=== PATIENT | female | born 1935 | race Caucasian/White ===

== ENCOUNTER → 2018-10-21 15:30 | Outpatient (CLI) | payer MEDICARE, SELFPAY ==
[2016-01-30 15:46] VITALS: BMI 36.0
[2018-10-21 16:05] LABS: Magnesium 1.8 mg/dL (1.6-2.6)
== END ==
PROVIDERS: Family Provider Family Medicine; PCP Family Medicine; Referring Provider Family Medicine; Visit Provider Family Medicine
DX: I48.92 Unspecified atrial flutter (principal)
CPT/HCPCS: 83735; 84484

== ENCOUNTER 2018-10-23 14:48 | Emergency (ER) | payer MEDICARE, SELFPAY ==
[2018-10-23 14:49] VITALS: BP 157/70; PULSE 70; RESP 18; TEMP 36.9; O2SAT 97; BMI 28.8
--- NOTE | 2018-10-23 15:07 | ED.VISSUMM ---
- ER Visit Summary Date of Service: 10/23/18 Chief Complaint: [] Irregular heartbeat found yesterday indicates she was forced to come to the hospital by her physicians History of Present Illness: The patient is a 82 F [] patient indicates that basically she has been in her usual state of good health she had a routine visit by her physicians yesterday during that evaluation she is found her regular heartbeat conversations were made with cardiology who recommended she be seen in the emergency room for further management options the patient refused to go to the emergency department as she states she feels fine she has had no chest pain no fever no cough no numbness weakness paresthesias she is basically functioning at her baseline she indicates she has an appointment to see Dr. Caceres of cardiology on Thursday, there was specific persistent concern that she should come to the emergency department so she was brought in she insists is nothing wrong with her, she wants nothing done no lab work etc. she indicates she had EKG yesterday she just wants us to contact cardiology to let them know that she is here and that she prefers to have things done as an outpatient Physical Examination: [] 150/70, she has a heart rate of about 70 it is slightly regular at times appears to be in A. fib but there is underlying sinus on the monitor General, no distress resting comfortably HEENT is generally unremarkable The neck is supple no adenopathy Cardiovascular, regular rate and rhythm with some runs of irregularity on the monitor Lungs, clear bilateral Abdomen, soft nontender Extremities, no clubbing cyanosis or edema Neurologic, awake alert answering questions appropriately moving all 4 extremities Patient is resting comfortably in the bed she is here with family she is awake and alert coherent and competent she does not wish to have any type of ED evaluation she asked that I contact Dr. Caceres to make him aware of that Talk with Dr. Caceres he recalls that the patient had a slight elevation in her troponin as when she went her to be evaluated, I discussed all of the patient and her family she understands all the above she understands the concept of occult cardiac disease and sudden etc. but again she states she feels fine wants to go home and will see Dr. Caceres as scheduled on Thursday and return for change in symptoms Test Results: [] Emergency Department Course and Treatment: [] Treatment Plan: [] Disposition: [] Home stable declined ED workup Impression: [] Irregular heartbeat, reportedly abnormal troponin, This note was generated with [employer] dictation software. It may contain incorrect words, spelling, and punctuation that were not noted in review of the chart prior to signing ED Disposition - Plan for ED Patient: Chief Complaint: General Illness Referrals: Tee Álvarez MD [Primary Care Provider] -
--- NOTE | 2018-10-23 15:12 | ED.DEP ---
ED Disposition - Plan for ED Patient: Chief Complaint: General Illness Instructions: ED Chest Pain Angina Stable, ED Afib Referrals: Tee Álvarez MD [Primary Care Provider] - Additional Instructions: Keep your appointment with Dr. Caceres and return for change in symptoms take 1 baby aspirin a day
[2018-10-23 15:21] VITALS: BP 144/67; PULSE 73; RESP 16; O2SAT 96
== END 2018-10-23 15:57 | disposition home or self-care (01) ==
LOC: ED 15:41
PROVIDERS: Emergency Provider Emergency Medicine; Family Provider Family Medicine; PCP Family Medicine
DX: I48.91 Unspecified atrial fibrillation (principal); R79.89 Other specified abnormal findings of blood chemistry
CPT/HCPCS: 99282

== ENCOUNTER 2022-03-06 11:53 | Inpatient (IN) | payer MEDICARE, MEDICAID, SELFPAY ==
[2022-03-06] VITALS (21 sets, daily range): BP systolic 151–204; BP diastolic 45–85; PULSE 60–77; RESP 16–19; TEMP 35.9–37.7; O2SAT 95–100; BMI 29.2
--- NOTE | 2022-03-06 12:06 | RAD_ITS ---
STUDY: X-RAY CHEST REASON FOR EXAM: Female, 86 years old. weakness TECHNIQUE: Single AP portable view of the chest. COMPARISON: None. FINDINGS: The lungs are clear and expanded. There is no demonstrated pleural abnormality. There is moderate cardiac enlargement. Normal mediastinum and can. Normal visualized pulmonary arteries. Normal visualized aortic arch and descending thoracic aorta. Normal visualized thoracic spine. Normal visualized ribs, clavicles, and shoulders. There is no demonstrated abnormality of the visualized soft tissue structures of the upper abdomen. RAD/Chest 1 View (Portable) IMPRESSION: No active disease. Electronically Signed: Thomas De La Cruz MD at 13:20 EDT ,
--- NOTE | 2022-03-06 12:07 | EKG12_ITS ---
Test Reason : ABNL LABS Blood Pressure : / mmHG Vent. Rate : 072 BPM Atrial Rate : 072 BPM P-R Int : 248 ms QRS Dur : 136 ms QT Int : 422 ms P-R-T Axes : 063 -46 108 degrees QTc Int : 462 ms Sinus rhythm with 1st degree A-V block with occasional Premature ventricular complexes Left axis deviation Non-specific intra-ventricular conduction block T wave abnormality, consider lateral ischemia Abnormal ECG Confirmed by PRINCE LAI, MEAGAN ([id number]), social media editor LEANNA POWERS ([id number]) on 03/12/2022 12:27:01 PM Referred By: NEY Confirmed By:MEAGAN MORRISON MD
[2022-03-06 12:37] LABS: Absolute Lymphocyte Count 2.18 X10^3/uL (0.83-4.51); Absolute Neutrophil Count 4.8 X10^3/uL (2.0-7.7); Basophil# 0.01 X10^3/uL; Basophil% 0.1 % (0-1); Eosinophil# 0.09 X10^3/uL; Eosinophils% 1.2 % (0-5); Hematocrit 15.7 % (37-47); Lymphocyte # 2.18 X10^3/ul (0.83-4.51); Lymphocyte % 27.9 % (19-41); Mean Corp Hgb Conc 32.5 g/dL (32-36); Mean Corpuscular Hgb 36.7 pg (27.0-32.0); Mean Corpuscular Volume 112.9 fL (81-99); Mean Platelet Vol. 9.2 fl (6.2-12.0); Monocyte# 0.67 X10^3/uL; Monocyte% 8.6 % (0-10); NRBC Flagged by Analyzer 0 % (0-5); Neutrophil # 4.81 X10^3/uL (2.7-7.7); Neutrophil % 61.7 % (47-70); POSITIVE COUNT YES; Platelet Count 236 K/mm3 (150-450); RBC Distribution Width SD 58.1 fl (35.1-43.9); Red Blood Count 1.39 M/mm3 (4.2-5.4); White Blood Count 7.8 K/mm3 (4.4-11.0)
[2022-03-06 12:41] LABS: Differential Indicated SCAN CRITERIA MET; Hemoglobin 5.1 g/dL (12.0-15.0)
[2022-03-06 12:42] LABS: International Normalized Ratio 1.5; Prothrombin Time (Protime)PT. 17.9 SECONDS (11.7-14.9)
[2022-03-06 12:43] LABS: Partial Thromboplast Time 33.8 Seconds (24.1-36.2)
[2022-03-06 12:49] LABS: Anion Gap 7 (5-15); BUN 25 mg/dL (7-18); Calcium,Total 9.5 mg/dL (8.5-10.1); Chloride 99 mmol/L (98-107); Creatinine, Serum 1.78 mg/dL (0.55-1.02); EST Glomerular Filtration Rate 29 mL/min (>60); Est Glom Filt Rate - Afr Amer 35 mL/min (>60); Estimated Creatinine Clearance 17.44 ml/min; Glucose 202 mg/dL (74-106); Potassium 4.2 mmol/L (3.5-5.1); Sodium Level 132 mmol/L (136-145)
--- NOTE | 2022-03-06 12:52 | EX.ED.DYSGE1 ---
HPI History of Present Illness Chief Complaint: Abn Labs Informant: patient and family Narrative Narrative: Patient is an 86-year-old female on chronic Xarelto as well as with chronic anemia presenting with worsening of her chronic anemia. She had outpatient blood work that showed a hemoglobin of 5.1. She follows with Dr. Oliva, hematology oncology. She has had a prior bone marrow biopsy for her anemia which was. Patient is receiving subcu Procrit weekly. Patient notes for the past 5 days she has been feeling worse. She had increased generalized weakness and shortness of breath. She also had a mild cough today. She denies any black or blood in her stool. Daughter states that they think it is her kidneys for the reason of her anemia. Patient denies any other acute complaints at this time. Paperwork faxed over from her hub associate office shows a hemoglobin of 5.1 drawn today. On 02/19 her hemoglobin is 7.5 and on 02/12 her hemoglobin is 7.3. [facility] Medical History Asthma Chronic atrial flutter Chronic kidney disease Essential (primary) hypertension Gout Hyperlipidemia Hypothyroidism Macrocytic anemia Obesity Tremor Type 2 diabetes mellitus Ventral hernia Home Medications allopurinol 100 mg PO DAILY 01/30/16 [History Last Taken Unknown] docusate sodium 100 mg PO DAILY 01/30/16 [History Last Taken Unknown] ferrous gluconate 325 mg PO DAILY 01/30/16 [History Last Taken 2 Days Ago ~02/11/16] fluticasone propion-salmeterol 1 puff INHALATION BID 01/30/16 [History Last Taken Unknown] indapamide 2.5 mg PO DAILY 01/30/16 [History Last Taken Unknown] montelukast 10 mg PO DAILY 01/30/16 [History Last Taken Unknown] nifedipine 60 mg PO DAILY 01/30/16 [History Last Taken Unknown] olmesartan 20 mg PO DAILY 01/30/16 [History Last Taken Unknown] potassium chloride 10 meq PO DAILY 01/30/16 [History Last Taken Unknown] simvastatin 20 mg PO QHS 01/30/16 [History Last Taken Unknown] albuterol sulfate 90 mcg/actuation aerosol inhaler INHALATION #18 g 04/19/19 [History Last Taken Unknown] gabapentin 300 mg capsule 300 mg PO TID cap 04/19/19 [History Last Taken Unknown] levothyroxine 137 mcg tablet 137 mcg PO DAILY #30 tab 04/19/19 [History Last Taken Unknown] metformin 500 mg 24 hr tablet,extended release 500 mg PO BID tab 04/19/19 [History Last Taken Unknown] metoprolol tartrate 25 mg tablet 12.5 mg PO BID tab 04/19/19 [History Last Taken Unknown] rivaroxaban 20 mg tablet 20 mg PO QPM #30 tab 04/19/19 [History Last Taken Unknown] calcium carbonate 600 mg-vitamin D3 20 mcg (800 unit) tablet 1 tab PO DAILY 08/23/21 [History Last Taken Unknown] glipizide 2.5 mg tablet, extended release 24 hr 7.5 mg PO DAILY tab 08/23/21 [History Last Taken Unknown] mecobalamin (vitamin B12) 5,000 mcg disintegrating tablet mcg PO 08/23/21 [History Last Taken Unknown] multivitamin 1 tab PO DAILY 08/23/21 [History Last Taken Unknown] Allergy/AdvReac Type Severity Reaction Status Date / Time propranolol AdvReac nausea Verified 03/06/22 11:56 Family History Mother Heart disease chf Father Heart disease chf Surgical History Bilateral artificial lens implant (~2019) History of tonsillectomy and adenoidectomy Social History Smoking Status: Never smoker alcohol intake: never substance use type: does not use caffeine: No ROS ROS ED Constitutional Constitutional ED: Denies chills or fever(s) Eyes Eyes: Denies change in vision ENT ENT ED: Denies ear pain or sore throat Cardiovascular Cardiovascular: Denies chest pain Respiratory/Chest Respiratory/Chest: Reports cough, dyspnea and dyspnea on exertion Gastrointestinal Gastrointestinal: Denies abdominal pain, diarrhea, melena, nausea or vomiting Genitourinary Genitourinary ED: Denies dysuria or hematuria Musculoskeletal Musculoskeletal: Denies myalgias Integumentary Denies rash Neurologic Neurologic: Reports weakness; Denies headache(s) EXAM Physical Exam Const Vital Signs: 03/06/22 11:53 03/06/22 12:19 Temperature 97.5 F L Temperature Source Temporal Pulse Rate 65 Respiratory Rate 16 Respiratory Effort Normal Respiratory Pattern Normal Blood Pressure 162/45 H Blood Pressure Mean 84 Pulse Ox 100 Oxygen Delivery Method Room Air Positive well nourished and well developed General Appearance ED: well developed, NAD and pallor HEENT Reports moist mucous membranes Negative for trauma Eyes PERRL and EOMs intact bilaterally General Eye ED: Yes pale conjunctiva Neck supple and no JVD Chest Wall inspection of chest normal Resp normal respiratory effort and clear to auscultation bilaterally Cardio regular rate, regular rhythm and no murmurs GI normal to inspection, nondistended, normoactive bowel sounds Back/Spine no CVA tenderness Extremity normal to inspection General Extremety ED: Negative for edema or tenderness General Extremity: Negative for edema Neuro oriented x3 Sensorium / Orientation: alert Motor Exam: general weakness Psych mental status grossly normal Skin no rashes or lesions noted General Skin Exam: pallor MDM MDM MDM Narrative Medical decision making narrative: Patient's evaluated for generalized weakness, worsening shortness of breath and worsening of her chronic anemia. Has a hemoglobin of 5.1. Will be transfused. Rectal exam shows brown stool that is Hemoccult negative. Patient does not appear to have high-output heart failure. She has chronic renal disease with a creatinine of 1.78. Most recent prior creatinine in our system was from 2017 so her actual baseline is not clear. Patient is consented for blood. Will be admitted for transfusion of 2 units and then further monitoring. Patient agreeable this plan of care. Patient hemodynamically stable in the emergency room. Lab Data Attestation: I reviewed the patient's lab results. Labs: Laboratory Results - last 24 hr 03/06/22 03/06/22 03/06/22 12:25 12:25 12:25 WBC 7.8 RBC 1.39 L Hgb 5.1 L* Hct 15.7 L MCV 112.9 H MCH 36.7 H MCHC 32.5 RDW Std Deviation 58.1 H RDW Coeff of Gloria 15.0 H Plt Count 236 MPV 9.2 Immature Gran % (Auto) 0.500 Neut % (Auto) 61.7 Lymph % (Auto) 27.9 Pettis % (Auto) 8.6 Eos % (Auto) 1.2 Baso % (Auto) 0.1 Absolute Neuts (auto) 4.8 Absolute Lymphs (auto) 2.18 Nucleated RBC % 0 Differential Comment SCANNED Diff Path Review May foll Anisocytosis 2+ Macrocytosis 2+ PT 17.9 H INR 1.5 APTT 33.8 Sodium 132 L Potassium 4.2 Chloride 99 Carbon Dioxide 26.0 Anion Gap 7 BUN 25 H Creatinine 1.78 H Estim Creat Clear Calc 17.44 Est GFR (MDRD) Af Amer 35 L Est GFR (MDRD) Non-Af 29 L BUN/Creatinine Ratio 14.0 Glucose 202 H Calcium 9.5 Urine Color Urine Clarity Urine pH Ur Specific [place] Urine Protein Urine Glucose (UA) Urine Ketones Urine Occult Blood Urine Nitrite Urine Bilirubin Urine Urobilinogen Ur Leukocyte Esterase Urine RBC Urine WBC Ur Squamous Epith Cells Urine Bacteria Urine Mucus Blood Type Antibody Screen Crossmatch 03/06/22 03/06/22 12:25 13:20 WBC RBC Hgb Hct MCV MCH MCHC RDW Std Deviation RDW Coeff of Gloria Plt Count MPV Immature Gran % (Auto) Neut % (Auto) Lymph % (Auto) Pettis % (Auto) Eos % (Auto) Baso % (Auto) Absolute Neuts (auto) Absolute Lymphs (auto) Nucleated RBC % Differential Comment Diff Path Review Anisocytosis Macrocytosis PT INR APTT Sodium Potassium Chloride Carbon Dioxide Anion Gap BUN Creatinine Estim Creat Clear Calc Est GFR (MDRD) Af Amer Est GFR (MDRD) Non-Af BUN/Creatinine Ratio Glucose Calcium Urine Color Yellow Urine Clarity Sl. Cloudy Urine pH 8.0 Ur Specific [place] 1.010 Urine Protein Negative Urine Glucose (UA) Normal Urine Ketones Negative Urine Occult Blood 10 H Urine Nitrite Negative Urine Bilirubin Negative Urine Urobilinogen Normal Ur Leukocyte Esterase 25 H Urine RBC 0-5 SEEN Urine WBC 0-5 SEEN Ur Squamous Epith Cells 0-5 SEEN Urine Bacteria 1+ Urine Mucus 0 SEEN Blood Type O POSITIVE Antibody Screen NEGATIVE Crossmatch See Detail Radiography Chest X-Ray - ED: 1 View, Read by ED Physician, Read by Radiologist and No Acute Disease Diagnostic Testing: Clinical Impression(s) from Imaging Studies Chest X-Ray 03/06/22 12:06 IMPRESSION: No active disease. Electronically Signed: Thomas De La Cruz MD at 13:20 EDT , Rhythm Strip Rhythm Strip: Sinus Rhythm Rate: 72 Ectopy: None EKG Initial EKG: Attestation: I personally reviewed and interpreted this EKG as follows: Interpretation: Sinus Rhythm Comments: Normal sinus rhythm at a rate of 72 with first-degree AV block TN interval 248 QRS 136 QTC 462 Left axis deviation Nonspecific interventricular conduction delay Non-STEMI T wave inversion in aVL with T wave flattening in 1 Discharge Plan Triage Chief Complaint: Abn Labs ED Provider: Lia Carpenter Dx/Rx/DC Orders Clinical Impression: Acute on chronic anemia, Chronic anticoagulation, Symptomatic anemia Prescriptions: No Action albuterol sulfate 90 mcg/actuation HFA aerosol inhaler INHALATION Qty: 18 RF: 0 metoprolol tartrate 25 mg tablet 12.5 mg PO BID RF: 0 levothyroxine 137 mcg tablet 137 mcg PO DAILY Qty: 30 RF: 0 rivaroxaban 20 mg tablet 20 mg PO QPM Qty: 30 RF: 0 glipizide 2.5 mg tablet extended release 24hr 7.5 mg PO DAILY RF: 0 multivitamin Tablet 1 tab PO DAILY RF: 0 calcium carbonate-vitamin D3 600 mg(1,500mg) -800 unit tablet 1 tab PO DAILY RF: 0 mecobalamin (vitamin B12) 5,000 mcg tablet,disintegrating PO RF: 0 fluticasone propion-salmeterol 1 PUFF inhaler 1 puff inhalation BID RF: 0 indapamide 2.5 MG tablet 2.5 mg PO DAILY RF: 0 potassium chloride 10 MEQ tablet extended release 10 meq PO DAILY RF: 0 allopurinol 100 MG tablet 100 mg PO DAILY RF: 0 nifedipine 60 MG tablet 60 mg PO DAILY RF: 0 simvastatin 20 MG tablet 20 mg PO QHS RF: 0 docusate sodium 100 MG capsule 100 mg PO DAILY RF: 0 montelukast 10 MG tablet 10 mg PO DAILY RF: 0 olmesartan 20 MG tablet 20 mg PO DAILY RF: 0 ferrous gluconate 325 MG tablet 325 mg PO DAILY RF: 0 gabapentin 300 mg capsule 300 mg PO TID RF: 0 metformin 500 mg tablet,ER gillian.retention 24 hr 500 mg PO BID RF: 0 Primary Care Provider: Tee Álvarez Referrals: Tee Álvarez MD [Primary Care Provider] - Disposition Disposition: Acute Care [facility]
[2022-03-06 13:04] LABS: Differential Comment SCANNED
[2022-03-06 13:05] LABS: Anisocytosis 2+; Macrocytosis 2+
[2022-03-06 13:26] LABS: Mucous, Urine 0 SEEN /hpf (<or=2+)
[2022-03-06 13:27] LABS: Color, Urine Yellow (Yellow); Glucose, Dipstick Normal (Normal); Ketone-Dipstick Negative (Negative); Leukocyte Esterase-Dipstick 25 /ul (Negative); Nitrite-Dipstick Negative (Negative); Occult Blood-Urine 10 /ul (Negative); Protein-Dipstick Negative (Negative); Urine Bilirubin Dipstick Negative (Negative); Urine Clarity Sl. Cloudy (Clear); Urine Urobilinogen Normal (Normal)
[2022-03-06 13:33] LABS: Bacteria 1+ /hpf (None Seen); Red Blood Cells-Urine 0-5 SEEN /hpf (0-5); Squamous Epithelial Cells - UA 0-5 SEEN /hpf (5-10); White Blood Cells 0-5 SEEN /hpf (0-5)
--- NOTE | 2022-03-06 14:28 | PCM.HP.STD ---
Documented by User: JONATHAN Jiménez 03/06/22 14:46 HPI - General General Date of Admission: 03/06/22 Date of Service: 03/06/22 Chief Complaint: Shortness of breath, fatigue HPI Narrative IRENA EASTON, is a 86 F who presents with complaints of shortness of breath and fatigue which has been worsening over the past 2 weeks. Patient states that she has been following with Dr. Oliva for outpatient evaluation of her anemia and when her labs were completed today she was noted to be severely anemic with a hemoglobin less than 7. Labs completed in ER shows a hemoglobin of 5.1. Patient has been ordered 2 units of packed red blood cells to be infused by Dr. Carpenter in the ER. Patient has a history of atrial fibrillation, hypertension, hyperlipidemia, diabetes mellitus type 2, hypothyroidism, iron deficiency anemia. [facility] Medical History Asthma Chronic atrial flutter Chronic kidney disease Essential (primary) hypertension Gout Hyperlipidemia Hypothyroidism Macrocytic anemia Obesity Tremor Type 2 diabetes mellitus Ventral hernia Home Medications allopurinol 100 mg PO DAILY 01/30/16 [History Last Taken Unknown] docusate sodium 100 mg PO DAILY 01/30/16 [History Last Taken Unknown] ferrous gluconate 325 mg PO DAILY 01/30/16 [History Last Taken 2 Days Ago ~02/11/16] fluticasone propion-salmeterol 1 puff INHALATION BID 01/30/16 [History Last Taken Unknown] indapamide 2.5 mg PO DAILY 01/30/16 [History Last Taken Unknown] montelukast 10 mg PO DAILY 01/30/16 [History Last Taken Unknown] nifedipine 60 mg PO DAILY 01/30/16 [History Last Taken Unknown] olmesartan 20 mg PO DAILY 01/30/16 [History Last Taken Unknown] potassium chloride 10 meq PO DAILY 01/30/16 [History Last Taken Unknown] simvastatin 20 mg PO QHS 01/30/16 [History Last Taken Unknown] albuterol sulfate 90 mcg/actuation aerosol inhaler INHALATION #18 g 04/19/19 [History Last Taken Unknown] gabapentin 300 mg capsule 300 mg PO TID cap 04/19/19 [History Last Taken Unknown] levothyroxine 137 mcg tablet 137 mcg PO DAILY #30 tab 04/19/19 [History Last Taken Unknown] metformin 500 mg 24 hr tablet,extended release 500 mg PO BID tab 04/19/19 [History Last Taken Unknown] metoprolol tartrate 25 mg tablet 12.5 mg PO BID tab 04/19/19 [History Last Taken Unknown] rivaroxaban 20 mg tablet 20 mg PO QPM #30 tab 04/19/19 [History Last Taken Unknown] calcium carbonate 600 mg-vitamin D3 20 mcg (800 unit) tablet 1 tab PO DAILY 08/23/21 [History Last Taken Unknown] glipizide 2.5 mg tablet, extended release 24 hr 7.5 mg PO DAILY tab 08/23/21 [History Last Taken Unknown] mecobalamin (vitamin B12) 5,000 mcg disintegrating tablet mcg PO 08/23/21 [History Last Taken Unknown] multivitamin 1 tab PO DAILY 08/23/21 [History Last Taken Unknown] Allergy/AdvReac Type Severity Reaction Status Date / Time propranolol AdvReac nausea Verified 03/06/22 11:56 Family History Mother Heart disease chf Father Heart disease chf Surgical History Bilateral artificial lens implant (~2019) History of tonsillectomy and adenoidectomy Social History Smoking Status: Never smoker alcohol intake: never substance use type: does not use caffeine: No ROS Constitutional Constitutional: Reports fatigue and weakness; Denies anorexia, chills, fever(s) or malaise Cardiovascular Cardiovascular: Denies chest pain, edema, orthopnea, palpitations or syncope Respiratory/Chest Respiratory/Chest: Reports shortness of breath with exertion; Denies cough or wheezing Gastrointestinal Gastrointestinal: Denies abdominal pain, constipation, diarrhea, nausea or vomiting Genitourinary Genitourinary: Denies dysuria Musculoskeletal Musculoskeletal: Denies back pain, extremity pain, joint pain or joint stiffness Integumentary Integumentary: Denies dry skin Neurologic Neurologic: Denies abnormal gait, abnormal speech, confusion or dizziness Psychiatric Psychiatric: Denies anxiety or depression Endocrine Endocrinology: Denies change in body appearance Hematologic/Lymphatic Hematologic/Lymphatic: Reports anemia; Denies easy bleeding Vital Signs Vital Signs Vital Signs: 03/06/22 11:53 05/26/22 12:19 Temperature 97.5 F L Temperature Source Temporal Pulse Rate 65 Respiratory Rate 16 Respiratory Effort Normal Respiratory Pattern Normal Blood Pressure 162/45 H Blood Pressure Mean 84 Pulse Ox 100 Oxygen Delivery Method Room Air Weight Weight: 155 lb Body Mass Index (BMI) 29.2 Physical Exam Const alert, oriented x3 and no apparent distress General Appearance: cooperative HEENT normocephalic and head/scalp atraumatic Eyes conjunctivae normal and no scleral icterus Neck supple General: trachea midline Lymph Lymphatic: no lymphadenopathy noted Resp normal respiratory effort, normal air movement and clear to auscultation bilaterally Effort and Inspection: able to speak in complete sentences and symmetric chest movement Cardio regular rate, regular rhythm, S1 normal heart sound, S2 normal heart sound and peripheral pulses 2+ throughout GI normal to inspection, nondistended, normoactive bowel sounds, soft to palpation and non-tender Extremity normal capillary refill and no clubbing, cyanosis or edema Skin General Skin Exam: no breakdown and turgor normal Lesions: no lesions Rashes: no rashes Neuro no focal motor deficits and no sensory deficits noted Motor Exam: general weakness Psych thought process normal, cooperative and affect normal Appearance: appropriate Results Lab / Micro Data Result Diagrams: 03/06/22 12:25 03/06/22 12:25 Labs: Laboratory Results - last 24 hr 03/06/22 12:25: WBC 7.8, RBC 1.39 L, Hgb 5.1 L*, Hct 15.7 L, MCV 112.9 H, MCH 36.7 H, MCHC 32.5, RDW Std Deviation 58.1 H, RDW Coeff of Gloria 15.0 H, Plt Count 236, MPV 9.2, Immature Gran % (Auto) 0.500, Neut % (Auto) 61.7, Lymph % (Auto) 27.9, Emm[place] % (Auto) 8.6, Eos % (Auto) 1.2, Baso % (Auto) 0.1, Absolute Neuts (auto) 4.8, Absolute Lymphs (auto) 2.18, Nucleated RBC % 0, Differential Comment SCANNED, Diff Path Review May foll, Anisocytosis 2+, Macrocytosis 2+ 03/06/22 12:25: PT 17.9 H, INR 1.5, APTT 33.8 03/06/22 12:25: Sodium 132 L, Potassium 4.2, Chloride 99, Carbon Dioxide 26.0, Anion Gap 7, BUN 25 H, Creatinine 1.78 H, Estim Creat Clear Calc 17.44, Est GFR (MDRD) Af Amer 35 L, Est GFR (MDRD) Non-Af 29 L, BUN/Creatinine Ratio 14.0, Glucose 202 H, Calcium 9.5 03/06/22 12:25: Blood Type O POSITIVE, Antibody Screen NEGATIVE, Crossmatch See Detail 03/06/22 13:20: Urine Color Yellow, Urine Clarity Sl. Cloudy, Urine pH 8.0, Ur Specific [place] 1.010, Urine Protein Negative, Urine Glucose (UA) Normal, Urine Ketones Negative, Urine Occult Blood 10 H, Urine Nitrite Negative, Urine Bilirubin Negative, Urine Urobilinogen Normal, Ur Leukocyte Esterase 25 H, Urine RBC 0-5 SEEN, Urine WBC 0-5 SEEN, Ur Squamous Epith Cells 0-5 SEEN, Urine Bacteria 1+, Urine Mucus 0 SEEN Micro: Microbiology 03/06/22 13:45 Stool Stool Occult Blood (INGRID) - Final 03/06/22 13:10 Nasal Secretion SARS-CoV-2 Antigen (Rapid) - Final Rhythm Strip Rhythm Strip: Sinus Rhythm Rate: 72 Ectopy: None Radiology Impression Chest X-Ray 03/06/22 12:06 IMPRESSION: No active disease. Electronically Signed: Thomas De La Cruz MD at 13:20 EDT Reading Location ID and State: [address] [place] [address] Tel , Service support , Assessment & Plan Assessment/Plan (1) Acute on chronic anemia: (2) Chronic anticoagulation: (3) Symptomatic anemia: PLAN: 1. Acute on chronic symptomatic anemia -Admit to PCU for cardiac monitoring -Transfused 2 units PRBCs and recheck hemoglobin -CBC and CMP in a.m. -PT and OT to eval and treat -Continue ferrous gluconate -Stool occult negative for blood -Iron studies ordered -Hold Xarelto 2. Chronic kidney disease stage IIIb -Patient's lab values consistent with baseline -Daily CMP 3. Diabetes mellitus type 2 -We will hold p.o. medications at this time -ACH S blood sugars with sliding scale insulin ordered 4. Hypothyroidism -Continue levothyroxine 5. Hypertension -Continue indapamide, nifedipine. -Vital signs per protocol 6. Hyperlipidemia -Continue statin DVT prophylaxis-SCDs This patient was seen by JONATHAN Jiménez under the supervision of Dr. Saunders. 31 minutes spent in clinical coordination of patient's plan of care. Documented by User: Dr. Abida Saunders MD 03/06/22 16:49 HPI - General General Date of Admission: 03/06/22 [facility] Medical History Asthma Chronic atrial flutter Chronic kidney disease Essential (primary) hypertension Gout Hyperlipidemia Hypothyroidism Macrocytic anemia Obesity Tremor Type 2 diabetes mellitus Ventral hernia Home Medications allopurinol 100 mg PO DAILY 01/30/16 [History Last Taken Unknown] docusate sodium 100 mg PO DAILY 01/30/16 [History Last Taken Unknown] ferrous gluconate 325 mg PO DAILY 01/30/16 [History Last Taken 2 Days Ago ~02/11/16] fluticasone propion-salmeterol 1 puff INHALATION BID 01/30/16 [History Last Taken Unknown] indapamide 2.5 mg PO DAILY 01/30/16 [History Last Taken Unknown] montelukast 10 mg PO DAILY 01/30/16 [History Last Taken Unknown] nifedipine 60 mg PO DAILY 01/30/16 [History Last Taken Unknown] olmesartan 20 mg PO DAILY 01/30/16 [History Last Taken Unknown] potassium chloride 10 meq PO DAILY 01/30/16 [History Last Taken Unknown] simvastatin 20 mg PO QHS 01/30/16 [History Last Taken Unknown] albuterol sulfate 90 mcg/actuation aerosol inhaler INHALATION #18 g 04/19/19 [History Last Taken Unknown] gabapentin 300 mg capsule 300 mg PO TID cap 04/19/19 [History Last Taken Unknown] levothyroxine 137 mcg tablet 137 mcg PO DAILY #30 tab 07/09/19 [History Last Taken Unknown] metformin 500 mg 24 hr tablet,extended release 500 mg PO BID tab 04/19/19 [History Last Taken Unknown] metoprolol tartrate 25 mg tablet 12.5 mg PO BID tab 04/19/19 [History Last Taken Unknown] rivaroxaban 20 mg tablet 20 mg PO QPM #30 tab 04/19/19 [History Last Taken Unknown] calcium carbonate 600 mg-vitamin D3 20 mcg (800 unit) tablet 1 tab PO DAILY 08/23/21 [History Last Taken Unknown] glipizide 2.5 mg tablet, extended release 24 hr 7.5 mg PO DAILY tab 08/23/21 [History Last Taken Unknown] mecobalamin (vitamin B12) 5,000 mcg disintegrating tablet mcg PO 08/23/21 [History Last Taken Unknown] multivitamin 1 tab PO DAILY 08/23/21 [History Last Taken Unknown] Allergy/AdvReac Type Severity Reaction Status Date / Time propranolol AdvReac nausea Verified 03/06/22 11:56 Family History Mother Heart disease chf Father Heart disease chf Surgical History Bilateral artificial lens implant (~2019) History of tonsillectomy and adenoidectomy Social History Smoking Status: Never smoker alcohol intake: never substance use type: does not use caffeine: No Results Lab / Micro Data Result Diagrams: 03/06/22 12:25 03/06/22 12:25 Charges/Coding Addendum Addendum: This patient was seen in conjunction with Lenny Hayward NP. I have independently interviewed and examined the patient and reviewed pertinent historical, laboratory, and other data. I have reviewed her note and concur with her documentation 86-year-old female past medical history of atrial fibrillation/atrial flutter, on Xarelto, chronic microcytic anemia who comes in with abnormal blood work. Patient follows up with oncology in the outpatient. She has had work-up for severe anemia with normal bone marrow. Her anemia was believed to be secondary to her chronic kidney disease. She was due to start with Epogen/Procrit treatment.. Hemoglobin on 02/19/2022 was 7.5, hemoglobin on 02/12/2022 was 7.3. Patient presents hemoglobin 5.1. Denies any chest pain or dizziness or palpitation. Admits to fatigue and shortness of breath. She was started on 2 units of packed RBC. Physical Exam: Gen: Comfortable, pale, not jaundiced, appears very frail CVS:HS I +II, regular, no murmurs RESP: Diminished at lung bases GI: BS present and normal, soft, nontender, no palpable organs EXT:No edema Labs: WBC count is 7.8, hemoglobin 5.1, platelet count 230, INR 1.5, BUN 25, creatinine 1.78, iron sat 21.9, TIBC 310, iron 68, ferritin 374 ASSESSMENT: 1. Severe iron deficiency anemia 2. Chronic atrial fibrillation 3. Hypertension 4. Hyperlipidemia Plan: Transfuse 2 units of packed RBC Repeat H&H PT and OT to evaluate and treat Repeat blood work in a.m. Time spent taking history, physical examination, answering questions from patient and her daughter at bedside: 45 minutes Visit Charges Inpatient E&M: 58226 Init Hosp L3
[2022-03-06 15:14] LABS: Ferritin 374 ng/mL (8-252); Iron 68 ug/dL (50-170); Iron Binding Capacity,Total 310 ug/dL (250-450); PERCENT IRON SATURATION 21.9 % (15.0-55.0)
[2022-03-06 16:06] LABS: Bedside Glucose 129 mg/dL (74-106)
[2022-03-06] MEDS: Furosemide 40 MG/4 ML Vial IV (16:27)
[2022-03-06] MEDS: Glucerna Shake 120 ML LIQUID PO ×2 (16:41→22:30)
[2022-03-06] MEDS: hydrALAZINE 20 MG/ML Vial 5 MG IV (18:25)
[2022-03-06] MEDS: Budesonide Respules 0.5 MG/2 ML AMPUL.NEB. INHALATION (19:19)
[2022-03-06] MEDS: Albuterol 2.5 MG/3 ML VIAL.NEB. INHALATION (19:19)
[2022-03-06] MEDS: Acetaminophen 325 MG Tablet 650 MG PO (22:29)
[2022-03-06] MEDS: Atorvastatin Calcium 20 MG Tablet PO (22:37)
[2022-03-06] MEDS: Gabapentin 300 MG Capsule PO (22:41)
[2022-03-06] MEDS: Insulin Lispro 100 UNIT/ML INSULN.PEN SC (22:44)
[2022-03-07] VITALS (7 sets, daily range): BP systolic 129–154; BP diastolic 47–70; PULSE 57–106; RESP 12–18; TEMP 36.6–36.9; O2SAT 96–100
[2022-03-07 05:56] LABS: Absolute Lymphocyte Count 1.94 X10^3/uL (0.83-4.51); Absolute Neutrophil Count 12.4 X10^3/uL (2.0-7.7); Basophil# 0.01 X10^3/uL; Basophil% 0.1 % (0-1); Eosinophil# 0.02 X10^3/uL; Eosinophils% 0.1 % (0-5); Hemoglobin 8.4 g/dL (12.0-15.0); Lymphocyte # 1.94 X10^3/ul (0.83-4.51); Lymphocyte % 12.6 % (19-41); Mean Corp Hgb Conc 33.6 g/dL (32-36); Mean Corpuscular Hgb 33.3 pg (27.0-32.0); Mean Corpuscular Volume 99.2 fL (81-99); Mean Platelet Vol. 9.7 fl (6.2-12.0); Monocyte# 0.94 X10^3/uL; Monocyte% 6.1 % (0-10); NRBC Flagged by Analyzer 0 % (0-5); Neutrophil # 12.38 X10^3/uL (2.7-7.7); Neutrophil % 80.6 % (47-70); POSITIVE MORPHOLOGY YES; Platelet Count 243 K/mm3 (150-450); RBC Distribution Width CV 22.7 % (11.6-14.6); RBC Distribution Width SD 78.3 fl (35.1-43.9); Red Blood Count 2.52 M/mm3 (4.2-5.4); White Blood Count 15.4 K/mm3 (4.4-11.0)
[2022-03-07 05:59] LABS: Differential Indicated SCAN CRITERIA MET
[2022-03-07] MEDS: Levothyroxine 137 MCG Tablet PO (05:59)
[2022-03-07] MEDS: Gabapentin 300 MG Capsule PO ×2 (06:02→13:11)
[2022-03-07 06:21] LABS: Bedside Glucose 161 mg/dL (74-106)
[2022-03-07 06:23] LABS: ALB/GLOB Ratio 0.9 RATIO (0.9-2.4); AST(SGOT) 17 U/L (15-37); Alanine Aminotransfer ALT/SGPT 16 U/L (13-56); Albumin, Serum 3.1 g/dL (3.2-5.0); Alkaline Phosphatase 50 U/L (45-117); Anion Gap 8 (5-15); BUN 25 mg/dL (7-18); Calcium,Total 9.1 mg/dL (8.5-10.1); Chloride 97 mmol/L (98-107); Creatinine, Serum 1.93 mg/dL (0.55-1.02); EST Glomerular Filtration Rate 26 mL/min (>60); Est Glom Filt Rate - Afr Amer 32 mL/min (>60); Estimated Creatinine Clearance 16.08 ml/min; Globulin 3.3 g/dL (2.2-4.2); Glucose 167 mg/dL (74-106); Protein, Total 6.4 g/dL (6.4-8.2); Sodium Level 132 mmol/L (136-145)
[2022-03-07 06:36] LABS: Anisocytosis 1+; Differential Comment SCANNED; Polychromasia RARE
[2022-03-07 06:37] LABS: Hypochromasia 1+
[2022-03-07 06:45] LABS: Bedside Glucose 164 mg/dL (74-106)
[2022-03-07] MEDS: Insulin Lispro 100 UNIT/ML INSULN.PEN SC ×2 (06:50→11:26)
--- NOTE | 2022-03-07 07:15 | US_ITS ---
HISTORY: GAY. TECHNIQUE: Brewster scale and color doppler images were obtained of the kidneys. 69 images. COMPARISON: None. FINDINGS: RIGHT KIDNEY: 9.7 cm in length with a cortical thickness of 1 cm. Echogenicity unremarkable. No hydronephrosis. No gross renal mass demonstrated. LEFT KIDNEY: 10.3 cm in length with a cortical thickness of 1.2 cm. Echogenicity unremarkable. No hydronephrosis. 1.3 x 1.1 x 1.2 cm cyst. URINARY BLADDER: Bilateral ureteral jets visualized. 3 mm wall thickness, not thickened. US/Kidney and Bladder IMPRESSION: No evidence of hydronephrosis. Small left renal cyst. Electronically Signed: Brigida Wharton MD at 8:23 EDT ,
[2022-03-07] MEDS: Albuterol 2.5 MG/3 ML VIAL.NEB. INHALATION ×2 (07:16→12:30)
[2022-03-07] MEDS: Budesonide Respules 0.5 MG/2 ML AMPUL.NEB. INHALATION (07:16)
[2022-03-07] MEDS: Indapamide 2.5 MG Tablet PO (08:33)
[2022-03-07] MEDS: NIFEdipine 60 MG Tablet PO (08:34)
[2022-03-07] MEDS: Docusate Sodium 100 MG Capsule PO (08:34)
[2022-03-07] MEDS: Ferrous Sulfate 325 MG Tablet PO (08:34)
[2022-03-07] MEDS: Potassium Chloride Oral Tablet 10 MEQ PO (08:34)
[2022-03-07] MEDS: Multivitamins,Therapeutic Tablet 1 TABLET PO (08:34)
[2022-03-07] MEDS: Glucerna Shake 120 ML LIQUID PO ×2 (08:41→08:44)
[2022-03-07] MEDS: Montelukast 10 MG Tablet PO (08:41)
--- NOTE | 2022-03-07 09:07 | PCM.PN.HOSP ---
Subjective Subjective Seen and examined. Patient in bed eating breakfast no distress noted. Patient reports that she is feeling better than yesterday and does not feel short of breath at this time. Patient received 2 units packed red blood cells overnight and hemoglobin went from 5.1-8.4. Objective Data Objective Data Vital Signs: Vital Signs Temp Pulse Resp BP Pulse Ox 97.9 F 68 18 154/56 H 96 03/07/22 08:31 03/07/22 08:31 03/07/22 08:31 03/07/22 08:31 03/07/22 08:31 Oxygen Delivery Method Room Air Weight: 159 lb 9.835 oz Body Mass Index (BMI) 29.2 Intake & Output: Intake and Output for Last 24 Hours 03/05/22 03/06/22 03/07/22 23:59 23:59 23:59 Intake Total 780 / 780 Output Total 900 / 2450 2049 / 2049 Balance -120 / -1670 -2049 / -2049 Lab / Micro Data Result Diagrams: 03/07/22 05:06 03/07/22 05:06 Labs: Laboratory Results - last 24 hr 03/06/22 12:25: WBC 7.8, RBC 1.39 L, Hgb 5.1 L*, Hct 15.7 L, MCV 112.9 H, MCH 36.7 H, MCHC 32.5, RDW Std Deviation 58.1 H, RDW Coeff of Gloria 15.0 H, Plt Count 236, MPV 9.2, Immature Gran % (Auto) 0.500, Neut % (Auto) 61.7, Lymph % (Auto) 27.9, Coleman % (Auto) 8.6, Eos % (Auto) 1.2, Baso % (Auto) 0.1, Absolute Neuts (auto) 4.8, Absolute Lymphs (auto) 2.18, Nucleated RBC % 0, Differential Comment SCANNED, Diff Path Review May foll, Anisocytosis 2+, Macrocytosis 2+ 03/06/22 12:25: PT 17.9 H, INR 1.5, APTT 33.8 03/06/22 12:25: Sodium 132 L, Potassium 4.2, Chloride 99, Carbon Dioxide 26.0, Anion Gap 7, BUN 25 H, Creatinine 1.78 H, Estim Creat Clear Calc 17.44, Est GFR (MDRD) Af Amer 35 L, Est GFR (MDRD) Non-Af 29 L, BUN/Creatinine Ratio 14.0, Glucose 202 H, Calcium 9.5 03/06/22 12:25: Blood Type O POSITIVE, Antibody Screen NEGATIVE, Crossmatch See Detail 03/06/22 12:25: Iron 68, TIBC 310, Iron Saturation 21.9, Ferritin 374 H 03/06/22 13:20: Urine Color Yellow, Urine Clarity Sl. Cloudy, Urine pH 8.0, Ur Specific [place] 1.010, Urine Protein Negative, Urine Glucose (UA) Normal, Urine Ketones Negative, Urine Occult Blood 10 H, Urine Nitrite Negative, Urine Bilirubin Negative, Urine Urobilinogen Normal, Ur Leukocyte Esterase 25 H, Urine RBC 0-5 SEEN, Urine WBC 0-5 SEEN, Ur Squamous Epith Cells 0-5 SEEN, Urine Bacteria 1+, Urine Mucus 0 SEEN 03/06/22 16:02: POC Glucose 129 H 03/06/22 22:36: POC Glucose 161 H 03/07/22 05:06: WBC 15.4 H, RBC 2.52 L, Hgb 8.4 L, Hct 25.0 L, MCV 99.2 H D, MCH 33.3 H, MCHC 33.6, RDW Std Deviation 78.3 H, RDW Coeff of Gloria 22.7 H, Plt Count 243, MPV 9.7, Immature Gran % (Auto) 0.500, Neut % (Auto) 80.6 H, Lymph % (Auto) 12.6 L, Coleman % (Auto) 6.1, Eos % (Auto) 0.1, Baso % (Auto) 0.1, Absolute Neuts (auto) 12.4 H, Absolute Lymphs (auto) 1.94, Nucleated RBC % 0, Differential Comment SCANNED, Polychromasia RARE, Hypochromasia 1+, Anisocytosis 1+ 03/07/22 05:06: Sodium 132 L, Potassium 4.0, Chloride 97 L, Carbon Dioxide 27.0, Anion Gap 8, BUN 25 H, Creatinine 1.93 H, Estim Creat Clear Calc 16.08, Est GFR (MDRD) Af Amer 32 L, Est GFR (MDRD) Non-Af 26 L, BUN/Creatinine Ratio 13.0, Glucose 167 H, Calcium 9.1, Total Bilirubin 1.10 H, AST 17, ALT 16, Alkaline Phosphatase 50, Total Protein 6.4, Albumin 3.1 L, Globulin 3.3, Albumin/Globulin Ratio 0.9 03/07/22 06:29: POC Glucose 164 H Micro: Microbiology 03/06/22 13:45 Stool Stool Occult Blood (INGRID) - Final 03/06/22 13:10 Nasal Secretion SARS-CoV-2 Antigen (Rapid) - Final Radiography Diagnostic Testing: Radiology Impression Chest X-Ray 03/06/22 12:06 IMPRESSION: No active disease. Electronically Signed: Thomas De La Cruz MD at 13:20 EDT , Renal Ultrasound 03/07/22 07:15 IMPRESSION: No evidence of hydronephrosis. Small left renal cyst. Electronically Signed: Brigida Wharton MD at 8:23 EDT , Rhythm Strip Rhythm Strip: Sinus Rhythm Rate: 72 Ectopy: None Physical Exam Const alert, oriented x3 and no apparent distress General Appearance: cooperative HEENT normocephalic and head/scalp atraumatic Eyes conjunctivae normal and no scleral icterus Neck supple General: trachea midline Lymph Lymphatic: no lymphadenopathy noted Resp normal respiratory effort, normal air movement and clear to auscultation bilaterally Effort and Inspection: able to speak in complete sentences and symmetric chest movement Cardio regular rate, regular rhythm, S1 normal heart sound, S2 normal heart sound and peripheral pulses 2+ throughout GI normal to inspection, nondistended, normoactive bowel sounds, soft to palpation and non-tender Extremity normal capillary refill and no clubbing, cyanosis or edema Skin no rashes or lesions noted General Skin Exam: no breakdown and turgor normal Lesions: no lesions Rashes: no rashes Neuro no focal motor deficits and no sensory deficits noted Motor Exam: general weakness Psych thought process normal, cooperative and affect normal Appearance: appropriate Assessment & Plan Assessment/Plan (1) Acute on chronic anemia: (2) Chronic anticoagulation: (3) Symptomatic anemia: PLAN: 1. Acute on chronic symptomatic anemia -She received 2 units packed red blood cells and repeat hemoglobin this a.m. 8.4 -CBC and CMP daily -PT and OT to eval and treat -Continue ferrous gluconate -Stool occult negative for blood -Iron, TIBC, iron saturation within normal limits, ferritin elevated at 374 2. Chronic kidney disease stage IIIb -Patient's lab values consistent with baseline -Daily CMP 3. Diabetes mellitus type 2 -Hold p.o. medications at this time -ACH S blood sugars with sliding scale insulin ordered 4. Hypothyroidism -Continue levothyroxine 5. Hypertension -Continue indapamide, nifedipine. -Vital signs per protocol 6. Hyperlipidemia -Continue statin DVT prophylaxis-SCDs This patient was seen by JONATHAN Jiménez under the supervision of Dr. Saunders. 13 minutes spent in clinical coordination of patient's plan of care.
--- NOTE | 2022-03-07 09:45 | CASEMGMT ---
SANJUANITA SMITH assessment: Face to Face with patient for initial transition planning/care coordination assessment. SANJUANITA SMITH introduced self and role at [facility], pt voices understanding and consents to assessment. Pt is sitting up in bed in no distress on room air. Pt is A/Ox4 and answers all questions appropriately. Care providers, pharmacy, and demographics verified. Presentation: Pt c/o weak/tired at Dr's for chronic anemia-Hgb down to 5.1-pt w/ no hx transfusion Admitting dx: Severe anemia PCP: Preeti Specialists: casey Oliva; Scheduled to see nephro as they believe anemia is d/t chronic kidney disease [facility] [facility] Prescription Benefit: Yes Living Will/HPOA: Pt states has LW/HPOA and is aware that they are not on file at [facility]. Pt states her daughter, Aranza Fregoso, is HPOA. LNOK: Aranza Fregoso, daughter Living Arrangements: Pt lives alone in 1 story apt and states no concerns at home. Pt is independent with ADL's. Transportation: Pt states daughter drives or she takes a cab and states no transportation concerns. DME/HHC: Pt has a rollator and grab bars in shower and declines need for any further DME. Pt states no hx of HHC or SNF. Pt states no concerns with going home at time of discharge. Pt is retired. Pt states does not smoke cigarettes or drink ETOH. Pt voices no further concerns/needs. CM to follow for therapy notes and any further d/c planning/needs. Advised pt to ask for CM if any further questions/concerns/needs arise, voices understanding. Pt Goal: [place] SANJUANITA SMITH
[2022-03-07 11:25] LABS: Pathologist Review Reviewed
[2022-03-07 11:35] LABS: Bedside Glucose 294 mg/dL (74-106)
--- NOTE | 2022-03-07 12:39 | PCM.DC ---
Discharge Instructions Diet Discharge Diet: Low fat / Low cholesterol and 2000 Calorie Control Diet Activity Discharge Activity: Return to Normal Activity Dressing / Incision Call your doctor if you observe: Shortness of breath, Chest pain and Increased palpitations (irregular heartbeat) Follow Up Care Please Follow Up With: Tee Álvarez MD When: 1 week Test Results: Test results from this visit will be discussed in further detail at your follow-up appointment, if applicable. Discharge Plan Admission Admit Date/Time: 03/06/22 14:07 Primary Reason for Your Visit: Anemia Attending Provider: Abida Saunders Primary Care Provider: Tee Álvarez Instructions Additional Instructions / Restrictions: Call your physician upon discharge as you will need follow up blood work within one week Discharge Orders/Prescriptions Prescriptions: Continued albuterol sulfate 90 mcg/actuation HFA aerosol inhaler 2 puff INHALATION Q4H PRN (Reason: sob/wheezing) Qty: 18 RF: 0 levothyroxine 137 mcg tablet 137 mcg PO DAILY Qty: 30 RF: 0 rivaroxaban 20 mg tablet 20 mg PO QPM Qty: 30 RF: 0 glipizide 2.5 mg tablet extended release 24hr 7.5 mg PO DAILY RF: 0 multivitamin Tablet 1 tab PO DAILY RF: 0 calcium carbonate-vitamin D3 600 mg(1,500mg) -800 unit tablet 1 tab PO DAILY RF: 0 fluticasone propion-salmeterol 1 PUFF inhaler 1 puff inhalation BID RF: 0 indapamide 2.5 MG tablet 2.5 mg PO DAILY RF: 0 potassium chloride 10 MEQ tablet extended release 10 meq PO DAILY RF: 0 allopurinol 100 MG tablet 300 mg PO DAILY RF: 0 nifedipine 60 MG tablet 60 mg PO DAILY RF: 0 simvastatin 20 MG tablet 20 mg PO QHS RF: 0 docusate sodium 100 MG capsule 100 mg PO DAILY RF: 0 montelukast 10 MG tablet 10 mg PO DAILY RF: 0 ferrous gluconate 325 MG tablet 325 mg PO BID RF: 0 gabapentin 300 mg capsule 300 mg PO TID RF: 0 losartan 25 mg tablet 25 mg PO DAILY RF: 0 Januvia 50 mg tablet 50 mg PO DAILY RF: 0 cyanocobalamin (vitamin B-12) 1 tablet PO/SL DAILY RF: 0 Referrals / Follow Up: Tee Álvarez MD [Primary Care Provider] - Disposition Disposition (needs filled in before D/C Order can be placed): Home, Self Care
--- NOTE | 2022-03-07 12:44 | DS.PCM_ITS ---
Documented by User: JONATHAN Jiménez 03/07/22 12:47 Providers Date of Admission: 03/06/22 Primary Care Physician: Dr. 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 (3) Symptomatic anemia: Status: Acute Code(s): D64.9 - Anemia, unspecified Medications at Discharge Home Medications allopurinol 300 mg PO DAILY 01/30/16 docusate sodium 100 mg PO DAILY 01/30/16 ferrous gluconate 325 mg PO BID 01/30/16 fluticasone propion-salmeterol 1 puff INHALATION BID 01/30/16 indapamide 2.5 mg PO DAILY 01/30/16 montelukast 10 mg PO DAILY 01/30/16 nifedipine 60 mg PO DAILY 01/30/16 potassium chloride 10 meq PO DAILY 01/30/16 simvastatin 20 mg PO QHS 01/30/16 albuterol sulfate 90 mcg/actuation aerosol inhaler 2 puff INHALATION Q4H PRN #18 g 04/19/19 gabapentin 300 mg capsule 300 mg PO TID cap 04/19/19 levothyroxine 137 mcg tablet 137 mcg PO DAILY #30 tab 04/19/19 rivaroxaban 20 mg tablet 20 mg PO QPM #30 tab 04/19/19 calcium carbonate 600 mg-vitamin D3 20 mcg (800 unit) tablet 1 tab PO DAILY 08/23/21 glipizide 2.5 mg tablet, extended release 24 hr 7.5 mg PO DAILY tab 08/23/21 multivitamin 1 tab PO DAILY 08/23/21 Januvia 50 mg PO DAILY 03/06/22 cyanocobalamin (vitamin B-12) 1 tablet PO/SL DAILY 03/06/22 losartan 25 mg PO DAILY 03/06/22 Hospital Course Operations None Procedures Blood transfusion Summary of Care Provided Minutes Spent on Discharge: 35 Hospital Course: Patient is an 86-year-old female who was initially admitted on 03/06/2022 for acute on chronic anemia. Patient follows with Dr. Fortune for outpatient work-up of anemia and was noted to have a significantly lower hemoglobin. Upon evaluation in ER patient's hemoglobin was noted to be 5.1 and patient received 2 units of packed red blood cells overnight. Patient's repeat hemoglobin from the morning of 03/07/2022 8.4. Patient encouraged to follow-up with her PCP in 1 week as she will need repeat blood work. Patient should also follow-up with Dr. Purdy as scheduled. Patient noted to have chronic kidney disease for which patient is pursuing outpatient work-up and has a appointment for nephrology scheduled. Physical Exam Const alert, oriented x3 and no apparent distress General Appearance: cooperative HEENT normocephalic and head/scalp atraumatic Eyes conjunctivae normal and no scleral icterus Neck supple General: trachea midline Lymph Lymphatic: no lymphadenopathy noted Resp normal respiratory effort, normal air movement and clear to auscultation bilaterally Effort and Inspection: able to speak in complete sentences and symmetric chest m ovement Cardio regular rate, regular rhythm, S1 normal heart sound, S2 normal heart sound and peripheral pulses 2+ throughout GI normal to inspection, nondistended, normoactive bowel sounds, soft to palpation and non-tender Extremity normal capillary refill and no clubbing, cyanosis or edema Skin no rashes or lesions noted General Skin Exam: no breakdown and turgor normal Lesions: no lesions Rashes: no rashes Neuro no focal motor deficits and no sensory deficits noted Motor Exam: general weakness Psych thought process normal, cooperative and affect normal Appearance: appropriate Weight / BMI Weight Weight: 159 lb 9.835 oz Body Mass Index (BMI) 29.2 ABG / Lab / Microbiology Data Result Diagrams: 03/07/22 05:06 03/07/22 05:06 Laboratory: Laboratory Results - last 24 hr 03/06/22 12:25: Differential Comment SCANNED, Diff Path Review Reviewed, Anisocytosis 2+, Macrocytosis 2+ 03/06/22 12:25: Sodium 132 L, Potassium 4.2, Chloride 99, Carbon Dioxide 26.0, Anion Gap 7, BUN 25 H, Creatinine 1.78 H, Estim Creat Clear Calc 17.44, Est GFR (MDRD) Af Amer 35 L, Est GFR (MDRD) Non-Af 29 L, BUN/Creatinine Ratio 14.0, Glucose 202 H, Calcium 9.5 03/06/22 12:25: Blood Type O POSITIVE, Antibody Screen NEGATIVE, Crossmatch See Detail 03/06/22 12:25: Iron 68, TIBC 310, Iron Saturation 21.9, Ferritin 374 H 03/06/22 13:20: Urine Color Yellow, Urine Clarity Sl. Cloudy, Urine pH 8.0, Ur Specific [place] 1.010, Urine Protein Negative, Urine Glucose (UA) Normal, Urine Ketones Negative, Urine Occult Blood 10 H, Urine Nitrite Negative, Urine Bilirubin Negative, Urine Urobilinogen Normal, Ur Leukocyte Esterase 25 H, Urine RBC 0-5 SEEN, Urine WBC 0-5 SEEN, Ur Squamous Epith Cells 0-5 SEEN, Urine Bacteria 1+, Urine Mucus 0 SEEN 03/06/22 16:02: POC Glucose 129 H 03/06/22 22:36: POC Glucose 161 H 03/07/22 05:06: WBC 15.4 H, RBC 2.52 L, Hgb 8.4 L, Hct 25.0 L, MCV 99.2 H D, MCH 33.3 H, MCHC 33.6, RDW Std Deviation 78.3 H, RDW Coeff of Gloria 22.7 H, Plt Count 243, MPV 9.7, Immature Gran % (Auto) 0.500, Neut % (Auto) 80.6 H, Lymph % (Auto) 12.6 L, [place] % (Auto) 6.1, Eos % (Auto) 0.1, Baso % (Auto) 0.1, Absolute Neuts (auto) 12.4 H, Absolute Lymphs (auto) 1.94, Nucleated RBC % 0, Differential Comment SCANNED, Polychromasia RARE, Hypochromasia 1+, Anisocytosis 1+ 03/07/22 05:06: Sodium 132 L, Potassium 4.0, Chloride 97 L, Carbon Dioxide 27.0, Anion Gap 8, BUN 25 H, Creatinine 1.93 H, Estim Creat Clear Calc 16.08, Est GFR (MDRD) Af Amer 32 L, Est GFR (MDRD) Non-Af 26 L, BUN/Creatinine Ratio 13.0, Glucose 167 H, Calcium 9.1, Total Bilirubin 1.10 H, AST 17, ALT 16, Alkaline P hosphatase 50, Total Protein 6.4, Albumin 3.1 L, Globulin 3.3, Albumin/Globulin Ratio 0.9 03/07/22 06:29: POC Glucose 164 H 03/07/22 11:24: POC Glucose 294 H Microbiology: Microbiology 03/06/22 13:45 Stool Stool Occult Blood (INGRID) - Final 03/06/22 13:10 Nasal Secretion SARS-CoV-2 Antigen (Rapid) - Final Radiography Diagnostic Testing: Radiology Impression Chest X-Ray 03/06/22 12:06 IMPRESSION: No active disease. Electronically Signed: Thomas De La Cruz MD at 13:20 EDT , Renal Ultrasound 03/07/22 07:15 IMPRESSION: No evidence of hydronephrosis. Small left renal cyst. Electronically Signed: Brigida Wharton MD at 8:23 EDT , D/C Instructions Discharge Diet: Low fat / Low cholesterol and 2000 Calorie Control Diet Call your doctor if you observe: Shortness of breath, Chest pain and Increased palpitations (irregular heartbeat) Please Follow Up With: Tee Álvarez MD When: 1 week Meaningful Use Info Meaningful Use Diagnoses (Choose all that apply): None applicable Discharge Plan Admission Admit Date/Time: 03/06/22 14:07 Primary Reason for Your Visit: Anemia Attending Provider: Abida Saunders Primary Care Provider: Tee Álvarez Instructions Additional Instructions / Restrictions: Call your physician upon discharge as you will need follow up blood work within one week Discharge Orders/Prescriptions Prescriptions: Continued albuterol sulfate 90 mcg/actuation HFA aerosol inhaler 2 puff INHALATION Q4H PRN (Reason: sob/wheezing) Qty: 18 RF: 0 levothyroxine 137 mcg tablet 137 mcg PO DAILY Qty: 30 RF: 0 rivaroxaban 20 mg tablet 20 mg PO QPM Qty: 30 RF: 0 glipizide 2.5 mg tablet extended release 24hr 7.5 mg PO DAILY RF: 0 multivitamin Tablet 1 tab PO DAILY RF: 0 calcium carbonate-vitamin D3 600 mg(1,500mg) -800 unit tablet 1 tab PO DAILY RF: 0 fluticasone propion-salmeterol 1 PUFF inhaler 1 puff inhalation BID RF: 0 indapamide 2.5 MG tablet 2.5 mg PO DAILY RF: 0 potassium chloride 10 MEQ tablet extended release 10 meq PO DAILY RF: 0 allopurinol 100 MG tablet 300 mg PO DAILY RF: 0 nifedipine 60 MG tablet 60 mg PO DAILY RF: 0 simvastatin 20 MG tablet 20 mg PO QHS RF: 0 docusate sodium 100 MG capsule 100 mg PO DAILY RF: 0 montelukast 10 MG tablet 10 mg PO DAILY RF: 0 ferrous gluconate 325 MG tablet 325 mg PO BID RF: 0 gabapentin 300 mg capsule 300 mg PO TID RF: 0 losartan 25 mg tablet 25 mg PO DAILY RF: 0 Januvia 50 mg tablet 50 mg PO DAILY RF: 0 cyanocobalamin (vitamin B-12) 1 tablet PO/SL DAILY RF: 0 Referrals / Follow Up: Tee Álvarez MD [Primary Care Provider] - Disposition Disposition (needs filled in before D/C Order can be placed): Home, Self Care Documented by User: Dr. Abida Saunders MD 03/07/22 15:04 Providers Date of Admission: 03/06/22 Date of Discharge: 03/07/22 Reason For Visit: SEVERE ANEMIA Medications at Discharge Home Medications allopurinol 300 mg PO DAILY 01/30/16 docusate sodium 100 mg PO DAILY 01/30/16 ferrous gluconate 325 mg PO BID 01/30/16 fluticasone propion-salmeterol 1 puff INHALATION BID 01/30/16 indapamide 2.5 mg PO DAILY 01/30/16 montelukast 10 mg PO DAILY 01/30/16 nifedipine 60 mg PO DAILY 01/30/16 potassium chloride 10 meq PO DAILY 01/30/16 simvastatin 20 mg PO QHS 01/30/16 albuterol sulfate 90 mcg/actuation aerosol inhaler 2 puff INHALATION Q4H PRN #18 g 04/19/19 gabapentin 300 mg capsule 300 mg PO TID cap 04/19/19 levothyroxine 137 mcg tablet 137 mcg PO DAILY #30 tab 04/19/19 rivaroxaban 20 mg tablet 20 mg PO QPM #30 tab 04/19/19 calcium carbonate 600 mg-vitamin D3 20 mcg (800 unit) tablet 1 tab PO DAILY 08/23/21 glipizide 2.5 mg tablet, extended release 24 hr 7.5 mg PO DAILY tab 08/23/21 multivitamin 1 tab PO DAILY 08/23/21 Januvia 50 mg PO DAILY 03/06/22 cyanocobalamin (vitamin B-12) 1 tablet PO/SL DAILY 03/06/22 losartan 25 mg PO DAILY 03/06/22 ABG / Lab / Microbiology Data Result Diagrams: 03/07/22 05:06 03/07/22 05:06 Discharge Plan Admission Admit Date/Time: 03/06/22 14:07 Primary Reason for Your Visit: Anemia Attending Provider: Abida Saunders Primary Care Provider: Tee Álvarez Instructions Additional Instructions / Restrictions: Call your physician upon discharge as you will need follow up blood work within one week Discharge Orders/Prescriptions Prescriptions: Continued albuterol sulfate 90 mcg/actuation HFA aerosol inhaler 2 puff INHALATION Q4H PRN (Reason: sob/wheezing) Qty: 18 RF: 0 levothyroxine 137 mcg tablet 137 mcg PO DAILY Qty: 30 RF: 0 rivaroxaban 20 mg tablet 20 mg PO QPM Qty: 30 RF: 0 glipizide 2.5 mg tablet extended release 24hr 7.5 mg PO DAILY RF: 0 multivitamin Tablet 1 tab PO DAILY RF: 0 calcium carbonate-vitamin D3 600 mg(1,500mg) -800 unit tablet 1 tab PO DAILY RF: 0 fluticasone propion-salmeterol 1 PUFF inhaler 1 puff inhalation BID RF: 0 indapamide 2.5 MG tablet 2.5 mg PO DAILY RF: 0 potassium chloride 10 MEQ tablet extended release 10 meq PO DAILY RF: 0 allopurinol 100 MG tablet 300 mg PO DAILY RF: 0 nifedipine 60 MG tablet 60 mg PO DAILY RF: 0 simvastatin 20 MG tablet 20 mg PO QHS RF: 0 docusate sodium 100 MG capsule 100 mg PO DAILY RF: 0 montelukast 10 MG tablet 10 mg PO DAILY RF: 0 ferrous gluconate 325 MG tablet 325 mg PO BID RF: 0 gabapentin 300 mg capsule 300 mg PO TID RF: 0 losartan 25 mg tablet 25 mg PO DAILY RF: 0 Januvia 50 mg tablet 50 mg PO DAILY RF: 0 cyanocobalamin (vitamin B-12) 1 tablet PO/SL DAILY RF: 0 Referrals / Follow Up: Tee Álvarez MD [Primary Care Provider] - Disposition Disposition (needs filled in before D/C Order can be placed): Home, Self Care Charges/Coding Addendum Addendum: This patient was seen in conjunction with Lenny Hayward NP. I have independently interviewed and examined the patient and reviewed pertinent historical, laboratory, and other data. I have reviewed her note and concur with her documentation 86-year-old female past medical history of atrial fibrillation/atrial flutter, on Xarelto, chronic microcytic anemia who comes in with abnormal blood work. Patient follows up with oncology in the outpatient. She has had work-up for severe anemia with normal bone marrow. Her anemia was believed to be secondary to her chronic kidney disease. She was due to start with Epogen/Procrit treatment.. Hemoglobin on 02/19/2022 was 7.5, hemoglobin on 02/12/2022 was 7.3. Patient presents hemoglobin 5.1. Denies any chest pain or dizziness or palpitation. Admits to fatigue and shortness of breath. She was admitted to the progressive care unit and transfused 2 units of blood. Her posttransfusion hemoglobin was 8.4. Patient remained asymptomatic. Her creatinine was slightly elevated at 1.93 from 1.78. Patient has a planned outpatient nephrology appointment in [place]. Patient was encouraged to keep that appointment. Physical Exam: Gen: Comfortable, pale, not jaundiced, appears very frail CVS:HS I +II, regular, no murmurs RESP: Diminished at lung bases GI: BS present and normal, soft, nontender, no palpable organs EXT:No edema Time spent coordinating all aspects of patient's care and discussing with nursin minutes Visit Charges Inpatient E&M: [id number] [facility]
--- NOTE | 2022-03-07 13:01 | CASEMGMT ---
Per therapy, no further therapy recommended at discharge. SStaten RN CM
== END 2022-03-07 13:50 | disposition home or self-care (01) | DRG 699 ==
LOC: ED 14:16 → PCU 14:20
PROVIDERS: Nurse Practitioner Family; Admitting Provider Internal Medicine; Emergency Provider Emergency Medicine; PCP Family Medicine; Visit Provider Internal Medicine
DX: E11.22 Type 2 diabetes mellitus with diabetic chronic kidney disease (principal); I48.20 Chronic atrial fibrillation, unspecified; D63.1 Anemia in chronic kidney disease; N18.32 Chronic kidney disease, stage 3b; D50.9 Iron deficiency anemia, unspecified; I12.9 Hypertensive chronic kidney disease with stage 1 through stage 4 chronic kidney disease, or unspecified chronic kidney disease; E03.9 Hypothyroidism, unspecified; M10.9 Gout, unspecified; E78.5 Hyperlipidemia, unspecified; E66.9 Obesity, unspecified; Z68.29 Body mass index [BMI] 29.0-29.9, adult; Z79.01 Long term (current) use of anticoagulants; Z79.84 Long term (current) use of oral hypoglycemic drugs; Z79.899 Other long term (current) drug therapy
CPT/HCPCS: 36415; 71045; 76770; 80048; 80053; 81001; 82274; 82728; 82962; 83540; 83550; 85025; 85610; 85730; 86850; 86900; 86901; 86920; 86922; 87040; 87811; 93005; 94640; 97161; 97166; 97802; 99251; 99285; P9016; G0463; J1940

== ENCOUNTER 2023-01-09 11:57 | Inpatient (IN) | payer MEDICARE, MEDICAID, SELFPAY ==
[2023-01-09] VITALS (10 sets, daily range): BP systolic 90–148; BP diastolic 45–78; PULSE 68–120; RESP 14–31; TEMP 36.4–37.1; O2SAT 87–100; BMI 29.5; BMI 30.9
--- NOTE | 2023-01-09 12:16 | EKG12_ITS ---
Test Reason : Blood Pressure : / mmHG Vent. Rate : 081 BPM Atrial Rate : 084 BPM P-R Int : 000 ms QRS Dur : 142 ms QT Int : 432 ms P-R-T Axes : 000 -51 117 degrees QTc Int : 501 ms Atrial fibrillation Left axis deviation Left bundle branch block Abnormal ECG Confirmed by KAMILLA LAI, ROBBIN ([id number]), editorial director CHRISTOPHER LANG ([id number]) on 01/12/2023 11:06:26 AM Referred By: DOMINICK Confirmed By:JAZMYNE KOHLI MD
--- NOTE | 2023-01-09 12:17 | EDS_ITS ---
HPI <SENA Jin - Last Filed: 01/09/23 17:45> History of Present Illness Chief Complaint: Weakness Narrative Narrative: Patient presenting today with her daughter for weakness that she has had over the past week. She has not been eating much or drinking much due to decreased appetite and has fallen a few times this week. She denies any loss of consciousness with these falls, head injury, or any other injury. She has had a productive cough over the past week as well without any shortness of breath or chest pain. PMH includes chronic kidney disease, hypertension, chronic anemia, and patient is on a blood thinner. She denies any fever, chills, abdominal pain, nausea, vomiting, and diarrhea. 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 01/30/16 [History Last Taken 01/09/23] docusate sodium 100 mg capsule 100 mg PO DAILY constipation 01/30/16 [History Last Taken Unknown] fluticasone 250 mcg-salmeterol 50 mcg/dose blistr powdr for inhalation 1 puff inhalation BID sob 01/30/16 [History Last Taken 01/08/23] montelukast 10 mg tablet 10 mg PO DAILY breathing 01/30/16 [History Last Taken 01/08/23] nifedipine 60 mg tablet,extended release 24 hr 60 mg PO DAILY blood pressure 01/30/16 [History Last Taken 01/09/23] potassium chloride 10 mEq tablet,extended release 20 meq PO DAILY supplement 01/30/16 [History Last Taken 01/09/23] albuterol sulfate 90 mcg/actuation aerosol inhaler 2 puff inhalation Q4H PRN sob/wheezing #18 grams 04/19/19 [History Last Taken Unknown] gabapentin 300 mg capsule 300 mg PO TID neuropathy 04/19/19 [History Last Taken 01/09/23] levothyroxine 137 mcg tablet 137 mcg PO DAILY thyroid #30 tabs 04/19/19 [History Last Taken 01/09/23] rivaroxaban 20 mg tablet 20 mg PO QPM blood thinner #30 tabs 04/19/19 [History Last Taken 01/08/23] calcium carbonate 600 mg-vitamin D3 20 mcg (800 unit) tablet 1 tab PO DAILY supplement 08/23/21 [History Last Taken Unknown] glipizide 2.5 mg tablet, extended release 24 hr 7.5 mg PO DAILY diabetes 08/23/21 [History Last Taken 01/08/23] multivitamin 1 tab PO DAILY supplement 08/23/21 [History Last Taken 01/09/23] cyanocobalamin (vitamin B-12) 1 tablet PO/SL DAILY supplement 03/06/22 [History Last Taken 01/09/23] hydrochlorothiazide 12.5 mg capsule 25 mg PO DAILY 09/16/22 [History Last Taken 01/09/23] ferrous sulfate 325 mg (65 mg iron) tablet 325 mg PO DAILY supplement 01/09/23 [History Last Taken 01/09/23] furosemide 40 mg tablet 60 mg PO DAILY EDEMA 01/09/23 [History Last Taken 01/08/23] losartan 50 mg tablet 50 mg PO DAILY HTN 01/09/23 [History Last Taken 01/09/23] simvastatin 40 mg tablet 40 mg PO QHS CHOLESTEROL 01/09/23 [History Last Taken 01/08/23] Allergy/AdvReac Type Severity Reaction Status Date / Time propranolol AdvReac nausea Verified 01/09/23 11:58 Family History Mother Heart disease chf Father Heart disease chf Surgical History Bilateral artificial lens implant (~2019) History of tonsillectomy and adenoidectomy Social History Smoking Status: Never smoker alcohol intake: never substance use type: does not use caffeine: No ROS <SENA Jin - Last Filed: 01/09/23 17:45> ROS ED Constitutional Constitutional ED: Denies chills, fever(s) or sweats Eyes Eyes: Denies blurry vision or diplopia Cardiovascular Cardiovascular: Denies chest pain or palpitations Respiratory/Chest Respiratory/Chest: Reports cough; Denies dyspnea, tachypnea or wheezing Gastrointestinal Gastrointestinal: Denies abdominal pain, diarrhea, nausea or vomiting Genitourinary Genitourinary ED: Denies dysuria, hematuria or urinary urgency Musculoskeletal Musculoskeletal: Denies arthralgias, back pain, myalgias or neck pain Integumentary Denies abscess, Abrasions or rash Neurologic Neurologic: Denies confusion, dizziness or paresthesias Psychiatric Psychiatric: Denies anxiety, depression, suicidal ideation or suicidal thoughts EXAM <SENA Jin - Last Filed: 01/09/23 17:45> Physical Exam Const Vital Signs: 01/09/23 11:59 01/09/23 12:12 01/09/23 14:49 Temperature 97.6 F L 98 F Temperature Source Temporal Temporal Pulse Rate 120 H 68 Respiratory Rate 18 14 Respiratory Effort Non-Labored Blood Pressure 90/78 143/52 H Blood Pressure Mean 82 82 Pulse Ox 98 96 Oxygen Delivery Method Room Air 01/09/23 15:42 Temperature Temperature Source Pulse Rate 74 Respiratory Rate 31 H Respiratory Effort Blood Pressure 144/48 H Blood Pressure Mean 80 Pulse Ox 100 Oxygen Delivery Method Room Air Positive well nourished, well developed and no apparent distress General Appearance ED: well developed HEENT Reports normocephalic and head/scalp atraumatic Mouth ED: Yes moist mucous membranes normal Eyes PERRL and EOMs intact bilaterally Neck full ROM and supple Chest Wall inspection of chest normal Resp normal respiratory effort and clear to auscultation bilaterally Auscultation: rhonchi lower bilaterally Cardio regular rate and regular rhythm GI soft to palpation, non-tender, non-distended and no masses Back/Spine normal ROM and normal to inspection Extremity normal to inspection and full ROM Neuro oriented x3, CN's II-XII intact bilaterally, moves all extremities, no focal motor deficits and no sensory deficits noted Sensorium / Orientation: awake and alert Psych mental status grossly normal and thought process normal Skin no rashes or lesions noted and no wounds <Dr. Kin Ariza MD - Last Filed: 01/09/23 14:40> Physical Exam Const Vital Signs: 01/09/23 11:59 01/09/23 12:12 01/09/23 14:49 Temperature 97.6 F L 98 F Temperature Source Temporal Temporal Pulse Rate 120 H 68 Respiratory Rate 18 14 Respiratory Effort Non-Labored Blood Pressure 90/78 143/52 H Blood Pressure Mean 82 82 Pulse Ox 98 96 Oxygen Delivery Method Room Air 01/09/23 15:42 Temperature Temperature Source Pulse Rate 74 Respiratory Rate 31 H Respiratory Effort Blood Pressure 144/48 H Blood Pressure Mean 80 Pulse Ox 100 Oxygen Delivery Method Room Air [facility] <SENA Jin - Last Filed: 01/09/23 17:45> [facility] Narrative Medical decision making narrative: Patient presenting today with weakness that she has had over the past week. She does appear dry and is tachycardic at 120 bpm, she will be given IV fluids. CBC and BMP obtained to rule out worsening anemia, leukocytosis, electrolyte abnormality, worsening kidney function. Chest x-ray obtained to rule out pneumonia and is negative for any acute cardiopulmonary abnormality. EKG obtained to rule out any arrhythmia and does show atrial fibrillation, patient is on a blood thinner. urine obtained to rule out acute cystitis. Patient is hyperglycemic at 392 with an anion gap of 16 and small acetone. I do not think she is in DKA but she has been given 2 L of fluids as well as insulin. Prior charts were reviewed and patient's last creatinine level was 2.39, today it is 4.01, and has acute on chronic renal insufficiency. Her anemia appears stable when compared to prior records. Hospitalist has been called to discuss admission and they feel that she would benefit from admission to the hospital. Patient is comfortable with this plan. She will be admitted in stable condition. I have personally performed a face to face assessment of the patient and have reviewed the [facility]EN Note. I performed a substantive portion of the visit including all aspects of the following. My ma findings include: History is [87-year-old female with generalized weakness and falls at home over the past week. Decreased appetite. 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 No vomiting or diarrhea. Mild cough. No chest pain or shortness of breath. No abdominal pain. No fever.] Exam is [87-year-old female no acute distress. She does have a low-grade blood pressure 90/78. Her pulse is 120. Consistent with dehydration. H EENT exam unremarkable. She looks like she has moist mucous membranes. Neck nontender no JVD. Lungs clear. Heart tachycardic no murmur. Abdomen soft nontender. Moving all 4 extremities. Calves are nontender without edema or cords. Neurologically she is awake and alert.] Medical Decision Making [87-year-old with complex past medical history generally weak, hypotensive with falls. Will need evaluation and most likely admission. This could be infection and could be dehydration and could be acute on chronic renal insufficiency and uremia, this could be secondary to dysrhythmia. Versus other etiologies.] Other additions or changes: [None] Lab Data Labs: Laboratory Results - last 24 hr 01/09/23 01/09/23 01/09/23 12:22 12:22 12:59 WBC 13.7 H RBC 2.69 L Hgb 9.6 L Hct 27.8 L MCV 103.3 H MCH 35.7 H MCHC 34.5 RDW Std Deviation 53.3 H RDW Coeff of Gloria 14.2 Plt Count 269 MPV 10.8 Immature Gran % (Auto) 0.500 Neut % (Auto) 85.6 H Lymph % (Auto) 8.6 L [place] % (Auto) 5.2 Eos % (Auto) 0.0 Baso % (Auto) 0.1 Absolute Neuts (auto) 11.7 H Absolute Lymphs (auto) 1.18 Nucleated RBC % 0 Sodium 127 L Potassium 3.7 Chloride 88 L Carbon Dioxide 23.0 Anion Gap 16 H BUN 85 H Creatinine 4.01 H Estim Creat Clear Calc 7.60 Est GFR (MDRD) Af Amer 14 L Est GFR (MDRD) Non-Af 11 L BUN/Creatinine Ratio 21.2 H Glucose 392 H Calcium 9.7 Urine Color Urine Clarity Urine pH Ur Specific [place] Urine Protein Urine Glucose (UA) Urine Ketones Urine Occult Blood Urine Nitrite Urine Bilirubin Urine Urobilinogen Ur Leukocyte Esterase Urine RBC Urine WBC Ur Squamous Epith Cells Urine Bacteria Urine Mucus Urine Yeast Acetone Level SMALL H 01/09/23 14:29 WBC RBC Hgb Hct MCV MCH MCHC RDW Std Deviation RDW Coeff of Gloria Plt Count MPV Immature Gran % (Auto) Neut % (Auto) Lymph % (Auto) [place] % (Auto) Eos % (Auto) Baso % (Auto) Absolute Neuts (auto) Absolute Lymphs (auto) Nucleated RBC % Sodium Potassium Chloride Carbon Dioxide Anion Gap BUN Creatinine Estim Creat Clear Calc Est GFR (MDRD) Af Amer Est GFR (MDRD) Non-Af BUN/Creatinine Ratio Glucose Calcium Urine Color Yellow Urine Clarity Clear Urine pH 5.0 Ur Specific [place] 1.015 Urine Protein 15 H Urine Glucose (UA) 1000 H Urine Ketones 5 H Urine Occult Blood 25 H Urine Nitrite Negative Urine Bilirubin Negative Urine Urobilinogen Normal Ur Leukocyte Esterase 100 H Urine RBC 0 SEEN Urine WBC 0-5 SEEN Ur Squamous Epith Cells 0 SEEN Urine Bacteria 1+ Urine Mucus 0 SEEN Urine Yeast 2+ Acetone Level Radiography Chest X-Ray - ED: Read by ED Physician and Read by Radiologist Diagnostic Testing: Clinical Impression(s) from Imaging Studies Chest X-Ray 01/09/23 12:21 IMPRESSION: Borderline cardiomegaly. No acute abnormality is seen. Electronically Signed: Apolinar Green MD at 12:45 EDT , EKG Initial EKG: Comments: 81 bpm, atrial fibrillation, left bundle branch block, no ST elevation, read and reviewed by attending ED physician <Dr. Kin Airza MD - Last Filed: 01/09/23 14:40> [facility] MDM Narrative Medical decision making narrative: Patient presenting today with weakness that she has had over the past week. She does appear dry and is tachycardic at 120 bpm, she will be given IV fluids. CBC and BMP obtained to rule out worsening anemia, leukocytosis, electrolyte abnormality, worsening kidney function. Chest x-ray obtained to rule out pneumonia. EKG obtained to rule out any arrhythmia and urine obtained to rule out acute cystitis I have personally performed a face to face assessment of the patient and have reviewed the [facility]EN Note. I performed a substantive portion of the visit including all aspects of the following. My ma findings include: History is [87-year-old female with generalized weakness and falls at home over the past week. Decreased appetite. 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 No vomiting or diarrhea. Mild cough. No chest pain or shortness of breath. No abdominal pain. No fever.] Exam is [87-year-old female no acute distress. She does have a low-grade blood pressure 90/78. Her pulse is 120. Consistent with dehydration. H EENT exam unremarkable. She looks like she has moist mucous membranes. Neck nontender no JVD. Lungs clear. Heart tachycardic no murmur. Abdomen soft nontender. Moving all 4 extremities. Calves are nontender without edema or cords. Neurologically she is awake and alert.] Medical Decision Making [87-year-old with complex past medical history generally weak, hypotensive with falls. Will need evaluation and most likely admission. This could be infection and could be dehydration and could be acute on chronic renal insufficiency and uremia, this could be secondary to dysrhythmia. Versus other etiologies.] Other additions or changes: [None] History & Record Review Discussion w/independent historian: Patient and Family Lab Data Attestation: I reviewed the patient's lab results. Lab results narrative: CBC shows white count 13.7. H&H 9.6 27.8. Platelets are 269. Electrolytes show sodium 127. Gap of 16. BUN of 85 creatinine of 4 consistent with acute on chronic renal insufficiency with dehydration. Glucose 392. Labs: Laboratory Results - last 24 hr 01/09/23 01/09/23 01/09/23 12:22 12:22 12:59 WBC 13.7 H RBC 2.69 L Hgb 9.6 L Hct 27.8 L MCV 103.3 H MCH 35.7 H MCHC 34.5 RDW Std Deviation 53.3 H RDW Coeff of [place] 14.2 Plt Count 269 MPV 10.8 Immature Gran % (Auto) 0.500 Neut % (Auto) 85.6 H Lymph % (Auto) 8.6 L [place] % (Auto) 5.2 Eos % (Auto) 0.0 Baso % (Auto) 0.1 Absolute Neuts (auto) 11.7 H Absolute Lymphs (auto) 1.18 Nucleated RBC % 0 Sodium 127 L Potassium 3.7 Chloride 88 L Carbon Dioxide 23.0 Anion Gap 16 H BUN 85 H Creatinine 4.01 H Estim Creat Clear Calc 7.60 Est GFR (MDRD) Af Amer 14 L Est GFR (MDRD) Non-Af 11 L BUN/Creatinine Ratio 21.2 H Glucose 392 H Calcium 9.7 Urine Color Urine Clarity Urine pH Ur Specific [place] Urine Protein Urine Glucose (UA) Urine Ketones Urine Occult Blood Urine Nitrite Urine Bilirubin Urine Urobilinogen Ur Leukocyte Esterase Urine RBC Urine WBC Ur Squamous Epith Cells Urine Bacteria Urine Mucus Urine Yeast Acetone Level SMALL H 01/09/23 14:29 WBC RBC Hgb Hct MCV MCH MCHC RDW Std Deviation RDW Coeff of [place] Plt Count MPV Immature Gran % (Auto) Neut % (Auto) Lymph % (Auto) [place] % (Auto) Eos % (Auto) Baso % (Auto) Absolute Neuts (auto) Absolute Lymphs (auto) Nucleated RBC % Sodium Potassium Chloride Carbon Dioxide Anion Gap BUN Creatinine Estim Creat Clear Calc Est GFR (MDRD) Af Amer Est GFR (MDRD) Non-Af BUN/Creatinine Ratio Glucose Calcium Urine Color Yellow Urine Clarity Clear Urine pH 5.0 Ur Specific [place] 1.015 Urine Protein 15 H Urine Glucose (UA) 1000 H Urine Ketones 5 H Urine Occult Blood 25 H Urine Nitrite Negative Urine Bilirubin Negative Urine Urobilinogen Normal Ur Leukocyte Esterase 100 H Urine RBC 0 SEEN Urine WBC 0-5 SEEN Ur Squamous Epith Cells 0 SEEN Urine Bacteria 1+ Urine Mucus 0 SEEN Urine Yeast 2+ Acetone Level Radiography Diagnostic Testing: Clinical Impression(s) from Imaging Studies Chest X-Ray 01/09/23 12:21 IMPRESSION: Borderline cardiomegaly. No acute abnormality is seen. Electronically Signed: Apolinar Green MD at 12:45 EDT , Discharge Plan Dx/Rx/DC Orders Clinical Impression: Acute on chronic renal insufficiency, Acute dehydration, Acute kidney injury, H yperglycemia due to diabetes mellitus, Acute hypotension, Chronic anticoagulation, History of atrial flutter Disposition Disposition: Acute Care Hospital [facility]
--- NOTE | 2023-01-09 12:21 | RAD_ITS ---
STUDY: X-RAY CHEST REASON FOR EXAM: Female, 87 years old. Cough. Weakness. TECHNIQUE: AP and lateral views of the chest. COMPARISON: Comparison is made with prior study dated March 06, 2022. FINDINGS: EKG electrodes are seen. Stable mild elevation of the right hemidiaphragm. There is no demonstrated pleural abnormality. There is borderline cardiomegaly. Normal mediastinum and can. Normal visualized pulmonary arteries. There is atherosclerotic calcification of the aortic arch with tortuosity. Normal visualized thoracic spine. There is degenerative osteoarthritis of the bilateral shoulders. There is no demonstrated abnormality of the visualized soft tissue structures of the upper abdomen. RAD/Chest PA and Lateral IMPRESSION: Borderline cardiomegaly. No acute abnormality is seen. Electronically Signed: Apolinar Green MD at 12:45 EDT ,
[2023-01-09] MEDS: 0.9% Normal Saline 1,000 ML 999 ML IV ×2 (12:26→14:57)
[2023-01-09 12:29] LABS: Absolute Lymphocyte Count 1.18 X10^3/uL (0.83-4.51); Absolute Neutrophil Count 11.7 X10^3/uL (2.0-7.7); Basophil# 0.01 X10^3/uL; Basophil% 0.1 % (0-1); Hematocrit 27.8 % (37-47); Hemoglobin 9.6 g/dL (12.0-15.0); Lymphocyte # 1.18 X10^3/ul (0.83-4.51); Lymphocyte % 8.6 % (19-41); Mean Corp Hgb Conc 34.5 g/dL (32-36); Mean Corpuscular Hgb 35.7 pg (27.0-32.0); Mean Corpuscular Volume 103.3 fL (81-99); Mean Platelet Vol. 10.8 fl (6.2-12.0); Monocyte# 0.71 X10^3/uL; Monocyte% 5.2 % (0-10); NRBC Flagged by Analyzer 0 % (0-5); Neutrophil % 85.6 % (47-70); Platelet Count 269 K/mm3 (150-450); RBC Distribution Width CV 14.2 % (11.6-14.6); RBC Distribution Width SD 53.3 fl (35.1-43.9); Red Blood Count 2.69 M/mm3 (4.2-5.4); White Blood Count 13.7 K/mm3 (4.4-11.0)
[2023-01-09 12:39] LABS: Anion Gap 16 (5-15); BUN 85 mg/dL (7-18); BUN/Creat Ratio 21.2 RATIO (10-20); Calcium,Total 9.7 mg/dL (8.5-10.1); Chloride 88 mmol/L (98-107); Creatinine, Serum 4.01 mg/dL (0.55-1.02); EST Glomerular Filtration Rate 11 mL/min (>60); Est Glom Filt Rate - Afr Amer 14 mL/min (>60); Glucose 392 mg/dL (74-106); Potassium 3.7 mmol/L (3.5-5.1); Sodium Level 127 mmol/L (136-145)
[2023-01-09 14:35] LABS: Mucous, Urine 0 SEEN /hpf (<or=2+); Red Blood Cells-Urine 0 SEEN /hpf (0-5); Squamous Epithelial Cells - UA 0 SEEN /hpf (5-10)
[2023-01-09 14:48] LABS: Color, Urine Yellow (Yellow); Glucose, Dipstick 1000 mg/dl (Normal); Ketone-Dipstick 5 mg/dl (Negative); Nitrite-Dipstick Negative (Negative); Occult Blood-Urine 25 /ul (Negative); Specific Gravity, Urine 1.015 (1.002-1.030); Urine Bilirubin Dipstick Negative (Negative); Urine Urobilinogen Normal (Normal)
[2023-01-09] MEDS: Insulin Lispro 100 UNIT/ML INSULN.PEN 14 UNIT SC (14:56)
[2023-01-09 15:06] LABS: Leukocyte Esterase-Dipstick 100 /ul (Negative); Protein-Dipstick 15 mg/dl (Negative); Urine Clarity Clear (Clear)
[2023-01-09 15:47] LABS: Bacteria 1+ /hpf (None Seen); White Blood Cells 0-5 SEEN /hpf (0-5); Yeast-Urine 2+ /hpf (None Seen)
--- NOTE | 2023-01-09 17:14 | HP.PCM.HOS_ITS ---
[facility] - General General Date of Admission: 01/09/23 Date of Service: 01/09/23 Chief Complaint: weakness. [facility] Narrative RIENA EASTON, is a 87 F who presents with progressive weakness. Patient began feeling ill about a week ago with upper respiratory symptoms. Additionally, patient has been lying in bed not getting around too much, not eating or drinking much. All patients had to eat or the past, days with a banana. The patient presented to the emergency room given this weakness and in the emergency room, she was found to be in acute on chronic kidney disease with a creatinine of 4, baseline is around 1.93. Sodium was slightly low at 127. Urinalysis was negative for any infection, and a chest x-ray was unremarkable. Patient was hyperglycemic and did receive a one-time dose of 14 units of insulin lispro. 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 01/30/16 [History Last Taken 01/09/23] docusate sodium 100 mg capsule 100 mg PO DAILY constipation 01/30/16 [History Last Taken Unknown] fluticasone 250 mcg-salmeterol 50 mcg/dose blistr powdr for inhalation 1 puff inhalation BID sob 01/30/16 [History Last Taken 01/08/23] montelukast 10 mg tablet 10 mg PO DAILY breathing 01/30/16 [History Last Taken 01/08/23] nifedipine 60 mg tablet,extended release 24 hr 60 mg PO DAILY blood pressure 01/30/16 [History Last Taken 01/09/23] potassium chloride 10 mEq tablet,extended release 20 meq PO DAILY supplement 01/30/16 [History Last Taken 01/09/23] albuterol sulfate 90 mcg/actuation aerosol inhaler 2 puff inhalation Q4H PRN sob/wheezing #18 grams 04/19/19 [History Last Taken Unknown] gabapentin 300 mg capsule 300 mg PO TID neuropathy 04/19/19 [History Last Taken 01/09/23] levothyroxine 137 mcg tablet 137 mcg PO DAILY thyroid #30 tabs 04/19/19 [History Last Taken 01/09/23] rivaroxaban 20 mg tablet 20 mg PO QPM blood thinner #30 tabs 04/19/19 [History Last Taken 01/08/23] calcium carbonate 600 mg-vitamin D3 20 mcg (800 unit) tablet 1 tab PO DAILY supplement 08/23/21 [History Last Taken Unknown] glipizide 2.5 mg tablet, extended release 24 hr 7.5 mg PO DAILY diabetes 08/23/21 [History Last Taken 01/08/23] multivitamin 1 tab PO DAILY supplement 08/23/21 [History Last Taken 01/09/23] cyanocobalamin (vitamin B-12) 1 tablet PO/SL DAILY supplement 03/06/22 [History Last Taken 01/09/23] hydrochlorothiazide 12.5 mg capsule 25 mg PO DAILY 09/16/22 [History Last Taken 01/09/23] ferrous sulfate 325 mg (65 mg iron) tablet 325 mg PO DAILY supplement 01/09/23 [History Last Taken 01/09/23] furosemide 40 mg tablet 60 mg PO DAILY EDEMA 01/09/23 [History Last Taken 01/08/23] losartan 50 mg tablet 50 mg PO DAILY HTN 01/09/23 [History Last Taken 01/09/23] simvastatin 40 mg tablet 40 mg PO QHS CHOLESTEROL 01/09/23 [History Last Taken 01/08/23] Allergy/AdvReac Type Severity Reaction Status Date / Time propranolol AdvReac nausea Verified 01/09/23 11:58 Family History Mother Heart disease chf Father Heart disease chf Surgical History Bilateral artificial lens implant (~2019) History of tonsillectomy and adenoidectomy Social History Smoking Status: Never smoker alcohol intake: never substance use type: does not use caffeine: No ROS ROS Narrative Presbycusis, chest pain which is chronic. Denies shortness of breath. Complains of sore throat. All review of systems were negative except as mentioned above in the history of present illness and the other review of systems. Vital Signs Vital Signs Vital Signs: 01/09/23 11:59 01/09/23 12:12 01/09/23 14:49 Temperature 36.4 C L 36.6 C Temperature Source Temporal Temporal Pulse Rate 120 H 68 Respiratory Rate 18 14 Respiratory Effort Non-Labored Blood Pressure 90/78 143/52 H Blood Pressure Mean 82 82 Pulse Ox 98 96 Oxygen Delivery Method Room Air 01/09/23 15:42 Temperature Temperature Source Pulse Rate 74 Respiratory Rate 31 H Respiratory Effort Blood Pressure 144/48 H Blood Pressure Mean 80 Pulse Ox 100 Oxygen Delivery Method Room Air Weight Weight: 70.8 kg Body Mass Index (BMI) 29.5 Physical Exam Narrative - Physical Exam General: Alert, Oriented x3, Cooperative. Hard of hearing. HEENT: Atraumatic, PERRLA, EOMI, Normocephalic. Mucous membranes moist. Oral: Moist Mucosa, No Gingival or Mucosal Lesions/ Ulcerations Neck: Supple, No JVD, Negative Carotid Bruits Lungs: Clear to auscultation, Normal air movement Cardiovascular: Regular rate, Normal S1, Normal S2, No murmurs Abdomen: Bowel Sounds Present, Soft, Non Tender, Non-Distended, No Hepato- splenomegaly Extremities: No clubbing, No cyanosis, No edema, Capillary Refill Less than 3 Seconds Skin: No rashes, No breakdown Musculoskeletal: No Tenderness to Palpation of Joints or Extremities Neurological: Neuro grossly intact Psych/Mental Status: Normal Affect, Appropriate Results Lab / Micro Data Attestation: I reviewed the patient's lab results. Result Diagrams: 01/09/23 12:22 01/09/23 12:22 Labs: Laboratory Results - last 24 hr 01/09/23 12:22: WBC 13.7 H, RBC 2.69 L, Hgb 9.6 L, Hct 27.8 L, MCV 103.3 H, MCH 35.7 H, MCHC 34.5, RDW Std Deviation 53.3 H, RDW Coeff of Gloria 14.2, Plt Count 269, MPV 10.8, Immature Gran % (Auto) 0.500, Neut % (Auto) 85.6 H, Lymph % (Auto) 8.6 L, [place] % (Auto) 5.2, Eos % (Auto) 0.0, Baso % (Auto) 0.1, Absolute Neuts (auto) 11.7 H, Absolute Lymphs (auto) 1.18, Nucleated RBC % 0 03/31/23 12:22: Sodium 127 L, Potassium 3.7, Chloride 88 L, Carbon Dioxide 23.0, Anion Gap 16 H, BUN 85 H, Creatinine 4.01 H, Estim Creat Clear Calc 7.60, Est GFR (MDRD) Af Amer 14 L, Est GFR (MDRD) Non-Af 11 L, BUN/Creatinine Ratio 21.2 H , Glucose 392 H, Calcium 9.7 01/09/23 12:59: Acetone Level SMALL H 01/09/23 14:29: Urine Color Yellow, Urine Clarity Clear, Urine pH 5.0, Ur Specific [place] 1.015, Urine Protein 15 H, Urine Glucose (UA) 1000 H, Urine Ketones 5 H, Urine Occult Blood 25 H, Urine Nitrite Negative, Urine Bilirubin Negative, Urine Urobilinogen Normal, Ur Leukocyte Esterase 100 H, Urine RBC 0 SEEN, Urine WBC 0-5 SEEN, Ur Squamous Epith Cells 0 SEEN, Urine Bacteria 1+, Urine Mucus 0 SEEN, Urine Yeast 2+ Radiology Impression Chest X-Ray 01/09/23 12:21 IMPRESSION: Borderline cardiomegaly. No acute abnormality is seen. Electronically Signed: Apolinar Green MD at 12:45 EDT Reading Location ID and State: [facility] / [place] , Service support , Assessment & Plan Assessment/Plan (1) Acute kidney injury: PLAN: Suspect prerenal We will give additional IV fluids tablets already been administered in the emergency room Patient sees a vp of marketing up in [place] who is filling with [facility]. Would recommend nephrology consultation if kidney function continues to worsen. Hold furosemide, glipizide, hydrochlorothiazide, losartan. (2) Hyperglycemia due to diabetes mellitus: PLAN: Due to physiologic stress of her illness and kidney issues. Check an A1c Sliding scale insulin (3) Hypoxia: PLAN: Patient was complaining of some upper respiratory type symptoms. So would need to rule out viral etiology Check COVID-19 and influenza Chest x-ray was pretty unremarkable though patient does have profound kyphosis which may limit her lung expansion. (4) Debility: PLAN: Likely due to what ever illness she has plus dehydration PT OT evaluate and treat (5) Hyponatremia: PLAN: Likely due to dehydration. Patient received additional IV fluids Reevaluate in the morning. I will hold off on additional testing for other etiologies of hyponatremia at this time PLAN: Plan Chronic conditions * Hypertension: Continue nifedipine. * Atrial flutter: Continue with rivaroxaban * Gout: Stable. Continue with allopurinol * Chronic pain: Cut back to gabapentin from 300-103 times daily given GAY. * Anemia: Stable. Continue with ferrous sulfate. Patient was heme positive in the emergency room. Continue to monitor for now. If patient does have clear hematochezia or melena and hemoglobin continues to drop then may consider GI eval. * Hypothyroidism: Continue levothyroxine VTE prophylaxis: Not indicated as patient is anticoagulated on rivaroxaban CODE STATUS: Addressed with the patient and her daughter. Patient is DNR Comfort Care arrest. Charges/Coding Visit Charges Inpatient E&M: 57991 Init Hosp L2
[2023-01-09] MEDS: 0.9% Normal Saline 1,000 ML 150 ML IV (19:13)
[2023-01-09] MEDS: Atorvastatin Calcium 20 MG Tablet PO (21:00)
[2023-01-09] MEDS: Rivaroxaban 20 MG Tablet PO (21:00)
[2023-01-09] MEDS: Gabapentin 100 MG Capsule PO (21:00)
[2023-01-09 21:25] LABS: Bedside Glucose 187 mg/dL (74-106)
[2023-01-10] VITALS (8 sets, daily range): BP systolic 117–125; BP diastolic 45–60; PULSE 75–92; RESP 18–20; TEMP 36.3–37.1; O2SAT 85–94
[2023-01-10] MEDS: Gabapentin 100 MG Capsule PO ×2 (05:06→14:51)
[2023-01-10] MEDS: Levothyroxine 137 MCG Tablet PO (05:06)
[2023-01-10] MEDS: guaiFENesin 10 ML UDC (200MG/10ML) 20 ML PO (05:15)
[2023-01-10] MEDS: Insulin Lispro 100 UNIT/ML INSULN.PEN SC ×2 (06:30→12:22)
[2023-01-10 06:48] LABS: Absolute Lymphocyte Count 0.69 X10^3/uL (0.83-4.51); Absolute Neutrophil Count 12.5 X10^3/uL (2.0-7.7); Basophil# 0.02 X10^3/uL; Basophil% 0.1 % (0-1); Hematocrit 24.1 % (37-47); Hemoglobin 8.2 g/dL (12.0-15.0); Lymphocyte # 0.69 X10^3/ul (0.83-4.51); Lymphocyte % 4.9 % (19-41); Mean Corpuscular Hgb 35.7 pg (27.0-32.0); Mean Corpuscular Volume 104.8 fL (81-99); Mean Platelet Vol. 9.9 fl (6.2-12.0); Monocyte# 0.89 X10^3/uL; Monocyte% 6.3 % (0-10); NRBC Flagged by Analyzer 0 % (0-5); Neutrophil # 12.47 X10^3/uL (2.7-7.7); Neutrophil % 88.3 % (47-70); Platelet Count 239 K/mm3 (150-450); RBC Distribution Width CV 14.5 % (11.6-14.6); RBC Distribution Width SD 55.1 fl (35.1-43.9); White Blood Count 14.1 K/mm3 (4.4-11.0)
[2023-01-10 06:50] LABS: Bedside Glucose 280 mg/dL (74-106)
[2023-01-10 07:13] LABS: ALB/GLOB Ratio 0.5 RATIO (0.9-2.4); AST(SGOT) 15 U/L (15-37); Alanine Aminotransfer ALT/SGPT 23 U/L (13-56); Albumin, Serum 2.1 g/dL (3.2-5.0); Alkaline Phosphatase 73 U/L (45-117); Anion Gap 14 (5-15); BUN 77 mg/dL (7-18); Chloride 98 mmol/L (98-107); Creatinine, Serum 3.08 mg/dL (0.55-1.02); EST Glomerular Filtration Rate 15 mL/min (>60); Est Glom Filt Rate - Afr Amer 19 mL/min (>60); Estimated Creatinine Clearance 9.42 ml/min; Globulin 4.2 g/dL (2.2-4.2); Glucose 289 mg/dL (74-106); Protein, Total 6.3 g/dL (6.4-8.2); Sodium Level 130 mmol/L (136-145)
[2023-01-10] MEDS: Albuterol 2.5 MG/3 ML VIAL.NEB. INHALATION (07:30)
[2023-01-10] MEDS: Budesonide Respules 0.5 MG/2 ML AMPUL.NEB. INHALATION (07:30)
--- NOTE | 2023-01-10 07:40 | PN.HOSP_ITS ---
Reason for Visit Reason for Visit: Diagnoses Type 2 diabetes mellitus with hyperglycemia (01/09/23) Hypo-osmolality and hyponatremia (01/09/23) Acute kidney failure, unspecified (01/09/23) Hypoxemia (01/09/23) Other malaise (01/09/23) Subjective Subjective Still short of breath. Objective Data Objective Data Vital Signs: Vital Signs Temp Pulse Resp BP Pulse Ox O2 Del Method O2 Flow Rate 37.1 C 79 18 117/60 94 Nasal Cannula 5 01/10/23 04:59 01/10/23 04:59 01/10/23 04:59 01/10/23 04:59 01/10/23 05:02 01/10/23 05:02 01/10/23 05:02 Oxygen Flow Rate (L/min) 5 Oxygen Delivery Method Nasal Cannula Weight: 71.8 kg Body Mass Index (BMI) 30.9 Intake & Output: Intake and Output for Last 24 Hours 01/08/23 01/09/23 01/10/23 23:59 23:59 23:59 Intake Total 1999 1700 / 1700 Balance 1999 1700 / 1700 Lab / Micro Data Result Diagrams: 01/10/23 06:05 01/10/23 06:05 Labs: Laboratory Results - last 24 hr 01/09/23 12:22: WBC 13.7 H, RBC 2.69 L, Hgb 9.6 L, Hct 27.8 L, MCV 103.3 H, MCH 35.7 H, MCHC 34.5, RDW Std Deviation 53.3 H, RDW Coeff of Gloria 14.2, Plt Count 269, MPV 10.8, Immature Gran % (Auto) 0.500, Neut % (Auto) 85.6 H, Lymph % (Auto) 8.6 L, [place] % (Auto) 5.2, Eos % (Auto) 0.0, Baso % (Auto) 0.1, Absolute Neuts (auto) 11.7 H, Absolute Lymphs (auto) 1.18, Nucleated RBC % 0 01/09/23 12:22: Sodium 127 L, Potassium 3.7, Chloride 88 L, Carbon Dioxide 23.0, Anion Gap 16 H, BUN 85 H, Creatinine 4.01 H, Estim Creat Clear Calc 7.60, Est GFR (MDRD) Af Amer 14 L, Est GFR (MDRD) Non-Af 11 L, BUN/Creatinine Ratio 21.2 H , Glucose 392 H, Calcium 9.7 01/09/23 12:59: Acetone Level SMALL H 01/09/23 14:29: Urine Color Yellow, Urine Clarity Clear, Urine pH 5.0, Ur Specific [place] 1.015, Urine Protein 15 H, Urine Glucose (UA) 1000 H, Urine Ketones 5 H, Urine Occult Blood 25 H, Urine Nitrite Negative, Urine Bilirubin Negative, Urine Urobilinogen Normal, Ur Leukocyte Esterase 100 H, Urine RBC 0 SEEN, Urine WBC 0-5 SEEN, Ur Squamous Epith Cells 0 SEEN, Urine Bacteria 1+, Urine Mucus 0 SEEN, Urine Yeast 2+ 01/09/23 21:05: POC Glucose 187 H 01/10/23 06:05: WBC 14.1 H, RBC 2.30 L, Hgb 8.2 L, Hct 24.1 L, MCV 104.8 H, MCH 35.7 H, MCHC 34.0, RDW Std Deviation 55.1 H, RDW Coeff of Gloria 14.5, Plt Count 239, MPV 9.9, Immature Gran % (Auto) 0.400, Neut % (Auto) 88.3 H, Lymph % (Auto) 4.9 L, [place] % (Auto) 6.3, Eos % (Auto) 0.0, Baso % (Auto) 0.1, Absolute Neuts (auto) 12.5 H, Absolute Lymphs (auto) 0.69 L, Nucleated RBC % 0 01/10/23 06:05: Sodium 130 L, Potassium 4.0, Chloride 98, Carbon Dioxide 18.0 L, Anion Gap 14, BUN 77 H, Creatinine 3.08 H, Estim Creat Clear Calc 9.42, Est GFR (MDRD) Af Amer 19 L, Est GFR (MDRD) Non-Af 15 L, BUN/Creatinine Ratio 25.0 H, Glucose 289 H, Calcium 9.0, Total Bilirubin 0.80, AST 15, ALT 23, Alkaline Phosphatase 73, Total Protein 6.3 L, Albumin 2.1 L, Globulin 4.2, Albumin/Globulin Ratio 0.5 L 01/10/23 06:27: POC Glucose 280 H Micro: Microbiology 01/09/23 18:35 Nasal Secretion SARS-CoV-2 & FLU Antigen (Rapid) - Final Radiography Diagnostic Testing: Radiology Impression Chest X-Ray 01/09/23 12:21 IMPRESSION: Borderline cardiomegaly. No acute abnormality is seen. Electronically Signed: Apolinar Green MD at 12:45 EDT , Physical Exam Const Constitutional Narrative: on oxygen, but with short shallow breaths and breathing through her mouth. Resp Resp Narrative: faint exp wheeze. Cardio regular rate, regular rhythm, S1 normal heart sound and S2 normal heart sound GI normal to inspection, nondistended, normoactive bowel sounds, soft to palpation, non-tender and non-distended Extremity normal to inspection Neuro oriented x3 Sensorium / Orientation: awake and alert Psych affect normal Assessment & Plan Assessment/Plan (1) Acute kidney injury: PLAN: Improving with IVF Suspect prerenal We will give additional IV fluids tablets already been administered in the emergency room Patient sees a environmental department manager up in [place] who is filling with [facility]. Would recommend nephrology consultation if kidney function continues to worsen. Hold furosemide, hydrochlorothiazide, losartan. (2) Hyperglycemia due to diabetes mellitus: PLAN: Due to physiologic stress of her illness and kidney issues. Check an A1c Sliding scale insulin Resume glipizide Cannot rule out possibility of long-term insulin. (3) Hypoxia: PLAN: Patient was complaining of some upper respiratory type symptoms. So would need to rule out viral etiology COVID-19 and influenza negative Chest x-ray was pretty unremarkable though patient does have profound kyphosis which may limit her lung expansion. Start steroids and BDs Advised on breathing through her nose and out her mouth. Made patient aware of mouth breathing. (4) Debility: PLAN: Likely due to what ever illness she has plus dehydration PT OT evaluate and treat (5) Hyponatremia: PLAN: Improved Likely due to dehydration. Patient received additional IV fluids I will hold off on additional testing for other etiologies of hyponatremia at this time PLAN: Plan Chronic conditions * Hypertension: Continue nifedipine. * Atrial flutter: Continue with rivaroxaban * Gout: Stable. Continue with allopurinol * Chronic pain: Cut back to gabapentin from 300-100 times daily given GAY. * Anemia: Stable. Continue with ferrous sulfate. Patient was heme positive in the emergency room. Continue to monitor for now. If patient does have clear hematochezia or melena and hemoglobin continues to drop then may consider GI eval. * Hypothyroidism: Continue levothyroxine VTE prophylaxis: Not indicated as patient is anticoagulated on rivaroxaban CODE STATUS: Addressed with the patient and her daughter. Patient is DNR Comfort Care arrest. Charges/Coding Visit Charges Inpatient E&M: 39976 Subs Hosp L2
[2023-01-10] MEDS: Allopurinol 300 MG Tablet PO (09:28)
[2023-01-10] MEDS: Montelukast 10 MG Tablet PO (09:28)
[2023-01-10] MEDS: glipiZIDE 2.5 MG TAB.ER.24 7.5 MG PO (09:28)
[2023-01-10] MEDS: Ferrous Sulfate 325 MG Tablet PO (09:28)
[2023-01-10] MEDS: NIFEdipine 60 MG Tablet PO (09:28)
[2023-01-10] MEDS: Docusate Sodium 100 MG Capsule PO (09:28)
[2023-01-10] MEDS: Multivitamins,Therapeutic Tablet 1 TABLET PO (09:28)
[2023-01-10 10:50] LABS: Hemoglobin A1c 7.7 % (3.8-5.6)
[2023-01-10 12:45] LABS: Bedside Glucose 392 mg/dL (74-106)
[2023-01-10] MEDS: Ipratropium/Albuterol Sulfate 3 ML AMPUL.NEB INHALATION ×2 (13:46→19:34)
--- NOTE | 2023-01-10 13:53 | CT_ITS ---
INDICATION: pneumonia EXAMINATION: CT Chest W/O Contrast Injection TECHNIQUE: Helically acquired images were obtained of the chest without IV contrast. A radiation dose optimization technique was used for this scan. COMPARISON: None. FINDINGS: Lungs: Right lower lobe and lingular infiltrates. There are bibasilar consolidations. Mediastinum: The cardiomediastinal silhouette is not enlarged. No mediastinal, hilar or axillary adenopathy. Moderate aortic arch and coronary artery calcifications. Pleura: Moderate right and small left pleural effusions. Bones/Soft tissues: There are diffuse degenerative changes of the spine. Upper abdomen: Hiatal hernia. CT/Chest without Contrast IMPRESSION: Multifocal pneumonia with moderate right and small left pleural effusions. Hiatal hernia. Electronically Signed: Benjamín Reid MD at 19:45 EDT ,
--- NOTE | 2023-01-10 14:00 | NURSING ---
Respiratory noted pt spitting up black copius amts fluid. This RN informed Dr. Sousa CT scan ordered. Pt off the floor to CT scan.
[2023-01-10] MEDS: 0.9% Saline Lock 10 ML Syringe IV (14:51)
[2023-01-10] MEDS: Insulin Lispro 100 UNIT/ML INSULN.PEN 14 UNIT SC (17:11)
[2023-01-10 17:35] LABS: Bedside Glucose 484 mg/dL (74-106)
--- NOTE | 2023-01-10 17:49 | NURSING ---
Glucose 484 Dr. Sousa ordered 14u insulin. Lab called for back up.
[2023-01-10 17:56] LABS: Glucose 546 mg/dL (74-106)
--- NOTE | 2023-01-10 19:05 | RAD_ITS ---
STUDY: XR Abdomen 1 View 01/10/2023 7:03 PM REASON FOR EXAM: Female, 87 years old. ABDOMINAL PAIN ng placement #1 TECHNIQUE: XR Abdomen 1 View COMPARISON: 3.31.23 cxr FINDINGS: Multifocal pneumonia with moderate right and small left pleural effusions. There is a feeding tube/ nasogastric tube noted. The tip is coiled at the GE junction. It should be pushed further into the stomach, removed, or repositioned. There is no demonstrated free abdominal air. The visualized liver, spleen and kidneys are grossly normal in size and morphology. Normal soft tissue structures. Normal visualized osseous structures. RAD/Abdomen Single View (Portable) IMPRESSION: Multifocal pneumonia with moderate right and small left pleural effusions. There is a feeding tube/ nasogastric tube noted. The tip is coiled at the GE junction. It should be pushed further into the stomach, removed, or repositioned. Electronically Signed: Jose Ferguson MD at 20:13 EDT ,
--- NOTE | 2023-01-10 19:24 | RAD_ITS ---
STUDY: XR Abdomen 1 View 01/10/2023 7:12 PM REASON FOR EXAM: Female, 87 years old. ABDOMINAL PAIN NG tube adjustment, IMAGE #2, per RN TECHNIQUE: XR Abdomen 1 View COMPARISON: Study done earlier today. FINDINGS: Multifocal pneumonia with moderate right and small left pleural effusions. There is a feeding tube/ nasogastric tube noted. The tip is coiled at the GE junction. It should be pushed further into the stomach, removed, or repositioned. There is no demonstrated free abdominal air. The visualized liver, spleen and kidneys are grossly normal in size and morphology. Normal soft tissue structures. Normal visualized osseous structures. RAD/Abdomen Single View (Portable) IMPRESSION: Multifocal pneumonia with moderate right and small left pleural effusions. There is a feeding tube/ nasogastric tube noted. The tip is coiled at the GE junction. It should be pushed further into the stomach, removed, or repositioned. Electronically Signed: Jose Ferguson MD at 20:13 EDT ,
[2023-01-10] MEDS: 0.9% Normal Saline 1,000 ML 75 ML IV (21:57)
[2023-01-10] MEDS: Insulin Glargine-YFGN 100 UNIT/ML Pen 20 UNIT SC (22:04)
[2023-01-10] MEDS: Insulin Lispro 100 UNIT/ML INSULN.PEN 12 UNIT SC (22:42)
[2023-01-10 23:06] LABS: Glucose 641 mg/dL (74-106)
[2023-01-11] VITALS (12 sets, daily range): BP systolic 105–135; BP diastolic 44–54; PULSE 73–91; RESP 18–24; TEMP 36.3–36.9; O2SAT 87–98
[2023-01-11 00:30] LABS: Bedside Glucose > 500 mg/dL (74-106)
[2023-01-11 01:55] LABS: Bedside Glucose > 500 mg/dL (74-106)
[2023-01-11] MEDS: Insulin Lispro 100 UNIT/ML INSULN.PEN 12 UNIT SC ×2 (02:00→04:49)
[2023-01-11 02:29] LABS: Glucose 596 mg/dL (74-106)
[2023-01-11] MEDS: 0.9% Saline Lock 10 ML Syringe IV (04:49)
[2023-01-11 04:58] LABS: Absolute Lymphocyte Count 0.66 X10^3/uL (0.83-4.51); Absolute Neutrophil Count 10.6 X10^3/uL (2.0-7.7); Basophil# 0.01 X10^3/uL; Basophil% 0.1 % (0-1); Hematocrit 19.8 % (37-47); Lymphocyte # 0.66 X10^3/ul (0.83-4.51); Lymphocyte % 5.7 % (19-41); Mean Corp Hgb Conc 35.4 g/dL (32-36); Mean Corpuscular Hgb 36.1 pg (27.0-32.0); Mean Corpuscular Volume 102.1 fL (81-99); Mean Platelet Vol. 10.2 fl (6.2-12.0); Monocyte# 0.29 X10^3/uL; Monocyte% 2.5 % (0-10); NRBC Flagged by Analyzer 0 % (0-5); Neutrophil # 10.61 X10^3/uL (2.7-7.7); Neutrophil % 90.9 % (47-70); Platelet Count 243 K/mm3 (150-450); RBC Distribution Width CV 14.3 % (11.6-14.6); RBC Distribution Width SD 52.7 fl (35.1-43.9); Red Blood Count 1.94 M/mm3 (4.2-5.4); White Blood Count 11.7 K/mm3 (4.4-11.0)
[2023-01-11 05:20] LABS: Anion Gap 10 (5-15); BUN 102 mg/dL (7-18); BUN/Creat Ratio 30.1 RATIO (10-20); Calcium,Total 8.9 mg/dL (8.5-10.1); Chloride 97 mmol/L (98-107); Creatinine, Serum 3.39 mg/dL (0.55-1.02); EST Glomerular Filtration Rate 14 mL/min (>60); Est Glom Filt Rate - Afr Amer 17 mL/min (>60); Estimated Creatinine Clearance 8.56 ml/min; Glucose 518 mg/dL (74-106); Potassium 3.6 mmol/L (3.5-5.1); Sodium Level 130 mmol/L (136-145)
[2023-01-11 05:41] LABS: Bedside Glucose > 500 mg/dL (74-106)
[2023-01-11] MEDS: Insulin Lispro 100 UNIT/ML INSULN.PEN SC ×3 (06:55→17:18)
[2023-01-11 07:16] LABS: Bedside Glucose 429 mg/dL (74-106)
--- NOTE | 2023-01-11 07:23 | PCM.PN.HOSP ---
Reason for Visit Reason for Visit: Diagnoses Type 2 diabetes mellitus with hyperglycemia (01/09/23) Hypo-osmolality and hyponatremia (01/09/23) Acute kidney failure, unspecified (01/09/23) Hypoxemia (01/09/23) Other malaise (01/09/23) Subjective Subjective NGT placed yesterday and removed copious amounts of brown fluid. Unforntately, the NGT kept getting curled in esophagus. Attempted x2, with same results. Patient declined further events. Today, pt states that she's not had further emesis today. +Flatus. Objective Data Objective Data Vital Signs: Vital Signs Temp Pulse Resp BP Pulse Ox O2 Del Method O2 Flow Rate 36.6 C 90 18 105/44 L 94 High Flow 7 01/11/23 04:42 01/11/23 04:42 01/11/23 04:42 01/11/23 04:42 01/11/23 04:42 01/11/23 04:45 01/11/23 04:45 Oxygen Flow Rate (L/min) 7 Oxygen Delivery Method High Flow Weight: 71.8 kg Body Mass Index (BMI) 30.9 Intake & Output: Intake and Output for Last 24 Hours 01/09/23 01/10/23 01/11/23 23:59 23:59 23:59 Intake Total 1999 2270 / 2270 80 / 80 Output Total 675 / 675 0 / 0 Balance 1999 1595 / 1595 80 / 80 Lab / Micro Data Result Diagrams: 01/11/23 04:50 01/11/23 04:50 Labs: Laboratory Results - last 24 hr 01/10/23 06:05: Hemoglobin A1c 7.7 H 01/10/23 12:21: POC Glucose 392 H 01/10/23 16:56: POC Glucose 484 H* 01/10/23 17:23: Glucose 546 H* 01/10/23 21:59: POC Glucose > 500 H* 01/10/23 22:24: Glucose 641 H* 01/11/23 01:35: POC Glucose > 500 H* 01/11/23 01:53: Glucose 596 H* 01/11/23 04:37: POC Glucose > 500 H* 01/11/23 04:50: WBC 11.7 H, RBC 1.94 L, Hgb 7.0 L, Hct 19.8 L, MCV 102.1 H, MCH 36.1 H, MCHC 35.4, RDW Std Deviation 52.7 H, RDW Coeff of Gloria 14.3, Plt Count 243, MPV 10.2, Immature Gran % (Auto) 0.800, Neut % (Auto) 90.9 H, Lymph % (Auto) 5.7 L, [place] % (Auto) 2.5, Eos % (Auto) 0.0, Baso % (Auto) 0.1, Absolute Neuts (auto) 10.6 H, Absolute Lymphs (auto) 0.66 L, Nucleated RBC % 0 01/11/23 04:50: Sodium 130 L, Potassium 3.6, Chloride 97 L, Carbon Dioxide 23.0, Anion Gap 10, BUN 102 H*, Creatinine 3.39 H, Estim Creat Clear Calc 8.56, Est GFR (MDRD) Af Amer 17 L, Est GFR (MDRD) Non-Af 14 L, BUN/Creatinine Ratio 30.1 H, Glucose 518 H*, Calcium 8.9 01/11/23 06:51: POC Glucose 429 H Micro: Microbiology 01/10/23 16:04 Urine, Clean Catch Legionella Antigen - Final 01/10/23 16:04 Urine, Clean Catch Streptococcus pneumoniae Antigen (M - Final 01/09/23 22:30 Sputum, Expectorated/Coughed Gram Stain - Final 01/09/23 22:30 Sputum, Expectorated/Coughed Respiratory Culture - Preliminary Mixed normal respiratory jordan. No Haemophilus, Streptococcus pneumoniae, beta-hemolytic Streptococcus or Staphylococcus aureus isolated. 01/09/23 18:35 Nasal Secretion SARS-CoV-2 & FLU Antigen (Rapid) - Final Radiography Diagnostic Testing: Radiology Impression Chest CT 01/10/23 13:53 IMPRESSION: Multifocal pneumonia with moderate right and small left pleural effusions. Hiatal hernia. Electronically Signed: Benjamín Reid MD at 19:45 EDT , KUB X-Ray 01/10/23 19:05 IMPRESSION: Multifocal pneumonia with moderate right and small left pleural effusions. There is a feeding tube/ nasogastric tube noted. The tip is coiled at the GE junction. It should be pushed further into the stomach, removed, or repositioned. Electronically Signed: Jose Ferguson MD at 20:13 EDT , KUB X-Ray 01/10/23 19:24 IMPRESSION: Multifocal pneumonia with moderate right and small left pleural effusions. There is a feeding tube/ nasogastric tube noted. The tip is coiled at the GE junction. It should be pushed further into the stomach, removed, or repositioned. Electronically Signed: Jose Ferguson MD at 20:13 EDT , Physical Exam Const alert and no apparent distress Constitutional Narrative: [place]. HEENT head/scalp atraumatic and moist oral mucous membranes Resp normal respiratory effort, no retractions, no use of accessory muscles and clear to auscultation bilaterally Cardio regular rate, regular rhythm, S1 normal heart sound and S2 normal heart sound GI normal to inspection, nondistended, normoactive bowel sounds, soft to palpation, non-tender, non-distended and hepatosplenomegaly Extremity normal to inspection Assessment & Plan Assessment/Plan (1) Acute kidney injury: PLAN: Initially improved, but slightly worse today Suspect prerenal We will give additional IV fluids tablets already been administered in the emergency room Patient sees a construction person up in [place] who is filling with [facility]. Would recommend nephrology consultation if kidney function continues to worsen. Hold furosemide, hydrochlorothiazide, losartan. (2) Pneumonia: PLAN: +H. influenzae, but cannot rule out Aspiration v gram negative at this time so will continue with pip/tazo for now as pt was actively vomiting yesterday. PEP COVID-19 and influenza negative Start steroids and BDs Advised on breathing through her nose and out her mouth. Made patient aware of mouth breathing. No prior h/o COPD/asthma, steroids exacerbating DM2, will deescalate. (3) Hyperglycemia due to diabetes mellitus: PLAN: Due to physiologic stress of her illness and kidney issues and steroids a1c 7.7 Sliding scale insulin Started glargine 20 last night, required multiple doses of lispro overnight with glucose over 500. Will change glargine to BID. (4) Debility: PLAN: Likely due to what ever illness she has plus dehydration PT OT evaluate and treat (5) Hyponatremia: PLAN: Improved Likely due to dehydration. Patient received additional IV fluids I will hold off on additional testing for other etiologies of hyponatremia at this time (6) Ileus: PLAN: Developed sx 01/10. Patient was having active emesis, manifested by spitting up brown, feculent material (no projectile emesis) NGT attempted twice. Tube kept getting coiled in esophagus. (7) Acute blood loss anemia: PLAN: Hg dropped from 9.6 to 8.2 to 7 DC rivaroxoban Check hemoccult Check iron studies, B12, folate. Was admitted in February 2022 with a Hg of 5. PLAN: Plan Chronic conditions Hypertension: Continue nifedipine. Atrial flutter: DC rivaroxaban given anemia Gout: Stable. Continue with allopurinol Chronic pain: Cut back to gabapentin from 300-100 times daily given GAY. Anemia: Stable. Continue with ferrous sulfate. Patient was heme positive in the emergency room. Continue to monitor for now. If patient does have clear hematochezia or melena and hemoglobin continues to drop then may consider GI eval. Hypothyroidism: Continue levothyroxine VTE prophylaxis: Not indicated as patient is anticoagulated on rivaroxaban CODE STATUS: Addressed with the patient and her daughter. Patient is DNR Comfort Care arrest. Charges/Coding Visit Charges Inpatient E&M: 63858 Subs Hosp L2
[2023-01-11] MEDS: Ipratropium/Albuterol Sulfate 3 ML AMPUL.NEB INHALATION ×3 (08:00→19:41)
[2023-01-11] MEDS: Montelukast 10 MG Tablet PO (08:44)
[2023-01-11] MEDS: NIFEdipine 60 MG Tablet PO (08:44)
[2023-01-11] MEDS: Allopurinol 300 MG Tablet PO (08:44)
[2023-01-11] MEDS: glipiZIDE 2.5 MG TAB.ER.24 7.5 MG PO (08:44)
--- NOTE | 2023-01-11 09:17 | RAD_ITS ---
HISTORY: NG tube readjusted. TECHNIQUE: XR Abdomen 1 View. COMPARISON: Prior day. FINDINGS: LINES/TUBES: Nasogastric tube again coiled at the gastroesophageal junction with tip deflected into the lower esophagus. CARDIOMEDIASTINAL BORDERS: Stable. LUNG BASES: Bibasilar atelectasis or pneumonia again seen. BOWEL GAS PATTERN: No subdiaphragmatic free air seen on upright view. Mild gaseous distention and dilatation of small bowel again noted in the upper abdomen. RAD/Abdomen Single View (Portable) IMPRESSION: Nasogastric tube tip again coiled at the gastroesophageal junction with tip deflected into the lower esophagus; recommend repositioning or removal. Electronically Signed: Brigida Wharton MD at 11:04 EDT ,
[2023-01-11] MEDS: Insulin Glargine-YFGN 100 UNIT/ML Pen 20 UNIT SC ×2 (09:52→20:34)
--- NOTE | 2023-01-11 10:41 | NURSING ---
Spoke with daughter Thuy on the phone to give update.
[2023-01-11 13:15] LABS: Bedside Glucose 385 mg/dL (74-106)
--- NOTE | 2023-01-11 14:15 | NURSING ---
Made Dr. Sousa aware sputum back with H. Influenza pt placed in droplet precautions. Made family aware thats in the room. Dr. Sousa aware hgb 7.0.
[2023-01-11] MEDS: 0.9% Normal Saline 1,000 ML 75 ML IV (14:36)
[2023-01-11] MEDS: Gabapentin 100 MG Capsule PO ×2 (14:36→20:41)
[2023-01-11 15:29] LABS: Hematocrit 19.4 % (37-47)
[2023-01-11 16:07] LABS: Ferritin 1925 ng/mL (8-252); Iron 41 ug/dL (50-170); Iron Binding Capacity,Total 155 ug/dL (250-450); PERCENT IRON SATURATION 26.5 % (15.0-55.0); Thyroid Stim Hormone (TSH) 0.02 uIU/mL (0.358-3.74)
--- NOTE | 2023-01-11 16:19 | PCM.HOSP.N ---
Hospitalist Note Increased oxygenation requirements up to 12l/m. Went to evaluate the patient and her daughter was there. Verify that CODE STATUS DNR Comfort Care arrest no intubation. We will try vest therapy and continue with antibiotics and bronchodilators. Add mucinex.
[2023-01-11 17:41] LABS: Bedside Glucose 400 mg/dL (74-106)
[2023-01-11] MEDS: Docusate Sodium 100 MG Capsule PO (20:28)
[2023-01-11] MEDS: guaiFENesin 1,200 MG Tablet 1200 MG PO (20:29)
[2023-01-11] MEDS: Atorvastatin Calcium 20 MG Tablet PO (20:29)
[2023-01-11] MEDS: Menthol/Lanolin/Calamine/Znox 113 GM Tube 1 APPLIC TOPICAL (21:32)
[2023-01-11 22:20] LABS: Bedside Glucose 328 mg/dL (74-106)
[2023-01-12] VITALS (16 sets, daily range): BP systolic 112–121; BP diastolic 46–60; PULSE 64–88; RESP 18–26; TEMP 36.2–36.9; O2SAT 91–100
[2023-01-12] MEDS: Levothyroxine 137 MCG Tablet PO (06:22)
[2023-01-12] MEDS: Gabapentin 100 MG Capsule PO ×2 (06:22→13:10)
[2023-01-12] MEDS: Insulin Lispro 100 UNIT/ML INSULN.PEN SC ×3 (06:24→16:09)
[2023-01-12] MEDS: 0.9% Normal Saline 1,000 ML 75 ML IV ×2 (06:32→21:18)
[2023-01-12 06:33] LABS: Absolute Lymphocyte Count 0.56 X10^3/uL (0.83-4.51); Absolute Neutrophil Count 13.4 X10^3/uL (2.0-7.7); Basophil# 0.01 X10^3/uL; Basophil% 0.1 % (0-1); Hematocrit 17.8 % (37-47); Hemoglobin 6.2 g/dL (12.0-15.0); Lymphocyte # 0.56 X10^3/ul (0.83-4.51); Lymphocyte % 3.8 % (19-41); Mean Corp Hgb Conc 34.8 g/dL (32-36); Mean Corpuscular Hgb 35.8 pg (27.0-32.0); Mean Corpuscular Volume 102.9 fL (81-99); Mean Platelet Vol. 10.2 fl (6.2-12.0); Monocyte# 0.46 X10^3/uL; Monocyte% 3.1 % (0-10); NRBC Flagged by Analyzer 0.3 % (0-5); Neutrophil % 91.7 % (47-70); POSITIVE DIFFERENTIAL YES; Platelet Count 228 K/mm3 (150-450); RBC Distribution Width CV 14.6 % (11.6-14.6); RBC Distribution Width SD 54.1 fl (35.1-43.9); Red Blood Count 1.73 M/mm3 (4.2-5.4); White Blood Count 14.6 K/mm3 (4.4-11.0)
[2023-01-12 06:38] LABS: Differential Indicated SCAN CRITERIA MET
[2023-01-12 06:45] LABS: Bedside Glucose 385 mg/dL (74-106)
[2023-01-12 07:00] LABS: ALB/GLOB Ratio 0.5 RATIO (0.9-2.4); AST(SGOT) 15 U/L (15-37); Alanine Aminotransfer ALT/SGPT 20 U/L (13-56); Albumin, Serum 1.9 g/dL (3.2-5.0); Alkaline Phosphatase 66 U/L (45-117); Anion Gap 10 (5-15); BUN 108 mg/dL (7-18); BUN/Creat Ratio 34.7 RATIO (10-20); Calcium,Total 8.8 mg/dL (8.5-10.1); Chloride 102 mmol/L (98-107); Creatinine, Serum 3.11 mg/dL (0.55-1.02); EST Glomerular Filtration Rate 15 mL/min (>60); Est Glom Filt Rate - Afr Amer 18 mL/min (>60); Estimated Creatinine Clearance 9.33 ml/min; Glucose 390 mg/dL (74-106); Potassium 3.7 mmol/L (3.5-5.1); Protein, Total 5.9 g/dL (6.4-8.2); Sodium Level 133 mmol/L (136-145)
[2023-01-12] MEDS: Ipratropium/Albuterol Sulfate 3 ML AMPUL.NEB INHALATION ×3 (07:17→20:21)
[2023-01-12 07:19] LABS: Macrocytosis RARE
[2023-01-12 07:20] LABS: Hypochromasia 2+
[2023-01-12 08:34] LABS: Vitamin B12 > 2000 pg/mL (211-911)
[2023-01-12 08:35] LABS: T4 Free Direct 1.21 ng/dL (0.76-1.46)
[2023-01-12] MEDS: NIFEdipine 60 MG Tablet PO (09:27)
[2023-01-12] MEDS: glipiZIDE 2.5 MG TAB.ER.24 7.5 MG PO (09:27)
[2023-01-12] MEDS: Multivitamins,Therapeutic Tablet 1 TABLET PO (09:27)
[2023-01-12] MEDS: Allopurinol 300 MG Tablet PO (09:27)
[2023-01-12] MEDS: Montelukast 10 MG Tablet PO (09:27)
[2023-01-12] MEDS: Docusate Sodium 100 MG Capsule PO (09:27)
[2023-01-12] MEDS: Menthol/Lanolin/Calamine/Znox 113 GM Tube 1 APPLIC TOPICAL ×2 (09:28→21:17)
[2023-01-12] MEDS: Ferrous Sulfate 325 MG Tablet PO (09:28)
[2023-01-12] MEDS: guaiFENesin 1,200 MG Tablet 1200 MG PO (09:28)
[2023-01-12] MEDS: Insulin Glargine-YFGN 100 UNIT/ML Pen 20 UNIT SC ×2 (09:31→21:16)
[2023-01-12 10:01] LABS: Bedside Glucose 370 mg/dL (74-106)
[2023-01-12 11:05] LABS: Bedside Glucose 355 mg/dL (74-106)
[2023-01-12] MEDS: 0.9% Saline Lock 10 ML Syringe IV ×2 (11:18→13:10)
--- NOTE | 2023-01-12 13:35 | CASEMGMT ---
Social Work SW in to pt room to begin discharge plan. SW noted pt from [facility]. Pt daughter present in the room and was able to answer questions regarding discharge plan. Daughter, Thuy, informed pt will be discharging to pt's son's home for a short while before returning to [facility] upon discharge. Thuy explained family wants pt to have additional support before returning to independent level of living, thus pt will stay with son for a while, then return home. AVILA asked if family would like SW to call [facility] to give update on plan. Thuy stated this would be okay but that [facility] did not know pt was at the hospital at this time. SW called [facility], spoke to Beronica. AVILA explained pt has been admitted to [facility] and upon discharge the plan is for pt to stay with famliy for a fort time before returning back to apartment at [facility]. Beronica voiced understanding and discussed intent to update the nursing team at [facility]. Beronica informed pt can return to [facility] when ready, declined for SW to send clinical updates, stated it would not be necessary for SW to send them. DIETER Ricks
--- NOTE | 2023-01-12 14:54 | EX.PCM.CON.G ---
HPI Consult Data Date of Consult: 01/12/23 Attending Care Provider: Anemia HPI Narrative Reason for Consultation: Anemia HPI Narrative: IRENA EASTON, is a 87 F who presented to the ED wit her daughter for weakness that she has had over the past week.? She has not been eating much or drinking much due to decreased appetite and has fallen a few times this week.? She denies any loss of consciousness with these falls, head injury, or any other injury.? She has had a productive cough over the past week as well without any shortness of breath or chest pain.? PMH includes chronic kidney disease, hypertension, chronic anemia, and patient is on a blood thinner.? She denies any fever, chills, abdominal pain, nausea, vomiting, and diarrhea. She had a CT s.can of the chest that displayed Multifocal pneumonia with moderate right and small left pleural effusions and a large Hiatal hernia. NGT placed yesterday and removed copious amounts of brown fluid. Unforntately, the NGT kept getting curled in esophagus. The NG tube was then removed. I was asked to See the patient for blood loss anemia. Her hemoglobin is down to 6.2. She does have a history of chronic atrial flutter, hypertension, hyperlipidemia, diabetes and chronic renal disease with anemia.? 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 Lott for her anemia. She tells me she is getting her blood counts checked monthly.? She tells me the goal for her Hgb is 9.5.? 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 01/30/16 [History Last Taken 01/09/23] docusate sodium 100 mg capsule 100 mg PO DAILY constipation 01/30/16 [History Last Taken Unknown] fluticasone 250 mcg-salmeterol 50 mcg/dose blistr powdr for inhalation 1 puff inhalation BID sob 01/30/16 [History Last Taken 01/08/23] montelukast 10 mg tablet 10 mg PO DAILY breathing 01/30/16 [History Last Taken 01/08/23] nifedipine 60 mg tablet,extended release 24 hr 60 mg PO DAILY blood pressure 01/30/16 [History Last Taken 01/09/23] potassium chloride 10 mEq tablet,extended release 20 meq PO DAILY supplement 01/30/16 [History Last Taken 01/09/23] albuterol sulfate 90 mcg/actuation aerosol inhaler 2 puff inhalation Q4H PRN sob/wheezing #18 grams 04/19/19 [History Last Taken Unknown] gabapentin 300 mg capsule 300 mg PO TID neuropathy 04/19/19 [History Last Taken 01/09/23] levothyroxine 137 mcg tablet 137 mcg PO DAILY thyroid #30 tabs 04/19/19 [History Last Taken 01/09/23] rivaroxaban 20 mg tablet 20 mg PO QPM blood thinner #30 tabs 04/19/19 [History Last Taken 01/08/23] calcium carbonate 600 mg-vitamin D3 20 mcg (800 unit) tablet 1 tab PO DAILY supplement 08/23/21 [History Last Taken Unknown] glipizide 2.5 mg tablet, extended release 24 hr 7.5 mg PO DAILY diabetes 08/23/21 [History Last Taken 01/08/23] multivitamin 1 tab PO DAILY supplement 08/23/21 [History Last Taken 01/09/23] cyanocobalamin (vitamin B-12) 1 tablet PO/SL DAILY supplement 03/06/22 [History Last Taken 01/09/23] hydrochlorothiazide 12.5 mg capsule 25 mg PO DAILY 09/16/22 [History Last Taken 01/09/23] ferrous sulfate 325 mg (65 mg iron) tablet 325 mg PO DAILY supplement 01/09/23 [History Last Taken 01/09/23] furosemide 40 mg tablet 60 mg PO DAILY EDEMA 01/09/23 [History Last Taken 01/08/23] losartan 50 mg tablet 50 mg PO DAILY HTN 01/09/23 [History Last Taken 01/09/23] simvastatin 40 mg tablet 40 mg PO QHS CHOLESTEROL 01/09/23 [History Last Taken 01/08/23] Allergy/AdvReac Type Severity Reaction Status Date / Time propranolol AdvReac nausea Verified 01/09/23 11:58 Family History Mother Heart disease chf Father Heart disease chf Surgical History Bilateral artificial lens implant (~2020) History of tonsillectomy and adenoidectomy Social History Smoking Status: Never smoker alcohol intake: never substance use type: does not use caffeine: No ROS Constitutional Constitutional: Reports fatigue and weakness; Denies anorexia, chills, fever(s) or malaise Cardiovascular Cardiovascular: Denies chest pain, edema, orthopnea, palpitations or syncope Respiratory/Chest Respiratory/Chest: Reports shortness of breath with exertion; Denies cough or wheezing Gastrointestinal Gastrointestinal: Denies abdominal pain, constipation, diarrhea, nausea or vomiting Genitourinary Genitourinary: Denies dysuria Musculoskeletal Musculoskeletal: Denies back pain, extremity pain, joint pain or joint stiffness Integumentary Integumentary: Denies dry skin Neurologic Neurologic: Denies abnormal gait, abnormal speech, confusion or dizziness Psychiatric Psychiatric: Denies anxiety or depression Endocrine Endocrinology: Denies change in body appearance Hematologic/Lymphatic Hematologic/Lymphatic: Reports anemia; Denies easy bleeding Physical Exam Const alert and no apparent distress Constitutional Narrative: [place]. HEENT head/scalp atraumatic and moist oral mucous membranes Resp normal respiratory effort, no retractions, no use of accessory muscles and clear to auscultation bilaterally Cardio regular rate, regular rhythm, S1 normal heart sound and S2 normal heart sound GI normal to inspection, nondistended, normoactive bowel sounds, soft to palpation, non-tender, non-distended and hepatosplenomegaly Extremity normal to inspection Lab / Micro Data Result Diagrams: 01/12/23 06:00 01/12/23 06:00 Labs: Laboratory Results - last 24 hr 01/11/23 15:15: Hgb 7.0 L, Hct 19.4 L 01/11/23 15:15: Iron 41 L, TIBC 155 L, Iron Saturation 26.5, Ferritin 1925 H, Folate 17.60, TSH 0.02 L 01/11/23 15:15: Vitamin B12 > 2000 H 01/11/23 17:17: POC Glucose 400 H 01/11/23 20:31: POC Glucose 328 H 01/12/23 06:00: WBC 14.6 H, RBC 1.73 L, Hgb 6.2 L, Hct 17.8 L, MCV 102.9 H, MCH 35.8 H, MCHC 34.8, RDW Std Deviation 54.1 H, RDW Coeff of Gloria 14.6, Plt Count 228, MPV 10.2, Immature Gran % (Auto) 1.300 H, Neut % (Auto) 91.7 H, Lymph % (Auto) 3.8 L, [place] % (Auto) 3.1, Eos % (Auto) 0.0, Baso % (Auto) 0.1, Absolute Neuts (auto) 13.4 H, Absolute Lymphs (auto) 0.56 L, Nucleated RBC % 0.3, Hypochromasia 2+, Macrocytosis RARE 01/12/23 06:00: Sodium 133 L, Potassium 3.7, Chloride 102, Carbon Dioxide 21.0, Anion Gap 10, BUN 108 H*, Creatinine 3.11 H, Estim Creat Clear Calc 9.33, Est GFR (MDRD) Af Amer 18 L, Est GFR (MDRD) Non-Af 15 L, BUN/Creatinine Ratio 34.7 H, Glucose 390 H, Calcium 8.8, Total Bilirubin 0.50, AST 15, ALT 20, Alkaline Phosphatase 66, Total Protein 5.9 L, Albumin 1.9 L, Globulin 4.0, Albumin/Globulin Ratio 0.5 L 01/12/23 06:00: Free T4 1.21 01/12/23 06:20: POC Glucose 385 H 01/12/23 09:30: POC Glucose 370 H 01/12/23 10:42: POC Glucose 355 H Micro: Microbiology 01/10/23 22:20 Sputum, Expectorated/Coughed Gram Stain - Final 01/10/23 22:20 Sputum, Expectorated/Coughed Respiratory Culture - Preliminary Appears to be normal respiratory jordan. Further studies to follow. 01/09/23 22:30 Sputum, Expectorated/Coughed Gram Stain - Final 01/09/23 22:30 Sputum, Expectorated/Coughed Respiratory Culture - Final Haemophilus influenzae Assessment & Plan Assessment/Plan (1) Acute blood loss anemia: PLAN: The differential diagnosis for acute blood loss anemia would include Adán's erosions secondary to hiatal hernia, peptic ulcer disease, angiodysplastic lesions of the upper GI tract, portal gastropathy, gastric antral vascular ectasia. She should undergo an upper endoscopy to evaluate upper GI tract. Patient and patient's family were explained alternatives, risk, benefits including not withstanding bleeding, infection, sepsis, perforation, need for emergent and . She would have an ASA of 3. Charges/Coding Visit Charges Inpatient E&M: 62516 Init Hosp L3 Multi Select Codes Visit Charges Visit Charges: 63214 Init Hosp L3
--- NOTE | 2023-01-12 15:25 | NURSING ---
called to room by [facility] attempted tsp bites and pt dropped spo2 into 70's. when this nurse arrived to room spo2 96%. resp 26 pt alert. moist cough noted. Airvo 50L, 54%. spo2 maintained 99% while in the room. ls crackles t/o, r>l. no distress noted. family x2 bedside. call light within reach.
--- NOTE | 2023-01-12 15:52 | PN_ITS ---
Subjective Subjective Patient seen and examined. She had no active complaints. She is on Airvo at 50 L/min with FiO2 of 54%. She denies any chest pain, palpitations, dizziness, nausea or vomiting. Review of systems otherwise negative. Objective Data Objective Data Vital Signs: Vital Signs Temp Pulse Resp BP Pulse Ox O2 Del Method O2 Flow Rate 97.5 F L 78 20 H 117/46 L 97 Airvo 50 01/12/23 14:55 01/12/23 14:55 01/12/23 14:55 01/12/23 14:55 01/12/23 14:58 01/12/23 14:58 01/12/23 14:58 FiO2 54 01/12/23 14:58 Oxygen Flow Rate (L/min) 50 Oxygen Delivery Method Airvo Weight: 158 lb 4.67 oz Body Mass Index (BMI) 30.9 Intake & Output: Intake and Output for Last 24 Hours 01/10/23 01/11/23 01/12/23 23:59 23:59 23:59 Intake Total 2270 / 2270 1682.5 / 1682.5 906.25 / 906.25 Output Total 675 / 675 0 / 0 750 / 750 Balance 1595 / 1595 1682.5 / 1682.5 156.25 / 156.25 Lab / Micro Data Result Diagrams: 01/12/23 06:00 01/12/23 06:00 Labs: Laboratory Results - last 24 hr 01/11/23 15:15: Iron 41 L, TIBC 155 L, Iron Saturation 26.5, Ferritin 1925 H, Folate 17.60, TSH 0.02 L 01/11/23 15:15: Vitamin B12 > 2000 H 01/11/23 17:17: POC Glucose 400 H 01/11/23 20:31: POC Glucose 328 H 01/12/23 06:00: WBC 14.6 H, RBC 1.73 L, Hgb 6.2 L, Hct 17.8 L, MCV 102.9 H, MCH 35.8 H, MCHC 34.8, RDW Std Deviation 54.1 H, RDW Coeff of Gloria 14.6, Plt Count 228, MPV 10.2, Immature Gran % (Auto) 1.300 H, Neut % (Auto) 91.7 H, Lymph % (Auto) 3.8 L, [place] % (Auto) 3.1, Eos % (Auto) 0.0, Baso % (Auto) 0.1, Absolute Neuts (auto) 13.4 H, Absolute Lymphs (auto) 0.56 L, Nucleated RBC % 0.3, Hypochromasia 2+, Macrocytosis RARE 01/12/23 06:00: Sodium 133 L, Potassium 3.7, Chloride 102, Carbon Dioxide 21.0, Anion Gap 10, BUN 108 H*, Creatinine 3.11 H, Estim Creat Clear Calc 9.33, Est GFR (MDRD) Af Amer 18 L, Est GFR (MDRD) Non-Af 15 L, BUN/Creatinine Ratio 34.7 H , Glucose 390 H, Calcium 8.8, Total Bilirubin 0.50, AST 15, ALT 20, Alkaline Phosphatase 66, Total Protein 5.9 L, Albumin 1.9 L, Globulin 4.0, Albumin/Globulin Ratio 0.5 L 01/12/23 06:00: Free T4 1.21 01/12/23 06:20: POC Glucose 385 H 01/12/23 09:30: POC Glucose 370 H 01/12/23 10:42: POC Glucose 355 H Micro: Microbiology 01/10/23 22:20 Sputum, Expectorated/Coughed Gram Stain - Final 01/10/23 22:20 Sputum, Expectorated/Coughed Respiratory Culture - Preliminary Appears to be normal respiratory jordan. Further studies to follow. 01/09/23 22:30 Sputum, Expectorated/Coughed Gram Stain - Final 01/09/23 22:30 Sputum, Expectorated/Coughed Respiratory Culture - Final Haemophilus influenzae 01/10/23 16:04 Urine, Clean Catch Legionella Antigen - Final 01/10/23 16:04 Urine, Clean Catch Streptococcus pneumoniae Antigen (M - Final 01/09/23 18:35 Nasal Secretion SARS-CoV-2 & FLU Antigen (Rapid) - Final Physical Exam Const alert, oriented x3 and no apparent distress General Appearance: cooperative HEENT normocephalic and head/scalp atraumatic Eyes PERRL and EOMs intact bilaterally Neck supple Lymph Lymphatic: no lymphadenopathy noted Resp Resp Narrative: bilateral coarse crackles, no wheezing or crackles. Cardio regular rate, regular rhythm, S1 normal heart sound, S2 normal heart sound and no murmurs GI normal to inspection, nondistended, normoactive bowel sounds, soft to palpation, non-tender and non-distended Extremity normal capillary refill and no clubbing, cyanosis or edema General Extremity: no tenderness to palpation of joints or extremities Skin General Skin Exam: no breakdown Neuro CN's II-XII intact bilaterally, no focal motor deficits and deep tendon reflexes 2+ bilaterally Psych thought process normal and cooperative Appearance: appropriate Assessment & Plan Assessment/Plan (1) Hyponatremia: (2) Pneumonia: PLAN: Plan #GAY * improving. thought to be pre-renal * follows with a insurance specialist in [place] * on furosemide, glipizide, HCTZ and losartan, which are on hold. * #Hyperglycemia in the setting of diabetes mellitus * A1C showed * on ISS> accuchecks ACHS * Debility and weakness * PT/OT on board. Fall precautions * #acute on chronic anemia * Hemoglobin is down 6.1 today. She does have a history of recurrent anemia. She had NG tube placed yesterday with removal of copious amounts of brown fl uid. NG tube was removed. * Gastroenterology consulted. Will hold Xarelto. * #acue Respiratory failure due to pneumonia * On Airvo. Titrate oxygen to maintain saturation above 90%. Being treated bro nchodilators. * On IV zosyn * will consult pulmonology as she is on airvo * sputum positive for H Influenzae * #Atrial flutter: On Xarelto. #Gout: On allopurinol #Chronic pain: On the gabapentin. Dose was reduced in light of GAY. #Hypothyroidism: on synthroid DVT prophylaxis: on xarelto already,. Will hold. SCDs o/a of acute on chronic anemia. Charges/Coding Visit Charges Inpatient E&M: 25632 Subs Hosp L3
--- NOTE | 2023-01-12 16:33 | CHAPLAIN ---
Type of Pastoral Visit _x__ Initial Visit ___ Follow-up Visit ___ On-call Visit ___ General Patient Visit ___ Spiritual Assessment ___ Family Conference ___ Bereavement ___ Rapid Response ___ Code Blue ___ Other (describe below) Pastoral Care Referral From ___ Patient _x__ Family ___ Nurse ___ Physician ___ Doughnut Icer Machine ___ Produce Wrapper ___ Other (describe below) Sacrament/Intervention _x__ Active listening ___ Anointing ___ Worship ___ Bereavement ___ Communion ___ Fadia exploration ___ ___ Life review _x__ Prayer ___ Reconciliation ___ Sacrament of Sick _x__ Supportive presence ___ Wedding ___ Other (describe below) Pastoral Comments daughter and grandson are in the room with the patient; when this shaper set up operator knocked on the door the patient yelled, now what?; explanation of services and desire to help pt; pt agrees to visit but is hard of hearing and is slow to respond to a few questions; once patient talks she becomes more labored in breathing so kept this conversation brief; pt does welcome a prayer and states I am coping as best I can; offer of support to family members given
[2023-01-12 16:36] LABS: Bedside Glucose 323 mg/dL (74-106)
--- NOTE | 2023-01-12 21:31 | CPS ---
patient did not want vest treatment at this time
[2023-01-12 21:45] LABS: Bedside Glucose 268 mg/dL (74-106)
[2023-01-13] VITALS (21 sets, daily range): BP systolic 116–150; BP diastolic 48–61; PULSE 69–88; RESP 16–22; TEMP 36.3–36.6; O2SAT 3–99
[2023-01-13] MEDS: Insulin Lispro 100 UNIT/ML INSULN.PEN SC ×3 (06:36→16:01)
[2023-01-13 06:46] LABS: Absolute Lymphocyte Count 0.55 X10^3/uL (0.83-4.51); Absolute Neutrophil Count 12.3 X10^3/uL (2.0-7.7); Basophil# 0.01 X10^3/uL; Basophil% 0.1 % (0-1); Hematocrit 18.2 % (37-47); Hemoglobin 6.2 g/dL (12.0-15.0); Lymphocyte # 0.55 X10^3/ul (0.83-4.51); Lymphocyte % 4.1 % (19-41); Mean Corp Hgb Conc 34.1 g/dL (32-36); Mean Corpuscular Hgb 34.8 pg (27.0-32.0); Mean Corpuscular Volume 102.2 fL (81-99); Mean Platelet Vol. 9.8 fl (6.2-12.0); Monocyte# 0.41 X10^3/uL; NRBC Flagged by Analyzer 0.4 % (0-5); Neutrophil # 12.34 X10^3/uL (2.7-7.7); Neutrophil % 91.6 % (47-70); POSITIVE DIFFERENTIAL YES; Platelet Count 207 K/mm3 (150-450); RBC Distribution Width CV 14.6 % (11.6-14.6); RBC Distribution Width SD 52.3 fl (35.1-43.9); Red Blood Count 1.78 M/mm3 (4.2-5.4); White Blood Count 13.5 K/mm3 (4.4-11.0)
[2023-01-13 06:53] LABS: Differential Indicated SCAN CRITERIA MET
[2023-01-13] MEDS: Ipratropium/Albuterol Sulfate 3 ML AMPUL.NEB INHALATION ×3 (07:20→19:29)
[2023-01-13 07:21] LABS: Anion Gap 9 (5-15); BUN 96 mg/dL (7-18); BUN/Creat Ratio 36.1 RATIO (10-20); Calcium,Total 8.7 mg/dL (8.5-10.1); Chloride 110 mmol/L (98-107); Creatinine, Serum 2.66 mg/dL (0.55-1.02); EST Glomerular Filtration Rate 18 mL/min (>60); Est Glom Filt Rate - Afr Amer 22 mL/min (>60); Glucose 242 mg/dL (74-106); Potassium 3.3 mmol/L (3.5-5.1); Sodium Level 139 mmol/L (136-145)
[2023-01-13 07:22] LABS: Macrocytosis 1+
[2023-01-13 07:25] LABS: Bedside Glucose 236 mg/dL (74-106)
--- NOTE | 2023-01-13 07:58 | CON.PCM.CC_ITS ---
Assessment & Plan Assessment/Plan (1) Hypoxia: PLAN: Plan RECOMMENDATIONS: 1. Transition from Airvo to conventional nasal cannula oxygen to maintain saturations at or above 90%. 2. Transfuse blood products as ordered. 3. Check H&H posttransfusion. 4. Agree with Lasix administration. 5. Obtain follow-up chest x-ray. 6. Endoscopic work-up per GI recommendations. 7. Stop continuous IV fluids. 8. Encourage incentive spirometer use and mobilize patient as tolerated. IMPRESSIONS: 1. Acute hypoxemic respiratory failure I do suspect that the patient's hypoxia is likely multifactorial in etiology with possible CHF and pneumonia contributing. Sputum culture was positive from haemophilus influenza. She is overall net positive from a volume perspective for the hospitalization. BNP is mildly elevated. She would likely benefit from gentle diuresis, as tolerated by hemodynamics and renal function. If the patient does not begin to improve from a respiratory perspective, consider obtaining echocardiogram. In the interim, recommend discontinuing IV fluids. 2. Acute on chronic anemia The patient's hemoglobin has dropped to 6.2 g/dL. Gastroenterology is following. Continue PPI therapy. Tentative plans for upper endoscopy. 3. Generalized weakness and debility/atrial flutter/chronic pain syndrome/hypothyroidism Complicates care, management, recovery and prognosis. [place] remains on hold. PT/OT to work with the patient. This note was generated with [employer] dictation software. It may contain incorrect words, spelling, and punctuation that were not noted in checking the note before signing. HPI Consult Data Date of Consult: 01/13/23 HPI Narrative Reason for Consultation: Acute hypoxemic respiratory failure HPI Narrative: The patient is an 87-year-old female, with a history as outlined below, who presented to the emergency department on January 09 with generalized weakness and decreased p.o. intake. The patient has a known history of chronic atrial flutter, hypertension, hyperlipidemia, diabetes mellitus and chronic kidney disease with associated anemia. The patient denied a history of chronic oxygen dependency. She is a non-smoker and denied a history of COPD or asthma. On presentation to the emergency department, the patient was noted to have a white blood cell count of 15,000 with a hemoglobin of 8.4 g/dL. Chemistry profile at that time was notable for a sodium of 127, chloride of 88, anion gap of 16 and creatinine of 4.01. Urinalysis was notable for leukocyte esterase and 1+ urine bacteria. Small serum acetone level was noted. CT chest completed on January 10 demonstrated multifocal pneumonia with bilateral pleural effusions. The patient was noted to be positive for haemophilus influenza on January 09. She is currently documented to be overall net +5 L for the hospitalization. The patient remains on antimicrobials and has been maintained on IV fluids for multiple days. Hemoglobin this morning was noted to be 6.2 g/dL. 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 01/30/16 [History Last Taken 01/09/23] docusate sodium 100 mg capsule 100 mg PO DAILY constipation 01/30/16 [History Last Taken Unknown] fluticasone 250 mcg-salmeterol 50 mcg/dose blistr powdr for inhalation 1 puff inhalation BID sob 01/30/16 [History Last Taken 01/08/23] montelukast 10 mg tablet 10 mg PO DAILY breathing 01/30/16 [History Last Taken 01/08/23] nifedipine 60 mg tablet,extended release 24 hr 60 mg PO DAILY blood pressure 01/30/16 [History Last Taken 01/09/23] potassium chloride 10 mEq tablet,extended release 20 meq PO DAILY supplement 01/30/16 [History Last Taken 01/09/23] albuterol sulfate 90 mcg/actuation aerosol inhaler 2 puff inhalation Q4H PRN sob/wheezing #18 grams 04/19/19 [History Last Taken Unknown] gabapentin 300 mg capsule 300 mg PO TID neuropathy 04/19/19 [History Last Taken 01/09/23] levothyroxine 137 mcg tablet 137 mcg PO DAILY thyroid #30 tabs 04/19/19 [History Last Taken 01/09/23] rivaroxaban 20 mg tablet 20 mg PO QPM blood thinner #30 tabs 04/19/19 [History Last Taken 01/08/23] calcium carbonate 600 mg-vitamin D3 20 mcg (800 unit) tablet 1 tab PO DAILY supplement 08/23/21 [History Last Taken Unknown] glipizide 2.5 mg tablet, extended release 24 hr 7.5 mg PO DAILY diabetes 08/23/21 [History Last Taken 01/08/23] multivitamin 1 tab PO DAILY supplement 08/23/21 [History Last Taken 01/09/23] cyanocobalamin (vitamin B-12) 1 tablet PO/SL DAILY supplement 03/06/22 [History Last Taken 01/09/23] hydrochlorothiazide 12.5 mg capsule 25 mg PO DAILY 09/16/22 [History Last Taken 01/09/23] ferrous sulfate 325 mg (65 mg iron) tablet 325 mg PO DAILY supplement 01/09/23 [History Last Taken 01/09/23] furosemide 40 mg tablet 60 mg PO DAILY EDEMA 01/09/23 [History Last Taken 01/08/23] losartan 50 mg tablet 50 mg PO DAILY HTN 01/09/23 [History Last Taken 01/09/23] simvastatin 40 mg tablet 40 mg PO QHS CHOLESTEROL 01/09/23 [History Last Taken 01/08/23] Allergy/AdvReac Type Severity Reaction Status Date / Time propranolol AdvReac nausea Verified 01/09/23 11:58 Family History Mother Heart disease chf Father Heart disease chf Surgical History Bilateral artificial lens implant (~2019) History of tonsillectomy and adenoidectomy Social History Smoking Status: Never smoker alcohol intake: never substance use type: does not use caffeine: No ROS ROS Narrative 10 systems were reviewed with pertinent positives as noted in the HPI above. Physical Exam Const alert and no apparent distress Constitutional Narrative: Sitting in bedside recliner. General Appearance: cooperative HEENT normocephalic and head/scalp atraumatic Eyes PERRL, EOMs intact bilaterally and conjunctivae normal Neck supple General: trachea midline Chest inspection of chest normal Resp normal respiratory effort Effort and Inspection: able to speak in complete sentences Auscultation: wheezes Cardio regular rate and regular rhythm GI normal to inspection, nondistended, normoactive bowel sounds Extremity no clubbing, cyanosis or edema Skin no rashes or lesions noted Neuro CN's II-XII intact bilaterally and no focal motor deficits Psych cooperative and affect normal Lab / Micro Data Result Diagrams: 01/13/23 06:25 01/13/23 06:25 Labs: Laboratory Results - last 24 hr 01/11/23 15:15: Vitamin B12 > 2000 H 01/12/23 06:00: Free T4 1.21 01/12/23 09:30: POC Glucose 370 H 01/12/23 10:42: POC Glucose 355 H 01/12/23 16:06: POC Glucose 323 H 01/12/23 21:15: POC Glucose 268 H 01/13/23 06:25: WBC 13.5 H, RBC 1.78 L, Hgb 6.2 L, Hct 18.2 L, MCV 102.2 H, MCH 34.8 H, MCHC 34.1, RDW Std Deviation 52.3 H, RDW Coeff of Gloria 14.6, Plt Count 207, MPV 9.8, Immature Gran % (Auto) 1.200 H, Neut % (Auto) 91.6 H, Lymph % (Auto) 4.1 L, [place] % (Auto) 3.0, Eos % (Auto) 0.0, Baso % (Auto) 0.1, Absolute Neuts (auto) 12.3 H, Absolute Lymphs (auto) 0.55 L, Nucleated RBC % 0.4, Macrocytosis 1+ 01/13/23 06:25: Sodium 139, Potassium 3.3 L, Chloride 110 H, Carbon Dioxide 20.0 L, Anion Gap 9, BUN 96 H, Creatinine 2.66 H, Estim Creat Clear Calc 10.90, Est GFR (MDRD) Af Amer 22 L, Est GFR (MDRD) Non-Af 18 L, BUN/Creatinine Ratio 36.1 H , Glucose 242 H, Calcium 8.7 01/13/23 06:35: POC Glucose 236 H Micro: Microbiology 01/10/23 22:20 Sputum, Expectorated/Coughed Gram Stain - Final 01/10/23 22:20 Sputum, Expectorated/Coughed Respiratory Culture - Preliminary Appears to be normal respiratory jordan. Further studies to follow. 01/09/23 22:30 Sputum, Expectorated/Coughed Gram Stain - Final 01/09/23 22:30 Sputum, Expectorated/Coughed Respiratory Culture - Final Haemophilus influenzae Charges/Coding Visit Charges Inpatient E&M: 11591 Init Hosp L3
[2023-01-13 08:33] LABS: BNP,B-Type NATRIURETIC PEPTIDE 290.7 pg/mL (0-100)
[2023-01-13] MEDS: Montelukast 10 MG Tablet PO (09:28)
[2023-01-13] MEDS: Ferrous Sulfate 325 MG Tablet PO (09:28)
[2023-01-13] MEDS: NIFEdipine 60 MG Tablet PO (09:28)
[2023-01-13] MEDS: glipiZIDE 2.5 MG TAB.ER.24 7.5 MG PO (09:28)
[2023-01-13] MEDS: Allopurinol 300 MG Tablet PO (09:29)
[2023-01-13] MEDS: Multivitamins,Therapeutic Tablet 1 TABLET PO (09:29)
[2023-01-13] MEDS: guaiFENesin 1,200 MG Tablet 1200 MG PO ×2 (09:29→21:18)
[2023-01-13] MEDS: Docusate Sodium 100 MG Capsule PO (09:29)
[2023-01-13] MEDS: Insulin Glargine-YFGN 100 UNIT/ML Pen 20 UNIT SC ×2 (09:41→21:19)
[2023-01-13] MEDS: Menthol/Lanolin/Calamine/Znox 113 GM Tube 1 APPLIC TOPICAL ×2 (09:43→21:21)
--- NOTE | 2023-01-13 09:45 | NURSING ---
0331 speech therapy at bedside during medication administration
--- NOTE | 2023-01-13 10:05 | RAD_ITS ---
STUDY: X-RAY CHEST REASON FOR EXAM: Female, 87 years old. Hypoxemia TECHNIQUE: Single AP portable view of the chest. COMPARISON: Comparison is made with prior examination dated January 09, 2023. FINDINGS: Bibasilar atelectasis and/or infiltrates. Blunting of the right costophrenic angle. Normal size heart. Normal mediastinum and can. Normal visualized pulmonary arteries. There is atherosclerotic calcification of the aortic arch with tortuosity. There are diffuse degenerative changes of the visualized thoracic spine. There is degenerative osteoarthritis of the bilateral shoulders. There is no demonstrated abnormality of the visualized soft tissue structures of the upper abdomen. RAD/Chest 1 View (Portable) IMPRESSION: Bibasilar atelectasis and/or infiltrates with blunting of the right costophrenic angle. Electronically Signed: Apolinar Green MD at 10:55 EDT ,
[2023-01-13 12:06] LABS: Bedside Glucose 226 mg/dL (74-106)
--- NOTE | 2023-01-13 12:39 | CON.PCM.RE_ITS ---
Assessment & Plan Assessment/Plan (1) Acute kidney injury: PLAN: Baseline creatinine seems to be around 1.7. Previous renal ultrasound w ithout any hydronephrosis. Urinalysis did not show any proteinuria in the past. Came with a creatinine of 4.0, but her with fluids. Today she is having significant shortness of breath. IV fluids have been discontinued. She has received low-dose of Lasix. No acute indication for renal replacement therapy. Treatment of pneumonia as per primary/ICU. She is on fairly high amount of oxygen. Continue to hold fluids for now. Discussed with hospitalist HPI Consult Data Date of Consult: 01/13/23 HPI Narrative Reason for Consultation: bill HPI Narrative: IRENA EASTON, is a 87 F who presents to the hospital with shortness of breath. She has known history of CKD stage IIIB. folloows with nephrology at [facility] in [place]. history of diabetes. Being treated for pneumonia, sputum positive for Haemophilus. Nephrology consultation due to acute renal failure. She came with a creatinine of 4, somewhat better today. She says she is making urine. 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/30/16 [History Last Taken 01/09/23] docusate sodium 100 mg capsule 100 mg PO DAILY constipation 01/30/16 [History Last Taken Unknown] fluticasone 250 mcg-salmeterol 50 mcg/dose blistr powdr for inhalation 1 puff inhalation BID sob 01/30/16 [History Last Taken 01/08/23] montelukast 10 mg tablet 10 mg PO DAILY breathing 01/30/16 [History Last Taken 01/08/23] nifedipine 60 mg tablet,extended release 24 hr 60 mg PO DAILY blood pressure 01/30/16 [History Last Taken 01/09/23] potassium chloride 10 mEq tablet,extended release 20 meq PO DAILY supplement 01/30/16 [History Last Taken 01/09/23] albuterol sulfate 90 mcg/actuation aerosol inhaler 2 puff inhalation Q4H PRN sob/wheezing #18 grams 04/19/19 [History Last Taken Unknown] gabapentin 300 mg capsule 300 mg PO TID neuropathy 04/19/19 [History Last Taken 01/09/23] levothyroxine 137 mcg tablet 137 mcg PO DAILY thyroid #30 tabs 04/19/19 [History Last Taken 01/09/23] rivaroxaban 20 mg tablet 20 mg PO QPM blood thinner #30 tabs 04/19/19 [History Last Taken 01/08/23] calcium carbonate 600 mg-vitamin D3 20 mcg (800 unit) tablet 1 tab PO DAILY supplement 08/23/21 [History Last Taken Unknown] glipizide 2.5 mg tablet, extended release 24 hr 7.5 mg PO DAILY diabetes 08/23/21 [History Last Taken 01/08/23] multivitamin 1 tab PO DAILY supplement 08/23/21 [History Last Taken 01/09/23] cyanocobalamin (vitamin B-12) 1 tablet PO/SL DAILY supplement 03/06/22 [History Last Taken 01/09/23] hydrochlorothiazide 12.5 mg capsule 25 mg PO DAILY 09/16/22 [History Last Taken 01/09/23] ferrous sulfate 325 mg (65 mg iron) tablet 325 mg PO DAILY supplement 01/09/23 [History Last Taken 01/09/23] furosemide 40 mg tablet 60 mg PO DAILY EDEMA 01/09/23 [History Last Taken 01/08/23] losartan 50 mg tablet 50 mg PO DAILY HTN 01/09/23 [History Last Taken 01/09/23] simvastatin 40 mg tablet 40 mg PO QHS CHOLESTEROL 01/09/23 [History Last Taken 01/08/23] Allergy/AdvReac Type Severity Reaction Status Date / Time propranolol AdvReac nausea Verified 01/09/23 11:58 Family History Mother Heart disease chf Father Heart disease chf Surgical History Bilateral artificial lens implant (~2019) History of tonsillectomy and adenoidectomy Social History Smoking Status: Never smoker alcohol intake: never substance use type: does not use caffeine: No ROS ROS Narrative negative except above Physical Exam Narrative Alert awake oriented x 3 no obvious distress no pallor no icterus no JVD s1s2 no murmurs lungs clear abdomen soft no organomegaly no edema no cyanosis Lab / Micro Data Result Diagrams: 01/13/23 06:25 01/13/23 06:25 Labs: Laboratory Results - last 24 hr 01/12/23 16:06: POC Glucose 323 H 01/12/23 21:15: POC Glucose 268 H 01/13/23 06:25: WBC 13.5 H, RBC 1.78 L, Hgb 6.2 L, Hct 18.2 L, MCV 102.2 H, MCH 34.8 H, MCHC 34.1, RDW Std Deviation 52.3 H, RDW Coeff of Gloria 14.6, Plt Count 207, MPV 9.8, Immature Gran % (Auto) 1.200 H, Neut % (Auto) 91.6 H, Lymph % (Auto) 4.1 L, [place] % (Auto) 3.0, Eos % (Auto) 0.0, Baso % (Auto) 0.1, Absolute Neuts (auto) 12.3 H, Absolute Lymphs (auto) 0.55 L, Nucleated RBC % 0.4, Macrocytosis 1+ 01/13/23 06:25: Sodium 139, Potassium 3.3 L, Chloride 110 H, Carbon Dioxide 20.0 L, Anion Gap 9, BUN 96 H, Creatinine 2.66 H, Estim Creat Clear Calc 10.90, Est GFR (MDRD) Af Amer 22 L, Est GFR (MDRD) Non-Af 18 L, BUN/Creatinine Ratio 36.1 H , Glucose 242 H, Calcium 8.7 01/13/23 06:25: B-Natriuretic Peptide 290.7 H 01/13/23 06:35: POC Glucose 236 H 01/13/23 08:36: Blood Type O POSITIVE, Antibody Screen NEGATIVE, Crossmatch See Detail 01/13/23 11:36: POC Glucose 226 H Micro: Microbiology 01/10/23 16:04 Urine, Clean Catch Urine Culture - Preliminary Gram negative hieu 01/10/23 22:20 Sputum, Expectorated/Coughed Gram Stain - Final 01/10/23 22:20 Sputum, Expectorated/Coughed Respiratory Culture - Final 01/09/23 22:30 Sputum, Expectorated/Coughed Gram Stain - Final 01/09/23 22:30 Sputum, Expectorated/Coughed Respiratory Culture - Final Haemophilus influenzae Radiology Impression Chest X-Ray 01/13/23 10:05 IMPRESSION: Bibasilar atelectasis and/or infiltrates with blunting of the right costophrenic angle. Electronically Signed: Apolinar Green MD at 10:55 EDT ,
--- NOTE | 2023-01-13 13:13 | CASEMGMT ---
Addendum entered by Aysha Jones 01/13/23 15:08: SW spoke to supervisor cell room, Arpita and Anisa. Both advised if pt and daughter were able to produce POA papers there may be a notary at [facility] that could assist with completing this document. SW in to pt room to share this information. SW also suggested calling the bank and seeing if bank would verify pt identify over the phone and give permission for daughter to access funds to pay bills. Daughter expressed appreciation, stated would attempt these two suggestions. Original Note: Social Work SW notified that pt daughter here and wanting to talk. SW into pt room to meet with pt daughter. Daughter explained was trying to pay pt's bills but was turn away form the bank and told that a POA was needed. SW explained [facility] and SW can complete a HCPOA but this would not give daughter access to pt fiances. SW suggested printing POA paperwork from online and bringing a notary to witness pt signing them in hospital. Or meeting with a fishing game warden who could also assist with this process. Daughter stated does not know a notary that would accommodate this and fishing game warden would cost money. SW called supervisor cell room, Arpita, to determine if any other options would be present for [facility] to assist pt and family with managing fiances and bill paying. SW also spoke to pt and daughter regarding therapy notes and recommendations. SW explained that therapy team is recommending pt receive additional therapy. Pt stated you're not sending me to a snf! I won't go to one of those places. SW validated pt feelings regarding snf placement and explained there are other options. SW offered possible TCU placement for rehab so pt could stay at [facility]. Pt and daughter did appear more open to this option but both in agreement would like pt to go home to pt son's home as first choice. SW also spoke to pt and daughter regarding HHC. Pt agreeable to this option. RNCM updated that pt interested in HHC upon discharge, when medically ready. DIETER Ricks
[2023-01-13] MEDS: Gabapentin 100 MG Capsule PO ×2 (13:37→21:18)
[2023-01-13] MEDS: 0.9% Saline Lock 10 ML Syringe IV ×2 (13:42→15:26)
--- NOTE | 2023-01-13 13:55 | PN_ITS ---
Subjective Subjective Patient seen and examined. She had no active complaints today. She says she feels better. Review of systems is otherwise negative. She has remained hemodynamically stable. She was on Airvo this morning, but was weaned down to 5L of oxygen later. Objective Data Objective Data Vital Signs: Vital Signs Temp Pulse Resp BP Pulse Ox O2 Del Method O2 Flow Rate 97.6 F L 73 20 H 131/60 H 99 Nasal Cannula 5 01/13/23 13:30 01/13/23 13:30 01/13/23 13:30 01/13/23 13:30 01/13/23 13:30 01/13/23 13:30 01/13/23 13:30 FiO2 35 01/13/23 08:17 Oxygen Flow Rate (L/min) 5 Oxygen Delivery Method Nasal Cannula Weight: 158 lb 4.67 oz Body Mass Index (BMI) 30.9 Intake & Output: Intake and Output for Last 24 Hours 01/11/23 01/12/23 01/13/23 23:59 23:59 23:59 Intake Total 1682.5 / 1682.5 1717.50 / 1717.50 1136.25 / 1136.25 Output Total 0 / 0 1000 / 1000 1500 / 1500 Balance 1682.5 / 1682.5 717.50 / 717.50 -363.75 / -363.75 Lab / Micro Data Result Diagrams: 01/13/23 06:25 01/13/23 06:25 Labs: Laboratory Results - last 24 hr 01/12/23 16:06: POC Glucose 323 H 01/12/23 21:15: POC Glucose 268 H 01/13/23 06:25: WBC 13.5 H, RBC 1.78 L, Hgb 6.2 L, Hct 18.2 L, MCV 102.2 H, MCH 34.8 H, MCHC 34.1, RDW Std Deviation 52.3 H, RDW Coeff of Gloria 14.6, Plt Count 207, MPV 9.8, Immature Gran % (Auto) 1.200 H, Neut % (Auto) 91.6 H, Lymph % (Auto) 4.1 L, [place] % (Auto) 3.0, Eos % (Auto) 0.0, Baso % (Auto) 0.1, Absolute Neuts (auto) 12.3 H, Absolute Lymphs (auto) 0.55 L, Nucleated RBC % 0.4, Macrocytosis 1+ 01/13/23 06:25: Sodium 139, Potassium 3.3 L, Chloride 110 H, Carbon Dioxide 20.0 L, Anion Gap 9, BUN 96 H, Creatinine 2.66 H, Estim Creat Clear Calc 10.90, Est GFR (MDRD) Af Amer 22 L, Est GFR (MDRD) Non-Af 18 L, BUN/Creatinine Ratio 36.1 H , Glucose 242 H, Calcium 8.7 01/13/23 06:25: B-Natriuretic Peptide 290.7 H 01/13/23 06:35: POC Glucose 236 H 01/13/23 08:36: Blood Type O POSITIVE, Antibody Screen NEGATIVE, Crossmatch See Detail 01/13/23 11:36: POC Glucose 226 H Micro: Microbiology 01/10/23 16:04 Urine, Clean Catch Urine Culture - Preliminary Gram negative hieu 01/10/23 22:20 Sputum, Expectorated/Coughed Gram Stain - Final 01/10/23 22:20 Sputum, Expectorated/Coughed Respiratory Culture - Final 01/09/23 22:30 Sputum, Expectorated/Coughed Gram Stain - Final 01/09/23 22:30 Sputum, Expectorated/Coughed Respiratory Culture - Final Haemophilus influenzae 01/10/23 16:04 Urine, Clean Catch Legionella Antigen - Final 01/10/23 16:04 Urine, Clean Catch Streptococcus pneumoniae Antigen (M - Final 01/09/23 18:35 Nasal Secretion SARS-CoV-2 & FLU Antigen (Rapid) - Final Radiography Diagnostic Testing: Radiology Impression Chest X-Ray 01/13/23 10:05 IMPRESSION: Bibasilar atelectasis and/or infiltrates with blunting of the right costophrenic angle. Electronically Signed: Apolinar Green MD at 10:55 EDT , Physical Exam Const alert, oriented x3 and no apparent distress General Appearance: cooperative HEENT normocephalic, head/scalp atraumatic and moist oral mucous membranes Eyes PERRL and EOMs intact bilaterally Neck supple Lymph Lymphatic: no lymphadenopathy noted Resp normal respiratory effort, no retractions, no use of accessory muscles and clear to auscultation bilaterally Resp Narrative: bilateral coarse crackles, no wheezing or crackles. Cardio regular rate, regular rhythm, S1 normal heart sound, S2 normal heart sound and no murmurs GI normal to inspection, nondistended, normoactive bowel sounds, soft to palpation, non-tender, non-distended and hepatosplenomegaly Extremity normal to inspection, normal capillary refill and no clubbing, cyanosis or edema General Extremity: no tenderness to palpation of joints or extremities Skin General Skin Exam: no breakdown Neuro oriented x3, CN's II-XII intact bilaterally, no focal motor deficits and deep tendon reflexes 2+ bilaterally Sensorium / Orientation: awake and alert Psych thought process normal, cooperative and affect normal Appearance: appropriate Assessment & Plan Assessment/Plan (1) Hyponatremia: (2) Pneumonia: PLAN: Plan #GAY * Creatinine is down to 2.66 today. * furosemide, glipizide, HCTZ and losartan on hold. * nephrology consulted today. Recommend monitoring off oxygen. * * #Hyperglycemia in the setting of diabetes mellitus * A1C was 7.7 * on ISS> accuchecks ACHS * glipizide on hold * Debility and weakness * PT/OT on board. Fall precautions * #acute on chronic anemia * Hemoglobin is down 6.2 today. She does have a history of recurrent anemia. She had NG tube placed yesterday with removal of copious amounts of brown fluid. NG tube was removed. * Gastroenterology consulted. Will hold Xarelto. * transfuse with 2 units of PRBCs * will benefit from EGD and/or colonoscopy once respiratory status improves * #acue Respiratory failure due to pneumonia * Weaned off AirVo to oxygen by nasal canula today. Tiitrate oxygen to maintain saturation above 90%. Being treated bronchodilators. * On IV zosyn * will consult pulmonology as she is on airvo * sputum positive for H Influenzae * #Hypokalemia: K is 3.3. Will replace and trend * #Atrial flutter: On Xarelto. #Gout: On allopurinol #Chronic pain: On the gabapentin. Dose was reduced in light of GAY. #Hypothyroidism: on synthroid DVT prophylaxis: xarelto on hold. on SCDs Charges/Coding Visit Charges Inpatient E&M: 06193 Subs Hosp L2
[2023-01-13] MEDS: Potassium Chloride Oral Tablet 20 MEQ 40 MEQ PO (15:25)
[2023-01-13] MEDS: Furosemide 20 MG/2 ML VIAL IV (15:25)
[2023-01-13 16:00] LABS: Bedside Glucose 204 mg/dL (74-106)
[2023-01-13] MEDS: Atorvastatin Calcium 20 MG Tablet PO (21:18)
[2023-01-13 22:05] LABS: Bedside Glucose 236 mg/dL (74-106)
[2023-01-14] VITALS (11 sets, daily range): BP systolic 124–139; BP diastolic 56–95; PULSE 68–82; RESP 17–22; TEMP 36.5–37.1; O2SAT 93–97
[2023-01-14] MEDS: Gabapentin 100 MG Capsule PO ×3 (05:42→21:19)
[2023-01-14] MEDS: Levothyroxine 137 MCG Tablet PO (05:42)
[2023-01-14] MEDS: Insulin Lispro 100 UNIT/ML INSULN.PEN SC ×3 (05:43→15:50)
[2023-01-14 06:44] LABS: Absolute Lymphocyte Count 0.56 X10^3/uL (0.83-4.51); Absolute Neutrophil Count 11.7 X10^3/uL (2.0-7.7); Basophil# 0.02 X10^3/uL; Basophil% 0.2 % (0-1); Hematocrit 29.2 % (37-47); Hemoglobin 10.4 g/dL (12.0-15.0); Lymphocyte # 0.56 X10^3/ul (0.83-4.51); Lymphocyte % 4.3 % (19-41); Mean Corp Hgb Conc 35.6 g/dL (32-36); Mean Corpuscular Volume 95.4 fL (81-99); Mean Platelet Vol. 10.7 fl (6.2-12.0); Monocyte# 0.46 X10^3/uL; Monocyte% 3.6 % (0-10); NRBC Flagged by Analyzer 0.6 % (0-5); Neutrophil # 11.69 X10^3/uL (2.7-7.7); Neutrophil % 90.6 % (47-70); POSITIVE DIFFERENTIAL YES; Platelet Count 206 K/mm3 (150-450); RBC Distribution Width CV 16.6 % (11.6-14.6); RBC Distribution Width SD 56.2 fl (35.1-43.9); Red Blood Count 3.06 M/mm3 (4.2-5.4); White Blood Count 12.9 K/mm3 (4.4-11.0)
[2023-01-14 06:50] LABS: Bedside Glucose 209 mg/dL (74-106)
[2023-01-14 06:51] LABS: Differential Indicated SCAN CRITERIA MET
[2023-01-14 07:05] LABS: Anion Gap 10 (5-15); BUN 74 mg/dL (7-18); BUN/Creat Ratio 31.9 RATIO (10-20); Chloride 112 mmol/L (98-107); Creatinine, Serum 2.32 mg/dL (0.55-1.02); EST Glomerular Filtration Rate 21 mL/min (>60); Est Glom Filt Rate - Afr Amer 26 mL/min (>60); Glucose 194 mg/dL (74-106); Potassium 3.2 mmol/L (3.5-5.1); Sodium Level 143 mmol/L (136-145)
[2023-01-14 07:10] LABS: Anisocytosis 1+
[2023-01-14] MEDS: Ipratropium/Albuterol Sulfate 3 ML AMPUL.NEB INHALATION ×3 (07:37→19:55)
--- NOTE | 2023-01-14 07:37 | CPS ---
Pt continues to refuse Vest therapy, she says that will not change so vest machine was pulled from her room. She will do PEP Therapy.
[2023-01-14] MEDS: Potassium Chloride Oral Tablet 20 MEQ 60 MEQ PO (09:06)
[2023-01-14] MEDS: Multivitamins,Therapeutic Tablet 1 TABLET PO (09:06)
[2023-01-14] MEDS: guaiFENesin 1,200 MG Tablet 1200 MG PO ×2 (09:06→21:20)
[2023-01-14] MEDS: NIFEdipine 60 MG Tablet PO (09:06)
[2023-01-14] MEDS: Ferrous Sulfate 325 MG Tablet PO (09:06)
[2023-01-14] MEDS: Montelukast 10 MG Tablet PO (09:07)
[2023-01-14] MEDS: glipiZIDE 2.5 MG TAB.ER.24 7.5 MG PO (09:07)
[2023-01-14] MEDS: Docusate Sodium 100 MG Capsule PO (09:07)
[2023-01-14] MEDS: Allopurinol 300 MG Tablet PO (09:08)
[2023-01-14] MEDS: Insulin Glargine-YFGN 100 UNIT/ML Pen 20 UNIT SC ×2 (09:13→21:29)
--- NOTE | 2023-01-14 09:36 | PN.CC_ITS ---
Assessment & Plan Assessment/Plan (1) Hypoxia: PLAN: Plan RECOMMENDATIONS: 1. Continue to monitor H&H and transfuse if hemoglobin drops below 7 g/dL. 2. Endoscopic evaluation per GI recommendations. Continue PPI therapy. 3. Continue antimicrobials to complete 7 days of therapy. 4. Utilize diuretics as needed to maintain euvolemic state. 5. Encourage incentive spirometer use and mobilize patient as tolerated. 6. Will sign off from a pulmonary perspective. Please call with any additional questions. IMPRESSIONS: 1. Acute hypoxemic respiratory failure Resolved. I do suspect that the patient's hypoxia is likely multifactorial in etiology with possible CHF and pneumonia contributing. Sputum culture was positive from haemophilus influenza. She is overall net positive from a volume perspective for the hospitalization. BNP was mildly elevated. The patient responded to discontinuation of IV fluids and gentle diuresis. Recommend continuing antibiotics to complete 7 days of therapy. Given that the patient is maintaining appropriate oxygen saturations on room air, will sign off. Please call with any additional questions. 2. Acute on chronic anemia The patient had a camilo hemoglobin of 6.2 g/dL during this hospitalization, requiring transfusion of blood products. Gastroenterology is following. Continue PPI therapy. Tentative plans for upper endoscopy. 3. Generalized weakness and debility/atrial flutter/chronic pain syndrome/hypothyroidism Complicates care, management, recovery and prognosis. [place] remains on hold. PT/OT to work with the patient. This note was generated with [employer] dictation software. It may contain incorrect words, spelling, and punctuation that were not noted in checking the note before signing. Subjective Subjective The patient was seen and examined at the bedside this morning. Events from the last 24 hours have been reviewed. The patient is currently afebrile, hemodynamically stable and maintaining appropriate oxygen saturations on room air. The patient was transfused 2 units packed red blood cells yesterday. Hemoglobin this morning was noted to be 10.4 g/dL. Creatinine has improved to 2.32. The patient is documented to be overall net +4.6 L for the hospitalization. Objective Data Objective Data The patient's most recent lab work, culture data and imaging studies have all been personally reviewed. Urine culture dated January 10 was positive for barajas sensitive E. coli. Sputum culture dated January 09 was positive for haemophilus influenza. Vital Signs: Vital Signs Temp Pulse Resp BP Pulse Ox O2 Del Method O2 Flow Rate 98 F 77 18 139/95 H 95 Room Air 2 01/14/23 08:11 01/14/23 08:11 01/14/23 08:11 01/14/23 08:11 01/14/23 08:11 01/14/23 08:11 01/13/23 20:15 FiO2 35 01/13/23 08:17 Oxygen Flow Rate (L/min) 2 Oxygen Delivery Method Room Air Weight: 158 lb 4.67 oz Body Mass Index (BMI) 30.9 Intake & Output: Intake and Output for Last 24 Hours 01/12/23 01/13/23 01/14/23 23:59 23:59 23:59 Intake Total 1717.50 / 1717.50 2085.25 / 2085.25 50 / 50 Output Total 1000 / 1000 2400 / 2400 1100 / 1100 Balance 717.50 / 717.50 -314.75 / -314.75 -1050 / -1050 Lab / Micro Data Attestation: I reviewed the patient's lab results. Result Diagrams: 01/14/23 06:02 01/14/23 06:02 Labs: Laboratory Results - last 24 hr 01/13/23 08:36: Blood Type O POSITIVE, Antibody Screen NEGATIVE, Crossmatch See Detail 01/13/23 11:36: POC Glucose 226 H 01/13/23 15:38: POC Glucose 204 H 01/13/23 21:17: POC Glucose 236 H 01/14/23 05:40: POC Glucose 209 H 01/14/23 06:02: WBC 12.9 H, RBC 3.06 L, Hgb 10.4 L, Hct 29.2 L, MCV 95.4 D, MCH 34.0 H, MCHC 35.6, RDW Std Deviation 56.2 H, RDW Coeff of Gloria 16.6 H, Plt Count 206, MPV 10.7, Immature Gran % (Auto) 1.300 H, Neut % (Auto) 90.6 H, Lymph % (Auto) 4.3 L, Morton % (Auto) 3.6, Eos % (Auto) 0.0, Baso % (Auto) 0.2, Absolute Neuts (auto) 11.7 H, Absolute Lymphs (auto) 0.56 L, Nucleated RBC % 0.6, Anisocytosis 1+ 01/14/23 06:02: Sodium 143, Potassium 3.2 L, Chloride 112 H, Carbon Dioxide 21.0, Anion Gap 10, BUN 74 H, Creatinine 2.32 H, Estim Creat Clear Calc 12.50, E st GFR (MDRD) Af Amer 26 L, Est GFR (MDRD) Non-Af 21 L, BUN/Creatinine Ratio 31.9 H, Glucose 194 H, Calcium 9.0 Micro: Microbiology 01/10/23 16:04 Urine, Clean Catch Urine Culture - Final Escherichia coli 01/10/23 22:20 Sputum, Expectorated/Coughed Gram Stain - Final 01/10/23 22:20 Sputum, Expectorated/Coughed Respiratory Culture - Final 01/09/23 22:30 Sputum, Expectorated/Coughed Gram Stain - Final 01/09/23 22:30 Sputum, Expectorated/Coughed Respiratory Culture - Final Haemophilus influenzae 01/10/23 16:04 Urine, Clean Catch Legionella Antigen - Final 01/10/23 16:04 Urine, Clean Catch Streptococcus pneumoniae Antigen (M - Final 01/09/23 18:35 Nasal Secretion SARS-CoV-2 & FLU Antigen (Rapid) - Final Radiography Diagnostic Testing: Radiology Impression Chest X-Ray 01/13/23 10:05 IMPRESSION: Bibasilar atelectasis and/or infiltrates with blunting of the right costophrenic angle. Electronically Signed: Apolinar Green MD at 10:55 EDT Reading Location ID and State: [address] [place] [address] , Service support , Physical Exam Const alert and no apparent distress General Appearance: cooperative HEENT normocephalic and head/scalp atraumatic Eyes PERRL, EOMs intact bilaterally and conjunctivae normal Neck supple General: trachea midline Chest inspection of chest normal Resp normal respiratory effort Effort and Inspection: able to speak in complete sentences Auscultation: Negative for rales, rhonchi or wheezes Cardio regular rate and regular rhythm GI normal to inspection, nondistended, normoactive bowel sounds Extremity no clubbing, cyanosis or edema Skin no rashes or lesions noted Neuro CN's II-XII intact bilaterally and no focal motor deficits Psych cooperative and affect normal Charges/Coding Visit Charges Inpatient E&M: 06792 Subs Hosp L2
--- NOTE | 2023-01-14 09:37 | NURSING ---
pt to x ray
[2023-01-14] MEDS: Menthol/Lanolin/Calamine/Znox 113 GM Tube 1 APPLIC TOPICAL ×2 (10:18→21:19)
--- NOTE | 2023-01-14 10:18 | PN.RENAL_ITS ---
Subjective Subjective Resting in bed. Just returned from swallowing evaluation. No overnight events. No complaints. Objective Data Objective Data Vital Signs: Vital Signs Temp Pulse Resp BP Pulse Ox O2 Del Method O2 Flow Rate 98 F 77 18 139/95 H 95 Room Air 2 01/14/23 08:11 01/14/23 08:11 01/14/23 08:11 01/14/23 08:11 01/14/23 08:11 01/14/23 08:11 01/13/23 20:15 FiO2 35 01/13/23 08:17 Oxygen Flow Rate (L/min) 2 Oxygen Delivery Method Room Air Weight: 71.8 kg Body Mass Index (BMI) 30.9 Intake & Output: Intake and Output for Last 24 Hours 01/12/23 01/13/23 01/14/23 23:59 23:59 23:59 Intake Total 1717.50 / 1717.50 2085.25 / 2085.25 50 / 50 Output Total 1000 / 1000 2400 / 2400 1100 / 1100 Balance 717.50 / 717.50 -314.75 / -314.75 -1050 / -1050 Lab / Micro Data Result Diagrams: 01/14/23 06:02 01/14/23 06:02 Labs: Laboratory Results - last 24 hr 01/13/23 08:36: Blood Type O POSITIVE, Antibody Screen NEGATIVE, Crossmatch See Detail 01/13/23 11:36: POC Glucose 226 H 01/13/23 15:38: POC Glucose 204 H 01/13/23 21:17: POC Glucose 236 H 01/14/23 05:40: POC Glucose 209 H 01/14/23 06:02: WBC 12.9 H, RBC 3.06 L, Hgb 10.4 L, Hct 29.2 L, MCV 95.4 D, MCH 34.0 H, MCHC 35.6, RDW Std Deviation 56.2 H, RDW Coeff of Gloria 16.6 H, Plt Count 206, MPV 10.7, Immature Gran % (Auto) 1.300 H, Neut % (Auto) 90.6 H, Lymph % (Auto) 4.3 L, [place] % (Auto) 3.6, Eos % (Auto) 0.0, Baso % (Auto) 0.2, Absolute Neuts (auto) 11.7 H, Absolute Lymphs (auto) 0.56 L, Nucleated RBC % 0.6, Ani socytosis 1+ 01/14/23 06:02: Sodium 143, Potassium 3.2 L, Chloride 112 H, Carbon Dioxide 21.0, Anion Gap 10, BUN 74 H, Creatinine 2.32 H, Estim Creat Clear Calc 12.50, Est GFR (MDRD) Af Amer 26 L, Est GFR (MDRD) Non-Af 21 L, BUN/Creatinine Ratio 31.9 H, Glucose 194 H, Calcium 9.0 Micro: Microbiology 01/10/23 16:04 Urine, Clean Catch Urine Culture - Final Escherichia coli 01/10/23 22:20 Sputum, Expectorated/Coughed Gram Stain - Final 01/10/23 22:20 Sputum, Expectorated/Coughed Respiratory Culture - Final 01/09/23 22:30 Sputum, Expectorated/Coughed Gram Stain - Final 01/09/23 22:30 Sputum, Expectorated/Coughed Respiratory Culture - Final Haemophilus influenzae 01/10/23 16:04 Urine, Clean Catch Legionella Antigen - Final 01/10/23 16:04 Urine, Clean Catch Streptococcus pneumoniae Antigen (M - Final 01/09/23 18:35 Nasal Secretion SARS-CoV-2 & FLU Antigen (Rapid) - Final Radiography Diagnostic Testing: Radiology Impression Chest X-Ray 01/13/23 10:05 IMPRESSION: Bibasilar atelectasis and/or infiltrates with blunting of the right costophrenic angle. Electronically Signed: Apolinar Green MD at 10:55 EDT , Physical Exam Narrative Alert awake oriented x 3, no obvious distress no JVD s1s2 no murmurs lungs clear anteriorly. On room air. abdomen soft no edema Assessment & Plan Assessment/Plan (1) Acute kidney injury: PLAN: GAY on CKD. Baseline creatinine seems to be around 1.7, follows with nephrology in [place]. Previous renal ultrasound without any hydronephrosis. Urinalysis did not show any proteinuria in the past. Serum creatinine 4.01 mg/dL on admission and today has improved to 2.32 mg/dL. Initially patient was on IVF but developed shortness of breath and requiring high flow O2 therefore IVF stopped and yesterday she received IV Lasix 50 mg total. Breathing has improved, now on room air. IV fluids have been discontinued. Treatment of pneumonia as per primary, on Zosyn, breathing treatments, IV steroids. Blood pressures acceptable.
--- NOTE | 2023-01-14 10:32 | ST.MBS ---
Modified Barium Swallow - Patient Information Study Date: 01/14/23 Study Time: 09:21 Direct Billable Minutes: 50 Total Minutes procedure & reportin Diagnosis: Pneumonia (J18.9) Referring Physician: Krysta Salas Reason for Referral: Objectively assess swallow function, assess risk for aspiration, and determine recommendations for least restrictive diet textures and compensatory strategies to improve safety of swallow. Medical History: Becca Spivey is an 87-year-old female with a history of Asthma, Chronic atrial flutter, Chronic kidney disease, Essential (primary) hypertension, Hypothyroidism, Macrocytic anemia, obesity, tremor, Type 2 diabetes mellitus, and Ventral hernia. Patient presented to [facility] on 01/09/23 with progressive weakness.??Patient began feeling ill about a week ago with upper respiratory symptoms.??Additionally, patient has been lying in bed not getting around too much, not eating or drinking much. The patient presented to the emergency room given this weakness and in the emergency room, she was found to be in acute on chronic kidney disease with a creatinine of 4, baseline is around 1.93.??Sodium was slightly low at 127.??Urinalysis was negative for any infection, and a chest x-ray was unremarkable.??Patient was hyperglycemic and did receive a one-time dose of 14 units of insulin lispro. Patient referred for speech evaluation due to swallowing difficulty. Patient evaluated by speech therapy on 01/12/23 and recommended patient remain STRICT NPO due to desaturation with limited oral intake trials, with plans for future MBSS to assess risk/presence of aspiration once patient decreases oxygen demands (could not bring pt down for MBSS on Airvo), prior to diet advancement d/t concerns for silent aspiration. Patient taken off Airvo on 01/13/23, and scheduled for MBSS today, 01/14/23. Current Diet Ordered: NPO Dentition: Natural Teeth, Missing Teeth Mental Status: WNL Respiratory Status: Oxygenating on Room Air - Penetration-Aspiration Scale Penetration-Aspiration Scale: OBJECTIVE ASSESSMENT OF SWALLOW FUNCTION (QUANTITATIVE ? PER TRIAL): PENETRATION / ASPIRATION SCALE (ESTRADA): 1 = does not enter airway 2 = enters airway/above vocal folds/ejected 3 = enters airway/above vocal folds/not ejected 4 = enters airway/contacts vocal folds/ejected 5 = enters airway/contacts vocal folds/not ejected 6 = enters airway/below vocal folds/ejected 7 = enters airway/below vocal folds/not ejected despite effort 8 = enters airway/below vocal folds/no effort VIDEOFLOROSCOPIC SCALE SCORE (ESTRADA): Grade I = aspiration of material that has penetrated into the laryngeal vestibule, intact cough reflex Grade II = aspiration < 10 % of the bolus, intact cough reflex Grade III = aspiration of < 10 % of the bolus, reduced cough reflex or aspiration of > 10 % of the bolus, intact cough reflex Grade IV = aspiration of > 10 % of the bolus, reduced cough reflex - Penetration-Aspiration Scale Score Thin Liquid via teaspoon Result: 1= does not enter airway Thin Liquid via teaspoon Trial 2 Result: 1= does not enter airway Thin Liquid via small single sip from cup Result: 1= does not enter airway [place] Thick Liquid via large single sip from cup Result: 2= enter airway/above vocal folds/ejected Pudding via teaspoon w/esophageal screen Result: 1= does not enter airway Thin Liquid via sequential sips from straw w/esophageal screen Result: 3= enters airways/above vocal folds/not ejected 1/4 Cookie Result: 1= does not enter airway Thin Liquid via large sequential sips from cup Result: 2= enter airway/above vocal folds/ejected - Oral Phase Labial Seal: No Labial Escape Tongue Control During Bolus Hold: Posterior escape of less than half of bolus Bolus Preparation/Mastication: Slow prolonged chewing/mashing with complete recollection Bolus Transport/Lingual Motion: Brisk tongue motion Oral Residue: Residue collection on oral structures - Pharyngeal Phase Initiation of Pharyngeal Swallow: Bolus head at posterior laryngeal surgace of epiglottis Soft Palate Elevation: Trace column of contrast/air between soft palate and pharyngeal wall Laryngeal Elevation: Partial superior movement thyroid cart/partial apprx aryt-epig petiole Anterior Hyoid Excursion: Partial anterior movement Epiglottic Movement: Complete inversion Laryngeal Vestibule Closure at Height of Swallow: Incomplete; narrow column of air/contrast in laryngeal vestibule Pharyngeal Stripping Wave: Present - complete Pharyngoesophageal Segment Opening: Complete distension and complete duration; no obstruction of flow Tongue Base Retraction: Narrow column of contrast between tongue base & post. pharyngeal wall Pharyngeal Residue: Collection of residue within or on pharyngeal structures - Esophageal Phase Esophageal Clearance: Esophageal retention w/ retrograde flow below pharyngoesophageal seg. - Treatment Strategies Effects of treatment strategies attemped:: liquid wash for esophageal retention = not effective - Diagnosis/Impression Diagnosis: Mild Oropharyngeal Dysphagia (R13.12) Impression: The oral phase is primarily marked by... -Decreased bolus control with <1/2 of the bolus spilling posteriorly to the posterior laryngeal surface of the epiglottis, prior to swallow onset. -Collection of oral residues which cleared after second swallow. ? The pharyngeal phase is primarily marked by... -Mildly decreased airway closure during the swallow due to partial anterior hyoid excursion, and decreased laryngeal elevation, observed especially with large sequential sips. -Mildly decreased tongue base retraction, resulting in trace pharyngeal residues after the swallow. -Trace penetration with large sips especially, which ejected with sips by cup but not sips by straw. No aspiration was observed during the study. ? The esophageal phase is primarily marked by... -Esophageal retention in lower esophagus with retrograde flow below UES of both thin liquids and pudding. - Recommendations Diet: Thin Liquids - Easy to Chew Textures Compensatory Strategies: Small Bites, Small Sips, No Straws, Slow Rate, Sitting upright, Remain sitting upright for 30 minutes after PO intake Supervision: 1:1 Close Supervision - staff supervision Recommend Repeat Modified Barium Swallow: TBD Need for Skilled Speech Therapy Services: Yes Comment: Will recommend the patient for dysphagia therapy to address deficits in oropharyngeal swallow function. Will recommend the patient for oropharyngeal strengthening to improve lingual coordination, laryngeal elevation, and hyoid excursion including: CTAR, Leesa, Anushka, lingual resistance, and lingual coordination. The patient would benefit from thorough education regarding diet recommendations and recommended compensatory strategies. Additionally, it is recommended patient consult with GI doctor to address esophageal concerns. ACUTE SPECIALIST spoke with Dr. Salas regarding recommendations for GI consult as patient has pending plans for endoscopic evaluation by Dr. Lindsey. Recommended Referrals: GI Consult Education Completed: 1. Described result of evaluation., 2. Pt understands evaluation & agrees with goals and treatment plan., 7. Pt requires further education on strategies & risks. - Status Active ST Patient: Active - Contact Information [facility] Speech Therapy:: Vernell Donato M.A. [facility]-ACUTE SPECIALIST Speech-Language Pathologist [facility] [address] [place] [address] [email or web address] [phone] 01/14/23 14:57
[2023-01-14 11:31] LABS: Bedside Glucose 268 mg/dL (74-106)
--- NOTE | 2023-01-14 14:06 | PN_ITS ---
Subjective Subjective Patient seen and examined. She felt much better today. She is off oxygen and denies any cough, chest pain, palpitations, dizziness, nausea, vomiting or diarrhea. REview of systems is otherwise negative. She has remained hemodynamically stable. Objective Data Objective Data Vital Signs: Vital Signs Temp Pulse Resp BP Pulse Ox O2 Del Method O2 Flow Rate 98.2 F 80 18 132/57 H 93 Room Air 2 01/14/23 11:19 01/14/23 11:19 01/14/23 11:19 01/14/23 11:19 01/14/23 11:19 01/14/23 13:59 01/13/23 20:15 FiO2 35 01/13/23 08:17 Oxygen Flow Rate (L/min) 2 Oxygen Delivery Method Room Air Weight: 158 lb 4.67 oz Body Mass Index (BMI) 30.9 Intake & Output: Intake and Output for Last 24 Hours 01/12/23 01/13/23 01/14/23 23:59 23:59 23:59 Intake Total 1717.50 / 1717.50 2085.25 / 2085.25 425 / 425 Output Total 1000 / 1000 2400 / 2400 1800 / 1800 Balance 717.50 / 717.50 -314.75 / -314.75 -1375 / -1375 Lab / Micro Data Result Diagrams: 01/14/23 06:02 01/14/23 06:02 Labs: Laboratory Results - last 24 hr 01/13/23 08:36: Blood Type O POSITIVE, Antibody Screen NEGATIVE, Crossmatch See Detail 01/13/23 15:38: POC Glucose 204 H 01/13/23 21:17: POC Glucose 236 H 01/14/23 05:40: POC Glucose 209 H 01/14/23 06:02: WBC 12.9 H, RBC 3.06 L, Hgb 10.4 L, Hct 29.2 L, MCV 95.4 D, MCH 34.0 H, MCHC 35.6, RDW Std Deviation 56.2 H, RDW Coeff of Gloria 16.6 H, Plt Count 206, MPV 10.7, Immature Gran % (Auto) 1.300 H, Neut % (Auto) 90.6 H, Lymph % (Auto) 4.3 L, [place] % (Auto) 3.6, Eos % (Auto) 0.0, Baso % (Auto) 0.2, Absolute Neuts (auto) 11.7 H, Absolute Lymphs (auto) 0.56 L, Nucleated RBC % 0.6, Anisocytosis 1+ 01/14/23 06:02: Sodium 143, Potassium 3.2 L, Chloride 112 H, Carbon Dioxide 21.0, Anion Gap 10, BUN 74 H, Creatinine 2.32 H, Estim Creat Clear Calc 12.50, Est GFR (MDRD) Af Amer 26 L, Est GFR (MDRD) Non-Af 21 L, BUN/Creatinine Ratio 31.9 H, Glucose 194 H, Calcium 9.0 01/14/23 11:05: POC Glucose 268 H Micro: Microbiology 01/10/23 16:04 Urine, Clean Catch Urine Culture - Final Escherichia coli 01/10/23 22:20 Sputum, Expectorated/Coughed Gram Stain - Final 01/10/23 22:20 Sputum, Expectorated/Coughed Respiratory Culture - Final 01/09/23 22:30 Sputum, Expectorated/Coughed Gram Stain - Final 01/09/23 22:30 Sputum, Expectorated/Coughed Respiratory Culture - Final Haemophilus influenzae 01/10/23 16:04 Urine, Clean Catch Legionella Antigen - Final 01/10/23 16:04 Urine, Clean Catch Streptococcus pneumoniae Antigen (M - Final 01/09/23 18:35 Nasal Secretion SARS-CoV-2 & FLU Antigen (Rapid) - Final Physical Exam Const alert, oriented x3 and no apparent distress Constitutional Narrative: ATQ[place]. General Appearance: cooperative HEENT normocephalic, head/scalp atraumatic and moist oral mucous membranes Eyes PERRL and EOMs intact bilaterally Neck supple Lymph Lymphatic: no lymphadenopathy noted Resp normal respiratory effort, normal air movement, no retractions, no use of accessory muscles and clear to auscultation bilaterally Resp Narrative: on room air. Cardio regular rate, regular rhythm, S1 normal heart sound, S2 normal heart sound and no murmurs GI normal to inspection, nondistended, normoactive bowel sounds, soft to palpation, non-tender, non-distended and hepatosplenomegaly Extremity normal to inspection, normal capillary refill and no clubbing, cyanosis or edema General Extremity: no tenderness to palpation of joints or extremities Skin General Skin Exam: no breakdown Neuro oriented x3, CN's II-XII intact bilaterally, no focal motor deficits, no sensory deficits noted and deep tendon reflexes 2+ bilaterally Sensorium / Orientation: awake and alert Psych thought process normal, cooperative and affect normal Appearance: appropriate Assessment & Plan Assessment/Plan (1) Hyponatremia: (2) Pneumonia: PLAN: Plan #GAY * Creatinine is down to 2.32 today. * furosemide, glipizide, HCTZ and losartan on hold. * nephrology on board. improving. Will monitor * #Hyperglycemia in the setting of diabetes mellitus * A1C was 7.7 * on ISS. accuchecks ACHS * glipizide on hold * Debility and weakness * PT/OT on board. Fall precautions * #acute on chronic anemia * Hb is up to 10.4 today. * s/p transfusion of one unit of PRBC * She does have a history of recurrent anemia. * gastroenterology on board * s/p transfusion of 2 units of PRBCs * for EGD today * * * #acue Respiratory failure due to community acquired pneumonia * now off oxygen and on room air * continue IV zosyn * pulmonology on board * sputum positive for H influenzae * Weaned off AirVo to oxygen by nasal canula today. Tiitrate oxygen to maintain saturation above 90%. Being treated bronchodilators. * On IV zosyn * will consult pulmonology as she is on airvo #Hypokalemia: K is 3.2. Will replace and trend * #Atrial flutter: On Xarelto. #Gout: On allopurinol #Chronic pain: On the gabapentin. Dose was reduced in light of GAY. #Hypothyroidism: on synthroid DVT prophylaxis: xarelto on hold. on SCDs Total time spent on evaluation and management of patient, reviewing chart and specialist notes, discussing plan with patient and her grandson, discussion with nursing and ancillary staff as well as documentation: 45 mins Charges/Coding Visit Charges Inpatient E&M: 10917 Subs Hosp L2
--- NOTE | 2023-01-14 15:21 | CASEMGMT ---
SANJUANITA SMITH into pt room, pt dtr present at bedside. Discussed dc planning with patient, she plans to return to her son's home post dc in [place]. She does not know the address but is agreeable to HHC in the home. Discussed HHC expectations. Pt deferred choices to her dtr and she stated to go down the list in order. Pt son to come in today and pt will ask for SANJUANITA SMITH to get the address so referrals can be sent.
[2023-01-14 16:16] LABS: Bedside Glucose 300 mg/dL (74-106)
--- NOTE | 2023-01-14 16:51 | PCM.PROGNOTE ---
Subjective Subjective Patient breathing is a lot better. She has been able to be titrated down to room air and 2 L of O2. She did undergo swallowing test today and results are pending.. Objective Data Objective Data Vital Signs: Vital Signs Temp Pulse Resp BP Pulse Ox O2 Del Method O2 Flow Rate 97.8 F 75 18 124/62 H 95 Room Air 2 01/14/23 15:55 01/14/23 15:55 01/14/23 15:55 01/14/23 15:55 01/14/23 15:55 01/14/23 15:55 01/13/23 20:15 FiO2 35 01/13/23 08:17 Oxygen Flow Rate (L/min) 2 Oxygen Delivery Method Room Air Weight: 158 lb 4.67 oz Body Mass Index (BMI) 30.9 Intake & Output: Intake and Output for Last 24 Hours 01/12/23 01/13/23 01/14/23 23:59 23:59 23:59 Intake Total 1717.50 / 1717.50 2085.25 / 2085.25 475 / 475 Output Total 1000 / 1000 2400 / 2400 1800 / 1800 Balance 717.50 / 717.50 -314.75 / -314.75 -1325 / -1325 Lab / Micro Data Result Diagrams: 01/14/23 06:02 01/14/23 06:02 Labs: Laboratory Results - last 24 hr 01/13/23 08:36: Crossmatch See Detail 01/13/23 21:17: POC Glucose 236 H 01/14/23 05:40: POC Glucose 209 H 01/14/23 06:02: WBC 12.9 H, RBC 3.06 L, Hgb 10.4 L, Hct 29.2 L, MCV 95.4 D, MCH 34.0 H, MCHC 35.6, RDW Std Deviation 56.2 H, RDW Coeff of Gloria 16.6 H, Plt Count 206, MPV 10.7, Immature Gran % (Auto) 1.300 H, Neut % (Auto) 90.6 H, Lymph % (Auto) 4.3 L, [place] % (Auto) 3.6, Eos % (Auto) 0.0, Baso % (Auto) 0.2, Absolute Neuts (auto) 11.7 H, Absolute Lymphs (auto) 0.56 L, Nucleated RBC % 0.6, Anisocytosis 1+ 01/14/23 06:02: Sodium 143, Potassium 3.2 L, Chloride 112 H, Carbon Dioxide 21.0, Anion Gap 10, BUN 74 H, Creatinine 2.32 H, Estim Creat Clear Calc 12.50, Est GFR (MDRD) Af Amer 26 L, Est GFR (MDRD) Non-Af 21 L, BUN/Creatinine Ratio 31.9 H, Glucose 194 H, Calcium 9.0 01/14/23 11:05: POC Glucose 268 H 01/14/23 15:48: POC Glucose 300 H Micro: Microbiology 01/10/23 16:04 Urine, Clean Catch Urine Culture - Final Escherichia coli 01/10/23 22:20 Sputum, Expectorated/Coughed Gram Stain - Final 01/10/23 22:20 Sputum, Expectorated/Coughed Respiratory Culture - Final 01/09/23 22:30 Sputum, Expectorated/Coughed Gram Stain - Final 01/09/23 22:30 Sputum, Expectorated/Coughed Respiratory Culture - Final Haemophilus influenzae 01/10/23 16:04 Urine, Clean Catch Legionella Antigen - Final 01/10/23 16:04 Urine, Clean Catch Streptococcus pneumoniae Antigen (M - Final 01/09/23 18:35 Nasal Secretion SARS-CoV-2 & FLU Antigen (Rapid) - Final Physical Exam Const alert, oriented x3 and no apparent distress Constitutional Narrative: [place]. General Appearance: cooperative HEENT normocephalic, head/scalp atraumatic and moist oral mucous membranes Eyes PERRL and EOMs intact bilaterally Neck supple Lymph Lymphatic: no lymphadenopathy noted Resp normal respiratory effort, normal air movement, no retractions, no use of accessory muscles and clear to auscultation bilaterally Resp Narrative: on room air. Cardio regular rate, regular rhythm, S1 normal heart sound, S2 normal heart sound and no murmurs GI normal to inspection, nondistended, normoactive bowel sounds, soft to palpation, non-tender, non-distended and hepatosplenomegaly Extremity normal to inspection, normal capillary refill and no clubbing, cyanosis or edema General Extremity: no tenderness to palpation of joints or extremities Skin General Skin Exam: no breakdown Neuro oriented x3, CN's II-XII intact bilaterally, no focal motor deficits, no sensory deficits noted and deep tendon reflexes 2+ bilaterally Sensorium / Orientation: awake and alert Psych thought process normal, cooperative and affect normal Appearance: appropriate Assessment & Plan Assessment/Plan (1) Acute blood loss anemia: PLAN: The differential diagnosis for acute blood loss anemia would include Adán's erosions secondary to hiatal hernia, peptic ulcer disease, angiodysplastic lesions of the upper GI tract, portal gastropathy, gastric antral vascular ectasia. She should undergo an upper endoscopy to evaluate upper GI tract. Patient and patient's family were explained alternatives, risk, benefits including not withstanding bleeding, infection, sepsis, perforation, need for emergent and . She would have an ASA of 3. PLAN: Plan Since she is no longer hypoxic I think it is reasonable to perform an upper endoscopy. Recommend n.p.o. past midnight for possible EGD tomorrow. Charges/Coding Visit Charges Inpatient E&M: 03037 [facility] H[facility] L3
[2023-01-14] MEDS: 0.9% Saline Lock 10 ML Syringe IV (21:19)
[2023-01-14] MEDS: Atorvastatin Calcium 20 MG Tablet PO (21:19)
[2023-01-14] MEDS: Acetaminophen 325 MG Tablet 650 MG PO (21:20)
[2023-01-14 22:15] LABS: Bedside Glucose 372 mg/dL (74-106)
[2023-01-15] VITALS (10 sets, daily range): BP systolic 135–169; BP diastolic 69–93; PULSE 55–92; RESP 16–20; TEMP 36.4–37.3; O2SAT 94–97
[2023-01-15] MEDS: Gabapentin 100 MG Capsule PO ×3 (05:41→21:56)
[2023-01-15] MEDS: Levothyroxine 137 MCG Tablet PO (05:42)
[2023-01-15] MEDS: 0.9% Saline Lock 10 ML Syringe IV ×2 (05:42→21:56)
[2023-01-15] MEDS: Insulin Lispro 100 UNIT/ML INSULN.PEN SC ×3 (05:57→15:52)
[2023-01-15 06:21] LABS: Bedside Glucose 241 mg/dL (74-106)
[2023-01-15] MEDS: Ipratropium/Albuterol Sulfate 3 ML AMPUL.NEB INHALATION ×3 (07:22→20:13)
[2023-01-15 07:34] LABS: Absolute Lymphocyte Count 0.53 X10^3/uL (0.83-4.51); Absolute Neutrophil Count 9.8 X10^3/uL (2.0-7.7); Basophil# 0.03 X10^3/uL; Basophil% 0.3 % (0-1); Hematocrit 32.1 % (37-47); Hemoglobin 10.7 g/dL (12.0-15.0); Lymphocyte # 0.53 X10^3/ul (0.83-4.51); Lymphocyte % 4.8 % (19-41); Mean Corp Hgb Conc 33.3 g/dL (32-36); Mean Corpuscular Hgb 33.3 pg (27.0-32.0); Mean Platelet Vol. 10.7 fl (6.2-12.0); Monocyte# 0.34 X10^3/uL; Monocyte% 3.1 % (0-10); NRBC Flagged by Analyzer 0.7 % (0-5); Neutrophil # 9.82 X10^3/uL (2.7-7.7); Neutrophil % 89.7 % (47-70); POSITIVE DIFFERENTIAL YES; Platelet Count 205 K/mm3 (150-450); RBC Distribution Width CV 17.3 % (11.6-14.6); RBC Distribution Width SD 58.8 fl (35.1-43.9); Red Blood Count 3.21 M/mm3 (4.2-5.4)
[2023-01-15 07:42] LABS: Differential Indicated SCAN CRITERIA MET
[2023-01-15 07:59] LABS: Anion Gap 8 (5-15); BUN 53 mg/dL (7-18); BUN/Creat Ratio 27.3 RATIO (10-20); Chloride 111 mmol/L (98-107); Creatinine, Serum 1.94 mg/dL (0.55-1.02); EST Glomerular Filtration Rate 26 mL/min (>60); Est Glom Filt Rate - Afr Amer 32 mL/min (>60); Estimated Creatinine Clearance 14.95 ml/min; Glucose 249 mg/dL (74-106); Potassium 3.8 mmol/L (3.5-5.1); Sodium Level 142 mmol/L (136-145)
[2023-01-15 08:58] LABS: Differential Comment SCANNED
[2023-01-15] MEDS: Menthol/Lanolin/Calamine/Znox 113 GM Tube 1 APPLIC TOPICAL ×2 (10:22→21:56)
[2023-01-15] MEDS: guaiFENesin 1,200 MG Tablet 1200 MG PO ×2 (10:27→22:06)
[2023-01-15] MEDS: Docusate Sodium 100 MG Capsule PO (10:27)
[2023-01-15] MEDS: NIFEdipine 60 MG Tablet PO (10:28)
[2023-01-15] MEDS: Montelukast 10 MG Tablet PO (10:28)
[2023-01-15] MEDS: Insulin Glargine-YFGN 100 UNIT/ML Pen 20 UNIT SC ×2 (10:59→22:06)
[2023-01-15 11:21] LABS: Bedside Glucose 191 mg/dL (74-106)
--- NOTE | 2023-01-15 11:29 | PN.RENAL_ITS ---
Documented by User: JONATHAN Raphael 01/15/23 11:34 Subjective Subjective Sitting in chair. Denies any complaints. Hoping to go home soon. No overnight events. Objective Data Objective Data Vital Signs: Vital Signs Temp Pulse Resp BP Pulse Ox O2 Del Method O2 Flow Rate 97.9 F 70 20 H 152/73 H 97 Room Air 2 01/15/23 08:38 01/15/23 08:38 01/15/23 08:38 01/15/23 08:38 01/15/23 08:38 01/15/23 10:54 01/13/23 20:15 FiO2 35 01/13/23 08:17 Oxygen Flow Rate (L/min) 2 Oxygen Delivery Method Room Air Weight: 71.8 kg Body Mass Index (BMI) 30.9 Intake & Output: Intake and Output for Last 24 Hours 01/13/23 01/14/23 01/15/23 23:59 23:59 23:59 Intake Total 2085.25 / 2085.25 836.75 / 836.75 528.5 / 528.5 Output Total 2400 / 2400 2400 / 2400 2100 / 2100 Balance -314.75 / -314.75 -1563.25 / -1563.25 -1571.5 / -1571.5 Lab / Micro Data Result Diagrams: 01/15/23 06:05 01/15/23 06:05 Labs: Laboratory Results - last 24 hr 01/14/23 11:05: POC Glucose 268 H 01/14/23 15:48: POC Glucose 300 H 01/14/23 21:25: POC Glucose 372 H 01/15/23 05:56: POC Glucose 241 H 01/15/23 06:05: WBC 11.0, RBC 3.21 L, Hgb 10.7 L, Hct 32.1 L, MCV 100.0 H, MCH 33.3 H, MCHC 33.3 D, RDW Std Deviation 58.8 H, RDW Coeff of Gloria 17.3 H, Plt Count 205, MPV 10.7, Immature Gran % (Auto) 2.100 H, Neut % (Auto) 89.7 H, Lymph % (Auto) 4.8 L, [place] % (Auto) 3.1, Eos % (Auto) 0.0, Baso % (Auto) 0.3, Absolute Neuts (auto) 9.8 H, Absolute Lymphs (auto) 0.53 L, Nucleated RBC % 0.7, Differential Comment SCANNED 01/15/23 06:05: Sodium 142, Potassium 3.8, Chloride 111 H, Carbon Dioxide 23.0, Anion Gap 8, BUN 53 H, Creatinine 1.94 H, Estim Creat Clear Calc 14.95, Est GFR (MDRD) Af Amer 32 L, Est GFR (MDRD) Non-Af 26 L, BUN/Creatinine Ratio 27.3 H, Glucose 249 H, Calcium 9.0 01/15/23 10:58: POC Glucose 191 H Micro: Microbiology 01/10/23 16:04 Urine, Clean Catch Urine Culture - Final Escherichia coli 01/10/23 22:20 Sputum, Expectorated/Coughed Gram Stain - Final 01/10/23 22:20 Sputum, Expectorated/Coughed Respiratory Culture - Final 01/09/23 22:30 Sputum, Expectorated/Coughed Gram Stain - Final 01/09/23 22:30 Sputum, Expectorated/Coughed Respiratory Culture - Final Haemophilus influenzae 01/10/23 16:04 Urine, Clean Catch Legionella Antigen - Final 01/10/23 16:04 Urine, Clean Catch Streptococcus pneumoniae Antigen (M - Final 01/09/23 18:35 Nasal Secretion SARS-CoV-2 & FLU Antigen (Rapid) - Final Physical Exam Narrative Alert awake oriented x 3, no obvious distress no JVD s1s2 no murmurs lungs clear anteriorly. On room air. abdomen soft no edema Assessment & Plan Assessment/Plan (1) Acute kidney injury: PLAN: - GAY on CKD. Baseline creatinine ~1.7, follows with nephrology in [place]. Previous renal ultrasound without any hydronephrosis. Urinalysis did not show any proteinuria in the past. Serum creatinine 4.01 mg/dL on admission and today has improved to 1.94 mg/dL. Initially patient was on IVF but developed shortness of breath and required high flow O2 therefore IVF stopped and she received IV Lasix 50 mg total. Breathing has improved, now on room air. IV fluids have been discontinued. Treatment of pneumonia as per primary, on Zosyn, breathing treatments, IV steroids. - Blood pressures acceptable, on procardia. - GI following for acute on chronic anemia and to undergo EGD. On PPI gtt. Documented by User: Dr. Mickey Ames MD 01/15/23 15:35 Objective Data Lab / Micro Data Result Diagrams: 01/15/23 06:05 01/15/23 06:05 Assessment & Plan Assessment/Plan (1) Acute kidney injury: PLAN: Plan patient was seen and examined independently. Creatinine is improved, closer to baseline. Breathing is improved. Management of pneumonia as per primary. Baseline creatinine seems to be around 1.7.
[2023-01-15] MEDS: glipiZIDE 2.5 MG TAB.ER.24 7.5 MG PO (13:00)
[2023-01-15] MEDS: Ferrous Sulfate 325 MG Tablet PO (13:00)
[2023-01-15] MEDS: Multivitamins,Therapeutic Tablet 1 TABLET PO (13:01)
[2023-01-15] MEDS: Allopurinol 300 MG Tablet PO (13:01)
--- NOTE | 2023-01-15 13:13 | CASEMGMT ---
Addendum entered by Anastasia Livingston 01/15/23 15:44: Received acceptance from [facility], pt will need to have a F2F with prior to SOC. Addendum entered by Anastasia Livingston 01/15/23 13:26: Referral sent to [facility] at this time via [facility]. TC to Ebony to make her aware that referral is coming. She will review and let this SANJUANITA SMITH know if able to accept. Original Note: Pt dtr called SANJUANITA SMITH into room, she gave address [place] be residing upon mi which is [address] [place] [address].
--- NOTE | 2023-01-15 13:58 | PN_ITS ---
Subjective Subjective Patient seen and examined. She feels much better today.She remains on room air. She denies any chest pain, palpitations, dizziness, nausea or vomiting. Review of symptoms otherwise negative. She has remained hemodynamically stable. Objective Data Objective Data Vital Signs: Vital Signs Temp Pulse Resp BP Pulse Ox O2 Del Method O2 Flow Rate 97.9 F 76 18 152/73 H 95 Room Air 2 01/15/23 08:38 01/15/23 13:42 01/15/23 13:42 01/15/23 08:38 01/15/23 12:50 01/15/23 10:54 01/13/23 20:15 FiO2 35 01/13/23 08:17 Oxygen Flow Rate (L/min) 2 Oxygen Delivery Method Room Air Weight: 158 lb 4.67 oz Body Mass Index (BMI) 30.9 Intake & Output: Intake and Output for Last 24 Hours 01/13/23 01/14/23 01/15/23 23:59 23:59 23:59 Intake Total 2085.25 / 2085.25 836.75 / 836.75 528.5 / 528.5 Output Total 2400 / 2400 2400 / 2400 2650 / 2650 Balance -314.75 / -314.75 -1563.25 / -1563.25 -2121.5 / -2121.5 Lab / Micro Data Result Diagrams: 01/15/23 06:05 01/15/23 06:05 Labs: Laboratory Results - last 24 hr 01/14/23 15:48: POC Glucose 300 H 01/14/23 21:25: POC Glucose 372 H 01/15/23 05:56: POC Glucose 241 H 01/15/23 06:05: WBC 11.0, RBC 3.21 L, Hgb 10.7 L, Hct 32.1 L, MCV 100.0 H, MCH 33.3 H, MCHC 33.3 D, RDW Std Deviation 58.8 H, RDW Coeff of Gloria 17.3 H, Plt Count 205, MPV 10.7, Immature Gran % (Auto) 2.100 H, Neut % (Auto) 89.7 H, Lymph % (Auto) 4.8 L, [place] % (Auto) 3.1, Eos % (Auto) 0.0, Baso % (Auto) 0.3, Absolute Neuts (auto) 9.8 H, Absolute Lymphs (auto) 0.53 L, Nucleated RBC % 0.7, Differential Comment SCANNED 01/15/23 06:05: Sodium 142, Potassium 3.8, Chloride 111 H, Carbon Dioxide 23.0, Anion Gap 8, BUN 53 H, Creatinine 1.94 H, Estim Creat Clear Calc 14.95, Est GFR (MDRD) Af Amer 32 L, Est GFR (MDRD) Non-Af 26 L, BUN/Creatinine Ratio 27.3 H, G lucose 249 H, Calcium 9.0 01/15/23 10:58: POC Glucose 191 H Micro: Microbiology 01/10/23 16:04 Urine, Clean Catch Urine Culture - Final Escherichia coli 01/10/23 22:20 Sputum, Expectorated/Coughed Gram Stain - Final 01/10/23 22:20 Sputum, Expectorated/Coughed Respiratory Culture - Final 01/09/23 22:30 Sputum, Expectorated/Coughed Gram Stain - Final 01/09/23 22:30 Sputum, Expectorated/Coughed Respiratory Culture - Final Haemophilus influenzae 01/10/23 16:04 Urine, Clean Catch Legionella Antigen - Final 01/10/23 16:04 Urine, Clean Catch Streptococcus pneumoniae Antigen (M - Final 01/09/23 18:35 Nasal Secretion SARS-CoV-2 & FLU Antigen (Rapid) - Final Physical Exam Const alert, oriented x3 and no apparent distress Constitutional Narrative: H General Appearance: cooperative HEENT normocephalic, head/scalp atraumatic and moist oral mucous membranes Eyes PERRL and EOMs intact bilaterally Neck supple Lymph Lymphatic: no lymphadenopathy noted Resp normal respiratory effort, normal air movement, no retractions, no use of accessory muscles and clear to auscultation bilaterally Resp Narrative: on room air. Cardio regular rate, regular rhythm, S1 normal heart sound, S2 normal heart sound and no murmurs GI normal to inspection, nondistended, normoactive bowel sounds, soft to palpation, non-tender, non-distended and hepatosplenomegaly Extremity normal to inspection, normal capillary refill and no clubbing, cyanosis or edema General Extremity: no tenderness to palpation of joints or extremities Skin General Skin Exam: no breakdown Neuro oriented x3, CN's II-XII intact bilaterally, no focal motor deficits, no sensory deficits noted and deep tendon reflexes 2+ bilaterally Sensorium / Orientation: awake and alert Psych thought process normal, cooperative and affect normal Appearance: appropriate Assessment & Plan Assessment/Plan (1) Hyponatremia: (2) Pneumonia: PLAN: Plan #GAY * resolving. Cr is down to 1.94 today. * furosemide, glipizide, HCTZ and losartan on hold. * nephrology on board. improving. Will monitor * #Hyperglycemia in the setting of diabetes mellitus * A1C was 7.7 * on ISS. accuchecks ACHS * glipizide on hold * resolved. * Debility and weakness * PT/OT on board. Fall precautions * #acute on chronic anemia * Hb is 10.7 today. * s/p transfusion of one unit of PRBC * She does have a history of recurrent anemia. * gastroenterology on board * s/p transfusion of 2 units of PRBCs * for EGD tomorrow * * #acute Respiratory failure due to community acquired pneumonia * now off oxygen and on room air * on IV zosyn; dc today after completion of 5 day course * pulmonology on board * sputum positive for H influenzae * resolved. On room air * #Hypokalemia:resolved. K is 3.8 * #Atrial flutter: On Xarelto. xareklto held due to acute on chronic anemia #Gout: On allopurinol #Chronic pain: On the gabapentin. Dose was reduced in light of GAY. #Hypothyroidism: on synthroid DVT prophylaxis: xarelto on hold. on SCDs Total time spent on evaluation and management of patient, reviewing chart and s pecialist notes, discussing plan with patient and her grandson, discussion with nursing and ancillary staff as well as documentation: 43 mins Charges/Coding Visit Charges Inpatient E&M: 12277 [facility] Hosp L2
[2023-01-15 16:16] LABS: Bedside Glucose 353 mg/dL (74-106)
--- NOTE | 2023-01-15 16:52 | PN_ITS ---
Subjective Subjective Patient is able to take some food by mouth after undergoing a repeat swallowing test. Objective Data Objective Data Vital Signs: Vital Signs Temp Pulse Resp BP Pulse Ox O2 Del Method O2 Flow Rate 99.2 F H 92 18 169/93 H 96 Room Air 2 01/15/23 15:06 01/15/23 15:06 01/15/23 15:06 01/15/23 15:06 01/15/23 15:06 01/15/23 15:06 01/13/23 20:15 FiO2 35 01/13/23 08:17 Oxygen Flow Rate (L/min) 2 Oxygen Delivery Method Room Air Weight: 158 lb 4.67 oz Body Mass Index (BMI) 30.9 Intake & Output: Intake and Output for Last 24 Hours 01/13/23 01/14/23 01/15/23 23:59 23:59 23:59 Intake Total 2085.25 / 2085.25 836.75 / 836.75 578.5 / 578.5 Output Total 2400 / 2400 2400 / 2400 2650 / 2650 Balance -314.75 / -314.75 -1563.25 / -1563.25 -2071.5 / -2071.5 Lab / Micro Data Result Diagrams: 01/15/23 06:05 01/15/23 06:05 Labs: Laboratory Results - last 24 hr 01/14/23 21:25: POC Glucose 372 H 01/15/23 05:56: POC Glucose 241 H 01/15/23 06:05: WBC 11.0, RBC 3.21 L, Hgb 10.7 L, Hct 32.1 L, MCV 100.0 H, MCH 33.3 H, MCHC 33.3 D, RDW Std Deviation 58.8 H, RDW Coeff of Gloria 17.3 H, Plt Count 205, MPV 10.7, Immature Gran % (Auto) 2.100 H, Neut % (Auto) 89.7 H, Lymph % (Auto) 4.8 L, [place] % (Auto) 3.1, Eos % (Auto) 0.0, Baso % (Auto) 0.3, Absolute Neuts (auto) 9.8 H, Absolute Lymphs (auto) 0.53 L, Nucleated RBC % 0.7, Differential Comment SCANNED 01/15/23 06:05: Sodium 142, Potassium 3.8, Chloride 111 H, Carbon Dioxide 23.0, Anion Gap 8, BUN 53 H, Creatinine 1.94 H, Estim Creat Clear Calc 14.95, Est GFR (MDRD) Af Amer 32 L, Est GFR (MDRD) Non-Af 26 L, BUN/Creatinine Ratio 27.3 H, Glucose 249 H, Calcium 9.0 01/15/23 10:58: POC Glucose 191 H 01/15/23 15:51: POC Glucose 353 H Micro: Microbiology 01/10/23 16:04 Urine, Clean Catch Urine Culture - Final Escherichia coli 01/10/23 22:20 Sputum, Expectorated/Coughed Gram Stain - Final 01/10/23 22:20 Sputum, Expectorated/Coughed Respiratory Culture - Final 01/09/23 22:30 Sputum, Expectorated/Coughed Gram Stain - Final 01/09/23 22:30 Sputum, Expectorated/Coughed Respiratory Culture - Final Haemophilus influenzae 01/10/23 16:04 Urine, Clean Catch Legionella Antigen - Final 01/10/23 16:04 Urine, Clean Catch Streptococcus pneumoniae Antigen (M - Final 01/09/23 18:35 Nasal Secretion SARS-CoV-2 & FLU Antigen (Rapid) - Final Physical Exam Const alert, oriented x3 and no apparent distress Constitutional Narrative: H General Appearance: cooperative HEENT normocephalic, head/scalp atraumatic and moist oral mucous membranes Eyes PERRL and EOMs intact bilaterally Neck supple Lymph Lymphatic: no lymphadenopathy noted Resp normal respiratory effort, normal air movement, no retractions, no use of accessory muscles and clear to auscultation bilaterally Resp Narrative: on room air. Cardio regular rate, regular rhythm, S1 normal heart sound, S2 normal heart sound and no murmurs GI normal to inspection, nondistended, normoactive bowel sounds, soft to palpation, non-tender, non-distended and hepatosplenomegaly Extremity normal to inspection, normal capillary refill and no clubbing, cyanosis or edema General Extremity: no tenderness to palpation of joints or extremities Skin General Skin Exam: no breakdown Neuro oriented x3, CN's II-XII intact bilaterally, no focal motor deficits, no sensory deficits noted and deep tendon reflexes 2+ bilaterally Sensorium / Orientation: awake and alert Psych thought process normal, cooperative and affect normal Appearance: appropriate Assessment & Plan Assessment/Plan (1) Acute blood loss anemia: PLAN: The differential diagnosis for acute blood loss anemia would include Adán's erosions secondary to hiatal hernia, peptic ulcer disease, angiodysplastic lesions of the upper GI tract, portal gastropathy, gastric antral vascular ectasia. She should undergo an upper endoscopy to evaluate upper GI tract. Patient and patient's family were explained alternatives, risk, benefits including not withstanding bleeding, infection, sepsis, perforation, need for emergent and . She would have an ASA of 3. PLAN: Plan Since she is no longer hypoxic I think it is reasonable to perform an upper endoscopy. Recommend n.p.o. past midnight for possible EGD tomorrow. Charges/Coding Visit Charges Inpatient E&M: [address] [facility] Hosp L3
[2023-01-15] MEDS: Atorvastatin Calcium 20 MG Tablet PO (21:55)
[2023-01-15] MEDS: Acetaminophen 325 MG Tablet 650 MG PO (21:56)
[2023-01-15 22:20] LABS: Bedside Glucose 382 mg/dL (74-106)
[2023-01-16] VITALS (18 sets, daily range): BP systolic 106–119; BP diastolic 56–84; PULSE 76–92; RESP 16–20; TEMP 36.3–37.1; O2SAT 87–99; BMI 30.9
--- NOTE | 2023-01-16 | ESO_PTH ---
[id number] LOC: MS3 U#:[id number] AGE/SX: 87/F ROOM: WV319 RE01/09/[address]: Dr. Krysta Salas MD : [id number] BED: 1 DIS: 01/17/2023 SPEC #: [id number] RECD: 01/16/23 14:30 STATUS: CHELSEY REAvelino #: [id number] MONIKA: 01/16/23 00:[address]: Lito Lindsey DEPT: SURGICAL PATHOLOGY RECD BY: Osbaldo Taveras ENTERED: 01/19/23 10:09 SP TYPE: ESOPH BX OTHR DR: MD Dr. Gigi Santos DO Dr. Eric Jopperi, DO Dr. Jayaprakas Dasari, MD Dr. Nana Yaa Koram, MD Tissues: Esophagus, NOS Procedures: Special Stain Group I Surgery Specimen Level IV GMS Stain (control) Comments: @ Ordering doctor for SUIV edited from to @ by CARLOZ at 01/19/23 1500 @ Submitting doctor edited from to @ by RGOOD at 01/19/23 1500 HEADER OPERATION: EGD (MAC), biopsy, application of ultra clip PRE-OP DIAGNOSIS: GI bleed TISSUE SUBMITTED: Random esophageal biopsies MICROSCOPIC DIAGNOSIS Random esophageal biopsies: Fragments of mucosal tissue with extensive ulceration and fibrinopurulent exudation. See comment. SJ:janes 01/20/2023 COMMENT Overlying epithelium is not present in the specimen. Special stain for fungi is positive for a few organisms (yeast and pseudohypae) suggestive of hernan species; matched control is appropriate. Correlation with clinical findings and appropriate follow-up are necessary. MICROSCOPIC DESCRIPTION Slides are reviewed. GROSS DESCRIPTION Received in fixative is one container labeled with the patient's name and designated random esophageal biopsy. The specimen consists of two irregular fragments of light abdul soft tissue that in aggregate measure 0.6 x 0.3 x 0.1 cm. The specimen is totally submitted in one cassette. / KACIE:janes 01/19/2023 TC:2 CPT: 43784, 97437
[2023-01-16] MEDS: Albuterol 2.5 MG/3 ML VIAL.NEB. INHALATION (03:16)
[2023-01-16] MEDS: Levothyroxine 137 MCG Tablet PO (05:20)
[2023-01-16] MEDS: 0.9% Saline Lock 10 ML Syringe IV ×2 (05:20→09:41)
[2023-01-16] MEDS: Gabapentin 100 MG Capsule PO ×3 (05:20→23:29)
[2023-01-16] MEDS: Insulin Lispro 100 UNIT/ML INSULN.PEN SC ×2 (05:24→16:49)
[2023-01-16 05:46] LABS: Bedside Glucose 228 mg/dL (74-106)
[2023-01-16 06:28] LABS: Absolute Lymphocyte Count 0.49 X10^3/uL (0.83-4.51); Absolute Neutrophil Count 11.7 X10^3/uL (2.0-7.7); Basophil# 0.01 X10^3/uL; Basophil% 0.1 % (0-1); Hemoglobin 10.3 g/dL (12.0-15.0); Lymphocyte # 0.49 X10^3/ul (0.83-4.51); Lymphocyte % 3.8 % (19-41); Mean Corp Hgb Conc 34.3 g/dL (32-36); Mean Corpuscular Hgb 34.2 pg (27.0-32.0); Mean Corpuscular Volume 99.7 fL (81-99); Mean Platelet Vol. 10.7 fl (6.2-12.0); Monocyte# 0.63 X10^3/uL; Monocyte% 4.9 % (0-10); NRBC Flagged by Analyzer 0.6 % (0-5); Neutrophil # 11.65 X10^3/uL (2.7-7.7); Neutrophil % 89.8 % (47-70); POSITIVE DIFFERENTIAL YES; Platelet Count 171 K/mm3 (150-450); RBC Distribution Width CV 17.4 % (11.6-14.6); Red Blood Count 3.01 M/mm3 (4.2-5.4)
[2023-01-16 06:30] LABS: Differential Indicated SCAN CRITERIA MET
[2023-01-16 06:47] LABS: Anion Gap 8 (5-15); BUN 40 mg/dL (7-18); BUN/Creat Ratio 23.3 RATIO (10-20); Calcium,Total 8.7 mg/dL (8.5-10.1); Chloride 110 mmol/L (98-107); Creatinine, Serum 1.72 mg/dL (0.55-1.02); EST Glomerular Filtration Rate 30 mL/min (>60); Est Glom Filt Rate - Afr Amer 36 mL/min (>60); Estimated Creatinine Clearance 16.86 ml/min; Glucose 224 mg/dL (74-106); Potassium 4.2 mmol/L (3.5-5.1); Sodium Level 138 mmol/L (136-145)
[2023-01-16] MEDS: Ipratropium/Albuterol Sulfate 3 ML AMPUL.NEB INHALATION ×3 (06:53→19:06)
[2023-01-16 07:11] LABS: Anisocytosis 1+; Macrocytosis RARE
[2023-01-16] MEDS: Lactated Ringers 1,000 ML 15 ML IV (10:45)
--- NOTE | 2023-01-16 12:11 | OP.EGD_ITS ---
Patient Name: Becca Spivey Procedure Date: 01/16/2023 11:38 AM Date of : 1935 Age: 87 Procedure: Upper GI endoscopy Indications: Coffee-ground emesis, Melena, Recent gastrointestinal bleeding Providers: Lito Lindsey DO Medicines: Monitored Anesthesia Care Patient Profile: This is an 87 year old female. Refer to note in patient chart for documentation of history and physical. Patient has symptoms of acute nausea and acute vomiting. Complications: No immediate complications. Procedure: Pre-Anesthesia Assessment: - Prior to the procedure, a History and Physical was performed, and patient medications and allergies were reviewed. The risks and benefits of the procedure and the sedation options and risks were discussed with the patient. All questions were answered and informed consent was obtained. Patient identification and proposed procedure were verified by the physician in the pre-procedure area. Mental Status Examination: alert and oriented. Airway Examination: normal oropharyngeal airway and neck mobility. Respiratory Examination: clear to auscultation. CV Examination: normal. Prophylactic Antibiotics: The patient does not require prophylactic antibiotics. Prior Anticoagulants: The patient has taken no previous anticoagulant or antiplatelet agents. After reviewing the risks and benefits, the patient was deemed in satisfactory condition to undergo the procedure. The anesthesia plan was to use monitored anesthesia care (MAC). Immediately prior to administration of medications, the patient was re-assessed for adequacy to receive sedatives. The heart rate, respiratory rate, oxygen saturations, blood pressure, adequacy of pulmonary ventilation, and response to care were monitored throughout the procedure. The physical status of the patient was re-assessed after the procedure. After obtaining informed consent, the endoscope was passed under direct vision. Throughout the procedure, the patient's blood pressure, pulse, and oxygen saturations were monitored continuously. The gastroscope was introduced through the mouth, and advanced to the second part of duodenum. The upper GI endoscopy was accomplished without difficulty. The patient tolerated the procedure well. Scope In: 11:54:13 AM Scope Out: 11:59:51 AM Total Procedure Duration Time 0 hours 5 minutes 38 seconds Findings: Severe esophagitis with bleeding was found 26 to 39 cm from the incisors. Biopsies were taken with a cold forceps for histology. Verification of patient identification for the specimen was done. Estimated blood loss was minimal. A 8 mm bleeding Alba-Smith tear with stigmata of recent bleeding was found. Area was successfully injected with 5 mL of a 1:10,000 solution of epinephrine for drug delivery. To repair the defect, the tissue edges were approximated and one hemostatic clip was successfully placed. Closure of the defect was successful. There was no bleeding at the end of the procedure. No gross lesions were noted in the stomach. A medium-sized hiatal hernia was present. One oozing cratered duodenal ulcer with a visible vessel was found in the duodenal bulb. The lesion was 4 mm in largest dimension. Coagulation for hemostasis using heater probe was successful. Estimated blood loss was minimal. Impression: - Severe erosive esophagitis. Biopsied. - Alba-Smith tear. Injected. Clip was placed. - No gross lesions in the stomach. - Medium-sized hiatal hernia. - One oozing duodenal ulcer with a visible vessel. Treated with a heater probe. Recommendation: - [facility]. - Resume previous diet. - Continue present medications. - Await pathology results. - Repeat upper endoscopy in 2 months to check healing. - Use Protonix (pantoprazole) 40 mg PO BID for 4 months. - Use sucralfate tablets 1 gram PO QID. Procedure Code(s): --- Professional --- 33949, 59, Esophagogastroduodenoscopy, flexible, transoral; with control of bleeding, any method 13268, 59, Esophagogastroduodenoscopy, flexible, transoral; with directed submucosal injection(s), any substance 62052, 51, Esophagogastroduodenoscopy, flexible, transoral; with biopsy, single or multiple CPT copyright 2017 [employer]. All rights reserved. The codes documented in this report are preliminary and upon porcelain finisher review may be revised to meet current compliance requirements. Lito Lindsey DO 01/16/2023 12:11:00 PM This report has been signed electronically. Number of Addenda: 0 Note Initiated On: 01/16/2023 11:38 AM
--- NOTE | 2023-01-16 12:11 | OP.CCLET_ITS ---
01/16/2023 Tee Álvarez Re : Upper GI endoscopy procedure for Becca Dorancarlos Álvarez This procedure was performed on Monday, January 16, 2023. My impressions and recommendations are as follows: Impressions : - Severe erosive esophagitis. Biopsied. - Alba-Smith tear. Injected. Clip was placed. - No gross lesions in the stomach. - Medium-sized hiatal hernia. - One oozing duodenal ulcer with a visible vessel. Treated with a heater probe. Recommendations : - [facility]. - Resume previous diet. - Continue present medications. - Await pathology results. - Repeat upper endoscopy in 2 months to check healing. - Use Protonix (pantoprazole) 40 mg PO BID for 4 months. - Use sucralfate tablets 1 gram PO QID. My findings are described in the full procedure note, which is enclosed. If I can be of further assistance, please feel free to contact me at . Sincerely, Lito Lindsey, 01/16/2023 12:11:00 PM This report has been signed electronically.
--- NOTE | 2023-01-16 13:29 | CASEMGMT ---
SW called [facility] to inquire about special education case manager and they report patient does not have a special education case manager. Saundra Gibbs CLIMATOLOGY PROFESSOR, [employer]
[2023-01-16 13:30] LABS: Bedside Glucose 137 mg/dL (74-106)
--- NOTE | 2023-01-16 13:48 | PN_ITS ---
Subjective Subjective Patient seen and examined. She had no active complaints and had an uneventful night. She was on 2 L of oxygen today though she denied feeling short of breath. Review of systems otherwise negative.She has remained hemodynamically stable otherwise. She is for EGD today. Objective Data Objective Data Vital Signs: Vital Signs Temp Pulse Resp BP Pulse Ox O2 Del Method O2 Flow Rate 97.9 F 89 16 115/83 H 94 Nasal Cannula 4 01/16/23 12:55 01/16/23 13:33 01/16/23 13:33 01/16/23 12:55 01/16/23 12:55 01/16/23 12:55 01/16/23 12:55 FiO2 35 01/13/23 08:17 Oxygen Flow Rate (L/min) 4 Oxygen Delivery Method Nasal Cannula Weight: 158 lb 4.67 oz Body Mass Index (BMI) 30.9 Intake & Output: Intake and Output for Last 24 Hours 01/14/23 01/15/23 01/16/23 23:59 23:59 23:59 Intake Total 836.75 / 836.75 1354.0 / 1354.0 149.25 / 149.25 Output Total 2400 / 2400 3500 / 3500 450 / 450 Balance -1563.25 / -1563.25 -2146.0 / -2146.0 -300.75 / -300.75 Lab / Micro Data Result Diagrams: 01/16/23 06:07 01/16/23 06:07 Labs: Laboratory Results - last 24 hr 01/15/23 15:51: POC Glucose 353 H 01/15/23 22:02: POC Glucose 382 H 01/16/23 05:24: POC Glucose 228 H 01/16/23 06:07: WBC 13.0 H, RBC 3.01 L, Hgb 10.3 L, Hct 30.0 L, MCV 99.7 H, MCH 34.2 H, MCHC 34.3, RDW Std Deviation 59.0 H, RDW Coeff of Gloria 17.4 H, Plt Count 171, MPV 10.7, Immature Gran % (Auto) 1.400 H, Neut % (Auto) 89.8 H, Lymph % (Auto) 3.8 L, Crane % (Auto) 4.9, Eos % (Auto) 0.0, Baso % (Auto) 0.1, Absolute Neuts (auto) 11.7 H, Absolute Lymphs (auto) 0.49 L, Nucleated RBC % 0.6, A nisocytosis 1+, Macrocytosis RARE 01/16/23 06:07: Sodium 138, Potassium 4.2, Chloride 110 H, Carbon Dioxide 20.0 L , Anion Gap 8, BUN 40 H, Creatinine 1.72 H, Estim Creat Clear Calc 16.86, Est GFR (MDRD) Af Amer 36 L, Est GFR (MDRD) Non-Af 30 L, BUN/Creatinine Ratio 23.3 H , Glucose 224 H, Calcium 8.7 01/16/23 13:02: POC Glucose 137 H Micro: Microbiology 01/10/23 16:04 Urine, Clean Catch Urine Culture - Final Escherichia coli 01/10/23 22:20 Sputum, Expectorated/Coughed Gram Stain - Final 01/10/23 22:20 Sputum, Expectorated/Coughed Respiratory Culture - Final 01/09/23 22:30 Sputum, Expectorated/Coughed Gram Stain - Final 01/09/23 22:30 Sputum, Expectorated/Coughed Respiratory Culture - Final Haemophilus influenzae 01/10/23 16:04 Urine, Clean Catch Legionella Antigen - Final 01/10/23 16:04 Urine, Clean Catch Streptococcus pneumoniae Antigen (M - Final 01/09/23 18:35 Nasal Secretion SARS-CoV-2 & FLU Antigen (Rapid) - Final Physical Exam Const alert, oriented x3 and no apparent distress General Appearance: cooperative HEENT normocephalic, head/scalp atraumatic, moist oral mucous membranes and oropharynx normal Eyes PERRL and EOMs intact bilaterally Neck no lymphadenopathy, supple and no JVD Lymph Lymphatic: no lymphadenopathy noted Resp normal respiratory effort, normal air movement, no retractions, no use of accessory muscles and clear to auscultation bilaterally Resp Narrative: on room air. Cardio regular rate, regular rhythm, S1 normal heart sound, S2 normal heart sound and no murmurs GI normal to inspection, nondistended, normoactive bowel sounds, soft to palpation, non-tender, non-distended and hepatosplenomegaly Extremity normal to inspection, normal capillary refill and no clubbing, cyanosis or edema General Extremity: no tenderness to palpation of joints or extremities Skin General Skin Exam: no breakdown Neuro oriented x3, CN's II-XII intact bilaterally, no focal motor deficits, no sensory deficits noted and deep tendon reflexes 2+ bilaterally Sensorium / Orientation: awake and alert Psych thought process normal, cooperative and affect normal Appearance: appropriate Assessment & Plan Assessment/Plan (1) Hyponatremia: (2) Pneumonia: PLAN: Plan #GAY on CKD * resolved. * furosemide, glipizide, HCTZ and losartan on hold. * nephrology on board. improving. Will monitor * #Hyperglycemia in the setting of diabetes mellitus * A1C was 7.7 * on ISS. accuchecks ACHS * glipizide on hold * resolved. * Debility and weakness * PT/OT on board. Fall precautions * #acute on chronic anemia * Hb is 10.3 today. * s/p transfusion of one unit of PRBC * She does have a history of recurrent anemia. * gastroenterology on board * for EGD tomorrow today * * #acute Respiratory failure due to community acquired pneumonia * resolved. Completed a course of IV zosyn * sputum positive for H influenzae * resolved. On room air * #Hypokalemia:resolved. K is 4.2. * #Atrial flutter: On Xarelto. xareklto held due to acute on chronic anemia #Gout: On allopurinol #Chronic pain: On the gabapentin. Dose was reduced in light of GAY. #Hypothyroidism: on synthroid DVT prophylaxis: xarelto on hold. on SCDs Total time spent on evaluation and management of patient, reviewing chart and specialist notes, discussing plan with patient and her grandson, discussion with nursing and ancillary staff as well as documentation: 40 mins Charges/Coding Visit Charges Inpatient E&M: 28650 Subs Hosp L2
--- NOTE | 2023-01-16 14:08 | PN.RENAL_ITS ---
Subjective Subjective nothing by mouth for endoscopy today. Breathing is better. Creatinine down to 1.7, close to previous baseline. Objective Data Objective Data Vital Signs: Vital Signs Temp Pulse Resp BP Pulse Ox O2 Del Method O2 Flow Rate 97.9 F 89 16 115/83 H 94 Nasal Cannula 4 01/16/23 12:55 01/16/23 13:33 01/16/23 13:33 01/16/23 12:55 01/16/23 12:55 01/16/23 12:55 01/16/23 12:55 FiO2 35 01/13/23 08:17 Oxygen Flow Rate (L/min) 4 Oxygen Delivery Method Nasal Cannula Weight: 71.8 kg Body Mass Index (BMI) 30.9 Intake & Output: Intake and Output for Last 24 Hours 01/14/23 01/15/23 01/16/23 23:59 23:59 23:59 Intake Total 836.75 / 836.75 1354.0 / 1354.0 149.25 / 149.25 Output Total 2400 / 2400 3500 / 3500 450 / 450 Balance -1563.25 / -1563.25 -2146.0 / -2146.0 -300.75 / -300.75 Lab / Micro Data Result Diagrams: 01/16/23 06:07 01/16/23 06:07 Labs: Laboratory Results - last 24 hr 01/15/23 15:51: POC Glucose 353 H 01/15/23 22:02: POC Glucose 382 H 01/16/23 05:24: POC Glucose 228 H 01/16/23 06:07: WBC 13.0 H, RBC 3.01 L, Hgb 10.3 L, Hct 30.0 L, MCV 99.7 H, MCH 34.2 H, MCHC 34.3, RDW Std Deviation 59.0 H, RDW Coeff of Gloria 17.4 H, Plt Count 171, MPV 10.7, Immature Gran % (Auto) 1.400 H, Neut % (Auto) 89.8 H, Lymph % (Auto) 3.8 L, [place]asta % (Auto) 4.9, Eos % (Auto) 0.0, Baso % (Auto) 0.1, Absolute Neuts (auto) 11.7 H, Absolute Lymphs (auto) 0.49 L, Nucleated RBC % 0.6, Anisocytosis 1+, Macrocytosis RARE 01/16/23 06:07: Sodium 138, Potassium 4.2, Chloride 110 H, Carbon Dioxide 20.0 L , Anion Gap 8, BUN 40 H, Creatinine 1.72 H, Estim Creat Clear Calc 16.86, Est GFR (MDRD) Af Amer 36 L, Est GFR (MDRD) Non-Af 30 L, BUN/Creatinine Ratio 23.3 H , Glucose 224 H, Calcium 8.7 01/16/23 13:02: POC Glucose 137 H Micro: Microbiology 01/10/23 16:04 Urine, Clean Catch Urine Culture - Final Escherichia coli 01/10/23 22:20 Sputum, Expectorated/Coughed Gram Stain - Final 01/10/23 22:20 Sputum, Expectorated/Coughed Respiratory Culture - Final 01/09/23 22:30 Sputum, Expectorated/Coughed Gram Stain - Final 01/09/23 22:30 Sputum, Expectorated/Coughed Respiratory Culture - Final Haemophilus influenzae 01/10/23 16:04 Urine, Clean Catch Legionella Antigen - Final 01/10/23 16:04 Urine, Clean Catch Streptococcus pneumoniae Antigen (M - Fin al 01/09/23 18:35 Nasal Secretion SARS-CoV-2 & FLU Antigen (Rapid) - Final Physical Exam Narrative Alert awake oriented x 3, no obvious distress no JVD s1s2 no murmurs lungs clear anteriorly. On room air. abdomen soft no edema Assessment & Plan Assessment/Plan (1) Acute kidney injury: PLAN: - GAY on CKD. Baseline creatinine ~1.7, follows with nephrology in [place]. Previous renal ultrasound without any hydronephrosis. Urinalysis did not show any proteinuria in the past. Serum creatinine 4.01 mg/dL on admission and today has improved to 1.7 mg/dL. Initially patient was on IVF but developed shortness of breath and required high flow O2 therefore IVF stopped and she received IV Lasix 50 mg total. Breathing has improved, now on room air. IV fluids have been discontinued. Treatment of pneumonia as per primary for endoscopy today
--- NOTE | 2023-01-16 15:01 | CASEMGMT ---
TC to 's office, set up f/u appt for pt on 01/19 at 8:40am. Message sent to [facility] to make aware of date and time of appt and that pt will likely dc over the weekend. RN CM into pt room. Pt dtr and son present. They are aware of f/u appt and that this needs to be made prior to the [facility] coming out to see her. Pt and family verbalize understanding. Pt is now on oxygen. Discussed local in network DME companies should pt need oxygen up dc, pt chose [employer]. Green sheet on the chart.
[2023-01-16 17:15] LABS: Bedside Glucose 161 mg/dL (74-106)
[2023-01-16] MEDS: Insulin Glargine-YFGN 100 UNIT/ML Pen 20 UNIT SC (23:24)
[2023-01-16] MEDS: Atorvastatin Calcium 20 MG Tablet PO (23:25)
[2023-01-16] MEDS: guaiFENesin 1,200 MG Tablet 1200 MG PO (23:25)
[2023-01-16] MEDS: Menthol/Lanolin/Calamine/Znox 113 GM Tube 1 APPLIC TOPICAL (23:33)
[2023-01-16 23:46] LABS: Bedside Glucose 200 mg/dL (74-106)
[2023-01-17] VITALS (8 sets, daily range): BP systolic 118–124; BP diastolic 65–90; PULSE 90–100; RESP 16–24; TEMP 36.9; O2SAT 88–96
[2023-01-17] MEDS: Insulin Lispro 100 UNIT/ML INSULN.PEN SC ×2 (05:27→11:14)
[2023-01-17] MEDS: Levothyroxine 137 MCG Tablet PO (05:27)
[2023-01-17] MEDS: Gabapentin 100 MG Capsule PO ×2 (05:27→14:41)
[2023-01-17 05:56] LABS: Bedside Glucose 224 mg/dL (74-106)
[2023-01-17 06:44] LABS: Absolute Lymphocyte Count 0.34 X10^3/uL (0.83-4.51); Absolute Neutrophil Count 9.3 X10^3/uL (2.0-7.7); Basophil# 0.01 X10^3/uL; Basophil% 0.1 % (0-1); Hematocrit 32.5 % (37-47); Hemoglobin 10.7 g/dL (12.0-15.0); Lymphocyte # 0.34 X10^3/ul (0.83-4.51); Lymphocyte % 3.4 % (19-41); Mean Corp Hgb Conc 32.9 g/dL (32-36); Mean Corpuscular Volume 103.2 fL (81-99); Mean Platelet Vol. 11.3 fl (6.2-12.0); Monocyte# 0.37 X10^3/uL; Monocyte% 3.7 % (0-10); NRBC Flagged by Analyzer 0.7 % (0-5); Neutrophil # 9.26 X10^3/uL (2.7-7.7); POSITIVE DIFFERENTIAL YES; Platelet Count 159 K/mm3 (150-450); RBC Distribution Width CV 17.9 % (11.6-14.6); RBC Distribution Width SD 60.5 fl (35.1-43.9); Red Blood Count 3.15 M/mm3 (4.2-5.4); White Blood Count 10.1 K/mm3 (4.4-11.0)
[2023-01-17 07:08] LABS: Differential Indicated SCAN CRITERIA MET
[2023-01-17] MEDS: Ipratropium/Albuterol Sulfate 3 ML AMPUL.NEB INHALATION ×2 (07:16→13:26)
[2023-01-17 07:20] LABS: Anion Gap 10 (5-15); BUN 49 mg/dL (7-18); BUN/Creat Ratio 24.7 RATIO (10-20); Calcium,Total 8.8 mg/dL (8.5-10.1); Chloride 112 mmol/L (98-107); Creatinine, Serum 1.98 mg/dL (0.55-1.02); EST Glomerular Filtration Rate 25 mL/min (>60); Est Glom Filt Rate - Afr Amer 31 mL/min (>60); Estimated Creatinine Clearance 14.65 ml/min; Glucose 211 mg/dL (74-106); Potassium 4.4 mmol/L (3.5-5.1); Sodium Level 143 mmol/L (136-145)
[2023-01-17] MEDS: glipiZIDE 2.5 MG TAB.ER.24 7.5 MG PO (08:10)
[2023-01-17] MEDS: Ferrous Sulfate 325 MG Tablet PO (08:10)
[2023-01-17] MEDS: Multivitamins,Therapeutic Tablet 1 TABLET PO (08:10)
[2023-01-17] MEDS: Allopurinol 300 MG Tablet PO (08:11)
[2023-01-17 10:06] LABS: Differential Comment SCANNED
[2023-01-17] MEDS: Docusate Sodium 100 MG Capsule PO (10:59)
[2023-01-17] MEDS: Montelukast 10 MG Tablet PO (11:00)
[2023-01-17] MEDS: NIFEdipine 60 MG Tablet PO (11:00)
[2023-01-17] MEDS: Menthol/Lanolin/Calamine/Znox 113 GM Tube 1 APPLIC TOPICAL (11:09)
[2023-01-17] MEDS: Insulin Glargine-YFGN 100 UNIT/ML Pen 20 UNIT SC (11:11)
--- NOTE | 2023-01-17 13:18 | DCINST_ITS ---
Discharge Instructions Diet Discharge Diet: Low fat / Low cholesterol Activity Discharge Activity: Return to Normal Activity Dressing / Incision Call your doctor if you observe: Fever of 101 or Higher, Shortness of breath, Dizziness, Swelling in the ankles and Chest pain Follow Up Care Test Results: Test results from this visit will be discussed in further detail at your follow- up appointment, if applicable. Discharge Plan Admission Admit Date/Time: 01/09/23 17:07 Primary Reason for Your Visit: GAY on CKD, Attending Provider: Krysta Salas Primary Care Provider: Tee Álvarez Consulting Providers: Yamil Sousa ; Gigi Trejo ; Mickey Ames Discharge Orders/Prescriptions Prescriptions: New pantoprazole 40 mg tablet,delayed release (DR/EC) 40 mg PO BID Qty: 60 0RF sucralfate 1 gram tablet 1 g PO Q6H Qty: 120 1RF losartan 25 mg tablet 25 mg PO DAILY Qty: 30 1RF Continued albuterol sulfate 90 mcg/actuation HFA aerosol inhaler 2 puff INHALATION Q4H PRN (Reason: sob/wheezing) Qty: 18 levothyroxine 137 mcg tablet 137 mcg PO DAILY Qty: 30 rivaroxaban 20 mg tablet 20 mg PO QPM Qty: 30 glipizide 2.5 mg tablet extended release 24hr 7.5 mg PO DAILY Label Comments: Take 3 tablets by mouth once daily. multivitamin Tablet 1 tab PO DAILY calcium carbonate-vitamin D3 600 mg(1,500mg) -800 unit tablet 1 tab PO DAILY fluticasone propion-salmeterol 1 PUFF inhaler 1 puff inhalation BID potassium chloride 10 MEQ tablet extended release 20 meq PO DAILY allopurinol 100 MG tablet 300 mg PO DAILY nifedipine 60 MG tablet 60 mg PO DAILY docusate sodium 100 MG capsule 100 mg PO DAILY montelukast 10 MG tablet 10 mg PO DAILY gabapentin 300 mg capsule 300 mg PO TID cyanocobalamin (vitamin B-12) 1 tablet PO/SL DAILY furosemide 40 mg tablet 60 mg PO DAILY simvastatin 40 mg Tablet 40 mg PO QHS ferrous sulfate 325 mg (65 mg iron) Tablet 325 mg PO DAILY Discontinued hydrochlorothiazide 12.5 mg capsule 25 mg PO DAILY Label Comments: Take 1 capsule by mouth once daily. losartan 50 mg Tablet 50 mg PO DAILY Referrals / Follow Up: Tee Álvarez MD [Primary Care Provider] - 01/19/23 8:40 am Mickey Ames MD [Med Staff - Consulting] - Within 2 Weeks Lito Lindsey DO [Med Staff - Active Staff] - Within 2 Weeks Disposition Disposition (needs filled in before D/C Order can be placed): Home Health Service
[2023-01-17] MEDS: 0.9% Saline Lock 10 ML Syringe IV (14:41)
--- NOTE | 2023-01-17 16:02 | DS.PCM_ITS ---
Providers Date of Admission: 01/09/23 Date of Discharge: 01/17/23 Primary Care Physician: Dr. 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 [employer] / Pulmonary Medicine Routine Consulting Provider: Gigi Trejo Reason for Consult: acute hypoxic respiratory failure EMERGENT Consult: No Notified: Yes Date Notified: 01/12/23 Time Notified: 18:06 Method of Notification: Text 01/13/23 09:23 Consult: Nephrology Routine Consulting Provider: Mickey Ames Reason for Consult: GAY EMERGENT Consult: No Notified: Yes Date Notified: 01/13/23 Time Notified: 09:58 Method of Notification: Answering Service Reason For Visit: DEHYDRATION, HYPOTENSION, GAY, CKD, HYPERGLYCEMIA Diagnosis Discharge Diagnosis (1) Acute kidney injury: Status: Acute Code(s): N17.9 - Acute kidney failure, unspecified Plan #GAY on CKD * resolved. * furosemide, glipizide, HCTZ and losartan on hold. * nephrology on board. improving. Will monitor * #Hyperglycemia in the setting of diabetes mellitus * A1C was 7.7 * on ISS. accuchecks ACHS * glipizide on hold * resolved. * Debility and weakness * PT/OT on board. Fall precautions * #acute on chronic anemia * Hb is 10.3 today. * s/p transfusion of one unit of PRBC * She does have a history of recurrent anemia. * gastroenterology on board * for EGD tomorrow today * * #acute Respiratory failure due to community acquired pneumonia * resolved. Completed a course of IV zosyn * sputum positive for H influenzae * resolved. On room air * #Hypokalemia:resolved. K is 4.2. * #Atrial flutter: On Xarelto. xareklto held due to acute on chronic anemia #Gout: On allopurinol #Chronic pain: On the gabapentin. Dose was reduced in light of GAY. #Hypothyroidism: on synthroid DVT prophylaxis: xarelto on hold. 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 01/30/16 docusate sodium 100 mg capsule 100 mg PO DAILY constipation 01/30/16 fluticasone 250 mcg-salmeterol 50 mcg/dose blistr powdr for inhalation 1 puff inhalation BID sob 01/30/16 montelukast 10 mg tablet 10 mg PO DAILY breathing 01/30/16 nifedipine 60 mg tablet,extended release 24 hr 60 mg PO DAILY blood pressure 01/30/16 potassium chloride 10 mEq tablet,extended release 20 meq PO DAILY supplement 01/30/16 albuterol sulfate 90 mcg/actuation aerosol inhaler 2 puff inhalation Q4H PRN sob/wheezing #18 grams 04/19/19 gabapentin 300 mg capsule 300 mg PO TID neuropathy 04/19/19 levothyroxine 137 mcg tablet 137 mcg PO DAILY thyroid #30 tabs 04/19/19 rivaroxaban 20 mg tablet 20 mg PO QPM blood thinner #30 tabs 04/19/19 calcium carbonate 600 mg-vitamin D3 20 mcg (800 unit) tablet 1 tab PO DAILY supplement 08/23/21 glipizide 2.5 mg tablet, extended release 24 hr 7.5 mg PO DAILY diabetes 08/23/21 multivitamin 1 tab PO DAILY supplement 08/23/21 cyanocobalamin (vitamin B-12) 1 tablet PO/SL DAILY supplement 03/06/22 ferrous sulfate 325 mg (65 mg iron) tablet 325 mg PO DAILY supplement 01/09/23 furosemide 40 mg tablet 60 mg PO DAILY EDEMA 01/09/23 simvastatin 40 mg tablet 40 mg PO QHS CHOLESTEROL 01/09/23 losartan 25 mg tablet 25 mg PO DAILY #30 tabs 01/17/23 pantoprazole 40 mg tablet,delayed release 40 mg PO BID #60 tabs 01/17/23 sucralfate 1 gram tablet 1 g PO Q6H #120 tabs 01/17/23 Hospital Course Operations None Procedures 2-D Echocardiogram and EGD Summary of Care Provided Minutes Spent on Discharge: 55 Hospital Course: Patient is an 87 y/o female with a PMH as outlined who was admitted through the ED with a complaint of generalized weakness and decreased p.o. intake. On admission she was found to have an elevated white cell count of 15,000 chemistries were significant for sodium of 127 with anion gap of 16 and creatinine of 4.01. Urinalysis showed evidence of 1+ bacteria. CT of the chest done showed bilateral pleural effusions with multifocal pneumonia. She had also tested positive for H. influenzae. She was admitted and managed for GAY as well as hyperglycemia in the setting of diabetes mellitus, acute on chronic anemia as well as weakness and debility and acute respiratory failure due to pneumonia. She was started on IV Zosyn. Oxygen requirements gradually increased to the point where she was on air Vo. Her creatinine improved with hydration. Hospital course was complicated by hemoglobin trended down to 6.2. NG tube inserted showed removal of copious amounts of coffee-ground emesis. Her Xarelto was held and gastroenterology was consulted. As mentioned she was placed on broad-spectrum antibiotics. She was diuresed and his shortness of breath improved and she felt much better. She was also transfused with a unit of packed red blood cells. She nephrology was consulted. Gastroenterology was also consulted and she had EGD which showed severe erosive esophagitis with Alba-Smith tear which was injected and 1 oozing duodenal ulcer with a visible vessel which was treated with heater probe. She was placed on Protonix 40 mg twice daily and sucralfate 1 g every 6 hours. She was weaned down to 2 L of oxygen and she had a walking pulse ox which showed that she required 2 L of oxygen at discharge. She remained stable and was discharged home on 01/17/2023. Her Lasix dose was resumed and her hydrochlorothiazide was discontinued. Her losartan dose was also reduced. She was discharged on 2 L of oxygen on 01/17/2023. She completed a course of antibiotics. She is follow-up with her primary care doctor as well as nephrology and gastroenterology. She was discharged with a prescription for p.o. prednisone and sucralfate. #Patient seen and examined prior to discharge. She felt much better and she had no active complaints. Review of systems otherwise negative. Labs and vitals reviewed. Home medication reviewed and reconciled. Physical Exam Const alert, oriented x3 and no apparent distress General Appearance: cooperative, comfortable and well kempt HEENT normocephalic, head/scalp atraumatic, hearing grossly normal bilaterally, moist oral mucous membranes and oropharynx normal Mouth: oral and palatal mucosa normal Eyes PERRL and EOMs intact bilaterally Neck no lymphadenopathy, supple and no JVD Lymph Lymphatic: no lymphadenopathy noted Resp normal respiratory effort, normal air movement, no retractions, no use of acc essory muscles and clear to auscultation bilaterally Resp Narrative: on room air. Cardio regular rate, regular rhythm, S1 normal heart sound, S2 normal heart sound and no murmurs GI normal to inspection, nondistended, normoactive bowel sounds, soft to palpation, non-tender, non-distended and hepatosplenomegaly Extremity normal to inspection, full ROM, normal capillary refill and no clubbing, cyanosis or edema General Extremity: no tenderness to palpation of joints or extremities Skin no rashes or lesions noted General Skin Exam: no breakdown Neuro oriented x3, CN's II-XII intact bilaterally, moves all extremities, no focal motor deficits, no sensory deficits noted and deep tendon reflexes 2+ bilaterally Sensorium / Orientation: awake and alert Psych thought process normal, cooperative and affect normal Appearance: appropriate Weight / BMI Weight Weight: 158 lb 4.67 oz Body Mass Index (BMI) 30.9 ABG / Lab / Microbiology Data Result Diagrams: 01/17/23 05:55 01/17/23 05:55 Laboratory: Laboratory Results - last 24 hr 01/16/23 16:47: POC Glucose 161 H 01/16/23 23:21: POC Glucose 200 H 01/17/23 05:16: POC Glucose 224 H 01/17/23 05:55: WBC 10.1, RBC 3.15 L, Hgb 10.7 L, Hct 32.5 L, MCV 103.2 H, MCH 34.0 H, MCHC 32.9, RDW Std Deviation 60.5 H, RDW Coeff of Gloria 17.9 H, Plt Count 159, MPV 11.3, Immature Gran % (Auto) 0.800, Neut % (Auto) 92.0 H, Lymph % (Auto) 3.4 L, Hancock % (Auto) 3.7, Eos % (Auto) 0.0, Baso % (Auto) 0.1, Absolute Neuts (auto) 9.3 H, Absolute Lymphs (auto) 0.34 L, Nucleated RBC % 0.7, Differential Comment SCANNED 01/17/23 05:55: Sodium 143, Potassium 4.4, Chloride 112 H, Carbon Dioxide 21.0, Anion Gap 10, BUN 49 H, Creatinine 1.98 H, Estim Creat Clear Calc 14.65, Est GFR (MDRD) Af Amer 31 L, Est GFR (MDRD) Non-Af 25 L, BUN/Creatinine Ratio 24.7 H, Glucose 211 H, Calcium 8.8 Microbiology: Microbiology 01/10/23 16:04 Urine, Clean Catch Urine Culture - Final Escherichia coli 01/10/23 22:20 Sputum, Expectorated/Coughed Gram Stain - Final 01/10/23 22:20 Sputum, Expectorated/Coughed Respiratory Culture - Final 01/09/23 22:30 Sputum, Expectorated/Coughed Gram Stain - Final 01/09/23 22:30 Sputum, Expectorated/Coughed Respiratory Culture - Final Haemophilus influenzae 01/10/23 16:04 Urine, Clean Catch Legionella Antigen - Final 01/10/23 16:04 Urine, Clean Catch Streptococcus pneumoniae Antigen (M - Final 01/09/23 18:35 Nasal Secretion SARS-CoV-2 & FLU Antigen (Rapid) - Final D/C Instructions Discharge Diet: Low fat / Low cholesterol Discharge Activity: Return to Normal Activity Weight Bearing Status: Weight bearing as tolerated Call your doctor if you observe: Fever of 101 or Higher, Shortness of breath, Dizziness, Swelling in the ankles and Chest pain Meaningful Use Info Meaningful Use Diagnoses (Choose all that apply): None applicable Discharge Plan Admission Admit Date/Time: 01/09/23 17:07 Primary Reason for Your Visit: GAY on CKD, Attending Provider: Krysta Salas Primary Care Provider: Tee Álvarez Consulting Providers: Yamil Sousa ; Gigi Trejo ; Mickey Ames Discharge Orders/Prescriptions Prescriptions: New pantoprazole 40 mg tablet,delayed release (DR/EC) 40 mg PO BID Qty: 60 0RF sucralfate 1 gram tablet 1 g PO Q6H Qty: 120 1RF losartan 25 mg tablet 25 mg PO DAILY Qty: 30 1RF Continued albuterol sulfate 90 mcg/actuation HFA aerosol inhaler 2 puff INHALATION Q4H PRN (Reason: sob/wheezing) Qty: 18 levothyroxine 137 mcg tablet 137 mcg PO DAILY Qty: 30 rivaroxaban 20 mg tablet 20 mg PO QPM Qty: 30 glipizide 2.5 mg tablet extended release 24hr 7.5 mg PO DAILY Label Comments: Take 3 tablets by mouth once daily. multivitamin Tablet 1 tab PO DAILY calcium carbonate-vitamin D3 600 mg(1,500mg) -800 unit tablet 1 tab PO DAILY fluticasone propion-salmeterol 1 PUFF inhaler 1 puff inhalation BID potassium chloride 10 MEQ tablet extended release 20 meq PO DAILY allopurinol 100 MG tablet 300 mg PO DAILY nifedipine 60 MG tablet 60 mg PO DAILY docusate sodium 100 MG capsule 100 mg PO DAILY montelukast 10 MG tablet 10 mg PO DAILY gabapentin 300 mg capsule 300 mg PO TID cyanocobalamin (vitamin B-12) 1 tablet PO/SL DAILY furosemide 40 mg tablet 60 mg PO DAILY simvastatin 40 mg Tablet 40 mg PO QHS ferrous sulfate 325 mg (65 mg iron) Tablet 325 mg PO DAILY Discontinued hydrochlorothiazide 12.5 mg capsule 25 mg PO DAILY Label Comments: Take 1 capsule by mouth once daily. losartan 50 mg Tablet 50 mg PO DAILY Referrals / Follow Up: Tee Álvarez MD [Primary Care Provider] - 01/19/23 8:40 am Mickey Ames MD [Med Staff - Consulting] - Within 2 Weeks Lito Lindsey DO [Med Staff - Active Staff] - Within 2 Weeks Disposition Disposition (needs filled in before D/C Order can be placed): Home Health Service Charges/Coding Visit Charges Inpatient E&M: 86385 Disch Hosp >30min
[2023-01-17 17:11] LABS: Bedside Glucose 310 mg/dL (74-106)
== END 2023-01-17 15:45 | disposition home health service (06) | DRG 177 ==
LOC: ED 14:51 → MS3 17:47
PROVIDERS: Hospitalist; Internal Medicine Critical Care Medicine; Internal Medicine Gastroenterology; Physician Assistant; Emergency Provider Emergency Medicine; PCP Family Medicine; Visit Provider Student in an Organized Health Care Education/Training Program
PROC: 0DJ08ZZ Inspection of Upper Intestinal Tract, Via Natural or Artificial Opening Endoscopic (ICD-10-PCS; CPT 43235; principal; 2023-01-16 11:25)
DX: J69.0 Pneumonitis due to inhalation of food and vomit (principal); K22.11 Ulcer of esophagus with bleeding; J96.01 Acute respiratory failure with hypoxia; K22.6 Gastro-esophageal laceration-hemorrhage syndrome; K26.4 Chronic or unspecified duodenal ulcer with hemorrhage; I48.92 Unspecified atrial flutter; D62 Acute posthemorrhagic anemia; E87.1 Hypo-osmolality and hyponatremia; N17.9 Acute kidney failure, unspecified; E11.22 Type 2 diabetes mellitus with diabetic chronic kidney disease; E11.65 Type 2 diabetes mellitus with hyperglycemia; N18.32 Chronic kidney disease, stage 3b; E86.0 Dehydration; M10.9 Gout, unspecified; E78.5 Hyperlipidemia, unspecified; I12.9 Hypertensive chronic kidney disease with stage 1 through stage 4 chronic kidney disease, or unspecified chronic kidney disease; E03.9 Hypothyroidism, unspecified; E87.6 Hypokalemia; K44.9 Diaphragmatic hernia without obstruction or gangrene; B96.3 Hemophilus influenzae [H. influenzae] as the cause of diseases classified elsewhere; G89.4 Chronic pain syndrome; E66.9 Obesity, unspecified; Z68.30 Body mass index [BMI] 30.0-30.9, adult; R53.81 Other malaise; R29.6 Repeated falls; Z66 Do not resuscitate; Z79.01 Long term (current) use of anticoagulants; Z79.84 Long term (current) use of oral hypoglycemic drugs; Z79.899 Other long term (current) drug therapy
CPT/HCPCS: 36415; 71045; 71046; 71250; 74018; 74230; 80048; 80053; 81001; 82009; 82607; 82728; 82746; 82947; 82962; 83036; 83540; 83550; 83880; 84439; 84443; 85014; 85018; 85025; 86850; 86900; 86901; 86920; 86922; 87070; 87077; 87086; 87088; 87186; 87205; 87428; 87449; 88305; 88312; 92526; 92610; 92611; 93005; 94640; 94660; 94667; 94668; 94762; 97110; 97162; 97166; 97530; 97535; 97802; 97803; 99284; J7030; J7040; J7050; J7120; P9016; A4216; J1940; J2405

== ENCOUNTER 2023-02-02 12:12 | Inpatient (IN) | payer MEDICARE, MEDICAID, SELFPAY ==
[2023-02-02] VITALS (8 sets, daily range): BP systolic 106–116; BP diastolic 44–70; PULSE 71–83; RESP 17–18; TEMP 36.3–36.8; O2SAT 97–100; BMI 28.1; BMI 28.9
--- NOTE | 2023-02-02 13:00 | RAD_ITS ---
STUDY: X-RAY CHEST REASON FOR EXAM: Female, 87 years old. Cough and shortness of breath. Hypotension. TECHNIQUE: AP and lateral views of the chest. COMPARISON: Comparison is made with prior examination dated January 13, 2023. FINDINGS: EKG electrodes are seen. Stable elevation of the right hemidiaphragm. New focal infiltrate in the left upper lobe. Blunting of the left costophrenic angle. Normal size heart. Normal mediastinum and can. Normal visualized pulmonary arteries. There is atherosclerotic calcification of the aortic arch with tortuosity. There are diffuse degenerative changes of the visualized thoracic spine. Normal visualized ribs, clavicles, and shoulders. There is no demonstrated abnormality of the visualized soft tissue structures of the upper abdomen. RAD/Chest PA and Lateral IMPRESSION: Left upper lobe pulmonary infiltrate with blunting of the left costal phrenic angle. Electronically Signed: Apolinar Green MD at 13:51 EDT ,
--- NOTE | 2023-02-02 13:00 | EKG12_ITS ---
Test Reason : LOW BP Blood Pressure : / mmHG Vent. Rate : 077 BPM Atrial Rate : 077 BPM P-R Int : 256 ms QRS Dur : 156 ms QT Int : 560 ms P-R-T Axes : 043 -65 171 degrees QTc Int : 633 ms Sinus rhythm with 1st degree A-V block Left axis deviation Left bundle branch block Abnormal ECG Confirmed by PRINCE LAI, MEAGAN ([id number]), photographic editor LEANNA POWERS ([id number]) on 02/05/2023 9:19:11 AM Referred By: [email or web address] Confirmed By:MEAGAN MORRISON MD
--- NOTE | 2023-02-02 13:02 | EX.ED.DYSGE1 ---
HPI History of Present Illness Chief Complaint: Hypotension Informant: patient Onset/Context/Timing Onset: Today Narrative Narrative: Son-in-law patient relations director brings patient in because he checked her blood pressure this morning and it was 80s/40-50s on 3 different checks. She started feeling weak yesterday. She has no other symptoms today. Son-in-law states that she did urinate this morning and it was asymptomatic according to her, but she had been drinking a lot of water yesterday and urinating a lot more than usual. She usually walks with a walker and has been doing okay up until today, it was difficult to get her up because she was very weak. She recently was admitted for pneumonia which she has gotten over and is coughing no more, this was maybe a month ago. [facility] Medical History Asthma Chronic anticoagulation Chronic atrial flutter Chronic kidney disease Essential (primary) hypertension Gout History of atrial flutter Hyperlipidemia Hypothyroidism Macrocytic anemia Obesity Tremor Type 2 diabetes mellitus Ventral hernia Home Medications allopurinol 100 mg tablet 300 mg PO DAILY uric acid eyelet row marker 01/30/16 [History Last Taken 01/09/23] docusate sodium 100 mg capsule 100 mg PO DAILY constipation 01/30/16 [History Last Taken Unknown] fluticasone 250 mcg-salmeterol 50 mcg/dose blistr powdr for inhalation 1 puff inhalation BID sob 01/30/16 [History Last Taken 01/08/23] montelukast 10 mg tablet 10 mg PO DAILY breathing 01/30/16 [History Last Taken 01/08/23] nifedipine 60 mg tablet,extended release 24 hr 60 mg PO DAILY blood pressure 01/30/16 [History Last Taken 01/09/23] potassium chloride 10 mEq tablet,extended release 20 meq PO DAILY supplement 01/30/16 [History Last Taken 01/09/23] albuterol sulfate 90 mcg/actuation aerosol inhaler 2 puff inhalation Q4H PRN sob/wheezing #18 grams 04/19/19 [History Last Taken Unknown] gabapentin 300 mg capsule 300 mg PO TID neuropathy 04/19/19 [History Last Taken 01/09/23] levothyroxine 137 mcg tablet 137 mcg PO DAILY thyroid #30 tabs 04/19/19 [History Last Taken 01/09/23] rivaroxaban 20 mg tablet 20 mg PO QPM blood thinner #30 tabs 04/19/19 [History Last Taken 01/08/23] calcium carbonate 600 mg-vitamin D3 20 mcg (800 unit) tablet 1 tab PO DAILY supplement 08/23/21 [History Last Taken Unknown] glipizide 2.5 mg tablet, extended release 24 hr 7.5 mg PO DAILY diabetes 08/23/21 [History Last Taken 01/08/23] multivitamin 1 tab PO DAILY supplement 08/23/21 [History Last Taken 01/09/23] cyanocobalamin (vitamin B-12) 1 tablet PO/SL DAILY supplement 03/06/22 [History Last Taken 01/09/23] ferrous sulfate 325 mg (65 mg iron) tablet 325 mg PO DAILY supplement 01/09/23 [History Last Taken 01/09/23] furosemide 40 mg tablet 60 mg PO DAILY EDEMA 01/09/23 [History Last Taken 01/08/23] simvastatin 40 mg tablet 40 mg PO QHS CHOLESTEROL 01/09/23 [History Last Taken 01/08/23] losartan 25 mg tablet 25 mg PO DAILY #30 tabs 01/17/23 [Rx Last Taken Unknown] pantoprazole 40 mg tablet,delayed release 40 mg PO BID #60 tabs 01/17/23 [Rx Last Taken Unknown] sucralfate 1 gram tablet 1 g PO Q6H #120 tabs 01/17/23 [Rx Last Taken Unknown] Allergy/AdvReac Type Severity Reaction Status Date / Time propranolol AdvReac nausea Verified 01/09/23 11:58 Family History Mother Heart disease chf Father Heart disease chf Surgical History Bilateral artificial lens implant (~2019) History of tonsillectomy and adenoidectomy Social History Smoking Status: Never smoker alcohol intake: never substance use type: does not use caffeine: No ROS ROS ED Review of Systems ROS Unobtainable: other Details: Somewhat limited due to hard of hearing but able to perform ROS Constitutional Constitutional ED: Reports fatigue; Denies chills or fever(s) Eyes Eyes: Denies change in vision or diplopia ENT ENT ED: Denies rhinorrhea or sore throat Cardiovascular Cardiovascular: Denies chest pain or palpitations Respiratory/Chest Respiratory/Chest: Denies cough or dyspnea Gastrointestinal Gastrointestinal: Denies abdominal pain, diarrhea, nausea or vomiting Genitourinary Genitourinary ED: Reports urinary frequency; Denies dysuria or hematuria Musculoskeletal Musculoskeletal: Denies back pain or neck pain Integumentary Denies abscess or rash Neurologic Neurologic: Denies headache(s), paresthesias or weakness Psychiatric Psychiatric: Denies anxiety or suicidal thoughts Hematologic/Lymphatic Hematologic/Lymphatic: Reports easy bleeding, easy bruising and other Details: No bleeding recently EXAM Physical Exam Const Vital Signs: 02/02/23 12:12 02/02/23 12:19 02/02/23 13:00 Temperature 98.1 F Temperature Source Oral Pulse Rate 80 Respiratory Rate 17 Respiratory Effort Normal Non-Labored Blood Pressure 106/48 L Blood Pressure Mean 67 Pulse Ox 98 Oxygen Delivery Method Room Air Room Air 02/02/23 15:55 Temperature Temperature Source Pulse Rate 74 Respiratory Rate 17 Respiratory Effort Blood Pressure 111/70 Blood Pressure Mean 83 Pulse Ox 100 Oxygen Delivery Method Positive well nourished and well developed General Appearance ED: well developed and NAD HEENT Reports moist mucous membranes normocephalic and atraumatic Eyes PERRL and EOMs intact bilaterally Neck full ROM, no lymphadenopathy, supple and no JVD Resp normal respiratory effort and clear to auscultation bilaterally Resp Narrative: Diminished at bases but otherwise clear Cardio regular rate, regular rhythm and no murmurs Rate: Negative for tachycardic GI non-tender and non-distended Auscultation: normoactive bowel sounds Palpation: soft Back/Spine no CVA tenderness General Back: other FROM Extremity normal to inspection General Extremety ED: Negative for edema, pulses abnormal or tenderness General Extremity: Negative for edema or pulses abnormal Neuro oriented x3, CN's II-XII intact bilaterally and no sensory deficits noted Sensorium / Orientation: awake and alert Motor Exam: strength 5/5 throughout Skin no rashes or lesions noted and no wounds Sepsis Attestation Sepsis Alert: Yes Sepsis Attestation: Agree w/Sepsis (possibly; in DDx) Date exam was performed: 02/02/23 Time exam was performed: 14:00 Possible Source of Sepsis: Pulmonary and Genitourinary Sepsis Organ Dysfunction Criteria Present: Creatinine > 2.0 mg/dL and Lactic Acid > 2 mmol/L Fluid Resuscitation Fluid resuscitation indicated?: Yes Fluid Resuscitation ordered: Lesser volume fluid bolus ordered Amount of fluid ordered: 500 (mL) Reason for lesser fluid bolus:: Other (BP and MAP never low; given IVFB empirically prior to lab results, treating poss dehydration empirically) Sepsis Note Date exam was performed: 02/02/23 Time exam was performed: 15:50 MDM MDM MDM Narrative Medical decision making narrative: Initially, sepsis/infection was considered, however the patient appears very well clinically. Also cardiac etiologies were considered, so an EKG was obtained. EKG shows new T wave changes that were not there several weeks ago. Therefore I added a troponin which was significantly elevated in the 800s. She has never had a prior measurement. She has chronic kidney disease but this is a little high to be normal for that, and is more indicative of an NSTEMI, possibly due to low flow from being hypotensive, however she has not been hypotensive throughout her ED stay. Her maps have been as low as 67 but no lower. Work-up does reveal that she is acutely anemic compared with recently so I did a Hemoccult, that returned negative. She has had no clinical symptoms of blood loss elsewhere. She is anticoagulated on Xarelto. Blood sugar is in the 200s here, she was given IV fluids empirically initially, her lactate is 4.4 this is nonspecific, possibly due to sepsis possibly due to dehydration, or possibly intermittent blood loss; her chest x-ray 1 view does show a new left upper lobe infiltrate on my interpretation, radiology agrees this is new compared with her old x-ray recently. At this time, the patient is refusing straight catheterization, and has been drinking some water but not able to urinate yet so we do not have a sample to send for that. She and family believe that she is not too weak that she requires admission, however with the new findings consistent with an NSTEMI, I recommended. They are comfortable with that plan. Lab Data Attestation: I reviewed the patient's lab results. Labs: Laboratory Results - last 24 hr 02/02/23 02/02/23 02/02/23 11:37 13:14 13:14 WBC 12.9 H RBC 2.55 L Hgb 8.8 L Hct 26.0 L MCV 102.0 H MCH 34.5 H MCHC 33.8 RDW Std Deviation 64.0 H RDW Coeff of Gloria 17.4 H Plt Count 137 L MPV 11.3 Immature Gran % (Auto) 0.900 Neut % (Auto) 68.3 Lymph % (Auto) 18.3 L [place] % (Auto) 11.1 H Eos % (Auto) 1.2 Baso % (Auto) 0.2 Absolute Neuts (auto) 8.8 H Absolute Lymphs (auto) 2.36 Nucleated RBC % 0 PT 33.4 H INR 3.3 APTT 62.6 H Sodium 128 L Potassium 3.8 Chloride 94 L Carbon Dioxide 27.0 Anion Gap 7 BUN 31 H Creatinine 2.13 H Estim Creat Clear Calc 13.62 Est GFR (MDRD) Af Amer 28 L Est GFR (MDRD) Non-Af 23 L BUN/Creatinine Ratio 14.6 Glucose 275 H Lactic Acid Calcium 8.6 Total Bilirubin Direct Bilirubin AST ALT Alkaline Phosphatase Troponin I High Sens Total Protein Albumin Globulin Urine Color Urine Clarity Urine pH Ur Specific [place] Urine Protein Urine Glucose (UA) Urine Ketones Urine Occult Blood Urine Nitrite Urine Bilirubin Urine Urobilinogen Ur Leukocyte Esterase 02/02/23 02/02/23 02/02/23 13:14 13:14 13:40 WBC RBC Hgb Hct MCV MCH MCHC RDW Std Deviation RDW Coeff of Gloria Plt Count MPV Immature Gran % (Auto) Neut % (Auto) Lymph % (Auto) [place] % (Auto) Eos % (Auto) Baso % (Auto) Absolute Neuts (auto) Absolute Lymphs (auto) Nucleated RBC % PT INR APTT Sodium Potassium Chloride Carbon Dioxide Anion Gap BUN Creatinine Estim Creat Clear Calc Est GFR (MDRD) Af Amer Est GFR (MDRD) Non-Af BUN/Creatinine Ratio Glucose Lactic Acid 4.4 H* Calcium Total Bilirubin 0.60 Direct Bilirubin 0.27 AST 16 ALT 15 Alkaline Phosphatase 109 Troponin I High Sens 868 H* Total Protein 5.8 L Albumin 1.9 L Globulin 3.9 Urine Color Urine Clarity Urine pH Ur Specific [place] Urine Protein Urine Glucose (UA) Urine Ketones Urine Occult Blood Urine Nitrite Urine Bilirubin Urine Urobilinogen Ur Leukocyte Esterase 02/02/23 15:35 WBC RBC Hgb Hct MCV MCH MCHC RDW Std Deviation RDW Coeff of Gloria Plt Count MPV Immature Gran % (Auto) Neut % (Auto) Lymph % (Auto) [place] % (Auto) Eos % (Auto) Baso % (Auto) Absolute Neuts (auto) Absolute Lymphs (auto) Nucleated RBC % PT INR APTT Sodium Potassium Chloride Carbon Dioxide Anion Gap BUN Creatinine Estim Creat Clear Calc Est GFR (MDRD) Af Amer Est GFR (MDRD) Non-Af BUN/Creatinine Ratio Glucose Lactic Acid Calcium Total Bilirubin Direct Bilirubin AST ALT Alkaline Phosphatase Troponin I High Sens Total Protein Albumin Globulin Urine Color Yellow Urine Clarity Sl. Cloudy Urine pH 8.0 Ur Specific [place] 1.010 Urine Protein Negative Urine Glucose (UA) 1000 H Urine Ketones Negative Urine Occult Blood Negative Urine Nitrite Negative Urine Bilirubin Negative Urine Urobilinogen Normal Ur Leukocyte Esterase 25 H Radiography Chest X-Ray - ED: 2 View, Read by ED Physician and Left Infiltrate Diagnostic Testing: Clinical Impression(s) from Imaging Studies Chest X-Ray 02/02/23 13:00 IMPRESSION: Left upper lobe pulmonary infiltrate with blunting of the left costal phrenic angle. Electronically Signed: Apolinar Green MD at 13:51 EDT , Rhythm Strip Rhythm Strip: Sinus Rhythm Rate: 75 Ectopy: None EKG Initial EKG: Attestation: I personally reviewed and interpreted this EKG as follows: Interpretation: Sinus Rhythm, No Acute Injury Pattern, LBBB, AV Block (1st deg) and Inverted T-Waves (sept-lat) Prior: Changed (T-wave inversions; otherwise unchanged) Management Discussion w/another healthcare provider: Hospitalist Discharge Plan Dx/Rx/DC Orders Clinical Impression: Pneumonia, Transient hypotension, Non-ST elevation AL (NSTEMI), Anticoagulated, Anemia Disposition Disposition: Acute Care Hospital [facility]
[2023-02-02 13:18] LABS: Absolute Lymphocyte Count 2.36 X10^3/uL (0.83-4.51); Absolute Neutrophil Count 8.8 X10^3/uL (2.0-7.7); Basophil# 0.02 X10^3/uL; Basophil% 0.2 % (0-1); Eosinophil# 0.16 X10^3/uL; Eosinophils% 1.2 % (0-5); Hemoglobin 8.8 g/dL (12.0-15.0); Lymphocyte # 2.36 X10^3/ul (0.83-4.51); Lymphocyte % 18.3 % (19-41); Mean Corp Hgb Conc 33.8 g/dL (32-36); Mean Corpuscular Hgb 34.5 pg (27.0-32.0); Mean Platelet Vol. 11.3 fl (6.2-12.0); Monocyte# 1.43 X10^3/uL; Monocyte% 11.1 % (0-10); NRBC Flagged by Analyzer 0 % (0-5); Neutrophil # 8.78 X10^3/uL (2.7-7.7); Neutrophil % 68.3 % (47-70); Platelet Count 137 K/mm3 (150-450); RBC Distribution Width CV 17.4 % (11.6-14.6); Red Blood Count 2.55 M/mm3 (4.2-5.4); White Blood Count 12.9 K/mm3 (4.4-11.0)
[2023-02-02 13:34] LABS: Anion Gap 7 (5-15); BUN 31 mg/dL (7-18); BUN/Creat Ratio 14.6 RATIO (10-20); Calcium,Total 8.6 mg/dL (8.5-10.1); Chloride 94 mmol/L (98-107); Creatinine, Serum 2.13 mg/dL (0.55-1.02); EST Glomerular Filtration Rate 23 mL/min (>60); Est Glom Filt Rate - Afr Amer 28 mL/min (>60); Estimated Creatinine Clearance 13.62 ml/min; Glucose 275 mg/dL (74-106); Potassium 3.8 mmol/L (3.5-5.1); Sodium Level 128 mmol/L (136-145)
[2023-02-02 14:32] LABS: Lactic Acid 4.4 mmol/L (0.4-1.9)
[2023-02-02 15:14] LABS: International Normalized Ratio 3.3; Prothrombin Time (Protime)PT. 33.4 SECONDS (11.7-14.9)
[2023-02-02 15:15] LABS: Partial Thromboplast Time 62.6 Seconds (24.1-36.2)
--- NOTE | 2023-02-02 15:24 | NURSING ---
pt refusing to be st cathed. up to bsc to void but unable to go. back to bed. still refusing to have st cath done. aware. water given
[2023-02-02 15:35] LABS: AST(SGOT) 16 U/L (15-37); Alanine Aminotransfer ALT/SGPT 15 U/L (13-56); Albumin, Serum 1.9 g/dL (3.2-5.0); Alkaline Phosphatase 109 U/L (45-117); Bilirubin, Direct 0.27 mg/dL (0.00-0.30); Globulin 3.9 g/dL (2.2-4.2); Protein, Total 5.8 g/dL (6.4-8.2)
[2023-02-02 15:42] LABS: Bacteria 0 SEEN /hpf (None Seen); Mucous, Urine 0 SEEN /hpf (<or=2+); Red Blood Cells-Urine 0 SEEN /hpf (0-5)
[2023-02-02 15:47] LABS: Troponin-I HS 868 pg/mL (3.0-54.0)
[2023-02-02 15:51] LABS: Color, Urine Yellow (Yellow); Glucose, Dipstick 1000 mg/dl (Normal); Ketone-Dipstick Negative (Negative); Leukocyte Esterase-Dipstick 25 /ul (Negative); Nitrite-Dipstick Negative (Negative); Occult Blood-Urine Negative /ul (Negative); Protein-Dipstick Negative (Negative); Urine Bilirubin Dipstick Negative (Negative); Urine Clarity Sl. Cloudy (Clear); Urine Urobilinogen Normal (Normal)
--- NOTE | 2023-02-02 16:26 | US_ITS ---
INDICATION: Cirrhosis EXAMINATION: Ultrasound US Abdomen Limited (quadrant) TECHNIQUE: Brewster-scale and color Doppler imaging was performed of the abdomen. COMPARISON: None. FINDINGS: LIVER: There is coarse echotexture. No focal hepatic lesion. No intrahepatic biliary ductal dilatation. There is no free fluid. GALLBLADDER AND BILIARY TREE: Possible sludge. No shadowing gallstone, pericholecystic fluid or gallbladder wall thickening is demonstrated. The proximal common bile duct measures 3.8 mm, which is within normal limits for the patient''s age. SONOGRAPHIC SALMERON''S SIGN: Negative. PANCREAS: No focal abnormality is demonstrated in the pancreas. No pancreatic ductal dilatation. RIGHT KIDNEY: There is no hydronephrosis. No shadowing calculus, focal lesion, or perinephric collection is demonstrated. VESSELS: Submitted longitudinal images of the intra-abdominal aorta demonstrate no gross abnormalities and are unremarkable. The IVC is patent. Trace right pleural effusion. US/Abdomen Limited IMPRESSION: Coarse hepatic echotexture. Possible mild gallbladder sludge. Electronically Signed: Steve Sifuentes DO at 18:58 EDT ,
--- NOTE | 2023-02-02 16:30 | PCM.HP.STD ---
HPI - General General Date of Admission: 02/02/23 Date of Service: 02/02/23 Chief Complaint: Low blood pressure HPI Narrative IRENA EASTON, is a 87 F who presented to the emergency department at [facility] on 02/02/2023 with worsening fatigue. She had a recent admission from 01/09/2023 through 01/17/2023 at which time she had a pneumonia and was treated for that and was found to have an upper GI bleed after an EGD was performed on 01/16/2023. EGD showed Alba-Smith tear, severe esophagitis that look to be ischemic in nature, and peptic ulcer disease which required clipping and injection. She was discharged in stable condition but returned to the emergency department today for hypotension. Her son-in-law who is her caregiver, brought her to the emergency department as he checked her blood pressure this morning and was found to be in the 80s over 40s. He checked it 3 different times and it remained stable. Patient began starting to feel weak yesterday but had no other symptoms today. Son-in-law reported that she did not urinate all morning. Patient denied having any urinary symptoms. Yesterday she was urinating a lot more than usual as she was drinking more water than typical. At baseline she had been walking with a walker and had been doing well up until the day of admission however it was difficult to get her up secondary to severe weakness. She has had no fever or chills and no coughing. She denies any abdominal pain. Reports that her stools have been normal in color. She has had no nausea or vomiting. She has been compliant with her Protonix and Carafate but has gone back on her Xarelto as previously directed. Vital signs on presentation showed a temperature of 98.1, heart rate 80, blood pressure 106/48 with a MAP of 67, respiratory rate 17 and oxygen saturations 98 to 100% on room air. CBC showed a mild leukocytosis with a white count of 12.9, hemoglobin down from 10.7-8.8, and platelets were 137 when previously normal. She had no left shift but did have a mild monocytosis. PT/INR and APTT or abnormal and patient is on Xarelto at baseline. Chemistry panel showed mild hyponatremia with a sodium of 128 which is new, elevated BUN and creatinine at 31 and 2.13 respectively. (Baseline serum creatinine is about 1.7), serum glucose was 275. Lactic acid was 4.4. Liver function and bilirubin are normal. Initial troponin was 868. UA was unremarkable for any signs of infection. Chest x-ray was suggestive of possible infiltrate however patient was not having any respiratory symptoms. We were concerned about recurrent GI bleed and a guaiac was performed and negative however with significant drop in hemoglobin and platelet count we still are highly suspicious that she has had ongoing intermittent bleeding. She will be admitted to PCU with elevated troponin and placed on a Protonix drip and continue her home Carafate. I discussed the case with gastroenterology in plan is for repeat EGD tomorrow. [facility] Medical History Asthma Chronic anticoagulation Chronic atrial flutter Chronic kidney disease Essential (primary) hypertension Gout Hiatal hernia History of atrial flutter Hyperlipidemia Hypothyroidism Macrocytic anemia Obesity Stage 3b chronic kidney disease (CKD) Tremor Type 2 diabetes mellitus Ventral hernia Home Medications allopurinol 100 mg tablet 300 mg PO DAILY uric acid mri technologist 01/30/16 [History Last Taken 01/09/23] docusate sodium 100 mg capsule 100 mg PO DAILY constipation 01/30/16 [History Last Taken Unknown] fluticasone 250 mcg-salmeterol 50 mcg/dose blistr powdr for inhalation 1 puff inhalation BID sob 01/30/16 [History Last Taken 01/08/23] montelukast 10 mg tablet 10 mg PO DAILY breathing 01/30/16 [History Last Taken 01/08/23] nifedipine 60 mg tablet,extended release 24 hr 60 mg PO DAILY blood pressure 01/30/16 [History Last Taken 01/09/23] potassium chloride 10 mEq tablet,extended release 20 meq PO DAILY supplement 01/30/16 [History Last Taken 01/09/23] albuterol sulfate 90 mcg/actuation aerosol inhaler 2 puff inhalation Q4H PRN sob/wheezing #18 grams 04/19/19 [History Last Taken Unknown] gabapentin 300 mg capsule 300 mg PO TID neuropathy 04/19/19 [History Last Taken 01/09/23] levothyroxine 137 mcg tablet 137 mcg PO DAILY thyroid #30 tabs 04/19/19 [History Last Taken 01/09/23] rivaroxaban 20 mg tablet 20 mg PO QPM blood thinner #30 tabs 04/19/19 [History Last Taken 01/08/23] calcium carbonate 600 mg-vitamin D3 20 mcg (800 unit) tablet 1 tab PO DAILY supplement 08/23/21 [History Last Taken Unknown] glipizide 2.5 mg tablet, extended release 24 hr 7.5 mg PO DAILY diabetes 08/23/21 [History Last Taken 01/08/23] multivitamin 1 tab PO DAILY supplement 08/23/21 [History Last Taken 01/09/23] cyanocobalamin (vitamin B-12) 1 tablet PO/SL DAILY supplement 03/06/22 [History Last Taken 01/09/23] furosemide 40 mg tablet 60 mg PO DAILY EDEMA 01/09/23 [History Last Taken 01/08/23] simvastatin 40 mg tablet 40 mg PO QHS CHOLESTEROL 01/09/23 [History Last Taken 01/08/23] clotrimazole 1 % topical cream 1 applic topical BID 02/02/23 [History Last Taken Unknown] empagliflozin 10 mg tablet (Jardiance) 10 mg PO DAILY 02/02/23 [History Last Taken Unknown] losartan 25 mg tablet 12.5 mg PO DAILY blood pressure 02/02/23 [History Last Taken Unknown] pantoprazole 40 mg tablet,delayed release 40 mg PO DAILY gerd 02/02/23 [History Last Taken Unknown] sitagliptin phosphate 25 mg tablet 25 mg PO DAILY Check with primary doctor 02/02/23 [History Last Taken Unknown] sucralfate 1 gram tablet 1 g PO Q6H gerd 02/02/23 [History Last Taken Unknown] Allergy/AdvReac Type Severity Reaction Status Date / Time propranolol AdvReac nausea Verified 01/09/23 11:58 Family History Mother Heart disease chf Father Heart disease chf Surgical History Bilateral artificial lens implant (~2019) History of tonsillectomy and adenoidectomy Social History Smoking Status: Never smoker alcohol intake: never substance use type: does not use caffeine: No ROS Constitutional Constitutional: Reports fatigue and malaise; Denies anorexia, change in weight, chills, fever(s), night sweats, weakness or other Eyes Eyes: Denies blurry vision, change in eye color, change in vision, discharge from eye(s), double vision, erythema, eye pain, loss of vision or other ENT HEENT: Denies abnormal hearing, dysphagia, ear pain, epistaxis, headache(s), hearing loss, nasal congestion, nasal discharge, post nasal drip, sinus pressure, sore throat or other Cardiovascular Cardiovascular: Denies chest pain, claudication, dyspnea on exertion, edema, lightheadedness, orthopnea, palpitations, paroxysmal nocturnal dyspnea, rapid heart rate, syncope or other Respiratory/Chest Respiratory/Chest: Denies cough, dyspnea, excessive phlegm production, hemoptysis, productive cough, shortness of breath at rest, shortness of breath with exertion, wheezing or other Gastrointestinal Gastrointestinal: Denies abdominal pain, coffee ground emesis, constipation, diarrhea, dyspepsia, hematemesis, hematochezia, loose stools, melena, nausea, vomiting or other Genitourinary Genitourinary: Denies burning urination, difficulty urinating, dysuria, hematuria, nocturia, urinary frequency, urinary hesitancy, urinary incontinence, urinary urgency or other Musculoskeletal Musculoskeletal: Reports back pain and joint pain; Denies arthralgias, joint stiffness, joint swelling, myalgias, neck pain or other Neurologic Neurologic: Denies abnormal gait, abnormal speech, confusion, disequilibrium, dizziness, focal weakness, headache(s), numbness, paresthesias, seizure-like activity, seizures, syncope, tingling, tremor(s) or other Psychiatric Psychiatric: Denies anxiety, depression, homicidal ideation, suicidal ideation or other Endocrine Endocrinology: Denies change in body appearance, cold intolerance, excessive sweating, heat intolerance, polydipsia, polyuria or other Hematologic/Lymphatic Hematologic/Lymphatic: Denies anemia, easy bleeding, easy bruising, lymphadenopathy or other Allergic/Immunologic Allergic/Immunologic: Denies rhinitis, hives, eczemia, asthma or other Vital Signs Vital Signs Vital Signs: 02/02/23 12:12 02/02/23 12:19 02/02/23 13:00 Temperature 98.1 F Temperature Source Oral Pulse Rate 80 Respiratory Rate 17 Respiratory Effort Normal Non-Labored Blood Pressure 106/48 L Blood Pressure Mean 67 Pulse Ox 98 Oxygen Delivery Method Room Air Room Air 02/02/23 15:55 Temperature Temperature Source Pulse Rate 74 Respiratory Rate 17 Respiratory Effort Blood Pressure 111/70 Blood Pressure Mean 83 Pulse Ox 100 Oxygen Delivery Method Weight Weight: 65.4 kg Body Mass Index (BMI) 28.1 Physical Exam Const alert, oriented x3, no apparent distress and well nourished Constitutional Narrative: Chronically ill-appearing elderly, white female, sitting up in bed, son at bedside, patient currently appears comfortable and nontoxic General Appearance: cooperative HEENT normocephalic and head/scalp atraumatic HEENT Narrative: Mild to moderate hearing loss, dentition is poor, Mallampati is 2, mucous membranes are somewhat dry, no thrush Eyes PERRL and EOMs intact bilaterally Eyes Narrative: Pale conjunctiva bilaterally, no scleral icterus Neck no lymphadenopathy, supple, no JVD and no carotid bruits Neck Narrative: Trachea midline, no thyroid enlargement Resp normal respiratory effort, no retractions, no use of accessory muscles and clear to auscultation bilaterally Auscultation: Negative for rales, rhonchi or wheezes Cardio regular rate, S1 normal heart sound, S2 normal heart sound, no murmurs, no rub, no gallops and no clicks Cardio Narrative: Irregular rate with regular rhythm GI normal to inspection, nondistended, normoactive bowel sounds, soft to palpation and non-tender Extremity no clubbing, cyanosis or edema Extremity Narrative: 2+ pedal pulses Skin no rashes or lesions noted, no wounds, no jaundice, no petechiae and no mottling Skin Narrative: Skin is pale Neuro oriented x3, CN's II-XII intact bilaterally and moves all extremities Speech: speech normal Psych affect normal Psych Narrative: Very pleasant and appropriately interactive Results Lab / Micro Data Result Diagrams: 02/02/23 13:14 02/02/23 13:14 Labs: Laboratory Results - last 24 hr 02/02/23 11:37: PT 33.4 H, INR 3.3, APTT 62.6 H 02/02/23 13:14: WBC 12.9 H, RBC 2.55 L, Hgb 8.8 L, Hct 26.0 L, MCV 102.0 H, MCH 34.5 H, MCHC 33.8, RDW Std Deviation 64.0 H, RDW Coeff of Gloria 17.4 H, Plt Count 137 L, MPV 11.3, Immature Gran % (Auto) 0.900, Neut % (Auto) 68.3, Lymph % (Auto) 18.3 L, Branch % (Auto) 11.1 H, Eos % (Auto) 1.2, Baso % (Auto) 0.2, Absolute Neuts (auto) 8.8 H, Absolute Lymphs (auto) 2.36, Nucleated RBC % 0 02/02/23 13:14: Sodium 128 L, Potassium 3.8, Chloride 94 L, Carbon Dioxide 27.0, Anion Gap 7, BUN 31 H, Creatinine 2.13 H, Estim Creat Clear Calc 13.62, Est GFR (MDRD) Af Amer 28 L, Est GFR (MDRD) Non-Af 23 L, BUN/Creatinine Ratio 14.6, Glucose 275 H, Calcium 8.6 02/02/23 13:14: Total Bilirubin 0.60, Direct Bilirubin 0.27, AST 16, ALT 15, Alkaline Phosphatase 109, Total Protein 5.8 L, Albumin 1.9 L, Globulin 3.9 02/02/23 13:14: Troponin I High Sens 868 H* 02/02/23 13:40: Lactic Acid 4.4 H* 02/02/23 15:35: Urine Color Yellow, Urine Clarity Sl. Cloudy, Urine pH 8.0, Ur Specific [place] 1.010, Urine Protein Negative, Urine Glucose (UA) 1000 H, Urine Ketones Negative, Urine Occult Blood Negative, Urine Nitrite Negative, Urine Bilirubin Negative, Urine Urobilinogen Normal, Ur Leukocyte Esterase 25 H Micro: Microbiology 02/02/23 15:05 Stool Stool Occult Blood (INGRID) - Final Rhythm Strip Rhythm Strip: Sinus Rhythm Rate: 75 Ectopy: None Radiology Impression Chest X-Ray 02/02/23 13:00 IMPRESSION: Left upper lobe pulmonary infiltrate with blunting of the left costal phrenic angle. Electronically Signed: Apolinar Green MD at 13:51 EDT , Assessment & Plan Assessment/Plan (1) Transient hypotension: (2) Non-ST elevation ME (NSTEMI): (3) Acute on chronic anemia: (4) Anticoagulated: (5) Hyponatremia: (6) Leukocytosis: (7) Thrombocytosis: (8) Lactic acidosis: (9) Esophagitis: (10) PUD (peptic ulcer disease): (11) GAY (acute kidney injury): PLAN: Plan NSTEMI -Initial serum troponin was elevated to 868 -EKG with no significant findings other than new T wave inversion but is nonspecific -Unable to fully anticoagulate now secondary to concern for GI bleed -We will need to hold home Xarelto and no aspirin for now -May be stress-induced ischemia and type II NSTEMI from acute bleeding -Check echocardiogram and consider cardiology consultation after EGD is performed -We will cycle cardiac enzymes to look for trend -Continue home statin Acute on chronic anemia with suspected GI bleed -Patient with recent admission and EGD showed severe diffuse esophagitis/Alba-Smith tear/peptic ulcer with a visible vessel and acute bleeding -Patient was on Protonix p.o. 40 mg twice daily and Carafate prior to admission -Continue Carafate -Hold oral Protonix and start Protonix drip -Clear liquid diet and n.p.o. after midnight -Hold Xarelto -EGD to be done tomorrow -Cycle hemoglobin every 6 hours -Transfuse for precipitous drop or hemoglobin less than 7 -Type and screen pending -Anemia is macrocytic and recent B12 and folate were performed and unremarkable -Iron studies were performed at last admission to and were normal -GI is consulted and case was discussed with Dr. Lindsey prior to admission Transient hypotension -Etiology is unclear -Hold home antihypertensives -Current blood pressures are stable -We will dose with 1 L of IV fluids and reevaluate Lactic acidosis -Suspect related to the above -Repeat--> expect improvement with improved blood pressure Leukocytosis -Chest x-ray with new infiltrate however patient is not hypoxic and has had no fever or chills and no left shift on differential -Doubt pneumonia--> oxygen saturation 100% on room air and patient without cough -UA is unremarkable -Blood cultures ordered and are pending -Repeat lab in a.m. could be stress response GAY on CKD stage IIIb -Per previous documentation baseline serum creatinine is around 1.7 -Current serum creatinine is 2.13 -Hold home diuretics Severe esophagitis/PUD/Alba-Smith tear -Noted on EGD performed on 01/16/2023 -GI consulted as noted above Hyponatremia -Patient appears to be somewhat dry compared to previous -IV fluids at 70 cc/h x 1 L -Repeat lab in a.m. -This is new compared to previous lab from 01/17/2023 Thrombocytopenia -Platelet count has dropped since discharge -May be consumptive with bleeding -Continue to trend DM-2 -Hold home Jardiance -Hold home blood bedside -Medium high-dose sliding scale HTN/HPL -Hold antihypertensives as patient presented with high oh 10 and -Continue home statin Chronic atrial fibrillation -Hold home rivaroxaban -Patient is not on any rate controlling medication -Monitor telemetry -Check echo Diabetic neuropathy -Continue home gabapentin Hypothyroidism -Continue home History of gout -Continue home allopurinol Asthma -Continue aerosols DVT prophylaxis -SCDs -Hold chemoprophylaxis secondary to bleeding CODE STATUS -DNR CCA with no intubation as per review prior to admission Charges/Coding Visit Charges Inpatient E&M: 76794 Init Hosp L3
--- NOTE | 2023-02-02 16:31 | ECHOD_ITS ---
Reason For Study: S/P CO Procedure This was a 2D Doppler, Color Flow transthoracic echocardiogram. Exam performed portable in patient room. Left Ventricle Normal LV size. The estimated ejection fraction is 60 %. Unable to assess diastolic dysfunction. No regional wall motion abnormalities noted. Right Ventricle Normal RV size. Normal systolic function. Atria The left atrium is mildly enlarged. Normal right atrium. No doppler evidence for ASD. Mitral Valve There is moderate mitral annular calcification. There is no mitral valve stenosis. Mild (1+) mitral valve insufficiency. Tricuspid Valve There is no tricuspid stenosis. Mild tricuspid valve insufficiency. Pulmonary artery systolic pressure is 40 mmHg. Aortic Valve Trisinus/trileaflet aortic valve. There is no aortic stenosis. No aortic valve insufficiency. Pulmonic Valve There is no pulmonic valvular stenosis. No pulmonic valve insufficiency. Great Vessels Normal aortic root. Pericardium/Pleural No pericardial effusion. MMode/2D Measurements & Calculations LVIDd: 5.1 cm IVSd: 1.4 cm Ao root diam: 3.3 cm LVIDs: 3.1 cm LVPWd: 1.3 cm RVDd: 3.8 cm FS: 39.7 % LAV(MOD-bp): 87.6 ml LA A4 area: 25.4 cm2 LA dimension(2D): 5.0 cm LAV(MOD-bp) Indexed: 53.3 ml/m2 LAV(MOD-sp2): 86.8 ml LAV(MOD-sp4): 88.6 ml Time Measurements MV dec time: 0.19 sec Doppler Measurements & Calculations MV E max daniel: 98.9 cm/sec Lat Peak E' Daniel: 12.4 cm/sec Med Peak E' Daniel: 6.0 cm/sec MV A max daniel: 80.9 cm/sec E/E' lat: 8.0 E/E' med: 16.6 MV E/A: 1.2 MV dec slope: 554.3 cm/sec2 Ao V2 max: 142.6 cm/sec LV V1 max: 98.8 cm/sec Ao max P.2 mmHg LV V1 max P.9 mmHg Ao V2 mean: 98.8 cm/sec LV V1 mean P.4 mmHg Ao mean P.4 mmHg LV V1 mean: 73.9 cm/sec Ao V2 VTI: 31.1 cm LV V1 VTI: 23.2 cm AV (velocity ratio): 0.74 MR max daniel: 496.9 cm/sec PA V2 max: 93.4 cm/sec TR max daniel: 291.7 cm/sec MR max P.7 mmHg PA V2 mean: 63.7 cm/sec TR max P.0 mmHg MR mean daniel: 374.9 cm/sec MR mean P.5 mmHg MR VTI: 158.9 cm ECHO/Echo Complete Interpretation Summary The estimated ejection fraction is 60 %. Unable to assess diastolic dysfunction. The left atrium is mildly enlarged. Mild (1+) mitral valve insufficiency. Ordering Physician: Carlyn Paez Referring Physician: Benjamín Álvarez Performed By: Aranza Jones, LUIS, RVT
[2023-02-02 16:40] LABS: Squamous Epithelial Cells - UA 0-5 SEEN /hpf (5-10); White Blood Cells 0-5 SEEN /hpf (0-5)
[2023-02-02 16:54] LABS: Hemoglobin 8.7 g/dL (12.0-15.0)
[2023-02-02 17:46] LABS: Reflex Lactate? Y
[2023-02-02] MEDS: Lactated Ringers 1,000 ML 75 ML IV (18:16)
[2023-02-02 20:42] LABS: Troponin-I HS 834 pg/mL (3.0-54.0)
[2023-02-02 20:42] LABS: Troponin-I HS 854 pg/mL (3.0-54.0)
[2023-02-02] MEDS: Sucralfate 1 GM Tablet PO (22:16)
[2023-02-02] MEDS: Atorvastatin Calcium 20 MG Tablet PO (22:16)
[2023-02-02] MEDS: Gabapentin 300 MG Capsule PO (22:16)
--- NOTE | 2023-02-02 22:29 | NURSING ---
per pt family, she wears 2L of oxygen QHS. pt placed on 2L at this time.
[2023-02-02 22:53] LABS: Hemoglobin 8.5 g/dL (12.0-15.0)
--- NOTE | 2023-02-02 23:00 | EX.PCM.CON.G ---
HPI Consult Data Date of Consult: 02/02/23 HPI Narrative Reason for Consultation: Anemia HPI Narrative: IRENA EASTON, is a 87 F who presents with family from home. 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 She started feeling weak yesterday. She has no other symptoms today. He stated that it was difficult to get her up because she was very weak. She recently was admitted for pneumonia which she has gotten over and is coughing no more, this was maybe a month ago. I saw her on her previous admission for a GI bleed. Her hospital course was complicated by hemoglobin trended down to 6.2.?She was on Xarelto for Afib. She was also transfused with a unit of packed red blood cells. She had EGD which showed severe erosive esophagitis with Alba-Smith tear which was injected and 1 oozing duodenal ulcer with a visible vessel which was treated with heater probe.? She was placed on Protonix 40 mg twice daily and sucralfate 1 g every 6 hours.?? When she came back into the hospital her hemoglobin was down to 8.6 from 10.6. She was restarted on any blood thinners and was discharged on pantoprazole with sulcal fate. She was also seen to be thrombocytopenic therefore requested that she get a ultrasound of the right upper quadrant and it did show coarse architecture secondary to cirrhosis. 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 01/30/16 [History Last Taken 01/09/23] docusate sodium 100 mg capsule 100 mg PO DAILY constipation 01/30/16 [History Last Taken Unknown] fluticasone 250 mcg-salmeterol 50 mcg/dose blistr powdr for inhalation 1 puff inhalation BID sob 01/30/16 [History Last Taken 01/08/23] montelukast 10 mg tablet 10 mg PO DAILY breathing 01/30/16 [History Last Taken 01/08/23] nifedipine 60 mg tablet,extended release 24 hr 60 mg PO DAILY blood pressure 01/30/16 [History Last Taken 01/09/23] potassium chloride 10 mEq tablet,extended release 20 meq PO DAILY supplement 01/30/16 [History Last Taken 01/09/23] albuterol sulfate 90 mcg/actuation aerosol inhaler 2 puff inhalation Q4H PRN sob/wheezing #18 grams 04/19/19 [History Last Taken Unknown] gabapentin 300 mg capsule 300 mg PO TID neuropathy 04/19/19 [History Last Taken 01/09/23] levothyroxine 137 mcg tablet 137 mcg PO DAILY thyroid #30 tabs 04/19/19 [History Last Taken 01/09/23] rivaroxaban 20 mg tablet 20 mg PO QPM blood thinner #30 tabs 04/19/19 [History Last Taken 01/08/23] calcium carbonate 600 mg-vitamin D3 20 mcg (800 unit) tablet 1 tab PO DAILY supplement 08/23/21 [History Last Taken Unknown] glipizide 2.5 mg tablet, extended release 24 hr 7.5 mg PO DAILY diabetes 08/23/21 [History Last Taken 01/08/23] multivitamin 1 tab PO DAILY supplement 08/23/21 [History Last Taken 01/09/23] cyanocobalamin (vitamin B-12) 1 tablet PO/SL DAILY supplement 03/06/22 [History Last Taken 01/09/23] furosemide 40 mg tablet 60 mg PO DAILY EDEMA 01/09/23 [History Last Taken 01/08/23] simvastatin 40 mg tablet 40 mg PO QHS CHOLESTEROL 01/09/23 [History Last Taken 01/08/23] clotrimazole 1 % topical cream 1 applic topical BID 02/02/23 [History Last Taken Unknown] empagliflozin 10 mg tablet (Jardiance) 10 mg PO DAILY 02/02/23 [History Last Taken Unknown] losartan 25 mg tablet 12.5 mg PO DAILY blood pressure 02/02/23 [History Last Taken Unknown] pantoprazole 40 mg tablet,delayed release 40 mg PO DAILY gerd 02/02/23 [History Last Taken Unknown] sitagliptin phosphate 25 mg tablet 25 mg PO DAILY Check with primary doctor 02/02/23 [History Last Taken Unknown] sucralfate 1 gram tablet 1 g PO Q6H gerd 02/02/23 [History Last Taken Unknown] Allergy/AdvReac Type Severity Reaction Status Date / Time propranolol AdvReac nausea Verified 01/09/23 11:58 Family History Mother Heart disease chf Father Heart disease chf Surgical History Bilateral artificial lens implant (~2020) History of tonsillectomy and adenoidectomy Social History Smoking Status: Never smoker alcohol intake: never substance use type: does not use caffeine: No ROS Constitutional Constitutional: Reports fatigue and malaise; Denies anorexia, change in weight, chills, fever(s), night sweats, weakness or other Eyes Eyes: Denies blurry vision, change in eye color, change in vision, discharge from eye(s), double vision, erythema, eye pain, loss of vision or other ENT HEENT: Denies abnormal hearing, dysphagia, ear pain, epistaxis, headache(s), hearing loss, nasal congestion, nasal discharge, post nasal drip, sinus pressure, sore throat or other Cardiovascular Cardiovascular: Denies chest pain, claudication, dyspnea on exertion, edema, lightheadedness, orthopnea, palpitations, paroxysmal nocturnal dyspnea, rapid heart rate, syncope or other Respiratory/Chest Respiratory/Chest: Denies cough, dyspnea, excessive phlegm production, hemoptysis, productive cough, shortness of breath at rest, shortness of breath with exertion, wheezing or other Gastrointestinal Gastrointestinal: Denies abdominal pain, coffee ground emesis, constipation, diarrhea, dyspepsia, hematemesis, hematochezia, loose stools, melena, nausea, vomiting or other Genitourinary Genitourinary: Denies burning urination, difficulty urinating, dysuria, hematuria, nocturia, urinary frequency, urinary hesitancy, urinary incontinence, urinary urgency or other Musculoskeletal Musculoskeletal: Reports back pain and joint pain; Denies arthralgias, joint stiffness, joint swelling, myalgias, neck pain or other Neurologic Neurologic: Denies abnormal gait, abnormal speech, confusion, disequilibrium, dizziness, focal weakness, headache(s), numbness, paresthesias, seizure-like activity, seizures, syncope, tingling, tremor(s) or other Psychiatric Psychiatric: Denies anxiety, depression, homicidal ideation, suicidal ideation or other Endocrine Endocrinology: Denies change in body appearance, cold intolerance, excessive sweating, heat intolerance, polydipsia, polyuria or other Hematologic/Lymphatic Hematologic/Lymphatic: Denies anemia, easy bleeding, easy bruising, lymphadenopathy or other Allergic/Immunologic Allergic/Immunologic: Denies rhinitis, hives, eczemia, asthma or other Physical Exam Const alert, oriented x3 and no apparent distress General Appearance: cooperative, comfortable and well kempt HEENT normocephalic, head/scalp atraumatic, hearing grossly normal bilaterally, moist oral mucous membranes and oropharynx normal Mouth: oral and palatal mucosa normal Eyes PERRL and EOMs intact bilaterally Neck no lymphadenopathy, supple and no JVD Lymph Lymphatic: no lymphadenopathy noted Resp normal respiratory effort, normal air movement, no retractions, no use of accessory muscles and clear to auscultation bilaterally Resp Narrative: on room air. Cardio regular rate, regular rhythm, S1 normal heart sound, S2 normal heart sound and no murmurs GI normal to inspection, nondistended, normoactive bowel sounds, soft to palpation, non-tender, non-distended and hepatosplenomegaly Extremity normal to inspection, full ROM, normal capillary refill and no clubbing, cyanosis or edema General Extremity: no tenderness to palpation of joints or extremities Skin no rashes or lesions noted General Skin Exam: no breakdown Neuro oriented x3, CN's II-XII intact bilaterally, moves all extremities, no focal motor deficits, no sensory deficits noted and deep tendon reflexes 2+ bilaterally Sensorium / Orientation: awake and alert Psych thought process normal, cooperative and affect normal Appearance: appropriate Lab / Micro Data Result Diagrams: 02/03/23 04:25 02/03/23 04:25 Labs: Laboratory Results - last 24 hr 02/02/23 11:37: PT 33.4 H, INR 3.3, APTT 62.6 H 02/02/23 13:14: WBC 12.9 H, RBC 2.55 L, Hgb 8.8 L, Hct 26.0 L, MCV 102.0 H, MCH 34.5 H, MCHC 33.8, RDW Std Deviation 64.0 H, RDW Coeff of Gloria 17.4 H, Plt Count 137 L, MPV 11.3, Immature Gran % (Auto) 0.900, Neut % (Auto) 68.3, Lymph % (Auto) 18.3 L, [place] % (Auto) 11.1 H, Eos % (Auto) 1.2, Baso % (Auto) 0.2, Absolute Neuts (auto) 8.8 H, Absolute Lymphs (auto) 2.36, Nucleated RBC % 0 02/02/23 13:14: Sodium 128 L, Potassium 3.8, Chloride 94 L, Carbon Dioxide 27.0, Anion Gap 7, BUN 31 H, Creatinine 2.13 H, Estim Creat Clear Calc 13.62, Est GFR (MDRD) Af Amer 28 L, Est GFR (MDRD) Non-Af 23 L, BUN/Creatinine Ratio 14.6, Glucose 275 H, Calcium 8.6 02/02/23 13:14: Total Bilirubin 0.60, Direct Bilirubin 0.27, AST 16, ALT 15, Alkaline Phosphatase 109, Total Protein 5.8 L, Albumin 1.9 L, Globulin 3.9 02/02/23 13:14: Troponin I High Sens 868 H* 02/02/23 13:40: Lactic Acid 4.4 H* 02/02/23 15:35: Urine Color Yellow, Urine Clarity Sl. Cloudy, Urine pH 8.0, Ur Specific Cass 1.010, Urine Protein Negative, Urine Glucose (UA) 1000 H, Urine Ketones Negative, Urine Occult Blood Negative, Urine Nitrite Negative, Urine Bilirubin Negative, Urine Urobilinogen Normal, Ur Leukocyte Esterase 25 H, Urine RBC 0 SEEN, Urine WBC 0-5 SEEN, Ur Squamous Epith Cells 0-5 SEEN, Urine Bacteria 0 SEEN, Urine Mucus 0 SEEN 02/02/23 16:30: Blood Type Cancelled, Antibody Screen Cancelled 02/02/23 16:44: Hgb 8.7 L 02/02/23 17:55: Blood Type O POSITIVE, Antibody Screen NEGATIVE 02/02/23 17:55: Troponin I High Sens 834 H* 02/02/23 17:55: Lactic Acid 3.0 H* 02/02/23 19:28: Troponin I High Sens 854 H* 02/02/23 22:20: POC Glucose 136 H 02/02/23 22:40: Hgb 8.5 L 02/03/23 04:25: WBC 10.3, RBC 2.50 L, Hgb 8.5 L, Hct 25.6 L, MCV 102.4 H, MCH 34.0 H, MCHC 33.2, RDW Std Deviation 64.4 H, RDW Coeff of Gloria 17.4 H, Plt Count 134 L, MPV 11.0, Immature Gran % (Auto) 1.000 H, Neut % (Auto) 70.9 H, Lymph % (Auto) 15.0 L, [place] % (Auto) 9.8, Eos % (Auto) 3.1, Baso % (Auto) 0.2, Absolute Neuts (auto) 7.3, Absolute Lymphs (auto) 1.55, Nucleated RBC % 0 02/03/23 04:25: Sodium 132 L, Potassium 3.1 L, Chloride 100, Carbon Dioxide 28.0, Anion Gap 4 L, BUN 26 H, Creatinine 1.65 H, Estim Creat Clear Calc 17.58, Est GFR (MDRD) Af Amer 38 L, Est GFR (MDRD) Non-Af 31 L, BUN/Creatinine Ratio 15.8, Glucose 119 H, Calcium 8.3 L, Magnesium 1.6 02/03/23 04:25: Phosphorus 2.2 L 02/03/23 04:25: PT 20.2 H, INR 1.8, APTT 50.5 H 02/03/23 04:25: Total Bilirubin 0.40, Direct Bilirubin 0.20, AST 12 L, ALT 15, Alkaline Phosphatase 102, Total Protein 5.4 L, Albumin 1.7 L, Globulin 3.7, TSH 0.39 02/03/23 06:18: POC Glucose 134 H Micro: Microbiology 02/02/23 15:05 Stool Stool Occult Blood (INGRID) - Final Rhythm Strip Rhythm Strip: Sinus Rhythm Rate: 75 Ectopy: None Radiology Impression Chest X-Ray 02/02/23 13:00 IMPRESSION: Left upper lobe pulmonary infiltrate with blunting of the left costal phrenic angle. Electronically Signed: Apolinar Green MD at 13:51 EDT , Abdomen Ultrasound 02/02/23 16:26 IMPRESSION: Coarse hepatic echotexture. Possible mild gallbladder sludge. Electronically Signed: Steve Sifuentes DO at 18:58 EDT , Assessment & Plan Assessment/Plan (1) Cirrhosis: PLAN: Cirrhosis by imaging. With her macrocytic anemia and now progression to thrombocytopenia. It is likely she does have cirrhosis which is complicating her healing in the setting of anticoagulation for atrial fibrillation in the elderly. Would recommend to check an ammonia level. Would recommend to check INR, PT, PTT. Recommend to check alpha-fetoprotein. At this time she is not showing any other decompensation such as encephalopathy, ascites or jaundice. Once I have her labs we can calculate her MELD. She is a child Mitchell class C at this time due to her heart disease, pneumonia and other comorbidities. (2) PUD (peptic ulcer disease): PLAN: Duodenal ulcer. Patient will need repeat upper endoscopy to evaluate the duodenal ulcer as it will have more difficulty in healing secondary to her age and underlying comorbidities. Continue n.p.o. (3) Thrombocytopenia: PLAN: Differential diagnosis includes a consumptive coagulopathy, dilution and cirrhosis as a cause of thrombocytopenia. (4) GAY (acute kidney injury): PLAN: There are no signs of hepatorenal syndrome at this time causing acute kidney injury. I think it is more hypovolemia secondary to GI blood loss. (5) Acute on chronic anemia: PLAN: Acute on chronic microcytic anemia likely secondary to cirrhosis, chronic kidney disease, diabetes, arthriti. s Charges/Coding Visit Charges Inpatient E&M: 17095 Init Hosp L3
[2023-02-02 23:20] LABS: Bedside Glucose 136 mg/dL (74-106)
[2023-02-02] MEDS: 0.9% Saline Lock 10 ML Syringe IV (23:58)
[2023-02-03] VITALS (14 sets, daily range): BP systolic 100–131; BP diastolic 37–62; PULSE 66–106; RESP 16–169; TEMP 36.2–37.1; O2SAT 95–100
--- NOTE | 2023-02-03 02:41 | CPS ---
Pt refuses I.S. but agreed to do PEP.
[2023-02-03 05:10] LABS: Absolute Lymphocyte Count 1.55 X10^3/uL (0.83-4.51); Absolute Neutrophil Count 7.3 X10^3/uL (2.0-7.7); Basophil# 0.02 X10^3/uL; Basophil% 0.2 % (0-1); Eosinophil# 0.32 X10^3/uL; Eosinophils% 3.1 % (0-5); Hematocrit 25.6 % (37-47); Hemoglobin 8.5 g/dL (12.0-15.0); Lymphocyte # 1.55 X10^3/ul (0.83-4.51); Mean Corp Hgb Conc 33.2 g/dL (32-36); Mean Corpuscular Volume 102.4 fL (81-99); Monocyte# 1.01 X10^3/uL; Monocyte% 9.8 % (0-10); NRBC Flagged by Analyzer 0 % (0-5); Neutrophil # 7.31 X10^3/uL (2.7-7.7); Neutrophil % 70.9 % (47-70); Platelet Count 134 K/mm3 (150-450); RBC Distribution Width CV 17.4 % (11.6-14.6); RBC Distribution Width SD 64.4 fl (35.1-43.9); White Blood Count 10.3 K/mm3 (4.4-11.0)
[2023-02-03 05:50] LABS: International Normalized Ratio 1.8; Prothrombin Time (Protime)PT. 20.2 SECONDS (11.7-14.9)
[2023-02-03 05:51] LABS: Anion Gap 4 (5-15); BUN 26 mg/dL (7-18); BUN/Creat Ratio 15.8 RATIO (10-20); Calcium,Total 8.3 mg/dL (8.5-10.1); Chloride 100 mmol/L (98-107); Creatinine, Serum 1.65 mg/dL (0.55-1.02); EST Glomerular Filtration Rate 31 mL/min (>60); Est Glom Filt Rate - Afr Amer 38 mL/min (>60); Estimated Creatinine Clearance 17.58 ml/min; Glucose 119 mg/dL (74-106); Magnesium 1.6 mg/dL (1.6-2.6); Partial Thromboplast Time 50.5 Seconds (24.1-36.2); Potassium 3.1 mmol/L (3.5-5.1); Sodium Level 132 mmol/L (136-145)
[2023-02-03 05:53] LABS: Phosphorus 2.2 mg/dL (2.5-4.9)
--- NOTE | 2023-02-03 05:55 | RAD_ITS ---
STUDY: X-RAY CHEST REASON FOR EXAM: Female, 87 years old. PRE EGD -- EGD TECHNIQUE: Single AP portable view of the chest. COMPARISON: Comparison is made with prior study dated February 02, 2023. FINDINGS: EKG electrodes are seen. Stable infiltrate in the left upper lobe as well as at the left lung base with blunting of the left cardiac phrenic angle. Normal size heart. Normal mediastinum and can. Normal visualized pulmonary arteries. There is atherosclerotic calcification of the aortic arch with tortuosity. There are diffuse degenerative changes of the visualized thoracic spine. Normal visualized ribs, clavicles, and shoulders. There is no demonstrated abnormality of the visualized soft tissue structures of the upper abdomen. RAD/Chest 1 View (Portable) IMPRESSION: Stable infiltrate in the left upper lobe as well as in the left lung base with blunting of the left costophrenic angle. Electronically Signed: Apolinar Green MD at 10:28 EDT ,
--- NOTE | 2023-02-03 05:55 | EKG12_ITS ---
Test Reason : AM EKG Blood Pressure : / mmHG Vent. Rate : 094 BPM Atrial Rate : 094 BPM P-R Int : 156 ms QRS Dur : 160 ms QT Int : 464 ms P-R-T Axes : 037 -52 153 degrees QTc Int : 580 ms Normal sinus rhythm Left axis deviation Left bundle branch block Abnormal ECG When compared with ECG of 02-FEB-2023 12:17, MANUAL COMPARISON REQUIRED, DATA IS UNCONFIRMED Confirmed by PRINCE LAI, MEAGAN ([id number]), manager editorial LEANNA POWERS ([id number]) on 02/04/2023 9:35:13 AM Referred By: Confirmed By:MEAGAN MORRISON MD
[2023-02-03 06:04] LABS: AST(SGOT) 12 U/L (15-37); Alanine Aminotransfer ALT/SGPT 15 U/L (13-56); Albumin, Serum 1.7 g/dL (3.2-5.0); Alkaline Phosphatase 102 U/L (45-117); Globulin 3.7 g/dL (2.2-4.2); Protein, Total 5.4 g/dL (6.4-8.2); Thyroid Stim Hormone (TSH) 0.39 uIU/mL (0.358-3.74)
[2023-02-03 06:45] LABS: Bedside Glucose 134 mg/dL (74-106)
[2023-02-03] MEDS: Albuterol 2.5 MG/3 ML VIAL.NEB. INHALATION ×2 (06:53→20:17)
[2023-02-03] MEDS: Budesonide Respules 0.5 MG/2 ML AMPUL.NEB. INHALATION ×2 (06:53→20:17)
[2023-02-03] MEDS: Potassium Chloride Oral Tablet 20 MEQ 60 MEQ PO (09:12)
[2023-02-03 11:30] LABS: Bedside Glucose 151 mg/dL (74-106)
--- NOTE | 2023-02-03 11:30 | EGD_PTH ---
PATIENT: IRENA EASTON LOC: [facility] U#:[id number] AGE/SX: 87/F ROOM: [facility] RE02/02/[address]: Dr. Taco Reynoso MD : 1935 BED: 1 DIS: 02/04/2023 SPEC #: [id number] RECD: 02/03/23 16:05 STATUS: CHELSEY CARPIO #: [id number] MONIKA: 02/03/23 11:[address]: Lito Lindsey DEPT: SURGICAL PATHOLOGY RECD BY: Iam Krishna ENTERED: 02/04/23 08:06 SP TYPE: EGD [facility] DR: MD Dr. Carlyn Santos DO Dr. Nicholas F Kotsonis, MD Tissues: Esophagus, NOS Procedures: Special Stain Group I Surgery Specimen Level IV GMS Stain (control) HEADER OPERATION: EGD with biopsies (MAC) PRE-OP DIAGNOSIS: Anemia, esophagitis, duodenal ulcer TISSUE SUBMITTED: Random esophagus biopsies MICROSCOPIC DIAGNOSIS Esophagus, random biopsy: Fragments of squamous mucosa with extensive ulceration and fibrinopurulent exudation, acute and chronic inflammation and granulation tissue reaction. See comment. KACIE:janes 02/05/2023 COMMENT Special stain for fungi is negative for organisms; matched control is appropriate. Inflammatory cells infiltrate also includes eosinophils (>50 per high power field). Most of the specimen shows denuded epithelium. Clinical correlation and appropriate follow up are necessary. MICROSCOPIC DESCRIPTION Slides are reviewed. GROSS DESCRIPTION Received in fixative is one container labeled with the patient's name and designated random esophagus biopsy. The specimen consists of multiple irregular fragments of light abdul soft tissue that in aggregate measure 1.0 x 0.2 x 0.1 cm. The specimen is totally submitted in one cassette. / AM:janes 02/04/2023 TC:2 CPT: 11923, 76405
--- NOTE | 2023-02-03 12:02 | OP.EGD_ITS ---
Patient Name: Becca Spivey Procedure Date: 02/03/2023 11:17 AM Date of : 1935 Age: 87 Procedure: Upper GI endoscopy Indications: Acute post hemorrhagic anemia Providers: Lito Lindsey DO Medicines: Monitored Anesthesia Care Patient Profile: This is an 87 year old female. Refer to note in patient chart for documentation of history and physical. Patient has symptoms of acute dyspepsia. She is status post EGD for treatment of bleeding within the past three months. Complications: No immediate complications. Procedure: Pre-Anesthesia Assessment: - Prior to the procedure, a History and Physical was performed, and patient medications and allergies were reviewed. The patient is competent. The risks and benefits of the procedure and the sedation options and risks were discussed with the patient. All questions were answered and informed consent was obtained. Patient identification and proposed procedure were verified by the physician. Mental Status Examination: alert and oriented. Airway Examination: normal oropharyngeal airway and neck mobility. Respiratory Examination: clear to auscultation. CV Examination: normal. Prophylactic Antibiotics: The patient does not require prophylactic antibiotics. Prior Anticoagulants: The patient has taken no previous anticoagulant or antiplatelet agents. After reviewing the risks and benefits, the patient was deemed in satisfactory condition to undergo the procedure. The anesthesia plan was to use monitored anesthesia care (MAC). Immediately prior to administration of medications, the patient was re-assessed for adequacy to receive sedatives. The heart rate, respiratory rate, oxygen saturations, blood pressure, adequacy of pulmonary ventilation, and response to care were monitored throughout the procedure. The physical status of the patient was re-assessed after the procedure. After obtaining informed consent, the endoscope was passed under direct vision. Throughout the procedure, the patient's blood pressure, pulse, and oxygen saturations were monitored continuously. The gastroscope was introduced through the mouth, and advanced to the second part of duodenum. The upper GI endoscopy was accomplished without difficulty. The patient tolerated the procedure well. Scope In: 11:47:54 AM Scope Out: 11:54:58 AM Total Procedure Duration Time 0 hours 7 minutes 4 seconds Findings: Patchy, white plaques were found in the proximal esophagus. Biopsies were taken with a cold forceps for histology. Verification of patient identification for the specimen was done. Estimated blood loss was minimal. No gross lesions were noted in the entire examined stomach. One oozing cratered duodenal ulcer with pigmented material was found in the duodenal bulb. The lesion was 6 mm in largest dimension. Area was successfully injected with 5 mL of a 1:10,000 solution of epinephrine for drug delivery. Coagulation for hemostasis using heater probe was successful. Estimated blood loss was minimal. Impression: - Esophageal plaques were found, consistent with candidiasis. Biopsied. - No gross lesions in the stomach. - One oozing duodenal ulcer with pigmented material. Injected. Treated with a heater probe. Recommendation: - [facility]. - Advance diet as tolerated and full liquid diet. - Continue present medications. Procedure Code(s): --- Professional --- 95817, 59, Esophagogastroduodenoscopy, flexible, transoral; with control of bleeding, any method 39535, 59, Esophagogastroduodenoscopy, flexible, transoral; with directed submucosal injection(s), any substance 58113, Esophagogastroduodenoscopy, flexible, transoral; with biopsy, single or multiple CPT copyright 2017 [employer]. All rights reserved. The codes documented in this report are preliminary and upon top screw review may be revised to meet current compliance requirements. Lito Lindsey DO 02/03/2023 12:02:33 PM This report has been signed electronically. Number of Addenda: 0 Note Initiated On: 02/03/2023 11:17 AM
--- NOTE | 2023-02-03 12:03 | OP.CCLET_ITS ---
02/03/2023 Tee Álvarez Re : Upper GI endoscopy procedure for Becca Dorancarlos Álvarez This procedure was performed on Friday, February 03, 2023. My impressions and recommendations are as follows: Impressions : - Esophageal plaques were found, consistent with candidiasis. Biopsied. - No gross lesions in the stomach. - One oozing duodenal ulcer with pigmented material. Injected. Treated with a heater probe. Recommendations : - [facility] to [facility]. - Advance diet as tolerated and full liquid diet. - Continue present medications. My findings are described in the full procedure note, which is enclosed. If I can be of further assistance, please feel free to contact me at . Sincerely, Lito Lindsey, 02/03/2023 12:02:33 PM This report has been signed electronically.
--- NOTE | 2023-02-03 13:09 | PN.HOSP_ITS ---
Reason for Visit Reason for Visit: Hypotension Subjective Subjective No issues overnight. Hemoglobin has remained fairly stable through the evening. Patient was taken for an EGD today and severe pill esophagitis with candidiasis esophagitis was noted in the duodenal ulcer that is previously identified was oozing at the time of the EGD treatment was pursued. Patient without any chest pain or shortness of breath overnight. Blood pressures are improving however still not markedly elevated and we are still holding antihypertensives. Objective Data Objective Data Vital Signs: Vital Signs Temp Pulse Resp BP Pulse Ox O2 Del Method O2 Flow Rate 97.6 F L 76 18 106/62 99 Room Air 2 02/03/23 13:00 02/03/23 13:00 02/03/23 13:00 02/03/23 13:00 02/03/23 13:00 02/03/23 13:00 02/03/23 05:16 Oxygen Flow Rate (L/min) 2 Oxygen Delivery Method Room Air Weight: 67.2 kg Body Mass Index (BMI) 28.9 Intake & Output: Intake and Output for Last 24 Hours 02/01/23 02/02/23 02/03/23 23:59 23:59 23:59 Intake Total 960 / 960 1092.33 / 1092.33 Balance 960 / 960 1092.33 / 1092.33 Lab / Micro Data Result Diagrams: 02/03/23 04:25 02/03/23 04:25 Labs: Laboratory Results - last 24 hr 02/02/23 11:37: PT 33.4 H, INR 3.3, APTT 62.6 H 02/02/23 13:14: WBC 12.9 H, RBC 2.55 L, Hgb 8.8 L, Hct 26.0 L, MCV 102.0 H, MCH 34.5 H, MCHC 33.8, RDW Std Deviation 64.0 H, RDW Coeff of Gloria 17.4 H, Plt Count 137 L, MPV 11.3, Immature Gran % (Auto) 0.900, Neut % (Auto) 68.3, Lymph % (Auto) 18.3 L, [place] % (Auto) 11.1 H, Eos % (Auto) 1.2, Baso % (Auto) 0.2, Absolute Neuts (auto) 8.8 H, Absolute Lymphs (auto) 2.36, Nucleated RBC % 0 02/02/23 13:14: Sodium 128 L, Potassium 3.8, Chloride 94 L, Carbon Dioxide 27.0, Anion Gap 7, BUN 31 H, Creatinine 2.13 H, Estim Creat Clear Calc 13.62, Est GFR (MDRD) Af Amer 28 L, Est GFR (MDRD) Non-Af 23 L, BUN/Creatinine Ratio 14.6, Glucose 275 H, Calcium 8.6 02/02/23 13:14: Total Bilirubin 0.60, Direct Bilirubin 0.27, AST 16, ALT 15, Alkaline Phosphatase 109, Total Protein 5.8 L, Albumin 1.9 L, Globulin 3.9 02/02/23 13:14: Troponin I High Sens 868 H* 02/02/23 13:40: Lactic Acid 4.4 H* 02/02/23 15:35: Urine Color Yellow, Urine Clarity Sl. Cloudy, Urine pH 8.0, Ur Specific [place] 1.010, Urine Protein Negative, Urine Glucose (UA) 1000 H, Urine Ketones Negative, Urine Occult Blood Negative, Urine Nitrite Negative, Urine Bilirubin Negative, Urine Urobilinogen Normal, Ur Leukocyte Esterase 25 H, Urine RBC 0 SEEN, Urine WBC 0-5 SEEN, Ur Squamous Epith Cells 0-5 SEEN, Urine Bacteria 0 SEEN, Urine Mucus 0 SEEN 02/02/23 16:30: Blood Type Cancelled, Antibody Screen Cancelled 02/02/23 16:44: Hgb 8.7 L 02/02/23 17:55: Blood Type O POSITIVE, Antibody Screen NEGATIVE 02/02/23 17:55: Troponin I High Sens 834 H* 02/02/23 17:55: Lactic Acid 3.0 H* 02/02/23 19:28: Troponin I High Sens 854 H* 02/02/23 22:20: POC Glucose 136 H 02/02/23 22:40: Hgb 8.5 L 02/03/23 04:25: WBC 10.3, RBC 2.50 L, Hgb 8.5 L, Hct 25.6 L, MCV 102.4 H, MCH 34.0 H, MCHC 33.2, RDW Std Deviation 64.4 H, RDW Coeff of Gloria 17.4 H, Plt Count 134 L, MPV 11.0, Immature Gran % (Auto) 1.000 H, Neut % (Auto) 70.9 H, Lymph % (Auto) 15.0 L, [place] % (Auto) 9.8, Eos % (Auto) 3.1, Baso % (Auto) 0.2, Absolute Neuts (auto) 7.3, Absolute Lymphs (auto) 1.55, Nucleated RBC % 0 02/03/23 04:25: Sodium 132 L, Potassium 3.1 L, Chloride 100, Carbon Dioxide 28.0, Anion Gap 4 L, BUN 26 H, Creatinine 1.65 H, Estim Creat Clear Calc 17.58, Est GFR (MDRD) Af Amer 38 L, Est GFR (MDRD) Non-Af 31 L, BUN/Creatinine Ratio 15.8, Glucose 119 H, Calcium 8.3 L, Magnesium 1.6 02/03/23 04:25: Phosphorus 2.2 L 02/03/23 04:25: PT 20.2 H, INR 1.8, APTT 50.5 H 02/03/23 04:25: Total Bilirubin 0.40, Direct Bilirubin 0.20, AST 12 L, ALT 15, Alkaline Phosphatase 102, Total Protein 5.4 L, Albumin 1.7 L, Globulin 3.7, TSH 0.39 02/03/23 04:25: Hemoglobin A1c 7.0 H 02/03/23 06:18: POC Glucose 134 H 02/03/23 11:07: POC Glucose 151 H Micro: Microbiology 02/02/23 15:35 Urine Catheter - Catheter 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 Electronically Signed: Apolinar Green MD at 13:51 EDT , Abdomen Ultrasound 02/02/23 16:26 IMPRESSION: Coarse hepatic echotexture. Possible mild gallbladder sludge. Electronically Signed: Steve Sifuentes DO at 18:58 EDT , Chest X-Ray 02/03/23 05:55 IMPRESSION: Stable infiltrate in the left upper lobe as well as in the left lung base with blunting of the left costophrenic angle. Electronically Signed: Apolinar Green MD at 10:28 EDT , Rhythm Strip Rhythm Strip: Sinus Rhythm Rate: 75 Ectopy: None Physical Exam Const alert, oriented x3, no apparent distress and well nourished Constitutional Narrative: Chronically ill-appearing elderly, white female, sitting up in bed, family at bedside, patient currently appears comfortable and nontoxic, going for EGD soon General Appearance: cooperative HEENT normocephalic, head/scalp atraumatic and moist oral mucous membranes HEENT Narrative: Dentition is poor, Mallampati is 2, no thrush Resp normal respiratory effort, no retractions, no use of accessory muscles and clear to auscultation bilaterally Resp Narrative: Diminished but clear Auscultation: Negative for rales, rhonchi or wheezes Cardio regular rate, S1 normal heart sound, S2 normal heart sound, no murmurs, no rub, no gallops and no clicks Cardio Narrative: Irregular rate with regular rhythm GI normal to inspection, nondistended, normoactive bowel sounds, soft to palpation and non-tender Extremity no clubbing, cyanosis or edema Extremity Narrative: 2+ pedal pulses Skin no rashes or lesions noted, no wounds, no jaundice, no petechiae and no mottling Skin Narrative: Skin is pale Neuro oriented x3, moves all extremities and no focal motor deficits Neuro Narrative: Significant generalized weakness Speech: speech normal Psych affect normal Psych Narrative: Very pleasant and appropriately interactive Assessment & Plan Assessment/Plan (1) Transient hypotension: (2) Non-ST elevation GA (NSTEMI): (3) Acute on chronic anemia: (4) Anticoagulated: (5) Hyponatremia: (6) Leukocytosis: (7) Lactic acidosis: (8) Esophagitis: (9) PUD (peptic ulcer disease): (10) GAY (acute kidney injury): (11) Esophageal candidiasis: (12) Thrombocytopenia: (13) Hypokalemia: (14) Hypophosphatemia: PLAN: Plan NSTEMI -Initial serum troponin was elevated to 868 but hit patient has not dramatically risen from there -Will repeat a.m. troponin -EKG with no significant findings other than new T wave inversion but is nonspecific -Unable to fully anticoagulate now secondary to GI bleed -We will need to hold home Xarelto and no aspirin for now -Highly suspect stress-induced ischemia and type II NSTEMI from acute bleeding and acute hypotension -Echocardiogram is pending and if normal will defer to outpatient follow-up as patient cannot be anticoagulated at this time -May need outpatient pharmacologically induced stress test once clinically more stable -Patient not experience any chest pain or shortness of breath -Continue home statin Acute on chronic anemia with suspected GI bleed -Patient with recent admission and EGD showed severe diffuse esophagitis/Alba-Smith tear/peptic ulcer with a visible vessel and acute bleeding -Patient was on Protonix p.o. 40 mg twice daily and Carafate prior to admission -Continue Carafate -Stop Protonix drip and transition to oral Protonix 40 mg p.o. twice daily -Start full liquid diet -Hold Xarelto--> Per discussion with GI okay to restart in 5 days -EGD showed esophageal plaques consistent with esophageal candidiasis causing esophagitis, and 1 oozing duodenal ulcer with pigmented material that was injected and treated with heater probe -Hemoglobin has now overall been fairly stable -Anemia is macrocytic and recent B12 and folate were performed and unremarkable -Iron studies were performed at last admission to and were normal -GI is following and appreciate input Esophageal candidiasis -Start oral fluconazole 200 mg daily for 14 to 21 days Hypokalemia -We will give 40 mill colons p.o. potassium and repeat in a.m. Hypophosphatemia -Sodium Phos given and repeat Phos level in a.m. Transient hypotension -Hypotension has resolved however patient still has lower blood pressure than is typical for her and antihypertensives are still on hold Lactic acidosis -Resolving Leukocytosis -Resolved GAY on CKD stage IIIb -Per previous documentation baseline serum creatinine is around 1.7 -Current serum creatinine is 2.13 -Hold home diuretics Severe esophagitis/PUD/Alba-Smith tear -Noted on EGD performed on 01/16/2023 -GI consulted as noted above Hyponatremia -Resolving -Repeat lab in a.m. -This is new compared to previous lab from 01/17/2023 Thrombocytopenia -Platelet count has dropped since discharge -May be consumptive with bleeding-->Stable -Continue to trend DM-2 -Hold home Jardiance -Hold home blood bedside -Medium high-dose sliding scale HTN/HPL -Hold antihypertensives as patient presented with hypotension -Continue home statin Chronic atrial fibrillation -Hold home rivaroxaban -Patient is not on any rate controlling medication -Monitor telemetry -Echo pending Diabetic neuropathy -Continue home gabapentin Hypothyroidism -Continue home History of gout -Continue home allopurinol Asthma -Continue aerosols DVT prophylaxis -SCDs -Hold chemoprophylaxis secondary to bleeding CODE STATUS -DNR CCA with no intubation as per review prior to admission Charges/Coding Visit Charges Inpatient E&M: 92393 Subs Hosp L2
--- NOTE | 2023-02-03 13:32 | CASEMGMT ---
AVILA received a voice mail from Светлана with [facility] in [place]. Светлана was asking about d/c plans for patient. [phone]. Patient just came in so there are no d/c plans at this time. Bessy Bernardo CERTIFIED PATHOLOGY ASSISTANT TAWNYA
--- NOTE | 2023-02-03 14:23 | CASEMGMT ---
SANJUANITA SMITH chart review: Patient was admitted 01/09-01/17/23 for dehydration, hypotension, GAY on CKD, and hyperglycemia. See SW assessment from 01/12/23. Patient was discharged to her son in laws home in [facility] with [facility]. Patient returned 02/02/23 for hypotension and was admitted for NSTEMI and anemia. GI consult placed. SANJUANITA SMITH in to room to discuss needs with patient and family. Per son in law, Sharif, patient was taking all meds as prescribed. Patient was to have a follow-up appt with PCP on 02/04/23. Patient and Sharif state plan is for patient to return to Sharif's home with resumption of HHC. Patient and Sharif declined further needs at this time.
[2023-02-03] MEDS: Allopurinol 300 MG Tablet PO (14:29)
[2023-02-03] MEDS: Montelukast 10 MG Tablet PO (14:29)
[2023-02-03] MEDS: Calcium Carb/Vitamin D 1 TABLET Tablet PO (14:29)
[2023-02-03] MEDS: Gabapentin 300 MG Capsule PO ×2 (14:29→22:10)
[2023-02-03] MEDS: Multivitamins,Therapeutic Tablet 1 TABLET PO (14:29)
[2023-02-03] MEDS: Docusate Sodium 100 MG Capsule PO (14:29)
[2023-02-03] MEDS: Cyanocobalamin 500 MCG Tablet PO (14:29)
[2023-02-03] MEDS: Ferrous Sulfate 325 MG Tablet PO (14:29)
[2023-02-03] MEDS: Sucralfate 1 GM Tablet PO (17:45)
[2023-02-03] MEDS: Fluconazole 100 MG Tablet 200 MG PO (17:45)
[2023-02-03] MEDS: Insulin Lispro 100 UNIT/ML INSULN.PEN SC (17:46)
[2023-02-03 18:15] LABS: Bedside Glucose 219 mg/dL (74-106)
[2023-02-03] MEDS: Pantoprazole Sodium 40 MG Tablet PO (22:04)
[2023-02-03] MEDS: Menthol/Lanolin/Calamine/Znox 113 GM Tube 1 APPLIC TOPICAL (22:04)
[2023-02-03] MEDS: Atorvastatin Calcium 20 MG Tablet PO (22:04)
[2023-02-03 22:50] LABS: Bedside Glucose 179 mg/dL (74-106)
[2023-02-04] VITALS (10 sets, daily range): BP systolic 110–125; BP diastolic 44–68; PULSE 71–83; RESP 16–18; TEMP 36.8–37.3; O2SAT 93–99
--- NOTE | 2023-02-04 05:08 | NURSING ---
pt refusing lab draws unless it's from her IV access. Both IV access don't have blood return, and pt refuses staff to poke her.
[2023-02-04] MEDS: 0.9% Saline Lock 10 ML Syringe IV (05:14)
[2023-02-04] MEDS: Levothyroxine 137 MCG Tablet PO (05:15)
[2023-02-04] MEDS: Gabapentin 300 MG Capsule PO ×2 (05:18→14:18)
--- NOTE | 2023-02-04 07:00 | PN_ITS ---
Subjective Subjective Patient underwent an egd yesterday for acute GI bleeding. Objective Data Objective Data Vital Signs: Vital Signs Temp Pulse Resp BP Pulse Ox O2 Del Method O2 Flow Rate 98.3 F 79 16 125/50 H 93 Room Air 2 02/04/23 13:00 02/04/23 13:43 02/04/23 13:43 02/04/23 13:00 02/04/23 13:00 02/04/23 14:20 02/04/23 10:15 Oxygen Flow Rate (L/min) 2 Oxygen Delivery Method Room Air Weight: 148 lb 2.41 oz Body Mass Index (BMI) 28.9 Intake & Output: Intake and Output for Last 24 Hours 02/02/23 02/03/23 02/04/23 23:59 23:59 23:59 Intake Total 960 / 960 760 / 760 Balance 960 / 960 760 / 760 Lab / Micro Data Result Diagrams: 02/04/23 06:46 02/04/23 06:46 Labs: Laboratory Results - last 24 hr 02/02/23 17:55: Crossmatch See Detail 02/03/23 17:35: POC Glucose 219 H 02/03/23 22:02: POC Glucose 179 H 02/04/23 06:25: POC Glucose 119 H 02/04/23 06:46: WBC 7.8, RBC 2.21 L, Hgb 7.4 L, Hct 22.6 L, MCV 102.3 H, MCH 33.5 H, MCHC 32.7, RDW Std Deviation 64.7 H, RDW Coeff of Gloria 17.6 H, Plt Count 123 L, MPV 10.5, Immature Gran % (Auto) 0.800, Neut % (Auto) 65.7, Lymph % (Auto) 18.7 L, [place] % (Auto) 12.7 H, Eos % (Auto) 2.0, Baso % (Auto) 0.1, Absolute Neuts (auto) 5.1, Absolute Lymphs (auto) 1.46, Nucleated RBC % 0 02/04/23 06:46: Sodium 133 L, Potassium 3.8, Chloride 102, Carbon Dioxide 28.0, Anion Gap 3 L, BUN 23 H, Creatinine 1.66 H, Estim Creat Clear Calc 17.47, Est GFR (MDRD) Af Amer 38 L, Est GFR (MDRD) Non-Af 31 L, BUN/Creatinine Ratio 13.9, Glucose 118 H, Calcium 7.8 L, Phosphorus 2.8, Troponin I High Sens 898 H* 02/04/23 11:19: POC Glucose 258 H Micro: Microbiology 02/02/23 13:40 Blood Culture (Wb) - Anticubital Left Blood Culture - Preliminary No growth in 48 hours. 02/02/23 13:40 Blood Culture (Wb) - Anticubital Right Blood Culture - Preliminary No growth in 48 hours. 02/02/23 15:35 Urine Catheter - Catheter Urine Culture - Preliminary ESBL Escherichia coli Coag Negative Staph Alpha hemolytic organism 02/02/23 15:05 Stool Stool Occult Blood (INGRID) - Final Rhythm Strip Rhythm Strip: Sinus Rhythm Rate: 75 Ectopy: None Physical Exam Const alert, oriented x3, no apparent distress and well nourished Constitutional Narrative: Chronically ill-appearing elderly, white female, sitting up in bed, family at bedside, patient currently appears comfortable and nontoxic General Appearance: cooperative HEENT normocephalic, head/scalp atraumatic and moist oral mucous membranes HEENT Narrative: Dentition is poor, Mallampati is 2, no thrush Resp normal respiratory effort, no retractions, no use of accessory muscles and clear to auscultation bilaterally Resp Narrative: Diminished but clear Auscultation: Negative for rales, rhonchi or wheezes Cardio regular rate, S1 normal heart sound, S2 normal heart sound, no murmurs, no rub, no gallops and no clicks Cardio Narrative: Irregular rate with regular rhythm GI normal to inspection, nondistended, normoactive bowel sounds, soft to palpation and non-tender Extremity no clubbing, cyanosis or edema Extremity Narrative: 2+ pedal pulses Skin no rashes or lesions noted, no wounds, no jaundice, no petechiae and no mottling Skin Narrative: Skin is pale Neuro oriented x3, moves all extremities and no focal motor deficits Neuro Narrative: Significant generalized weakness Speech: speech normal Psych affect normal Psych Narrative: Very pleasant and appropriately interactive Assessment & Plan Assessment/Plan (1) Transient hypotension: (2) Non-ST elevation [place] (NSTEMI): (3) Acute on chronic anemia: (4) Anticoagulated: (5) Hyponatremia: (6) Leukocytosis: (7) Lactic acidosis: (8) Esophagitis: (9) PUD (peptic ulcer disease): (10) GAY (acute kidney injury): (11) Esophageal candidiasis: (12) Thrombocytopenia: (13) Hypokalemia: (14) Hypophosphatemia: PLAN: Plan Acute on chronic anemia with suspected GI bleed -Patient with recent admission and EGD showed severe diffuse esophagitis/Alba-Smith tear/peptic ulcer with a visible vessel and acute bleeding -Patient was on Protonix p.o. 40 mg twice daily and Carafate prior to admission -Continue Carafate -Stop Protonix drip and transition to oral Protonix 40 mg p.o. twice daily -Start full liquid diet -Hold Xarelto--> Per discussion with GI okay to restart in 5 days -EGD showed esophageal plaques consistent with esophageal candidiasis causing esophagitis, and 1 oozing duodenal ulcer with pigmented material that was injected and treated with heater probe -Hemoglobin has now overall been fairly stable -Anemia is macrocytic and recent B12 and folate were performed and unremarkable -Iron studies were performed at last admission to and were normal -GI is following and appreciate input Esophageal candidiasis -Start oral fluconazole 200 mg daily for 14 to 21 days Thrombocytopenia -Likely secondary to cirrohsis -repeat cbc in 5 days Charges/Coding Visit Charges Inpatient E&M: 07422 Subs Hosp L3
[2023-02-04 07:02] LABS: Absolute Lymphocyte Count 1.46 X10^3/uL (0.83-4.51); Absolute Neutrophil Count 5.1 X10^3/uL (2.0-7.7); Basophil# 0.01 X10^3/uL; Basophil% 0.1 % (0-1); Eosinophil# 0.16 X10^3/uL; Hematocrit 22.6 % (37-47); Hemoglobin 7.4 g/dL (12.0-15.0); Lymphocyte # 1.46 X10^3/ul (0.83-4.51); Lymphocyte % 18.7 % (19-41); Mean Corp Hgb Conc 32.7 g/dL (32-36); Mean Corpuscular Hgb 33.5 pg (27.0-32.0); Mean Corpuscular Volume 102.3 fL (81-99); Mean Platelet Vol. 10.5 fl (6.2-12.0); Monocyte# 0.99 X10^3/uL; Monocyte% 12.7 % (0-10); NRBC Flagged by Analyzer 0 % (0-5); Neutrophil # 5.14 X10^3/uL (2.7-7.7); Neutrophil % 65.7 % (47-70); Platelet Count 123 K/mm3 (150-450); RBC Distribution Width CV 17.6 % (11.6-14.6); RBC Distribution Width SD 64.7 fl (35.1-43.9); Red Blood Count 2.21 M/mm3 (4.2-5.4); White Blood Count 7.8 K/mm3 (4.4-11.0)
[2023-02-04 07:05] LABS: Bedside Glucose 119 mg/dL (74-106)
[2023-02-04 07:28] LABS: Anion Gap 3 (5-15); BUN 23 mg/dL (7-18); BUN/Creat Ratio 13.9 RATIO (10-20); Calcium,Total 7.8 mg/dL (8.5-10.1); Chloride 102 mmol/L (98-107); Creatinine, Serum 1.66 mg/dL (0.55-1.02); EST Glomerular Filtration Rate 31 mL/min (>60); Est Glom Filt Rate - Afr Amer 38 mL/min (>60); Estimated Creatinine Clearance 17.47 ml/min; Glucose 118 mg/dL (74-106); Phosphorus 2.8 mg/dL (2.5-4.9); Potassium 3.8 mmol/L (3.5-5.1); Sodium Level 133 mmol/L (136-145); Troponin-I HS 898 pg/mL (3.0-54.0)
[2023-02-04] MEDS: Multivitamins,Therapeutic Tablet 1 TABLET PO (08:21)
[2023-02-04] MEDS: Calcium Carb/Vitamin D 1 TABLET Tablet PO (08:22)
[2023-02-04] MEDS: Cyanocobalamin 500 MCG Tablet PO (08:22)
[2023-02-04] MEDS: Allopurinol 300 MG Tablet PO (08:22)
[2023-02-04] MEDS: Montelukast 10 MG Tablet PO (08:22)
[2023-02-04] MEDS: Menthol/Lanolin/Calamine/Znox 113 GM Tube 1 APPLIC TOPICAL (08:28)
[2023-02-04] MEDS: Insulin Lispro 100 UNIT/ML INSULN.PEN SC (11:20)
[2023-02-04] MEDS: Lansoprazole 15 MG Capsule.DR 30 MG PO (11:23)
[2023-02-04] MEDS: Fluconazole Suspension 40 MG/ML 35 ML Bottle 200 MG PO (11:23)
[2023-02-04] MEDS: Ferrous Sulfate 300 MG/5 ML UDC PO (11:23)
[2023-02-04 12:15] LABS: Bedside Glucose 258 mg/dL (74-106)
--- NOTE | 2023-02-04 14:19 | DCINST_ITS ---
Discharge Instructions Diet Discharge Diet: Carb Control Diet Activity Discharge Activity: Return to Normal Activity Dressing / Incision Call your doctor if you observe: Fever of 101 or Higher, Shortness of breath, Dizziness, Fainting spells, Swelling in the ankles, Chest pain and Increased palpitations (irregular heartbeat) Follow Up Care Test Results: Test results from this visit will be discussed in further detail at your follow- up appointment, if applicable. Discharge Plan Admission Admit Date/Time: 02/02/23 16:15 Attending Provider: Taco Reynoso Primary Care Provider: Tee Álvarez Consulting Providers: Carlyn Paez Discharge Orders/Prescriptions Prescriptions: New ferrous sulfate 300 mg (60 mg iron)/5 mL Liquid 300 mg PO DAILYCM Qty: 30 0RF fluconazole 40 mg/mL Suspension For Reconstitution 200 mg PO DAILY 14 Days Qty: 70 0RF fosfomycin tromethamine 3 gram packet 1 packet PO QODAY Qty: 1 0RF Continued albuterol sulfate 90 mcg/actuation HFA aerosol inhaler 2 puff INHALATION Q4H PRN (Reason: sob/wheezing) Qty: 18 levothyroxine 137 mcg tablet 137 mcg PO DAILY Qty: 30 glipizide 2.5 mg tablet extended release 24hr 7.5 mg PO DAILY Label Comments: Take 3 tablets by mouth once daily. multivitamin Tablet 1 tab PO DAILY calcium carbonate-vitamin D3 600 mg(1,500mg) -800 unit tablet 1 tab PO DAILY fluticasone propion-salmeterol 1 PUFF inhaler 1 puff inhalation BID potassium chloride 10 MEQ tablet extended release 20 meq PO DAILY allopurinol 100 MG tablet 300 mg PO DAILY nifedipine 60 MG tablet 60 mg PO DAILY docusate sodium 100 MG capsule 100 mg PO DAILY montelukast 10 MG tablet 10 mg PO DAILY gabapentin 300 mg capsule 300 mg PO TID cyanocobalamin (vitamin B-12) 1 tablet PO/SL DAILY furosemide 40 mg tablet 60 mg PO DAILY simvastatin 40 mg Tablet 40 mg PO QHS clotrimazole 1 % Cream 1 applic TOPICAL BID Jardiance 10 mg Tablet 10 mg PO DAILY sitagliptin phosphate 25 mg Tablet 25 mg PO DAILY sucralfate 1 gram tablet 1 g PO Q6H losartan 25 mg tablet 12.5 mg PO DAILY Changed pantoprazole 40 mg tablet,delayed release (DR/EC) 40 mg PO BIDCM Qty: 30 0RF Held rivaroxaban 20 mg tablet 20 mg PO QPM Qty: 30 Hold Instructions: Resume on 02/10/23. Referrals / Follow Up: Tee Álvarez MD [Primary Care Provider] - Within 1 Week FriendLito DO [Med Staff - Active Staff] - Within 3 Months Disposition Disposition (needs filled in before D/C Order can be placed): Home, Self Care
--- NOTE | 2023-02-04 14:51 | CASEMGMT ---
SANJUANITA SMITH called and updated [facility] regarding patient to discharge today. SANJUANITA SMITH will send discharge instructions and summary when available. Per Ebony she will have a nurse see patient on Thursday. SANJUANITA SMITH updated the patient and son in law. Son in law had no questions or concerns at this time.
--- NOTE | 2023-02-04 17:08 | PCM.DC.SUM ---
Providers Date of Admission: 02/02/23 Primary Care Physician: Dr. Tee Álvarez MD Consultations 02/02/23 17:17 Consult: Gastroenterology Routine Consulting Provider: J [facility] Reason for Consult: GIB EMERGENT Consult: No MD Notified: Yes Date Notified: 02/02/23 Time Notified: 16:22 Method of Notification: Verbal Reason For Visit: acute anemia Diagnosis Discharge Diagnosis (1) Transient hypotension: Status: Acute Code(s): I95.9 - Hypotension, unspecified (2) Non-ST elevation NC (NSTEMI): Status: Acute Code(s): I21.4 - Non-ST elevation (NSTEMI) myocardial infarction (3) Acute on chronic anemia: Status: Chronic Code(s): D64.9 - Anemia, unspecified (4) Anticoagulated: Status: Acute Code(s): Z79.01 - 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 of anticoagulants (5) Hyponatremia: Status: Acute Code(s): E87.1 - Hypo-osmolality and hyponatremia (6) Leukocytosis: Status: Acute Code(s): D72.829 - Elevated white blood cell count, unspecified (7) Lactic acidosis: Status: Acute Code(s): E87.20 - Acidosis, unspecified (8) Esophagitis: Status: Acute Code(s): K20.90 - Esophagitis, unspecified without bleeding (9) PUD (peptic ulcer disease): Status: Acute Code(s): K27.9 - Peptic ulcer, site unspecified, unspecified as acute or chronic, without hemorrhage or perforation (10) GAY (acute kidney injury): Status: Acute Code(s): N17.9 - Acute kidney failure, unspecified (11) Esophageal candidiasis: Status: Acute Code(s): B37.81 - Candidal esophagitis (12) Thrombocytopenia: Status: Acute Code(s): D69.6 - Thrombocytopenia, unspecified (13) Hypokalemia: Status: Acute Code(s): E87.6 - Hypokalemia (14) Hypophosphatemia: Status: Acute Code(s): E83.39 - Other disorders of phosphorus metabolism Medications at Discharge Home Medications allopurinol 100 mg tablet 300 mg PO DAILY uric acid hand stitcher 01/30/16 docusate sodium 100 mg capsule 100 mg PO DAILY constipation 01/30/16 fluticasone 250 mcg-salmeterol 50 mcg/dose blistr powdr for inhalation 1 puff inhalation BID sob 01/30/16 montelukast 10 mg tablet 10 mg PO DAILY breathing 01/30/16 nifedipine 60 mg tablet,extended release 24 hr 60 mg PO DAILY blood pressure 01/30/16 potassium chloride 10 mEq tablet,extended release 20 meq PO DAILY supplement 01/30/16 albuterol sulfate 90 mcg/actuation aerosol inhaler 2 puff inhalation Q4H PRN sob/wheezing #18 grams 04/19/19 gabapentin 300 mg capsule 300 mg PO TID neuropathy 04/19/19 levothyroxine 137 mcg tablet 137 mcg PO DAILY thyroid #30 tabs 04/19/19 rivaroxaban 20 mg tablet 20 mg PO QPM blood thinner #30 tabs 04/19/19 calcium carbonate 600 mg-vitamin D3 20 mcg (800 unit) tablet 1 tab PO DAILY supplement 08/23/21 glipizide 2.5 mg tablet, extended release 24 hr 7.5 mg PO DAILY diabetes 08/23/21 multivitamin 1 tab PO DAILY supplement 08/23/21 cyanocobalamin (vitamin B-12) 1 tablet PO/SL DAILY supplement 03/06/22 furosemide 40 mg tablet 60 mg PO DAILY EDEMA 01/09/23 simvastatin 40 mg tablet 40 mg PO QHS CHOLESTEROL 01/09/23 clotrimazole 1 % topical cream 1 applic topical BID 02/02/23 empagliflozin 10 mg tablet (Jardiance) 10 mg PO DAILY 02/02/23 losartan 25 mg tablet 12.5 mg PO DAILY blood pressure 02/02/23 sitagliptin phosphate 25 mg tablet 25 mg PO DAILY Check with primary doctor 02/02/23 sucralfate 1 gram tablet 1 g PO Q6H gerd 02/02/23 ferrous sulfate 300 mg (60 mg iron)/5 mL oral liquid 300 mg (5 mL) PO DAILYCM #30 mL 02/04/23 fluconazole 40 mg/mL oral suspension 200 mg (5 mL) PO DAILY 14 days #70 mL 02/04/23 fosfomycin tromethamine 3 gram oral packet 1 packet PO QODAY 3 doses #1 ea 02/04/23 pantoprazole 40 mg tablet,delayed release 40 mg PO BIDCM gerd #30 tabs 02/04/23 Hospital Course Operations None Procedures 2-D Echocardiogram and EGD Summary of Care Provided Minutes Spent on Discharge: 37 Hospital Course: Per HPI: IRENA EASTON, is a 87 F who presented to the emergency department at [facility] on 02/02/2023 with worsening fatigue.? She had a recent admission from 01/09/2023 through 01/17/2023 at which time she had a pneumonia and was treated for that and was found to have an upper GI bleed after an EGD was performed on 01/16/2023.? EGD showed Alba-Smith tear, severe esophagitis that look to be ischemic in nature, and peptic ulcer disease which required clipping and injection.? She was discharged in stable condition but returned to the emergency department today for hypotension.? Her son-in-law who is her caregiver, brought her to the emergency department as he checked her blood pressure this morning and was found to be in the 80s over 40s.? He checked it 3 different times and it remained stable.? Patient began starting to feel weak yesterday but had no other symptoms today.? Son-in-law reported that she did not urinate all morning.? Patient denied having any urinary symptoms.? Yesterday she was urinating a lot more than usual as she was drinking more water than typical.? At baseline she had been walking with a walker and had been doing well up until the day of admission however it was difficult to get her up secondary to severe weakness.? She has had no fever or chills and no coughing.? She denies any abdominal pain.? Reports that her stools have been normal in color.? She has had no nausea or vomiting.? She has been compliant with her Protonix and Carafate but has gone back on her Xarelto as previously directed. Vital signs on presentation showed a temperature of 98.1, heart rate 80, blood pressure 106/48 with a MAP of 67, respiratory rate 17 and oxygen saturations 98 to 100% on room air.? CBC showed a mild leukocytosis with a white count of 12.9, hemoglobin down from 10.7-8.8, and platelets were 137 when previously normal.? She had no left shift but did have a mild monocytosis.? PT/INR and APTT or abnormal and patient is on Xarelto at baseline.? Chemistry panel showed mild hyponatremia with a sodium of 128 which is new, elevated BUN and creatinine at 31 and 2.13 respectively.? (Baseline serum creatinine is about 1.7), serum glucose was 275.? Lactic acid was 4.4.? Liver function and bilirubin are normal.? Initial troponin was 868.? UA was unremarkable for any signs of infection.? Chest x-ray was suggestive of possible infiltrate however patient was not having any respiratory symptoms. We were concerned about recurrent GI bleed and a guaiac was performed and negative however with significant drop in hemoglobin and platelet count we still are highly suspicious that she has had ongoing intermittent bleeding.? She will be admitted to PCU with elevated troponin and placed on a Protonix drip and continue her home Carafate.? I discussed the case with gastroenterology in plan is for repeat EGD tomorrow. Hospital Course: 1. Non-STEMI/acute on chronic anemia due to GI bleeding with transient hypotension/GAY?87-year-old female presented to the hospital for hypotension. She had a previous EGD which demonstrated a Alba-Smith tear earlier in the month of January which was treated and she was discharged home successfully. She presents again with findings of another GI bleed EGD showed severe diffuse esophagitis with a Alba-Smith tear and a peptic ulcer with visible vessel on her last EGD, this time around it demonstrated esophageal candidiasis with 1 oozing duodenal ulcer, this was treated and she was started on nystatin for her candidiasis. She was continued on Protonix as well as Carafate during this admission. Today her hemoglobin dropped from 8.5-7.4 and she was transfused 1 unit given her cardiac history. When I went to go see her she demanded and continued to demand after I left that she be discharged home. I discussed with her the risks of being discharged home and she expressed understanding of the risks and still demanded to be discharged home. Her son, who is her caregiver, was at bedside and he was okay with discharge today. I discussed with them that if she were to demonstrate any further GI bleeding, or to get lightheaded or dizzy that she is to come back to the hospital. We will hold her Xarelto and aspirin on discharge and start sometime next week. As for her non-STEMI, her echo was largely unremarkable and I recommend outpatient follow-up for this issue. Her renal function on admission was elevated to over 2, today on discharge is 1.66 which is close to baseline. 2. Type 2 diabetes, hypertension, hyperlipidemia, chronic atrial fibrillation, diabetic neuropathy, hypothyroidism, history of gout, history of asthma are all chronic medical conditions which complicate her care. Her home medications were continued where appropriate Physical Exam Narrative General: Alert, Oriented x3, Cooperative, No apparent distress HEENT: Atraumatic, PERRLA, EOMI, Normocephalic Oral: Moist Mucosa Neck: Supple, No JVD Lungs: Diminished, Normal air movement, No rhonchi, No wheeze, No rales Cardiovascular: Regular rate, irregular rhythm rhythm, Normal S1, Normal S2, No murmurs Abdomen: Soft, Non Tender, Non-Distended, No Hepato-splenomegaly Extremities: No edema, Capillary Refill Less than 3 Seconds Skin: No rashes, No breakdown Musculoskeletal: No Tenderness to Palpation of Joints or Extremities Neurological: Cranial nerves II-XII grossly intact, Motor Exam 5/5 strength throughout, Sensory exam intact to light touch and pain Psych/Mental Status: Normal Affect, Appropriate Weight / BMI Weight Weight: 148 lb 2.41 oz Body Mass Index (BMI) 28.9 ABG / Lab / Microbiology Data Result Diagrams: 02/04/23 06:46 02/04/23 06:46 Laboratory: Laboratory Results - last 24 hr 02/02/23 17:55: Crossmatch See Detail 02/03/23 17:35: POC Glucose 219 H 02/03/23 22:02: POC Glucose 179 H 02/04/23 06:25: POC Glucose 119 H 02/04/23 06:46: WBC 7.8, RBC 2.21 L, Hgb 7.4 L, Hct 22.6 L, MCV 102.3 H, MCH 33.5 H, MCHC 32.7, RDW Std Deviation 64.7 H, RDW Coeff of Gloria 17.6 H, Plt Count 123 L, MPV 10.5, Immature Gran % (Auto) 0.800, Neut % (Auto) 65.7, Lymph % (Auto) 18.7 L, Hanson % (Auto) 12.7 H, Eos % (Auto) 2.0, Baso % (Auto) 0.1, Absolute Neuts (auto) 5.1, Absolute Lymphs (auto) 1.46, Nucleated RBC % 0 02/04/23 06:46: Sodium 133 L, Potassium 3.8, Chloride 102, Carbon Dioxide 28.0, Anion Gap 3 L, BUN 23 H, Creatinine 1.66 H, Estim Creat Clear Calc 17.47, Est GFR (MDRD) Af Amer 38 L, Est GFR (MDRD) Non-Af 31 L, BUN/Creatinine Ratio 13.9, Glucose 118 H, Calcium 7.8 L, Phosphorus 2.8, Troponin I High Sens 898 H* 02/04/23 11:19: POC Glucose 258 H Microbiology: Microbiology 02/02/23 13:40 Blood Culture (Wb) - Anticubital Left Blood Culture - Preliminary No growth in 48 hours. 02/02/23 13:40 Blood Culture (Wb) - Anticubital Right Blood Culture - Preliminary No growth in 48 hours. 02/02/23 15:35 Urine Catheter - Catheter Urine Culture - Preliminary ESBL Escherichia coli Coag Negative Staph Alpha hemolytic organism 02/02/23 15:05 Stool Stool Occult Blood (INGRID) - Final D/C Instructions Discharge Diet: Carb Control Diet Call your doctor if you observe: Fever of 101 or Higher, Shortness of breath, Dizziness, Fainting spells, Swelling in the ankles, Chest pain and Increased palpitations (irregular heartbeat) Meaningful Use Info Meaningful Use Diagnoses (Choose all that apply): None applicable Discharge Plan Admission Admit Date/Time: 02/02/23 16:15 Attending Provider: Taco Reynoso Primary Care Provider: Tee Álvarez Consulting Providers: Carlyn Paez Discharge Orders/Prescriptions Prescriptions: New ferrous sulfate 300 mg (60 mg iron)/5 mL Liquid 300 mg PO DAILYCM Qty: 30 0RF fluconazole 40 mg/mL Suspension For Reconstitution 200 mg PO DAILY 14 Days Qty: 70 0RF fosfomycin tromethamine 3 gram packet 1 packet PO QODAY Qty: 1 0RF Continued albuterol sulfate 90 mcg/actuation HFA aerosol inhaler 2 puff INHALATION Q4H PRN (Reason: sob/wheezing) Qty: 18 levothyroxine 137 mcg tablet 137 mcg PO DAILY Qty: 30 glipizide 2.5 mg tablet extended release 24hr 7.5 mg PO DAILY Label Comments: Take 3 tablets by mouth once daily. multivitamin Tablet 1 tab PO DAILY calcium carbonate-vitamin D3 600 mg(1,500mg) -800 unit tablet 1 tab PO DAILY fluticasone propion-salmeterol 1 PUFF inhaler 1 puff inhalation BID potassium chloride 10 MEQ tablet extended release 20 meq PO DAILY allopurinol 100 MG tablet 300 mg PO DAILY nifedipine 60 MG tablet 60 mg PO DAILY docusate sodium 100 MG capsule 100 mg PO DAILY montelukast 10 MG tablet 10 mg PO DAILY gabapentin 300 mg capsule 300 mg PO TID cyanocobalamin (vitamin B-12) 1 tablet PO/SL DAILY furosemide 40 mg tablet 60 mg PO DAILY simvastatin 40 mg Tablet 40 mg PO QHS clotrimazole 1 % Cream 1 applic TOPICAL BID Jardiance 10 mg Tablet 10 mg PO DAILY sitagliptin phosphate 25 mg Tablet 25 mg PO DAILY sucralfate 1 gram tablet 1 g PO Q6H losartan 25 mg tablet 12.5 mg PO DAILY Changed pantoprazole 40 mg tablet,delayed release (DR/EC) 40 mg PO BIDCM Qty: 30 0RF Held rivaroxaban 20 mg tablet 20 mg PO QPM Qty: 30 Hold Instructions: Resume on 02/10/23. Referrals / Follow Up: Tee Álvarez MD [Primary Care Provider] - Within 1 Week Lito Lindsey DO [Med Staff - Active Staff] - Within 3 Months Disposition Disposition (needs filled in before D/C Order can be placed): Home, Self Care Charges/Coding Visit Charges Inpatient E&M: 91793 Disch Hosp >30min
== END 2023-02-04 15:56 | disposition home or self-care (01) | DRG 377 ==
LOC: ED 15:54 → PCU 16:35
PROVIDERS: Anesthesiology; Internal Medicine Gastroenterology; Admitting Provider Internal Medicine; Emergency Provider Emergency Medicine; PCP Family Medicine; Visit Provider Family Medicine
PROC: 0DJ08ZZ Inspection of Upper Intestinal Tract, Via Natural or Artificial Opening Endoscopic (ICD-10-PCS; CPT 43235; principal; 2023-02-03 11:25)
DX: K26.4 Chronic or unspecified duodenal ulcer with hemorrhage (principal); I21.A1 Myocardial infarction type 2; B37.81 Candidal esophagitis; E87.0 Hyperosmolality and hypernatremia; N17.9 Acute kidney failure, unspecified; I48.20 Chronic atrial fibrillation, unspecified; D62 Acute posthemorrhagic anemia; E87.1 Hypo-osmolality and hyponatremia; E87.20 Acidosis, unspecified; D69.6 Thrombocytopenia, unspecified; D63.1 Anemia in chronic kidney disease; E83.39 Other disorders of phosphorus metabolism; I95.9 Hypotension, unspecified; E11.22 Type 2 diabetes mellitus with diabetic chronic kidney disease; N18.32 Chronic kidney disease, stage 3b; E11.40 Type 2 diabetes mellitus with diabetic neuropathy, unspecified; K74.60 Unspecified cirrhosis of liver; E03.9 Hypothyroidism, unspecified; J45.909 Unspecified asthma, uncomplicated; E78.5 Hyperlipidemia, unspecified; I12.9 Hypertensive chronic kidney disease with stage 1 through stage 4 chronic kidney disease, or unspecified chronic kidney disease; M10.9 Gout, unspecified; E87.6 Hypokalemia; K20.90 Esophagitis, unspecified without bleeding; Z66 Do not resuscitate; Z79.01 Long term (current) use of anticoagulants; Z79.82 Long term (current) use of aspirin; Z79.84 Long term (current) use of oral hypoglycemic drugs; Z79.899 Other long term (current) drug therapy
CPT/HCPCS: 36415; 71045; 71046; 76705; 80048; 80076; 81001; 82274; 82962; 83036; 83605; 83735; 84100; 84443; 84484; 85018; 85025; 85610; 85730; 86850; 86900; 86901; 86920; 87040; 87077; 87086; 87088; 87186; 88305; 88312; 93005; 93306; 94640; 94668; 97166; 97535; 99285; J7040; J7050; J7120; P9016; A4216; J0696; J2405; J3490

== ENCOUNTER → 2023-11-02 | Outpatient (CLI) | payer MEDICARE, MEDICAID, SELFPAY ==
--- NOTE | 2023-11-02 10:08 | MRI_ITS ---
MRI Abdomen w/ and w/out contrast 11/02/2023 10:59 AM COMPARISON: None CLINICAL HISTORY: cirrhosis, HCC Screening -- Triple phase r/o mass, ascites. TECHNIQUE: Multiplanar T1 and T2 weighted, diffusion and dynamic post-gadolinium images were obtained through the abdomen before and after administration of 13 cc of IV Clariscan. FINDINGS: Liver: Nodular contour compatible with cirrhosis. No T2 hyperintense, arterially hyperenhancing or delayed washout lesions. Gallbladder: Few intraluminal T2 dark stones. Pancreas: 1.8 x 1.7 cm T2 hyperintense complex multilocular cystic lesion in the head of the pancreas. No demonstratable enhancement. No main pancreatic duct dilatation. Spleen: Unremarkable Adrenal Glands: Unremarkable Kidneys: Unremarkable GI Tract: Unremarkable Lymphadenopathy: Absent Ascites: Absent Bones: No suspicious lesions MRI/MRI Abd WITH and W/O Contrast IMPRESSION: Cirrhotic liver with no suspicious arterially hyperenhancing or delayed washout lesions to suggest HCC. Recommend continued follow-up multiphase MR abdomen in 4-6 months. 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 Per ACR guidelines, recommend follow-up MRCP w/ and w/out contrast in two years. Cholelithiasis. Electronically Signed: Benjamín Reid MD at 16:14 EST ,
[2023-11-02 13:49] LABS: CREATININE FINGERSTICK 1.3 mg/dL (0.55-1.02)
== END | disposition home or self-care (01) ==
LOC: MRI 10:04
PROVIDERS: PCP Family Medicine; Referring Provider Internal Medicine; Visit Provider Internal Medicine
DX: K74.60 Unspecified cirrhosis of liver (principal)
CPT/HCPCS: 74183; A9575; A4216

== ENCOUNTER → 2023-12-28 | Outpatient (CLI) | payer MEDICARE, MEDICAID, SELFPAY ==
--- NOTE | 2023-12-28 09:30 | US_ITS ---
STUDY: ABDOMINAL ULTRASOUND - RIGHT UPPER QUADRANT; ELASTOGRAPHY REASON FOR VISIT: Female, 88 years old. Cirrhosis. TECHNIQUE: Ultrasound evaluation of the right upper quadrant was performed with real-time and static michelle-scale imaging. Point quantification shear wave elastography was performed (Wannyi). TECHNICAL QUALITY: Adequate. COMPARISON: Comparison is made with prior study dated February 02, 2023. FINDINGS: Liver: The liver measures 13.4 cm. There is increased echogenicity consistent with fatty infiltration. The bile ducts are within normal limits. There is hepatic color flow. The direction of portal flow is hepatopetal. There is no demonstrated mass lesion. Median liver stiffness measured 12.3 kPa. Gallbladder: Normal distended gallbladder. The gallbladder wall measures 1.9 mm. There is a negative sonographic Lima''s sign. There is no pericholecystic fluid. There are no gallstones. Common Bile Duct (C.B.D.): The common bile duct measures 3.9 mm. Pancreas: There is normal echogenicity of the visualized pancreas. There is a 1.5 cm x 1.4 cm x 1.2 cm cystic nodule in the head of the pancreas. This corresponds to the recent MRI examination findings. Right Kidney: Normal size of the right kidney. The right kidney measures 10.7 cm x 4.2 cm x 4.7 cm. Normal renal cortex. The right cortex measures 1.1 cm. There is no demonstrated renal mass or cyst. There is no right hydronephrosis. US/ABD Limited w/ Elastography IMPRESSION: 1. Liver stiffness measures 12.3 kPa compatible with F3-F4 (Moderate to severe liver fibrosis) Metavir score. 2. 1.5 cm x 1.4 cm x 1.2 cm cystic structure in the head of the pancreas. Electronically Signed: Apolinar Green MD at 15:07 EDT ,
== END | disposition home or self-care (01) ==
LOC: US 09:29
PROVIDERS: PCP Family Medicine; Referring Provider Internal Medicine; Visit Provider Internal Medicine
DX: K27.9 Peptic ulcer, site unspecified, unspecified as acute or chronic, without hemorrhage or perforation (principal); K74.60 Unspecified cirrhosis of liver; D64.9 Anemia, unspecified
CPT/HCPCS: 76705; 76981

== ENCOUNTER 2024-03-12 17:33 | Inpatient (IN) | payer MEDICARE, MEDICAID, SELFPAY ==
[2024-03-12] VITALS (9 sets, daily range): BP systolic 104–132; BP diastolic 40–89; PULSE 88–113; RESP 17–20; TEMP 36.7–38.4; O2SAT 85–96; BMI 28.1; BMI 25.8
--- NOTE | 2024-03-12 17:40 | EKG12_ITS ---
Test Reason : FEVER Blood Pressure : / mmHG Vent. Rate : 089 BPM Atrial Rate : 089 BPM P-R Int : 212 ms QRS Dur : 132 ms QT Int : 422 ms P-R-T Axes : 000 -28 102 degrees QTc Int : 513 ms Sinus rhythm with 1st degree A-V block Left bundle branch block Abnormal ECG Confirmed by PRINCE LAI, MEGAAN ([id number]), communications editor CHRISTOPHER LANG ([id number]) on 03/14/2024 6:53:45 AM Referred By: Confirmed By:MEAGAN MORRISON MD
--- NOTE | 2024-03-12 17:44 | EDS_ITS ---
HPI History of Present Illness Chief Complaint: Fever Detail of Chief Complaint: Fever 101.7, cough, dyspnea, generalized weakness Informant: patient and EMS Onset/Context/Timing Onset: Days (Onset 2 days ago March 10) Context: Sudden Onset Timing: Continuous Quality: Respiratory symptoms Location: Respiratory Current Severity: Mild Maximum Severity: Moderate Worsened by: Activity Relieved by: Improved after oxygen applied by EMS Associated Symptoms Associated Symptoms: Generalized weakness. Dyspnea on exertion Narrative Narrative: Patient is an 88-year-old woman with history of essential hypertension, hyperlipidemia, coronary disease, peptic ulcer disease and cirrhosis. She is on an anticoagulant for irregular heartbeat. She states her illness started 2 days ago. She states she has a horrific cough. Cough is essentially nonproductive. Paramedics state her temperature was 101.7. Patient feels much warmer than the documented temperature of 99.4. Her pulse ox was in the mid 80s. She is present on 4 L. She denies headache, visual, ocular auditory symptoms. Denies rhinorrhea or congestion. Denies myalgias or arthralgias. She denies chest pain. She denies leg pain or discoloration from baseline. She also has baseline swelling. She denies abdominal pain, nausea, vomit or diarrhea. She denies dysuria, frequency, urgency or hematuria. Prior similar symptoms: No Recent Illness/Hospitalization: No PFSH [facility] Medical History Iron deficiency anemia History of GI bleed Non-alcoholic cirrhosis Tobacco use PUD (peptic ulcer disease) PAF (paroxysmal atrial fibrillation) CKD (chronic kidney disease), stage IV Hiatal hernia Chronic anticoagulation Ventral hernia Tremor Macrocytic anemia Gout Asthma Hypothyroidism Obesity Type 2 diabetes mellitus Chronic atrial flutter Essential (primary) hypertension Hyperlipidemia Home Medications ?Medication ?Instructions ?Recorded ?Last Taken ?Type allopurinol 100 mg tablet 300 mg PO DAILY 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 01/30/16 01/09/23 History fluticasone 250 mcg-salmeterol 50 1 puff inhalation BID sob 01/30/16 01/08/23 History mcg/dose blistr powdr for inhalation montelukast 10 mg tablet 10 mg PO DAILY breathing 01/30/16 01/08/23 History nifedipine 60 mg tablet,extended 60 mg PO DAILY blood pressure 01/30/16 01/09/23 History release 24 hr albuterol sulfate 90 mcg/actuation 2 puff inhalation Q4H PRN 04/19/19 Unknown History aerosol inhaler sob/wheezing #18 grams gabapentin 300 mg capsule 300 mg PO TID neuropathy 04/19/19 01/09/23 History levothyroxine 137 mcg tablet 137 mcg PO DAILY thyroid #30 tabs 04/19/19 01/09/23 History rivaroxaban 20 mg tablet 20 mg PO QPM blood thinner #30 tabs 04/19/19 01/08/23 History calcium carbonate 600 mg-vitamin 1 tab PO DAILY supplement 08/23/21 Unknown History D3 20 mcg (800 unit) tablet glipizide 2.5 mg tablet, extended 7.5 mg PO DAILY diabetes 08/23/21 01/08/23 Hi story release 24 hr multivitamin 1 tab PO DAILY supplement 08/23/21 01/09/23 History cyanocobalamin (vitamin B-12) 1 tablet PO/SL DAILY supplement 03/06/22 01/09/23 History furosemide 40 mg tablet 60 mg PO DAILY EDEMA 01/09/23 01/08/23 History simvastatin 40 mg tablet 40 mg PO QHS CHOLESTEROL 01/09/23 01/08/23 History clotrimazole 1 % topical cream 1 applic topical BID 02/02/23 Unknown History empagliflozin 10 mg tablet 10 mg PO DAILY 02/02/23 Unknown History (Jardiance) losartan 25 mg tablet 12.5 mg PO DAILY blood pressure 02/02/23 Unknown History sitagliptin phosphate 25 mg tablet 25 mg PO DAILY Check with primary 02/02/23 Unknown History doctor ferrous sulfate 300 mg (60 mg 300 mg (5 mL) PO DAILYCM #30 mL 02/04/23 Unknown Rx iron)/5 mL oral liquid fosfomycin tromethamine 3 gram 1 packet PO QODAY 3 doses #1 ea 02/04/23 Unknown Rx oral packet ascorbic acid (vitamin C) 500 mg 500 mg PO BID #60 tabs 09/25/23 Unknown Rx tablet pantoprazole 40 mg tablet,delayed 40 mg PO DAILY gerd #30 tabs 09/25/23 Unknown Rx release spironolactone 25 mg tablet 12.5 mg (1/2 x 25 mg) PO DAILY #30 09/25/23 Unknown Rx tabs docusate sodium 100 mg capsule 100 mg PO DAILY PRN constipation 12/11/23 Unknown History Allergy/AdvReac Type Severity Reaction Status Date / Time propranolol AdvReac nausea Verified 03/12/24 17:38 Family History (Updated 03/12/24 @ 19:[address] Maddy Finn MD) Mother Heart failure Heart disease Hypertension Father Heart failure Heart disease Hypertension Surgical History Bilateral artificial lens implant (~2020) History of tonsillectomy and adenoidectomy Social History household members: family Smoking Status: Current every day smoker tobacco type: cigarettes alcohol intake: never substance use type: does not use caffeine: No ROS ROS ED Constitutional Constitutional ED: Reports fever(s); Denies chills, sweats or weight loss Eyes Eyes: Denies blurry vision or change in vision ENT ENT ED: Denies ear pain, rhinorrhea or sore throat Cardiovascular Cardiovascular: Denies chest pain, orthopnea, palpitations or paroxysmal nocturnal dyspnea Respiratory/Chest Respiratory/Chest: Reports cough, dyspnea and dyspnea on exertion; Denies orthopnea, paroxysmal nocturnal dyspnea or sputum Gastrointestinal Gastrointestinal: Denies abdominal pain, diarrhea, nausea or vomiting Genitourinary Genitourinary ED: Denies dysuria, hematuria or urinary frequency Musculoskeletal Musculoskeletal: Denies arthralgias, back pain or myalgias Integumentary Denies rash Neurologic Neurologic: Reports weakness; Denies headache(s) or paresthesias Endocrine Endocrinology: Denies cold intolerance or heat intolerance Hematologic/Lymphatic Hematologic/Lymphatic: Reports systems reviewed and no addt'l complaints, except as documented Allergic/Immunologic Allergic/Immunologic ED: Denies mouth swelling or tongue swelling EXAM Physical Exam Const Vital Signs: 03/12/24 17:34 03/12/24 17:58 03/12/24 17:58 Temperature 99.4 F H Temperature Source Oral Pulse Rate 92 93 Respiratory Rate 20 H 20 H Respiratory Pattern Tachypnea Blood Pressure 113/89 H Blood Pressure Mean 97 Pulse Ox 85 92 Oxygen Delivery Method Room Air Nasal Cannula Oxygen Flow Rate (L/min) 2 03/12/24 18:06 03/12/24 18:47 03/12/24 19:03 Temperature 98.1 F 98.9 F Temperature Source Temporal Temporal Pulse Rate 113 H 102 H Respiratory Rate 17 20 H Respiratory Pattern Normal Blood Pressure 108/47 L 118/44 L Blood Pressure Mean 67 68 Pulse Ox 96 95 Oxygen Delivery Method Nasal Cannula Nasal Cannula Oxygen Flow Rate (L/min) 2 2 Positive well nourished, well developed and unkempt General Appearance ED: unkempt and well developed; Negative for cyanotic, diaphoretic, NAD or pallor HEENT Reports dry mucous membranes HEENT Narrative: Head is atraumatic normocephalic. Ears normal. TMs normal. Nares patent. There is no drainage. Posterior pharynx out erythema exit. Uvula midline. No deviation of protrusion. Mouth ED: Yes dry mucous membranes Mouth: dry mucous membranes Eyes PERRL and EOMs intact bilaterally General Eye ED: Negative for pale conjunctiva or scleral icterus Neck no lymphadenopathy, supple and no JVD Chest Wall inspection of chest normal and palpation of chest normal Resp No normal respiratory effort and No clear to auscultation bilaterally Auscultation: rales right lower and rhonchi throughout Cardio regular rate, regular rhythm, S1 normal heart sound, S2 normal heart sound and no murmurs GI normal to inspection, nondistended, normoactive bowel sounds, non-tender, non- distended and no masses; Negative for hepatosplenomegaly Back/Spine no CVA tenderness Extremity General Extremety ED: Yes edema General Extremity: edema Neuro oriented x3 and CN's II-XII intact bilaterally Sensorium / Orientation: alert Psych mental status grossly normal Appearance: unkempt Skin no rashes or lesions noted, no wounds and No skin turgor normal General Skin Exam: Negative for jaundice or pallor MDM MDM MDM Narrative Medical decision making narrative: Sepsis workup was undertaken. Concern patient may have pneumonia. Chest x-ray was obtained as well as CBC, his metabolic panel and lactate to assess white count and evaluate her anemia which is chronic. Also to assess for any endorgan dysfunction. VBG was obtained to assess acid-base status. Because she has expiratory rhonchi throughout and has a significant history of smoking she was treated with albuterol. Patient received 1 L of normal saline prior to arrival. History & Record Review Additional record(s) reviewed:: Prior inpatient record (Patient was admitted in January for low blood pressure, acute kidney injury, non-ST elevation AL, acute on chronic anemia and hyponatremia. She also had a lactic acidosis at that time.), Prior ED visit (Admitted January For multiple significant problems.) and Prior labs Lab Data Attestation: I reviewed the patient's lab results. Lab results narrative: White count is elevated 14.4 thousand with shift. Hemoglobin is 9.1. Last hemoglobin was obtained February 04, 2023 and was 7.4. This may represent hemoconcentration and dehydration. Coags are elevated due to the fact that she is on anticoagulant. Blood sugar is elevated at 591. Lactate is elevated 3.7. CO2 and anion gap is normal. Urinalysis reveals severe gravity of 1.01, positive glucose, positive occult blood. Microscopic reveals 0 RBCs, 0-5 WBCs and 2+ bacteria. Culture was sent. Rocephin will cover any urologic pathogens. Labs: Laboratory Results - last 24 hr 03/12/24 03/12/24 16:36 18:25 WBC 14.4 H RBC 2.62 L Hgb 9.1 L Hct 28.5 L MCV 108.8 H MCH 34.7 H MCHC 31.9 L RDW Std Deviation 62.6 H RDW Coeff of Gloria 16.1 H Plt Count 234 MPV 10.5 Immature Gran % (Auto) 0.300 Neut % (Auto) 84.5 H Lymph % (Auto) 7.5 L [place] % (Auto) 7.6 Eos % (Auto) 0.0 Baso % (Auto) 0.1 Absolute Neuts (auto) 12.2 H Absolute Lymphs (auto) 1.08 Nucleated RBC % 0 PT 34.5 H INR 3.5 APTT 65.0 H Sodium 130 L Potassium 4.3 Chloride 93 L Carbon Dioxide 25.0 Anion Gap 12 BUN 46 H Creatinine 3.17 H Estim Creat Clear Calc 12.35 Est GFR (MDRD) Af Amer 18 L Est GFR (MDRD) Non-Af 15 L BUN/Creatinine Ratio 14.5 Glucose 591 H* Lactic Acid 3.7 H* Calcium 9.3 Total Bilirubin 0.90 AST 14 L ALT 14 Alkaline Phosphatase 91 Total Protein 7.2 Albumin 2.8 L Globulin 4.4 H Albumin/Globulin Ratio 0.6 L Urine Color Yellow Urine Clarity Clear Urine pH 5.0 Ur Specific [place] 1.010 Urine Protein Negative Urine Glucose (UA) 1000 H Urine Ketones Negative Urine Occult Blood 10 H Urine Nitrite Negative Urine Bilirubin Negative Urine Urobilinogen Normal Ur Leukocyte Esterase 500 H Urine RBC 0 SEEN Urine WBC 0-5 SEEN Ur Squamous Epith Cells 0-5 SEEN Urine Bacteria 2+ Urine Mucus 0 SEEN ABG Data Attestation: I personally reviewed and interpreted this ABG as follows: Interpretation: VBG reveals no acid-base disturbance. ABG results: ABG 03/12/24 17:56 Specimen Type MAY Sample Site Not entered O2 % 2.0 VBG pH 7.47 H VBG pO2 25 VBG HCO3 25 VBG Total CO2 26 VBG O2 Sat (Calc) 50 VBG Base Excess 2 POC Mix VBG pCO2 Pt Tmp 34.8 L O2 Delivery Device Cannula Radiography Chest X-Ray - ED: 1 View and Read by ED Physician (Independently reviewed interpreted by me at 1819. Patient has a right lower lobe infiltrate. Prior x- ray obtained February 03 revealed a left upper lobe infiltrate. Cardiac silhouette and size unchanged. Hilum is unremarkable. Respiratory volume is somewhat limited but was on comparison film as we) Diagnostic Testing: Clinical Impression(s) from Imaging Studies Chest X-Ray 03/12/24 18:12 IMPRESSION: Findings concerning for right lower lobe pneumonia. Radiographic follow-up recommended after treatment to ensure resolution Electronically Signed: Benito Hyde MD at 19:29 EDT , EKG Initial EKG: Attestation: I personally reviewed and interpreted this EKG as follows: Interpretation: Sinus Rhythm (Rate is 89 with a first-degree AV block. NE interval is 212 ms. Cures duration 132 ms and has configuration of the left bundle branch block. QT duration is 422 ms.) Management Discussion w/another healthcare provider: Hospitalist Critical Care Time Critical Care Time: Yes Critical care time (excluding procedures): 30-74 minutes (31), Including time spent: (History, physical, documentation, independent rotation laboratory results and imaging and starting of treatment for sepsis. Discussion with family), Discussing w/Patient &/or Family/Sales Teacher, Discussing w/Consultants and Arranging Admission or Transfer Discharge Plan Dx/Rx/DC Orders Clinical Impression: Acute hypoxemic respiratory failure, Right lower lobe pneumonia, Chronic anticoagulation, Essential (primary) hypertension, Acidosis, lactic, Cirrhosis, Chronic anemia, Bacteriuria Disposition Disposition: Acute Care Hospital [facility]
[2024-03-12] MEDS: Albuterol 2.5 MG/3 ML VIAL.NEB. INHALATION ×4 (17:50→22:50)
[2024-03-12 18:00] LABS: Blood Gas Specimen Type VEN; O2 Delivery Device Cannula; SITE Not entered; VBG BASE EXCESS 2 mmol/L (-1.0-3.5); VBG Bicarbonate 25 mmol/L (22-26); VBG PO2 25 mmHg (25-40); VBG SO2 50 % (50-70); VBG TCO2 26 mmol/L (23-33); VBG pCO2 34.8 mmHg (41-51); VBG pH 7.47 (7.32-7.42)
--- NOTE | 2024-03-12 18:12 | RAD_ITS ---
INDICATION: Hypoxia, fever, cough, rales RLL EXAMINATION/TECHNIQUE: X-RAY - XR Chest 1 View COMPARISON: February 03, 2023. FINDINGS: LINES/DEVICES: None. LUNGS: Patchy right basilar airspace opacity. More linear likely atelectasis or scarring along the left lung base. No florid edema or effusion. No pneumothorax. MEDIASTINUM AND CARDIOVASCULAR STRUCTURES: Cardiac silhouette not enlarged. Aortic atherosclerosis. BONES AND SOFT TISSUES: Unremarkable. RAD/Chest 1 View (Portable) IMPRESSION: Findings concerning for right lower lobe pneumonia. Radiographic follow-up recommended after treatment to ensure resolution Electronically Signed: Benito Hyde MD at 19:29 EDT ,
[2024-03-12] MEDS: Ceftriaxone 2 GM in 0.9% Normal Saline (50mL MB+) 50 ML IV (18:48)
[2024-03-12] MEDS: 0.9% Normal Saline (1000mL) 1,000 ML 150 ML IV (18:48)
[2024-03-12 19:02] LABS: Absolute Lymphocyte Count 1.08 X10^3/uL (0.83-4.51); Absolute Neutrophil Count 12.2 X10^3/uL (2.0-7.7); Basophil# 0.02 X10^3/uL; Basophil% 0.1 % (0-1); Hematocrit 28.5 % (37-47); Hemoglobin 9.1 g/dL (12.0-15.0); Lymphocyte # 1.08 X10^3/ul (0.83-4.51); Lymphocyte % 7.5 % (19-41); Mean Corp Hgb Conc 31.9 g/dL (32-36); Mean Corpuscular Hgb 34.7 pg (27.0-32.0); Mean Corpuscular Volume 108.8 fL (81-99); Mean Platelet Vol. 10.5 fl (6.2-12.0); Monocyte# 1.09 X10^3/uL; Monocyte% 7.6 % (0-10); NRBC Flagged by Analyzer 0 % (0-5); Neutrophil # 12.17 X10^3/uL (2.7-7.7); Neutrophil % 84.5 % (47-70); Platelet Count 234 K/mm3 (150-450); RBC Distribution Width CV 16.1 % (11.6-14.6); RBC Distribution Width SD 62.6 fl (35.1-43.9); Red Blood Count 2.62 M/mm3 (4.2-5.4); White Blood Count 14.4 K/mm3 (4.4-11.0)
[2024-03-12 19:04] LABS: Mucous, Urine 0 SEEN /hpf (<or=2+); Red Blood Cells-Urine 0 SEEN /hpf (0-5)
[2024-03-12 19:10] LABS: International Normalized Ratio 3.5; Prothrombin Time (Protime)PT. 34.5 SECONDS (11.7-14.9)
[2024-03-12 19:25] LABS: Color, Urine Yellow (Yellow); Glucose, Dipstick 1000 mg/dl (Normal); Ketone-Dipstick Negative (Negative); Leukocyte Esterase-Dipstick 500 /ul (Negative); Nitrite-Dipstick Negative (Negative); Occult Blood-Urine 10 /ul (Negative); Protein-Dipstick Negative (Negative); Urine Bilirubin Dipstick Negative (Negative); Urine Clarity Clear (Clear); Urine Urobilinogen Normal (Normal)
[2024-03-12 19:28] LABS: ALB/GLOB Ratio 0.6 RATIO (0.9-2.4); AST(SGOT) 14 U/L (15-37); Alanine Aminotransfer ALT/SGPT 14 U/L (13-56); Albumin, Serum 2.8 g/dL (3.2-5.0); Alkaline Phosphatase 91 U/L (45-117); Anion Gap 12 (5-15); BUN 46 mg/dL (7-18); BUN/Creat Ratio 14.5 RATIO (10-20); Calcium,Total 9.3 mg/dL (8.5-10.1); Chloride 93 mmol/L (98-107); Creatinine, Serum 3.17 mg/dL (0.55-1.02); EST Glomerular Filtration Rate 15 mL/min (>60); Est Glom Filt Rate - Afr Amer 18 mL/min (>60); Estimated Creatinine Clearance 12.35 ml/min; Globulin 4.4 g/dL (2.2-4.2); Glucose 591 mg/dL (74-106); Lactic Acid 3.7 mmol/L (0.4-1.9); Potassium 4.3 mmol/L (3.5-5.1); Protein, Total 7.2 g/dL (6.4-8.2); Sodium Level 130 mmol/L (136-145)
[2024-03-12 19:49] LABS: Bacteria 2+ /hpf (None Seen); Squamous Epithelial Cells - UA 0-5 SEEN /hpf (5-10); White Blood Cells 0-5 SEEN /hpf (0-5)
--- NOTE | 2024-03-12 19:53 | HP.PCM.HOS_ITS ---
HPI - General General Date of Admission: 03/12/24 Date of Service: 03/12/24 Chief Complaint: Dyspnea, cough, fever, hypoxia. HPI Narrative The patient is an 88 y/o F w/ PMHx: Tobacco use, GERD w/ PUD, Cirrhosis unclear type, CKD stage IV, Nonalcoholic cirrhosis, Asthma/Possible Underlying COPD, Hypothyroidism, HTN, HLD, Chronic anemia, PAF/Flutter, Diabetes mellitus type II, Chronic essential tremor, Gout who presents to the [facility] ED on 03/12/24 with history of onset of dyspnea, worse with exertion with increasing fatigue malaise and generalized weakness with cough, congestion as well as fever up to 1017 at home prompting EMS call noted to be in the mid 80s placed on 4 L nasal cannula and transition to the ED for evaluation. Workup in the ED included T99.4, heart rate 92, BP 113/89, respiratory rate 20, initially 85% on room air with most recent repeat vital signs T98.9, heart rate 102, BP 118/44, respiratory rate 20, 95% on 2 L nasal cannula, CBC with WBC 14.4, 9.1, MCV 108.8, platelet 234 with left shift, coags with PT 34.5, PTT 65 otherwise not marked appearing, VBG with pH 7.47 otherwise not marked appearing, CMP with sodium 130, chloride 93, BUN/current 46/3.17, GFR 15, lactic acid 3.7, glucose 591, hepatic profile not marked appearing, urinalysis with glucose of thousand, occult blood 10, leukocyte esterase 500, negative nitrite,, chest x-ray concerning infiltrate right lower lobe, blood culture x 2 pending per ED, urine culture pending per ED, rapid SARS COVID/influenza/RSV PCR negative, EKG with sinus rhythm with left bundle branch block with no acute evidence of ischemia. In the ED patient ministered maintenance IV fluids as well as Rocephin 2 g IV x 1 and azithromycin 500 mg IV x 1 in addition to insulin 8 units subcu x 1. 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 01/30/16 01/09/23 History fluticasone 250 mcg-salmeterol 50 1 puff inhalation BID sob 01/30/16 01/08/23 History mcg/dose blistr powdr for inhalation montelukast 10 mg tablet 10 mg PO DAILY breathing 01/30/16 01/08/23 History nifedipine 60 mg tablet,extended 60 mg PO DAILY blood pressure 01/30/16 01/09/23 History release 24 hr albuterol sulfate 90 mcg/actuation 2 puff inhalation Q4H PRN 04/19/19 Unknown History aerosol inhaler sob/wheezing #18 grams gabapentin 300 mg capsule 300 mg PO TID neuropathy 04/19/19 01/09/23 History levothyroxine 137 mcg tablet 137 mcg PO DAILY thyroid #30 tabs 04/19/19 01/09/23 History rivaroxaban 20 mg tablet 20 mg PO QPM blood thinner #30 tabs 04/19/19 01/08/23 History calcium carbonate 600 mg-vitamin 1 tab PO DAILY supplement 08/23/21 Unknown History D3 20 mcg (800 unit) tablet glipizide 2.5 mg tablet, extended 7.5 mg PO DAILY diabetes 08/23/21 01/08/23 History release 24 hr multivitamin 1 tab PO DAILY supplement 08/23/21 01/09/23 History cyanocobalamin (vitamin B-12) 1 tablet PO/SL DAILY supplement 03/06/22 01/09/23 History furosemide 40 mg tablet 60 mg PO DAILY EDEMA 01/09/23 01/08/23 History simvastatin 40 mg tablet 40 mg PO QHS CHOLESTEROL 01/09/23 01/08/23 History clotrimazole 1 % topical cream 1 applic topical BID 02/02/23 Unknown History empagliflozin 10 mg tablet 10 mg PO DAILY 02/02/23 Unknown History (Jardiance) losartan 25 mg tablet 12.5 mg PO DAILY blood pressure 02/02/23 Unknown History sitagliptin phosphate 25 mg tablet 25 mg PO DAILY Check with primary 02/02/23 Unknown History doctor ferrous sulfate 300 mg (60 mg 300 mg (5 mL) PO DAILYCM #30 mL 02/04/23 Unknown Rx iron)/5 mL oral liquid fosfomycin tromethamine 3 gram 1 packet PO QODAY 3 doses #1 ea 02/04/23 Unknown Rx oral packet ascorbic acid (vitamin C) 500 mg 500 mg PO BID #60 tabs 09/25/23 Unknown Rx tablet pantoprazole 40 mg tablet,delayed 40 mg PO DAILY gerd #30 tabs 09/25/23 Unknown Rx release spironolactone 25 mg tablet 12.5 mg (1/2 x 25 mg) PO DAILY #30 09/25/23 Unknown Rx tabs docusate sodium 100 mg capsule 100 mg PO DAILY PRN constipation 12/11/23 Unknown History Allergy/AdvReac Type Severity Reaction Status Date / Time propranolol AdvReac nausea Verified 03/12/24 17:38 Family History (Updated 03/12/24 @ 19:[address] Maddy Finn MD) Mother Heart failure Heart disease Hypertension Father Heart failure Heart disease Hypertension Surgical History Bilateral artificial lens implant (~2019) History of tonsillectomy and adenoidectomy Social History household members: family Smoking Status: Current every day smoker tobacco type: cigarettes alcohol intake: never substance use type: does not use caffeine: No ROS ROS Narrative Admission Review of Systems: CONSTITUTIONAL: No weight loss, + fever, chills, weakness or fatigue. HEENT: Eyes: No visual loss, blurred vision, double vision or yellow sclerae. Ears, Nose, Throat: No hearing loss, sneezing, congestion, runny nose or sore throat. SKIN: No rash or itching, lesions, wounds. CARDIOVASCULAR: No chest pain, chest pressure or chest discomfort, palpitations, edema, orthopnea, syncopal events. RESPIRATORY: + Dyspnea, cough without marked sputum, no marked wheezing. No hemoptysis. GASTROINTESTINAL: No anorexia, nausea, vomiting or diarrhea, abdominal pain, melena, BRBPR. GENITOURINARY: No dysuria, frequency, urgency or retention. NEUROLOGICAL: No headache, dizziness, syncope, paralysis, ataxia, numbness or tingling in the extremities, focal weakness, change in bowel or bladder control, seizure. MUSCULOSKELETAL: + muscle, back pain, joint pain or stiffness. HEMATOLOGIC: + Chronic anemia, easy bleeding/bruising. LYMPHATICS: No enlarged nodes. No history of splenectomy. PSYCHIATRIC: No history of depression or anxiety. ENDOCRINOLOGIC: No reports of sweating, cold or heat intolerance. No polyuria or polydipsia. ALLERGIES: + History of asthma, allergic rhinitis. Vital Signs Vital Signs Vital Signs: 03/12/24 17:34 03/12/24 17:58 03/12/24 17:58 Temperature 99.4 F H Temperature Source Oral Pulse Rate 92 93 Respiratory Rate 20 H 20 H Respiratory Pattern Tachypnea Blood Pressure 113/89 H Blood Pressure Mean 97 Pulse Ox 85 92 Oxygen Delivery Method Room Air Nasal Cannula Oxygen Flow Rate (L/min) 2 03/12/24 18:06 03/12/24 18:47 03/12/24 19:03 Temperature 98.1 F 98.9 F Temperature Source Temporal Temporal Pulse Rate 113 H 102 H Respiratory Rate 17 20 H Respiratory Pattern Normal Blood Pressure 108/47 L 118/44 L Blood Pressure Mean 67 68 Pulse Ox 96 95 Oxygen Delivery Method Nasal Cannula Nasal Cannula Oxygen Flow Rate (L/min) 2 2 Weight Weight: 164 lb 0.383 oz Body Mass Index (BMI) 28.1 Physical Exam Narrative Physical Examination: General: Awake, alert, oriented x 3 and cooperative, laying in the ED bed, hard of hearing with hearing aids, chills evident, fatigued and ill-appearing. Skin: Normal color, normal turgor, no icterus, no cyanosis except for occasional staged ecchymoses, abrasion. HEENT: AT/NC, EOMI, PERRLA, dry MM, no carotid bruits or JVD noted. Lungs: Significantly diminished, greater bases, right greater than left, mildly rhonchorous, mildly increased respiratory rate but no distress, no rales or wheezing. Heart: Irregular; no gallop, rub audible. Abdomen: Soft, overweight, NTTP, ND, mildly hyperactive BS, no appreciated HSM. Extremities: No cyanosis, no clubbing, bilateral lower extremity ankle edema but nonpitting and chronic stable. Neurological: Patient awake, alert, oriented as noted, cognitive function intact; pupils equally reactive to light and accommodation, cranial nerves grossly normal, moving all 4 extremities, no focal deficits, strength severely globally decreased secondary to acute presentation complicated by underlying comorbidities. Psychiatric: Affect appears fatigued, ill-appearing, no acute evidence of depressive or anxiety feelings however does have underlying history. Results Lab / Micro Data 03/12/24 16:36 03/12/24 16:36 Labs: Laboratory Results - last 24 hr 03/12/24 16:36: WBC 14.4 H, RBC 2.62 L, Hgb 9.1 L, Hct 28.5 L, MCV 108.8 H, MCH 34.7 H, MCHC 31.9 L, RDW Std Deviation 62.6 H, RDW Coeff of Gloria 16.1 H, Plt Count 234, MPV 10.5, Immature Gran % (Auto) 0.300, Neut % (Auto) 84.5 H, Lymph % (Auto) 7.5 L, [place] % (Auto) 7.6, Eos % (Auto) 0.0, Baso % (Auto) 0.1, Absolute Neuts (auto) 12.2 H, Absolute Lymphs (auto) 1.08, Nucleated RBC % 0, PT 34.5 H, INR 3.5, APTT 65.0 H, Sodium 130 L, Potassium 4.3, Chloride 93 L, Carbon Dioxide 25.0, Anion Gap 12, BUN 46 H, Creatinine 3.17 H, Estim Creat Clear Calc 12.35, E st GFR (MDRD) Af Amer 18 L, Est GFR (MDRD) Non-Af 15 L, BUN/Creatinine Ratio 14.5, Glucose 591 H*, Lactic Acid 3.7 H*, Calcium 9.3, Total Bilirubin 0.90, AST 14 L, ALT 14, Alkaline Phosphatase 91, Total Protein 7.2, Albumin 2.8 L, G lobulin 4.4 H, Albumin/Globulin Ratio 0.6 L 03/12/24 18:25: Urine Color Yellow, Urine Clarity Clear, Urine pH 5.0, Ur Specific [place] 1.010, Urine Protein Negative, Urine Glucose (UA) 1000 H, Urine Ketones Negative, Urine Occult Blood 10 H, Urine Nitrite Negative, Urine Bilirubin Negative, Urine Urobilinogen Normal, Ur Leukocyte Esterase 500 H, Urine RBC 0 SEEN, Urine WBC 0-5 SEEN, Ur Squamous Epith Cells 0-5 SEEN, Urine Bacteria 2+, Urine Mucus 0 SEEN Micro: Microbiology 03/12/24 18:00 Mucosa - Nose SARS-CoV-2, Influenza & RSV (PCR) - Final ABG Data ABG results: ABG 03/12/24 17:56 Specimen Type MAY Sample Site Not entered O2 % 2.0 VBG pH 7.47 H VBG pO2 25 VBG HCO3 25 VBG Total CO2 26 VBG O2 Sat (Calc) 50 VBG Base Excess 2 POC Mix VBG pCO2 Pt Tmp 34.8 L O2 Delivery Device Cannula Imaging Radiology Impression Chest X-Ray 03/12/24 18:12 IMPRESSION: Findings concerning for right lower lobe pneumonia. Radiographic follow-up recommended after treatment to ensure resolution Electronically Signed: Benito Hyde MD at 19:29 EDT , Assessment & Plan Assessment/Plan (1) Hypoxia: (2) Right lower lobe pneumonia: PLAN: Plan The patient is an 88 y/o F w/ PMHx: Tobacco use, GERD w/ PUD, Cirrhosis unclear type, CKD stage IV, Nonalcoholic cirrhosis, Asthma/Possible Underlying COPD, Hypothyroidism, HTN, HLD, Chronic anemia, PAF/Flutter, Diabetes mellitus type II, Chronic essential tremor, Gout who presents to the [facility] ED on 03/12/24 with history of onset of dyspnea, worse with exertion with increasing fatigue malaise and generalized weakness with cough, congestion as well as fever up to 1017 at home prompting EMS call noted to be in the mid 80s placed on 4 L nasal cannula and transition to the ED for evaluation. #1. Acute Hypoxia (not consistent with acute respiratory failure as noted per ED) secondary to Acute Community Acquired Pneumonia complicated by Underlying Asthma/Possible Underlying COPD and ongoing tobacco use with lactic acidosis potentially infectious related however suspect more likely secondary to hypoxia in addition to Questionable Acute Complicated UTI (UA mildly notable, pending UCx): Will admit to PCU, judiciously hydrate with repeat lactic acid per protocol, maintain on oxygen with wean as tolerated to room air, continue ATC budesonide, PRN albuterol, maintained on IV Rocephin and Azithromycin for both PNA and possible UTI as noted, HOB, IS parameters w/ pending sputum cultures, full respiratory viral panel and urine antigens. Bld cx x 2 obtained in the ED. PT/OT/case management consulted for discharge planning. Bld Cx x 2 pending per ED. #2. Acute Renal Insufficiency on Chronic Kidney Disease Stage IV: Admission BUN/Cr 46/3.17, GFR 15, baseline renal function noted most recently 2.17-2.47, repeat BMP in AM. From [facility] records noted 01/21/2024 CMP with BUN/creatinine 62/2.47, GFR 18 and also noted 12/18/2023 BUN/creatinine 38/2.17, GFR 22. Thus given current creatinine is not 1.5 times the previous baseline would be more consistent with renal insufficiency but certainly is worsening. Patient is following with nephrology, encourage continued outpatient follow-up however will continue closely monitor and will temporally hold patient nephrotoxic medication especially also given mildly low blood pressure, and add back once improved. #3. GERD with history of peptic ulcer disease: Admitted 02/01 for severe anemia with EGD 01/16/2023 with severe diffuse esophagitis/Alba-Smith tear/peptic ulcer with visible vessel and acute bleeding with additionally follow-up EGD with evidence of esophageal Polly cyanosis/esophagitis treated with medication as well as injection and heater probe. Will continue patient on PPI. Previously had also been on Carafate which was discontinued at most recent visit. Plan follow-up repeat EGD in 6 months. #4. 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 #5. 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 Per most recent GI note most recent noted prior hemoglobin A1c 8.9% however given unclear timeline will repeat. Given significantly elevated levels we will add low-dose twice daily long-acting insulin and continue to closely monitor in the interim. Will hold oral home regimen, ADA diet, accu checks w/ ISS, continue patient on gabapentin regimen. #6. PAF/flutter: Not on any rate or rhythm agent per most recent list, will continue patient on Xarelto regimen but renally dose. Most recent echocardiogram 02/02/2023 with EF 60%, mildly enlarged left atrium. #7. Chronic macrocytic anemia/iron deficiency anemia: Likely in large part secondary to underlying liver disease, cirrhosis, admission hemoglobin 9.1, MCV 108.8, baseline hemoglobin primarily 7-8 more recently, prior to current presentation 02/04/2023 hemoglobin 7.4, continue to trend CBC. Per records following with [facility] hematology Dr. Lott for underlying anemia. #8. Hypertension: Given mild acute renal insufficiency and low normal BP will temporally hold patient home spironolactone, losartan, Lasix, nifedipine, PRN hydralazine. Add back once improved. #9. Hyperlipidemia: We will continue patient on statin therapy. #10. Hypothyroidism: Will continue patient on levothyroxine regimen. #11. Allergic rhinitis: We will continue patient home montelukast regimen. #12. Tobacco Abuse: Encouraged cessation, inpatient consultation per RT, NR if desired. #13. Gout: We will continue patient on allopurinol regimen. #14. DVT prophylaxis: We will continue patient home Xarelto regimen but renally dose. #15. CODE status: Patient BRENDA is her daughter Aranza and living will is currently in place. Discussed CODE status at length including difference between FULL code, DNR-CCA and DNR-CC status. Following discussions about the differences in these status, requested DNR-CCA, no intubation, no aggressive interventions including central line. Advanced Care Planning Face to Face Time: 16 minutes. Charges/Coding Visit Charges Inpatient E&M: 94799 Init Hosp L3 Procedures Hospitalists Procedures: 99240 Advncd Care Plan 30 Min
[2024-03-12] MEDS: Azithromycin 500 MG in Dextrose 5%-Water (250mL Bag) 250 ML 250 MG IV (20:43)
[2024-03-12] MEDS: Insulin Lispro 100 UNIT/ML INSULN.PEN 8 UNIT SC (20:46)
[2024-03-12] MEDS: Atorvastatin Calcium 20 MG Tablet PO (21:23)
[2024-03-12] MEDS: Ascorbic Acid 500 MG Tablet PO (21:23)
[2024-03-12] MEDS: Rivaroxaban 15 MG Tablet PO (21:24)
[2024-03-12] MEDS: Acetaminophen 325 MG Tablet 650 MG PO (21:24)
[2024-03-12] MEDS: Gabapentin 300 MG Capsule PO (21:25)
[2024-03-12 21:43] LABS: Bedside Glucose 461 mg/dL (74-106)
[2024-03-12] MEDS: Insulin Lispro 100 UNIT/ML INSULN.PEN SC (22:06)
[2024-03-12] MEDS: Insulin Glargine-YFGN 100 UNIT/ML Pen SC (22:06)
[2024-03-12 22:10] LABS: Reflex Lactate? Y
[2024-03-12] MEDS: 0.9% Normal Saline (1000mL) 1,000 ML 100 ML IV (22:11)
[2024-03-12] MEDS: Budesonide Respules 0.5 MG/2 ML AMPUL.NEB. INHALATION (22:50)
[2024-03-13] VITALS (12 sets, daily range): BP systolic 99–115; BP diastolic 44–56; PULSE 60–88; RESP 14–20; TEMP 36.2–37.1; O2SAT 90–97; BMI 26.2
[2024-03-13 05:44] LABS: Absolute Lymphocyte Count 1.35 X10^3/uL (0.83-4.51); Absolute Neutrophil Count 10.4 X10^3/uL (2.0-7.7); Basophil# 0.01 X10^3/uL; Basophil% 0.1 % (0-1); Hematocrit 26.4 % (37-47); Hemoglobin 8.6 g/dL (12.0-15.0); Lymphocyte # 1.35 X10^3/ul (0.83-4.51); Lymphocyte % 10.7 % (19-41); Mean Corp Hgb Conc 32.6 g/dL (32-36); Mean Corpuscular Hgb 35.4 pg (27.0-32.0); Mean Corpuscular Volume 108.6 fL (81-99); Mean Platelet Vol. 10.6 fl (6.2-12.0); Monocyte% 6.3 % (0-10); NRBC Flagged by Analyzer 0 % (0-5); Neutrophil # 10.36 X10^3/uL (2.7-7.7); Neutrophil % 82.1 % (47-70); POSITIVE MORPHOLOGY YES; Platelet Count 200 K/mm3 (150-450); RBC Distribution Width CV 16.1 % (11.6-14.6); RBC Distribution Width SD 63.2 fl (35.1-43.9); Red Blood Count 2.43 M/mm3 (4.2-5.4); White Blood Count 12.6 K/mm3 (4.4-11.0)
[2024-03-13 05:54] LABS: Differential Indicated SCAN CRITERIA MET
[2024-03-13] MEDS: Levothyroxine 137 MCG Tablet PO (06:00)
[2024-03-13] MEDS: Insulin Lispro 100 UNIT/ML INSULN.PEN SC ×4 (06:00→22:15)
[2024-03-13] MEDS: Gabapentin 300 MG Capsule PO ×3 (06:03→22:14)
[2024-03-13 06:12] LABS: ALB/GLOB Ratio 0.6 RATIO (0.9-2.4); AST(SGOT) 12 U/L (15-37); Alanine Aminotransfer ALT/SGPT 11 U/L (13-56); Albumin, Serum 2.3 g/dL (3.2-5.0); Alkaline Phosphatase 79 U/L (45-117); Anion Gap 10 (5-15); BUN 48 mg/dL (7-18); BUN/Creat Ratio 16.6 RATIO (10-20); Calcium,Total 8.8 mg/dL (8.5-10.1); Chloride 99 mmol/L (98-107); EST Glomerular Filtration Rate 16 mL/min (>60); Est Glom Filt Rate - Afr Amer 20 mL/min (>60); Estimated Creatinine Clearance 13.06 ml/min; Globulin 4.1 g/dL (2.2-4.2); Glucose 287 mg/dL (74-106); Potassium 4.1 mmol/L (3.5-5.1); Protein, Total 6.4 g/dL (6.4-8.2); Sodium Level 133 mmol/L (136-145)
[2024-03-13 06:19] LABS: Bedside Glucose 254 mg/dL (74-106)
[2024-03-13 06:42] LABS: Differential Comment SCANNED
[2024-03-13 06:53] LABS: Lactic Acid 2.4 mmol/L (0.4-1.9)
[2024-03-13 08:15] LABS: Hemoglobin A1c 9.1 % (3.8-5.6)
[2024-03-13] MEDS: Budesonide Respules 0.5 MG/2 ML AMPUL.NEB. INHALATION ×2 (08:26→19:40)
[2024-03-13] MEDS: 0.9% Normal Saline (1000mL) 1,000 ML 100 ML IV (08:32)
[2024-03-13] MEDS: Ascorbic Acid 500 MG Tablet PO ×2 (08:36→22:14)
[2024-03-13] MEDS: Ferrous Sulfate 300 MG/5 ML UDC PO (08:36)
[2024-03-13] MEDS: Montelukast 10 MG Tablet PO (08:37)
[2024-03-13] MEDS: Allopurinol 300 MG Tablet PO (08:37)
[2024-03-13] MEDS: Pantoprazole Sodium 40 MG Tablet PO (08:37)
[2024-03-13] MEDS: Insulin Glargine-YFGN 100 UNIT/ML Pen SC ×2 (08:44→22:15)
--- NOTE | 2024-03-13 08:50 | PN.HOSP_ITS ---
Subjective Subjective Feels a little bit better, no issues overnight Objective Data Objective Data Vital Signs: Vital Signs Temp Pulse Resp BP Pulse Ox O2 Del Method O2 Flow Rate 97.9 F 84 18 99/56 L 95 Nasal Cannula 2 03/13/24 08:27 03/13/24 08:27 03/13/24 08:27 03/13/24 08:27 03/13/24 08:27 03/13/24 08:27 03/13/24 08:27 Oxygen Flow Rate (L/min) 2 Oxygen Delivery Method Nasal Cannula Weight: 152 lb 12.485 oz Body Mass Index (BMI) 26.2 Intake & Output: Intake and Output for Last 24 Hours 03/12/24 03/13/24 03/14/24 03:59 03:59 03:59 Intake Total 1430 / 1430 1120 / 1120 Output Total 1150 / 1150 350 / 350 Balance 280 / 280 770 / 770 Lab / Micro Data 03/13/24 05:23 03/13/24 05:23 Labs: Laboratory Results - last 24 hr 03/12/24 16:36: WBC 14.4 H, RBC 2.62 L, Hgb 9.1 L, Hct 28.5 L, MCV 108.8 H, MCH 34.7 H, MCHC 31.9 L, RDW Std Deviation 62.6 H, RDW Coeff of Gloria 16.1 H, Plt Count 234, MPV 10.5, Immature Gran % (Auto) 0.300, Neut % (Auto) 84.5 H, Lymph % (Auto) 7.5 L, [place] % (Auto) 7.6, Eos % (Auto) 0.0, Baso % (Auto) 0.1, Absolute Neuts (auto) 12.2 H, Absolute Lymphs (auto) 1.08, Nucleated RBC % 0, PT 34.5 H, INR 3.5, APTT 65.0 H, Sodium 130 L, Potassium 4.3, Chloride 93 L, Carbon Dioxide 25.0, Anion Gap 12, BUN 46 H, Creatinine 3.17 H, Estim Creat Clear Calc 12.35, E st GFR (MDRD) Af Amer 18 L, Est GFR (MDRD) Non-Af 15 L, BUN/Creatinine Ratio 14.5, Glucose 591 H*, Lactic Acid 3.7 H*, Calcium 9.3, Total Bilirubin 0.90, AST 14 L, ALT 14, Alkaline Phosphatase 91, Total Protein 7.2, Albumin 2.8 L, G lobulin 4.4 H, Albumin/Globulin Ratio 0.6 L 03/12/24 18:25: Urine Color Yellow, Urine Clarity Clear, Urine pH 5.0, Ur Specific [place] 1.010, Urine Protein Negative, Urine Glucose (UA) 1000 H, Urine Ketones Negative, Urine Occult Blood 10 H, Urine Nitrite Negative, Urine Bilirubin Negative, Urine Urobilinogen Normal, Ur Leukocyte Esterase 500 H, Urine RBC 0 SEEN, Urine WBC 0-5 SEEN, Ur Squamous Epith Cells 0-5 SEEN, Urine Bacteria 2+, Urine Mucus 0 SEEN 03/12/24 21:21: POC Glucose 461 H* 03/12/24 22:20: Lactic Acid 5.0 H* 03/13/24 05:23: WBC 12.6 H, RBC 2.43 L, Hgb 8.6 L, Hct 26.4 L, MCV 108.6 H, MCH 35.4 H, MCHC 32.6, RDW Std Deviation 63.2 H, RDW Coeff of Gloria 16.1 H, Plt Count 200, MPV 10.6, Immature Gran % (Auto) 0.800, Neut % (Auto) 82.1 H, Lymph % (Auto) 10.7 L, [place] % (Auto) 6.3, Eos % (Auto) 0.0, Baso % (Auto) 0.1, Absolute Neuts (auto) 10.4 H, Absolute Lymphs (auto) 1.35, Nucleated RBC % 0, Differential Comment SCANNED, Sodium 133 L, Potassium 4.1, Chloride 99, Carbon Dioxide 24.0, Anion Gap 10, BUN 48 H, Creatinine 2.90 H, Estim Creat Clear Calc 13.06, Est GFR (MDRD) Af Amer 20 L, Est GFR (MDRD) Non-Af 16 L, BUN/Creatinine Ratio 16.6, Glucose 287 H, Hemoglobin A1c 9.1 H, Calcium 8.8, Total Bilirubin 0.60, AST 12 L, ALT 11 L, Alkaline Phosphatase 79, Total Protein 6.4, Albumin 2.3 L, Globulin 4.1, Albumin/Globulin Ratio 0.6 L 03/13/24 05:58: POC Glucose 254 H 03/13/24 06:15: Lactic Acid 2.4 H* Micro: Microbiology 03/12/24 18:25 Urine Catheter - Olivares Urine Culture - Preliminary GNR lactose molded frames assembler 03/12/24 22:40 Mucosa - Nasopharyngeal Respiratory Panel (PCR) - Final 03/12/24 18:25 Urine Catheter - Catheter Streptococcus pneumoniae Antigen (M - Final 03/12/24 18:25 Urine Catheter - Olivares Legionella Antigen - Final 03/12/24 18:00 Mucosa - Nose SARS-CoV-2, Influenza & RSV (PCR) - Final ABG Data ABG results: ABG 03/12/24 17:56 Specimen Type MAY Sample Site Not entered O2 % 2.0 VBG pH 7.47 H VBG pO2 25 VBG HCO3 25 VBG Total CO2 26 VBG O2 Sat (Calc) 50 VBG Base Excess 2 POC Mix VBG pCO2 Pt Tmp 34.8 L O2 Delivery Device Cannula Radiography Diagnostic Testing: Radiology Impression Chest X-Ray 03/12/24 18:12 IMPRESSION: Findings concerning for right lower lobe pneumonia. Radiographic follow-up recommended after treatment to ensure resolution Electronically Signed: Benito Hyde MD at 19:29 EDT Reading Location ID and State: [facility], [facility] / [place] Tel , Service support , Physical Exam Narrative General: Alert, Oriented x3, Cooperative, No apparent distress HEENT: Atraumatic, PERRLA, EOMI, Normocephalic, hard of hearing Oral: Moist Mucosa Neck: Supple, No JVD Lungs: Diminished, Normal air movement, scattered rhonchi, No wheeze, No rales Cardiovascular: Regular rate, Regular Rhythm, Normal S1, Normal S2, No murmurs Abdomen: Soft, Non Tender, Non-Distended, No Hepato-splenomegaly Extremities: No edema, Capillary Refill Less than 3 Seconds Skin: No rashes, No breakdown Musculoskeletal: No Tenderness to Palpation of Joints or Extremities Neurological: No focal neurological deficits, Motor Exam 5/5 strength throughout, Sensory exam intact to light touch and pain Psych/Mental Status: Normal Affect, Appropriate Assessment & Plan Assessment/Plan (1) Hypoxia: (2) Right lower lobe pneumonia: PLAN: Plan 1. Acute hypoxia secondary to community-acquired pneumonia with a history of asthma/COPD/GAY ? Continue with antibiotics ? Continue with breathing treatments ? She does not appear to currently be in an acute asthma or COPD exacerbation ? Discussed tobacco cessation ? She does not wear chronic oxygen ? PT/OT ? Creatinine baseline is around 1.8 currently 2.9 and she is improving slowly will continue to monitor 2. Chronic a flutter/essential HTN/HLD ? Blood pressure stable ? Continue with her home medications ? We will monitor make adjustments as necessary ? Will restart nephrotoxic blood pressure medications once her creatinine approaches baseline 3. DM2 with neuropathy ? Will hold her home medications ? Most recent A1c is 8.9 ? Continue with Accu-Cheks ACHS ? Continue sliding scale insulin ? We will monitor make adjustments as necessary 4. GERD/cirrhosis from [place] ? Continue with PPI ? Stable ? She did have an MRI in October of this year that showed cirrhotic liver with no suspicious arterial hyperenhancing or delayed washout lesions to suggest HCC 5. Gout ? Stable ? Continue with allopurinol DVT: Xarelto Charges/Coding Visit Charges Inpatient E&M: 99422 Subs Hosp L2
[2024-03-13 10:20] LABS: Reflex Lactate? Y
[2024-03-13 11:04] LABS: Lactic Acid 3.2 mmol/L (0.4-1.9)
[2024-03-13 12:36] LABS: Bedside Glucose 339 mg/dL (74-106)
[2024-03-13] MEDS: Rivaroxaban 15 MG Tablet PO (16:20)
[2024-03-13 16:37] LABS: Bedside Glucose 281 mg/dL (74-106)
[2024-03-13] MEDS: Acetaminophen 325 MG Tablet 650 MG PO (19:30)
[2024-03-13] MEDS: Albuterol 2.5 MG/3 ML VIAL.NEB. INHALATION (19:40)
[2024-03-13] MEDS: Atorvastatin Calcium 20 MG Tablet PO (22:14)
[2024-03-13] MEDS: Ceftriaxone 2 GM in 0.9% Normal Saline (50mL MB+) 50 ML IV (22:14)
[2024-03-13] MEDS: Azithromycin 500 MG in Dextrose 5%-Water (250mL Bag) 250 ML 250 MG IV (22:16)
[2024-03-13 23:09] LABS: Bedside Glucose 248 mg/dL (74-106)
[2024-03-14] VITALS (8 sets, daily range): BP systolic 117–142; BP diastolic 50–76; PULSE 66–86; RESP 16–20; TEMP 36.1–36.8; O2SAT 67–98; BMI 27.1
[2024-03-14 04:33] LABS: Absolute Lymphocyte Count 1.99 X10^3/uL (0.83-4.51); Absolute Neutrophil Count 8.6 X10^3/uL (2.0-7.7); Basophil# 0.02 X10^3/uL; Basophil% 0.2 % (0-1); Eosinophil# 0.08 X10^3/uL; Eosinophils% 0.7 % (0-5); Hematocrit 22.3 % (37-47); Hemoglobin 7.2 g/dL (12.0-15.0); Lymphocyte # 1.99 X10^3/ul (0.83-4.51); Lymphocyte % 17.5 % (19-41); Mean Corp Hgb Conc 32.3 g/dL (32-36); Mean Corpuscular Hgb 34.6 pg (27.0-32.0); Mean Corpuscular Volume 107.2 fL (81-99); Mean Platelet Vol. 10.8 fl (6.2-12.0); Monocyte# 0.64 X10^3/uL; Monocyte% 5.6 % (0-10); NRBC Flagged by Analyzer 0 % (0-5); Neutrophil # 8.59 X10^3/uL (2.7-7.7); Neutrophil % 75.3 % (47-70); Platelet Count 186 K/mm3 (150-450); RBC Distribution Width CV 15.9 % (11.6-14.6); RBC Distribution Width SD 61.3 fl (35.1-43.9); Red Blood Count 2.08 M/mm3 (4.2-5.4); White Blood Count 11.4 K/mm3 (4.4-11.0)
[2024-03-14 04:54] LABS: Anion Gap 10 (5-15); BUN 49 mg/dL (7-18); Calcium,Total 8.9 mg/dL (8.5-10.1); Chloride 99 mmol/L (98-107); Creatinine, Serum 2.58 mg/dL (0.55-1.02); EST Glomerular Filtration Rate 19 mL/min (>60); Est Glom Filt Rate - Afr Amer 23 mL/min (>60); Estimated Creatinine Clearance 14.68 ml/min; Glucose 184 mg/dL (74-106); Potassium 3.4 mmol/L (3.5-5.1); Sodium Level 134 mmol/L (136-145)
[2024-03-14] MEDS: Gabapentin 300 MG Capsule PO ×3 (05:59→20:16)
[2024-03-14] MEDS: Levothyroxine 137 MCG Tablet PO (06:09)
[2024-03-14 06:28] LABS: Bedside Glucose 136 mg/dL (74-106)
[2024-03-14] MEDS: Albuterol 2.5 MG/3 ML VIAL.NEB. INHALATION (07:42)
[2024-03-14] MEDS: Budesonide Respules 0.5 MG/2 ML AMPUL.NEB. INHALATION ×2 (07:42→21:07)
[2024-03-14] MEDS: Allopurinol 300 MG Tablet PO (08:54)
[2024-03-14] MEDS: Pantoprazole Sodium 40 MG Tablet PO (08:54)
[2024-03-14] MEDS: Ascorbic Acid 500 MG Tablet PO ×2 (08:54→20:14)
[2024-03-14] MEDS: Insulin Glargine-YFGN 100 UNIT/ML Pen SC ×2 (08:54→20:19)
[2024-03-14] MEDS: Montelukast 10 MG Tablet PO (08:54)
[2024-03-14] MEDS: Ferrous Sulfate 300 MG/5 ML UDC PO (08:54)
[2024-03-14] MEDS: Potassium Chloride Oral Tablet 20 MEQ 40 MEQ PO (08:57)
--- NOTE | 2024-03-14 10:10 | CASEMGMT ---
SANJUANITA SMITH Face to Face with patient for initial transition planning/care coordination assessment. RN CM introduced self and role at [facility]. Patient lying in bed, alert and oriented. Patient willing to participate in assessment and is able to answer all questions appropriately. Care providers, pharmacy, and demographics verified. PCP: Preeti Specialists: Hui, cardiovascular invasive specialist; Link, floor renovator; Mahad, corporate quality manager; Jose, ENT Preferred Pharmacy: [facility] Insurance: [facility] Dual MCR Prescription Benefit: yes Living Will/HPOA: yes, daughter Aranza Fregoso LNOK: daughter, son, ALEXIA Living Arrangements: Patient lives with son and son-in-law in a split level home with 5 steps and railing to enter the home. Patient states she is independent and normally able to ambulate stairs. Son-in-law Sharif is caregiver and assists at times. Transportation: Son-in-law DME/HHC: Patient has shower chair, raised toilet, cane, rollator, walker, wheelchair, and glucometer at home. Will monitor for home oxygen, prefers [employer]. Patient has had [facility] in the past. No previous SNF. Patient wishes to discharge home, will monitor progress with therapy. RN LUIS discussed possible HHC vs SNF at discharge pending therapy recommendations, patient voiced understanding. Patient states she has no further needs or concerns at this time. CM to follow for discharge planning needs that may arise. Disposition Plan: TBD, anticipate HHC vs SNF pending progress with therapy. Pia LESLIE, RN, CM
--- NOTE | 2024-03-14 10:44 | PN.HOSP_ITS ---
Subjective Subjective Doing well, will wean oxygen as able Objective Data Objective Data Vital Signs: Vital Signs Temp Pulse Resp BP Pulse Ox O2 Del Method O2 Flow Rate 97.7 F L 80 16 126/50 H 95 Nasal Cannula 1.5 03/14/24 08:48 03/14/24 08:48 03/14/24 08:48 03/14/24 08:48 03/14/24 08:48 03/14/24 09:14 03/14/24 09:14 Oxygen Flow Rate (L/min) 1.5 Oxygen Delivery Method Nasal Cannula Weight: 158 lb 8.198 oz Body Mass Index (BMI) 27.1 Intake & Output: Intake and Output for Last 24 Hours 03/13/24 03/14/24 03/15/24 03:59 03:59 03:59 Intake Total 1430 / 1430 3251.67 / 3251.67 120 / 120 Output Total 1150 / 1150 1300 / 1300 350 / 350 Balance 280 / 280 1951.67 / 1951.67 -230 / -230 Lab / Micro Data 03/14/24 03:55 03/14/24 03:55 Labs: Laboratory Results - last 24 hr 03/13/24 10:29: Lactic Acid 3.2 H* 03/13/24 11:24: POC Glucose 339 H 03/13/24 16:18: POC Glucose 281 H 03/13/24 22:13: POC Glucose 248 H 03/14/24 03:55: WBC 11.4 H, RBC 2.08 L, Hgb 7.2 L, Hct 22.3 L, MCV 107.2 H, MCH 34.6 H, MCHC 32.3, RDW Std Deviation 61.3 H, RDW Coeff of Gloria 15.9 H, Plt Count 186, MPV 10.8, Immature Gran % (Auto) 0.700, Neut % (Auto) 75.3 H, Lymph % (Auto) 17.5 L, [place] % (Auto) 5.6, Eos % (Auto) 0.7, Baso % (Auto) 0.2, Absolute Neuts (auto) 8.6 H, Absolute Lymphs (auto) 1.99, Nucleated RBC % 0, Sodium 134 L , Potassium 3.4 L, Chloride 99, Carbon Dioxide 25.0, Anion Gap 10, BUN 49 H, C reatinine 2.58 H, Estim Creat Clear Calc 14.68, Est GFR (MDRD) Af Amer 23 L, Est GFR (MDRD) Non-Af 19 L, BUN/Creatinine Ratio 19.0, Glucose 184 H, Calcium 8.9 03/14/24 06:05: POC Glucose 136 H Micro: Microbiology 03/12/24 18:25 Urine Catheter - Olivares Urine Culture - Final Escherichia coli 03/13/24 00:45 Sputum, Expectorated/Coughed Gram Stain - Final 03/12/24 22:40 Mucosa - Nasopharyngeal Respiratory Panel (PCR) - Final 03/12/24 18:25 Urine Catheter - Catheter Streptococcus pneumoniae Antigen (M - Final 03/12/24 18:25 Urine Catheter - Olivares Legionella Antigen - Final 03/12/24 18:00 Mucosa - Nose SARS-CoV-2, Influenza & RSV (PCR) - Final Physical Exam Narrative General: Alert, Oriented x3, Cooperative, No apparent distress HEENT: Atraumatic, PERRLA, EOMI, Normocephalic, hard of hearing Oral: Moist Mucosa Neck: Supple, No JVD Lungs: Diminished, Normal air movement, scattered rhonchi, No wheeze, No rales Cardiovascular: Regular rate, Regular Rhythm, Normal S1, Normal S2, No murmurs Abdomen: Soft, Non Tender, Non-Distended, No Hepato-splenomegaly Extremities: No edema, Capillary Refill Less than 3 Seconds Skin: No rashes, No breakdown Musculoskeletal: No Tenderness to Palpation of Joints or Extremities Neurological: No focal neurological deficits, Motor Exam 5/5 strength throughout, Sensory exam intact to light touch and pain Psych/Mental Status: Normal Affect, Appropriate Assessment & Plan Assessment/Plan (1) Hypoxia: (2) Right lower lobe pneumonia: PLAN: Plan 1. Acute hypoxia secondary to community-acquired pneumonia with a history of asthma/COPD/GAY/UTI due to E. coli ? Continue with antibiotics, the Rocephin she is on will treat her UTI E. coli as well ? Continue with breathing treatments ? She does not appear to currently be in an acute asthma or COPD exacerbation ? Discussed tobacco cessation ? She does not wear chronic oxygen ? PT/OT ? Creatinine baseline is around 1.8 currently 2.9 and she is improving slowly will continue to monitor 2. Chronic a flutter/essential HTN/HLD ? Blood pressure stable ? Continue with her home medications ? We will monitor make adjustments as necessary ? Will restart nephrotoxic blood pressure medications once her creatinine approaches baseline 3. DM2 with neuropathy ? Will hold her home medications ? Most recent A1c is 8.9 ? Continue with Accu-Cheks ACHS ? Continue sliding scale insulin ? We will monitor make adjustments as necessary 4. GERD/cirrhosis from [place]/chronic anemia ? Continue with PPI ? Stable ? She did have an MRI in October of this year that showed cirrhotic liver with no suspicious arterial hyperenhancing or delayed washout lesions to suggest HCC ? Unclear as to the etiology of her anemia, it is macrocytic so we will obtain a B12, will recheck H&H this afternoon though she does appear to be close to baseline 5. Gout ? Stable ? Continue with allopurinol DVT: Xarelto Charges/Coding Visit Charges Inpatient E&M: 31460 Subs Hosp L2
[2024-03-14] MEDS: Insulin Lispro 100 UNIT/ML INSULN.PEN SC ×3 (11:30→20:19)
[2024-03-14 11:50] LABS: Bedside Glucose 217 mg/dL (74-106)
[2024-03-14] MEDS: Acetaminophen 325 MG Tablet 650 MG PO ×2 (12:30→20:02)
[2024-03-14 13:00] LABS: Hematocrit 22.2 % (37-47); Hemoglobin 7.2 g/dL (12.0-15.0)
[2024-03-14 16:08] LABS: Vitamin B12 1308 pg/mL (211-911)
[2024-03-14] MEDS: Rivaroxaban 15 MG Tablet PO (16:45)
[2024-03-14 17:12] LABS: Bedside Glucose 246 mg/dL (74-106)
[2024-03-14] MEDS: 0.9% Saline Lock 10 ML Syringe IV (20:02)
[2024-03-14] MEDS: Ceftriaxone 2 GM in 0.9% Normal Saline (50mL MB+) 50 ML IV (20:02)
[2024-03-14] MEDS: Azithromycin 500 MG in Dextrose 5%-Water (250mL Bag) 250 ML 250 MG IV (20:12)
[2024-03-14] MEDS: Atorvastatin Calcium 20 MG Tablet PO (20:14)
[2024-03-14 21:36] LABS: Bedside Glucose 205 mg/dL (74-106)
[2024-03-15] VITALS (7 sets, daily range): BP systolic 103–138; BP diastolic 50–62; PULSE 63–66; RESP 16–18; TEMP 35.8–37; O2SAT 90–97; BMI 27.2
[2024-03-15] MEDS: Gabapentin 300 MG Capsule PO ×2 (05:02→13:54)
[2024-03-15] MEDS: Levothyroxine 137 MCG Tablet PO (05:02)
[2024-03-15] MEDS: Menthol/Lanolin/Calamine/Znox 113 GM Tube 1 APPLIC TOPICAL (05:03)
[2024-03-15] MEDS: Insulin Lispro 100 UNIT/ML INSULN.PEN SC ×2 (06:23→10:52)
[2024-03-15 06:45] LABS: Bedside Glucose 151 mg/dL (74-106)
[2024-03-15 08:50] LABS: Absolute Lymphocyte Count 0.97 X10^3/uL (0.83-4.51); Absolute Neutrophil Count 8.4 X10^3/uL (2.0-7.7); Basophil# 0.02 X10^3/uL; Basophil% 0.2 % (0-1); Eosinophil# 0.06 X10^3/uL; Eosinophils% 0.6 % (0-5); Hematocrit 23.6 % (37-47); Lymphocyte # 0.97 X10^3/ul (0.83-4.51); Lymphocyte % 9.6 % (19-41); Mean Corp Hgb Conc 33.9 g/dL (32-36); Mean Corpuscular Hgb 35.4 pg (27.0-32.0); Mean Corpuscular Volume 104.4 fL (81-99); Mean Platelet Vol. 10.3 fl (6.2-12.0); Monocyte# 0.62 X10^3/uL; Monocyte% 6.1 % (0-10); NRBC Flagged by Analyzer 0 % (0-5); Neutrophil % 83.1 % (47-70); Platelet Count 192 K/mm3 (150-450); RBC Distribution Width CV 15.9 % (11.6-14.6); RBC Distribution Width SD 59.5 fl (35.1-43.9); Red Blood Count 2.26 M/mm3 (4.2-5.4); White Blood Count 10.1 K/mm3 (4.4-11.0)
[2024-03-15 09:30] LABS: Anion Gap 5 (5-15); BUN 41 mg/dL (7-18); BUN/Creat Ratio 20.7 RATIO (10-20); Chloride 103 mmol/L (98-107); Creatinine, Serum 1.98 mg/dL (0.55-1.02); EST Glomerular Filtration Rate 25 mL/min (>60); Est Glom Filt Rate - Afr Amer 31 mL/min (>60); Estimated Creatinine Clearance 19.47 ml/min; Glucose 178 mg/dL (74-106); Potassium 4.5 mmol/L (3.5-5.1); Sodium Level 132 mmol/L (136-145)
[2024-03-15] MEDS: Ascorbic Acid 500 MG Tablet PO (09:59)
[2024-03-15] MEDS: Ferrous Sulfate 300 MG/5 ML UDC PO (09:59)
[2024-03-15] MEDS: Allopurinol 300 MG Tablet PO (09:59)
[2024-03-15] MEDS: Pantoprazole Sodium 40 MG Tablet PO (09:59)
[2024-03-15] MEDS: Montelukast 10 MG Tablet PO (09:59)
[2024-03-15] MEDS: Insulin Glargine-YFGN 100 UNIT/ML Pen SC (10:51)
--- NOTE | 2024-03-15 10:52 | CASEMGMT ---
Dr. Reynoso anticipates pt DC today. This RN CM to pt room at this time and discussed DC planning. This RN CM talked to the pt about how she did with therapy and what she wanted to do at time of DC. Moving forward, pt is adamant about not going to a SNF. Pt states that she wants to DC home with family support. Pt states that she would like C set up. Pt denies wanting to see a list of local in-network C agencies and would like yo use [facility] as long as they are in network with the insurance. TC to [facility] and referral made to Syd[facility]. Awaiting return response.
[2024-03-15 11:20] LABS: Bedside Glucose 331 mg/dL (74-106)
--- NOTE | 2024-03-15 11:57 | CASEMGMT ---
Discharge Planning A list of HH providers including quality and resource use data and consistent with the patient's preferred geographic region, medical needs, and insurance network was created in [facility] Guide.? This list was provided to the RN LUIS. Yvette Littlejohn, Discharge Planning Asst.
--- NOTE | 2024-03-15 12:40 | CASEMGMT ---
Addendum entered by Yvette Littlejohn 03/15/24 14:47: All agencies declined referral. SANJUANITA CM updated. Yvette Littlejohn DC Planning Asst. Original Note: Discharge Planning HH referral sent to [facility], [facility], [facility], and [facility]. Yvette Littlejohn DC Planning Asst.
--- NOTE | 2024-03-15 12:44 | CASEMGMT ---
Patient has a Healthcare Power of Cat Cracker Operator and Healthcare Living Will on file at [facility]. Patient's daughter Aranza is patient's Healthcare Power of Cat Cracker Operator. Bessy BOWLING
--- NOTE | 2024-03-15 14:25 | PCM.DC ---
Discharge Instructions Diet Discharge Diet: Low fat / Low cholesterol and Carb Control Diet Activity Discharge Activity: Return to Normal Activity Dressing / Incision Call your doctor if you observe: Fever of 101 or Higher, Shortness of breath, Dizziness, Fainting spells, Swelling in the ankles, Chest pain and Increased palpitations (irregular heartbeat) Follow Up Care Test Results: Test results from this visit will be discussed in further detail at your follow-up appointment, if applicable. Discharge Plan Admission Admit Date/Time: 03/12/24 19:55 Attending Provider: Taco Reynoso Primary Care Provider: Tee Álvarez Consulting Providers: Maddy Finn Discharge Orders/Prescriptions Prescriptions: New cefdinir 300 mg capsule 300 mg PO BID 5 Days Qty: 10 0RF Continued albuterol sulfate 90 mcg/actuation HFA aerosol inhaler 2 puff INHALATION Q4H PRN (Reason: sob/wheezing) Qty: 18 levothyroxine 137 mcg tablet 137 mcg PO .COMPLEX Qty: 30 Patient Comments: per pt takes 1 tab daily Thu, , Thursday, , Thursday, & Thursday 2 tabs on Thursday Rx Instructions: 137 mcg orally daily on [facility]; rivaroxaban 20 mg tablet 20 mg PO QPM Qty: 30 glipizide 2.5 mg tablet extended release 24hr 12.5 mg PO DAILY Patient Comments: Take 5 tablets by mouth once daily. multivitamin Tablet 1 tab PO DAILY calcium carbonate-vitamin D3 600 mg(1,500mg) -800 unit tablet 1 tab PO DAILY spironolactone 25 mg tablet 12.5 mg PO DAILY Qty: 30 1RF Rx Instructions: Discontinue if serum potassium more than 5.0. Repeat BMP in 1 week. pantoprazole 40 mg tablet,delayed release (DR/EC) 40 mg PO DAILY Qty: 30 2RF ascorbic acid (vitamin C) 500 mg tablet 500 mg PO BID Qty: 60 2RF fluticasone propion-salmeterol 1 PUFF inhaler 1 puff inhalation BID allopurinol 100 MG tablet 300 mg PO DAILY nifedipine 60 MG tablet 30 mg PO DAILY montelukast 10 MG tablet 10 mg PO DAILY gabapentin 300 mg capsule 300 mg PO TID cyanocobalamin (vitamin B-12) 1 tablet PO/SL DAILY furosemide 40 mg tablet 60 mg PO DAILY simvastatin 40 mg Tablet 20 mg PO QHS Jardiance 10 mg Tablet 10 mg PO DAILY sitagliptin phosphate 25 mg Tablet 25 mg PO DAILY losartan 25 mg tablet 12.5 mg PO DAILY ferrous sulfate 300 mg (60 mg iron)/5 mL Liquid 300 mg PO DAILYCM Qty: 30 0RF fosfomycin tromethamine 3 gram packet 1 packet PO QODAY Qty: 1 0RF levothyroxine 137 mcg capsule 274 mcg PO .daily on thursday Patient Comments: per pt takes 2 tabs sundays, 1 tab on all other days of week. pantoprazole [address] for susp in packet 40 mg PO BID potassium chloride 20 mEq tablet extended release 20 meq PO DAILY Referrals / Follow Up: Tee Álvarez MD [Primary Care Provider] - Within 1 Week Disposition Disposition (needs filled in before D/C Order can be placed): Home Health Service
--- NOTE | 2024-03-15 14:41 | PCM.DC.SUM ---
Providers Date of Admission: 03/12/24 Primary Care Physician: Dr. Tee Álvarez MD Reason For Visit: PNA, HYPOXIA Diagnosis Discharge Diagnosis (1) Hypoxia: Status: Acute Code(s): R09.02 - Hypoxemia (2) Right lower lobe pneumonia: Status: Acute Code(s): J18.9 - Pneumonia, unspecified organism Medications at Discharge Home Medications allopurinol 100 mg tablet 300 mg PO DAILY uric acid professor of environmental studies 01/30/16 fluticasone 250 mcg-salmeterol 50 mcg/dose blistr powdr for inhalation 1 puff inhalation BID sob 01/30/16 montelukast 10 mg tablet 10 mg PO DAILY breathing 01/30/16 nifedipine 60 mg tablet,extended release 24 hr 30 mg PO DAILY blood pressure 01/30/16 albuterol sulfate 90 mcg/actuation aerosol inhaler 2 puff inhalation Q4H PRN sob/wheezing #18 grams 04/19/19 gabapentin 300 mg capsule 300 mg PO TID neuropathy 04/19/19 levothyroxine 137 mcg tablet 137 mcg PO .COMPLEX thyroid #30 tabs 04/19/19 rivaroxaban 20 mg tablet 20 mg PO QPM blood thinner #30 tabs 04/19/19 calcium carbonate 600 mg-vitamin D3 20 mcg (800 unit) tablet 1 tab PO DAILY supplement 08/23/21 glipizide 2.5 mg tablet, extended release 24 hr 12.5 mg PO DAILY diabetes 08/23/21 multivitamin 1 tab PO DAILY supplement 08/23/21 cyanocobalamin (vitamin B-12) 1 tablet PO/SL DAILY supplement 03/06/22 furosemide 40 mg tablet 60 mg PO DAILY EDEMA 01/09/23 simvastatin 40 mg tablet 20 mg PO QHS CHOLESTEROL 01/09/23 empagliflozin 10 mg tablet (Jardiance) 10 mg PO DAILY diabetes 02/02/23 losartan 25 mg tablet 12.5 mg PO DAILY blood pressure 02/02/23 sitagliptin phosphate 25 mg tablet 25 mg PO DAILY Check with primary doctor 02/02/23 ferrous sulfate 300 mg (60 mg iron)/5 mL oral liquid 300 mg (5 mL) PO DAILYCM #30 mL 02/04/23 ascorbic acid (vitamin C) 500 mg tablet 500 mg PO BID #60 tabs 09/25/23 pantoprazole 40 mg tablet,delayed release 40 mg PO DAILY gerd #30 tabs 09/25/23 spironolactone 25 mg tablet 12.5 mg (1/2 x 25 mg) PO DAILY #30 tabs 09/25/23 levothyroxine 137 mcg capsule 274 mcg PO .daily on thursday thyroid 03/13/24 potassium chloride 20 mEq tablet,extended release 20 meq PO DAILY supplement 03/13/24 cefdinir 300 mg capsule 300 mg PO BID 5 days #10 caps 03/15/24 Hospital Course Operations None Procedures None Summary of Care Provided Minutes Spent on Discharge: 37 Hospital Course: Per HPI: The patient is an 88 y/o F w/ PMHx: Tobacco use, GERD w/ PUD, Cirrhosis unclear type, CKD stage IV, Nonalcoholic cirrhosis, Asthma/Possible Underlying COPD, Hypothyroidism, HTN, HLD, Chronic anemia, PAF/Flutter, Diabetes mellitus type II, Chronic essential tremor, Gout who presents to the [facility] ED on 03/12/24 with history of onset of dyspnea, worse with exertion with increasing fatigue malaise and generalized weakness with cough, congestion as well as fever up to 1017 at home prompting EMS call noted to be in the mid 80s placed on 4 L nasal cannula and transition to the ED for evaluation. Workup in the ED included T99.4, heart rate 92, BP 113/89, respiratory rate 20, initially 85% on room air with most recent repeat vital signs T98.9, heart rate 102, BP 118/44, respiratory rate 20, 95% on 2 L nasal cannula, CBC with WBC 14.4, 9.1, MCV 108.8, platelet 234 with left shift, coags with PT 34.5, PTT 65 otherwise not marked appearing, VBG with pH 7.47 otherwise not marked appearing, CMP with sodium 130, chloride 93, BUN/current 46/3.17, GFR 15, lactic acid 3.7, glucose 591, hepatic profile not marked appearing, urinalysis with glucose of thousand, occult blood 10, leukocyte esterase 500, negative nitrite,, chest x-ray concerning infiltrate right lower lobe, blood culture x 2 pending per ED, urine culture pending per ED, rapid SARS COVID/influenza/RSV PCR negative, EKG with sinus rhythm with left bundle branch block with no acute evidence of ischemia. In the ED patient ministered maintenance IV fluids as well as Rocephin 2 g IV x 1 and azithromycin 500 mg IV x 1 in addition to insulin 8 units subcu x 1. Hospital Course: 1. Acute hypoxia secondary to community-acquired pneumonia with strep pneumonia with a history of asthma/COPD/GAY/UTI due to E. coli?88-year-old female presented to the hospital with increasing shortness of breath and dyspnea on exertion. She was found to have community-acquired pneumonia and cultures ultimately grew strep pneumonia. She did have significant improvement in her oxygen requirements on Rocephin and azithromycin and on the day of discharge she did not need any oxygen at rest or with ambulation. She was also found to have a possible UTI and cultures demonstrated E. coli sensitive to Rocephin. She was continued on cefdinir for 5 more days at 300 mg p.o. twice daily on discharge. She does have a history of tobacco abuse and cessation was discussed. I discussed with her the plan for discharge today she expressed understanding the risk benefits going home and would like to go home today. Feels little bit weak but is refusing alf so social work and case management is attempting to find a home health care agency to assist on discharge. Of note creatinine on admission was elevated to 3.17 with a baseline of around 1.8 and on the day of discharge her renal function is 1.8. I recommend that she follow-up to her PCP to monitor her renal function and electrolytes. 2. Chronic a flutter, essential hypertension, hyperlipidemia, type 2 diabetes with neuropathy, GERD, cirrhosis from [place], chronic anemia, gout are all chronic medical conditions which complicate her care. Her home medications were continued where appropriate Physical Exam Narrative General: Alert, Oriented x3, Cooperative, No apparent distress HEENT: Atraumatic, PERRLA, EOMI, Normocephalic, hard of hearing Oral: Moist Mucosa Neck: Supple, No JVD Lungs: Diminished, Normal air movement, scattered rhonchi, No wheeze, No rales Cardiovascular: Regular rate, Regular Rhythm, Normal S1, Normal S2, No murmurs Abdomen: Soft, Non Tender, Non-Distended, No Hepato-splenomegaly Extremities: No edema, Capillary Refill Less than 3 Seconds Skin: No rashes, No breakdown Musculoskeletal: No Tenderness to Palpation of Joints or Extremities Neurological: No focal neurological deficits, Motor Exam 5/5 strength throughout, Sensory exam intact to light touch and pain Psych/Mental Status: Normal Affect, Appropriate Weight / BMI Weight Weight: 158 lb 11.725 oz Body Mass Index (BMI) 27.2 ABG / Lab / Microbiology Data 03/15/24 08:33 03/15/24 08:33 Laboratory: Laboratory Results - last 24 hr 03/14/24 15:10: Vitamin B12 1308 H 03/14/24 16:43: POC Glucose 246 H 03/14/24 20:18: POC Glucose 205 H 03/15/24 06:22: POC Glucose 151 H 03/15/24 08:33: WBC 10.1, RBC 2.26 L, Hgb 8.0 L, Hct 23.6 L, MCV 104.4 H, MCH 35.4 H, MCHC 33.9, RDW Std Deviation 59.5 H, RDW Coeff of Gloria 15.9 H, Plt Count 192, MPV 10.3, Immature Gran % (Auto) 0.400, Neut % (Auto) 83.1 H, Lymph % (Auto) 9.6 L, [place] % (Auto) 6.1, Eos % (Auto) 0.6, Baso % (Auto) 0.2, Absolute Neuts (auto) 8.4 H, Absolute Lymphs (auto) 0.97, Nucleated RBC % 0, Sodium 132 L, Potassium 4.5, Chloride 103, Carbon Dioxide 24.0, Anion Gap 5, BUN 41 H, Creatinine 1.98 H, Estim Creat Clear Calc 19.47, Est GFR (MDRD) Af Amer 31 L, Est GFR (MDRD) Non-Af 25 L, BUN/Creatinine Ratio 20.7 H, Glucose 178 H, Calcium 9.0 03/15/24 10:49: POC Glucose 331 H Microbiology: Microbiology 03/13/24 00:45 Sputum, Expectorated/Coughed Gram Stain - Final 03/13/24 00:45 Sputum, Expectorated/Coughed Respiratory Culture - Preliminary Streptococcus pneumoniae 03/12/24 18:02 Blood Culture (Wb) - Anticubital Right Blood Culture - Preliminary No growth in 48 hours. 03/12/24 17:40 Blood Culture (Wb) - Left Forearm Blood Culture - Preliminary No growth in 48 hours. 03/12/24 18:25 Urine Catheter - Olivares Urine Culture - Final Escherichia coli 03/12/24 22:40 Mucosa - Nasopharyngeal Respiratory Panel (PCR) - Final 03/12/24 18:25 Urine Catheter - Catheter Streptococcus pneumoniae Antigen (M - Final 03/12/24 18:25 Urine Catheter - Olivares Legionella Antigen - Final 03/12/24 18:00 Mucosa - Nose SARS-CoV-2, Influenza & RSV (PCR) - Final D/C Instructions Discharge Diet: Low fat / Low cholesterol and Carb Control Diet Call your doctor if you observe: Fever of 101 or Higher, Shortness of breath, Dizziness, Fainting spells, Swelling in the ankles, Chest pain and Increased palpitations (irregular heartbeat) Meaningful Use Info Meaningful Use Meaningful Use Diagnoses (Choose all that apply): None applicable Ischemic Stroke Statin Dosing Therapy Reference: STATIN DOSE THERAPY REFERENCE: * Patients > 75 years receive moderate or high dose statin therapy. * Patients 75 years or YOUNGER should receive HIGH intensity statin dose unless contraindicated. You will be required to document reason for non-treatment if statin daily dose does not meet guidelines. HIGH DOSE STATIN THERAPY DAILY Atorvastatin > than or = to 40 mg Rosuvastatin > than or = to 20 mg Amlodipine + Atorvastatin > than or = to 2.5/40 mg Ezetimibe + Simvastatin 10/80 mg Simvastatin 80mg Discharge Plan Admission Admit Date/Time: 03/12/24 19:55 Attending Provider: Taco Reynoso Primary Care Provider: Tee Álvarez Consulting Providers: Maddy Finn Discharge Orders/Prescriptions Prescriptions: New cefdinir 300 mg capsule 300 mg PO BID 5 Days Qty: 10 0RF Continued albuterol sulfate 90 mcg/actuation HFA aerosol inhaler 2 puff INHALATION Q4H PRN (Reason: sob/wheezing) Qty: 18 levothyroxine 137 mcg tablet 137 mcg PO .COMPLEX Qty: 30 Patient Comments: per pt takes 1 tab daily Thu, , Thursday, , Thursday, & Thursday 2 tabs on Thursday Rx Instructions: [facility] rivaroxaban 20 mg tablet 20 mg PO QPM Qty: 30 glipizide 2.5 mg tablet extended release 24hr 12.5 mg PO DAILY Patient Comments: Take 5 tablets by mouth once daily. multivitamin Tablet 1 tab PO DAILY calcium carbonate-vitamin D3 600 mg(1,500mg) -800 unit tablet 1 tab PO DAILY pantoprazole 40 mg tablet,delayed release (DR/EC) 40 mg PO DAILY Qty: 30 2RF ascorbic acid (vitamin C) 500 mg tablet 500 mg PO BID Qty: 60 2RF fluticasone propion-salmeterol 1 PUFF inhaler 1 puff inhalation BID allopurinol 100 MG tablet 300 mg PO DAILY nifedipine 60 MG tablet 30 mg PO DAILY montelukast 10 MG tablet 10 mg PO DAILY gabapentin 300 mg capsule 300 mg PO TID cyanocobalamin (vitamin B-12) 1 tablet PO/SL DAILY simvastatin 40 mg Tablet 20 mg PO QHS Jardiance 10 mg Tablet 10 mg PO DAILY sitagliptin phosphate 25 mg Tablet 25 mg PO DAILY losartan 25 mg tablet 12.5 mg PO DAILY ferrous sulfate 300 mg (60 mg iron)/5 mL Liquid 300 mg PO DAILYCM Qty: 30 0RF levothyroxine 137 mcg capsule 274 mcg PO .daily on thursday Patient Comments: per pt takes 2 tabs sundays, 1 tab on all other days of week. potassium chloride 20 mEq tablet extended release 20 meq PO DAILY Held spironolactone 25 mg tablet 12.5 mg PO DAILY Qty: 30 1RF Hold Instructions: Resume on 03/17/24. Rx Instructions: Discontinue if serum potassium more than 5.0. Repeat BMP in 1 week. furosemide 40 mg tablet 60 mg PO DAILY Hold Instructions: Resume on 03/17/24. Discontinued fosfomycin tromethamine 3 gram packet 1 packet PO QODAY Qty: 1 0RF pantoprazole [address] for susp in packet 40 mg PO BID Referrals / Follow Up: Tee Álvarez MD [Primary Care Provider] - Within 1 Week Disposition Disposition (needs filled in before D/C Order can be placed): Home Health Service Charges/Coding Visit Charges Inpatient E&M: 98505 Disch Hosp >30min
--- NOTE | 2024-03-15 15:25 | CASEMGMT ---
All HH agencies have declined the pt. Pt did not qualify for home oxygen. SANJUANITA CM to pt room at this time. Pt ALEXIA at bedside. Pt updated with this information and states that she is OK with this. Pt continues to deny SNF and OP therapy. Pt states that she feels safe discharging home with the help of her ALEXIA. Pt ALEXIA states that he is with the pt 04/05. Pt and pt ALEXIA deny further needs and state that they are ready for DC today.
== END 2024-03-15 16:27 | disposition home or self-care (01) | DRG 194 ==
LOC: ED 19:53 → PCU 20:12
PROVIDERS: Admitting Provider Family Medicine; Emergency Provider Emergency Medicine; PCP Family Medicine; Visit Provider Family Medicine
DX: J13 Pneumonia due to Streptococcus pneumoniae (principal); N17.9 Acute kidney failure, unspecified; J44.0 Chronic obstructive pulmonary disease with (acute) lower respiratory infection; I48.92 Unspecified atrial flutter; N18.4 Chronic kidney disease, stage 4 (severe); N39.0 Urinary tract infection, site not specified; D63.1 Anemia in chronic kidney disease; E11.22 Type 2 diabetes mellitus with diabetic chronic kidney disease; E11.40 Type 2 diabetes mellitus with diabetic neuropathy, unspecified; K74.69 Other cirrhosis of liver; I12.9 Hypertensive chronic kidney disease with stage 1 through stage 4 chronic kidney disease, or unspecified chronic kidney disease; E03.9 Hypothyroidism, unspecified; I48.0 Paroxysmal atrial fibrillation; E11.65 Type 2 diabetes mellitus with hyperglycemia; Z79.4 Long term (current) use of insulin; K75.81 Nonalcoholic steatohepatitis (NASH); I25.10 Atherosclerotic heart disease of native coronary artery without angina pectoris; E78.5 Hyperlipidemia, unspecified; M1A.9XX0 Chronic gout, unspecified, without tophus (tophi); F17.210 Nicotine dependence, cigarettes, uncomplicated; B96.20 Unspecified Escherichia coli [E. coli] as the cause of diseases classified elsewhere; R09.02 Hypoxemia; Z66 Do not resuscitate; Z79.01 Long term (current) use of anticoagulants; Z79.84 Long term (current) use of oral hypoglycemic drugs; Z79.899 Other long term (current) drug therapy
CPT/HCPCS: 36415; 51702; 71045; 80048; 80053; 81001; 82607; 82803; 82962; 83036; 83605; 85014; 85018; 85025; 85610; 85730; 87040; 87070; 87077; 87086; 87088; 87186; 87205; 87449; 87631; 87633; 93005; 94640; 94668; 97162; 97166; 97530; 97535; 97802; 99252; 99285; J7030; A4216; G0463; J0696

== ENCOUNTER → 2024-07-14 | Outpatient (CLI) | payer MEDICARE, MEDICAID, SELFPAY ==
[2024-07-14 13:09] LABS: Absolute Lymphocyte Count 2.16 X10^3/uL (0.83-4.51); Absolute Neutrophil Count 3.9 X10^3/uL (2.0-7.7); Basophil# 0.03 X10^3/uL; Basophil% 0.4 % (0-1); Eosinophil# 0.35 X10^3/uL; Hematocrit 29.6 % (37-47); Hemoglobin 9.7 g/dL (12.0-15.0); Lymphocyte # 2.16 X10^3/ul (0.83-4.51); Lymphocyte % 30.6 % (19-41); Mean Corp Hgb Conc 32.8 g/dL (32-36); Mean Corpuscular Hgb 35.3 pg (27.0-32.0); Mean Corpuscular Volume 107.6 fL (81-99); Mean Platelet Vol. 9.8 fl (6.2-12.0); Monocyte# 0.61 X10^3/uL; Monocyte% 8.7 % (0-10); NRBC Flagged by Analyzer 0 % (0-5); Neutrophil # 3.87 X10^3/uL (2.7-7.7); Neutrophil % 54.9 % (47-70); Platelet Count 308 K/mm3 (150-450); RBC Distribution Width CV 14.9 % (11.6-14.6); RBC Distribution Width SD 58.2 fl (35.1-43.9); RET-HE 36.2 pg (30-35); Red Blood Count 2.75 M/mm3 (4.2-5.4); Reticulocyte Count 2.62 % (0.5-1.5); White Blood Count 7.1 K/mm3 (4.4-11.0)
[2024-07-14 13:10] LABS: Ammonia < 10.0 umol/L (11-32)
[2024-07-14 13:14] LABS: Erythrocyte Sedimentation Rate 38 mm/hr (0-30)
[2024-07-14 13:55] LABS: ALB/GLOB Ratio 0.8 RATIO (0.9-2.4); AST(SGOT) 12 U/L (15-37); Alanine Aminotransfer ALT/SGPT 16 U/L (13-56); Albumin, Serum 3.2 g/dL (3.2-5.0); Alkaline Phosphatase 95 U/L (45-117); Anion Gap 8 (5-15); BUN 29 mg/dL (7-18); BUN/Creat Ratio 15.9 RATIO (10-20); CRP 6.69 mg/L (0.0-3.0); Calcium,Total 9.4 mg/dL (8.5-10.1); Chloride 99 mmol/L (98-107); Cholesterol 160 mg/dL (200); Creatinine, Serum 1.82 mg/dL (0.55-1.02); EST Glomerular Filtration Rate 28 mL/min (>60); Est Glom Filt Rate - Afr Amer 34 mL/min (>60); Ferritin 379 ng/mL (8-252); Globulin 4.1 g/dL (2.2-4.2); Glucose 333 mg/dL (74-106); High Density Lipoprotein 42 mg/dL; Iron 87 ug/dL (50-170); Iron Binding Capacity,Total 263 ug/dL (250-450); LDH 162 U/L (84-246); PERCENT IRON SATURATION 33.1 % (15.0-55.0); Potassium 3.9 mmol/L (3.5-5.1); Protein, Total 7.3 g/dL (6.4-8.2); Sodium Level 134 mmol/L (136-145); Thyroid Stim Hormone (TSH) 0.127 uIU/mL (0.358-3.740); Triglycerides 128 mg/dL; Very Low Density Lipoprotein 26 mg/dL (5-40)
[2024-07-14 14:07] LABS: HIV - WCH Non-Reactive (Nonreactive)
[2024-07-14 14:10] LABS: International Normalized Ratio 3.7; Prothrombin Time (Protime)PT. 36.5 SECONDS (11.7-14.9)
[2024-07-15 15:08] LABS: ANTINUCLEAR ANTIBODIES DIRECT Negative (Negative); Anti-Mitochondrial AB <20.0 Units (0.0-20.0)
[2024-07-20 03:07] LABS: AFP, Tumor Marker 3.2 ng/mL (0.0-8.7); Angiotensin Convert Enzyme 79 U/L (14-82); Anti-Smooth Muscle ABS 10 Units (0-19); Ceruloplasmin 28.1 mg/dL (19.0-39.0); Copper, Serum or Plasma 95 ug/dL (80-158); Cytoplasmic Ab (C-ANCA) <1:20 titer (Neg:<1:20); HEPATITIS B SURFACE AG Negative (Negative); Haptoglobin 181 mg/dL (41-333); Hep C Antibodies Non Reactive (Non Reactive); Hepatitis A IgM Antibody Negative (Negative); Hepatitis B Core AB IgM Negative (Negative); Perinuclear Ab (P-ANCA) <1:20 titer (Neg:<1:20)
== END | disposition home or self-care (01) ==
LOC: LAB 12:14
PROVIDERS: PCP Family Medicine; Referring Provider Internal Medicine; Visit Provider Internal Medicine
DX: K27.9 Peptic ulcer, site unspecified, unspecified as acute or chronic, without hemorrhage or perforation (principal); K74.60 Unspecified cirrhosis of liver; I48.92 Unspecified atrial flutter; D64.9 Anemia, unspecified; E78.5 Hyperlipidemia, unspecified; Z79.01 Long term (current) use of anticoagulants
CPT/HCPCS: 36415; 80053; 80061; 80074; 82105; 82140; 82164; 82390; 82525; 82728; 83010; 83036; 83516; 83540; 83550; 83615; 84443; 85025; 85045; 85610; 85652; 86037; 86038; 86140; 86225; 86235; 86703

== ENCOUNTER 2024-08-23 15:37 | Observation (INO) | payer MEDICARE, MEDICAID, SELFPAY ==
[2024-08-23] VITALS (7 sets, daily range): BP systolic 141–163; BP diastolic 62–80; PULSE 65–89; RESP 16–20; TEMP 36.3–36.6; O2SAT 98–100; BMI 27.0; BMI 27.2
[2024-08-23 16:07] LABS: Absolute Lymphocyte Count 0.41 X10^3/uL (0.83-4.51); Basophil# 0.01 X10^3/uL; Basophil% 0.1 % (0-1); Hematocrit 26.7 % (37-47); Lymphocyte # 0.41 X10^3/ul (0.83-4.51); Lymphocyte % 4.6 % (19-41); Mean Corp Hgb Conc 33.7 g/dL (32-36); Mean Corpuscular Hgb 34.2 pg (27.0-32.0); Mean Corpuscular Volume 101.5 fL (81-99); Mean Platelet Vol. 10.1 fl (6.2-12.0); Monocyte# 0.45 X10^3/uL; NRBC Flagged by Analyzer 0.7 % (0-5); Neutrophil # 7.98 X10^3/uL (2.7-7.7); Neutrophil % 89.1 % (47-70); POSITIVE DIFFERENTIAL YES; Platelet Count 337 K/mm3 (150-450); RBC Distribution Width CV 14.5 % (11.6-14.6); RBC Distribution Width SD 53.3 fl (35.1-43.9); Red Blood Count 2.63 M/mm3 (4.2-5.4)
[2024-08-23] MEDS: 0.9% Normal Saline (1000mL) 1,000 ML 999 ML IV ×2 (16:10→17:13)
[2024-08-23 16:29] LABS: ALB/GLOB Ratio 0.7 RATIO (0.9-2.4); AST(SGOT) 6 U/L (15-37); Alanine Aminotransfer ALT/SGPT 17 U/L (13-56); Albumin, Serum 2.9 g/dL (3.2-5.0); Alkaline Phosphatase 112 U/L (45-117); Anion Gap 14 (5-15); BUN 50 mg/dL (7-18); BUN/Creat Ratio 21.3 RATIO (10-20); Chloride 86 mmol/L (98-107); Creatinine, Serum 2.35 mg/dL (0.55-1.02); EST Glomerular Filtration Rate 21 mL/min (>60); Est Glom Filt Rate - Afr Amer 25 mL/min (>60); Estimated Creatinine Clearance 16.35 ml/min; Globulin 4.3 g/dL (2.2-4.2); Glucose 830 mg/dL (74-106); Potassium 4.3 mmol/L (3.5-5.1); Protein, Total 7.2 g/dL (6.4-8.2); Sodium Level 122 mmol/L (136-145)
[2024-08-23] MEDS: Insulin Lispro 100 UNIT in 0.9% Normal Saline (100mL Bag) 99 ML CONT INF (17:03)
[2024-08-23 17:56] LABS: Bacteria 0 SEEN /hpf (None Seen); Mucous, Urine 0 SEEN /hpf (<or=2+); Red Blood Cells-Urine 0 SEEN /hpf (0-5)
[2024-08-23 18:26] LABS: Color, Urine Yellow (Yellow); Glucose, Dipstick 1000 mg/dl (Normal); Ketone-Dipstick Negative (Negative); Leukocyte Esterase-Dipstick 25 /ul (Negative); Nitrite-Dipstick Negative (Negative); Occult Blood-Urine Negative /ul (Negative); Protein-Dipstick Negative (Negative); Specific Gravity, Urine 1.005 (1.002-1.030); Urine Bilirubin Dipstick Negative (Negative); Urine Clarity Clear (Clear); Urine Urobilinogen Normal (Normal)
[2024-08-23] MEDS: Insulin Lispro 100 UNIT/ML INSULN.PEN 20 UNIT SC (18:39)
[2024-08-23 18:42] LABS: Squamous Epithelial Cells - UA 0-5 SEEN /hpf (5-10); White Blood Cells 0-5 SEEN /hpf (0-5); Yeast-Urine RARE /hpf (None Seen)
[2024-08-23 19:10] LABS: Bedside Glucose > 500 mg/dL (74-106)
[2024-08-23] MEDS: Albuterol 2.5 MG/3 ML VIAL.NEB. INHALATION (20:10)
[2024-08-23] MEDS: Budesonide Respules 0.5 MG/2 ML AMPUL.NEB. INHALATION (20:12)
[2024-08-23 20:45] LABS: Osmolality, Serum 330 mOsm/KG (280-301)
[2024-08-23] MEDS: Rivaroxaban 15 MG Tablet PO (21:47)
[2024-08-23] MEDS: Insulin Lispro 100 UNIT/ML INSULN.PEN SC (21:47)
[2024-08-23] MEDS: Insulin Glargine-YFGN 100 UNIT/ML Pen 10 UNIT SC (21:47)
[2024-08-23] MEDS: Gabapentin 300 MG Capsule PO (21:47)
[2024-08-23] MEDS: Atorvastatin Calcium 10 MG Tablet PO (21:48)
[2024-08-23 22:13] LABS: Bedside Glucose 288 mg/dL (74-106)
[2024-08-23 23:07] LABS: T4 Free Direct 1.74 ng/dL (0.76-1.46); Thyroid Stim Hormone (TSH) 0.059 uIU/mL (0.358-3.740)
[2024-08-24 04:00] VITALS: BP 135/78; PULSE 62; RESP 18; TEMP 36.4; O2SAT 100
[2024-08-24 06:32] LABS: Hematocrit 25.7 % (37-47); Hemoglobin 8.7 g/dL (12.0-15.0); Mean Corp Hgb Conc 33.9 g/dL (32-36); Mean Corpuscular Hgb 34.7 pg (27.0-32.0); Mean Corpuscular Volume 102.4 fL (81-99); Mean Platelet Vol. 10.3 fl (6.2-12.0); Platelet Count 324 K/mm3 (150-450); RBC Distribution Width CV 14.7 % (11.6-14.6); RBC Distribution Width SD 53.6 fl (35.1-43.9); Red Blood Count 2.51 M/mm3 (4.2-5.4); White Blood Count 10.6 K/mm3 (4.4-11.0)
[2024-08-24] MEDS: Levothyroxine 137 MCG Tablet PO (06:42)
[2024-08-24] MEDS: Gabapentin 300 MG Capsule PO ×2 (06:42→13:59)
[2024-08-24 07:03] LABS: Bedside Glucose 71 mg/dL (74-106)
[2024-08-24 07:11] VITALS: PULSE 68; RESP 16; O2SAT 97
[2024-08-24] MEDS: Budesonide Respules 0.5 MG/2 ML AMPUL.NEB. INHALATION (07:11)
[2024-08-24] MEDS: Albuterol 2.5 MG/3 ML VIAL.NEB. INHALATION ×2 (07:11→12:42)
[2024-08-24 07:13] LABS: Anion Gap 5 (5-15); BUN 42 mg/dL (7-18); BUN/Creat Ratio 26.9 RATIO (10-20); Calcium,Total 8.9 mg/dL (8.5-10.1); Chloride 105 mmol/L (98-107); Creatinine, Serum 1.56 mg/dL (0.55-1.02); EST Glomerular Filtration Rate 33 mL/min (>60); Est Glom Filt Rate - Afr Amer 40 mL/min (>60); Estimated Creatinine Clearance 24.71 ml/min; Glucose 69 mg/dL (74-106); Potassium 3.6 mmol/L (3.5-5.1); Sodium Level 138 mmol/L (136-145)
[2024-08-24 09:40] VITALS: BP 150/49; PULSE 70; RESP 18; TEMP 36.4; O2SAT 99
[2024-08-24] MEDS: Calcium Carb/Vitamin D 1 TABLET Tablet PO (09:41)
[2024-08-24] MEDS: Pantoprazole Sodium 40 MG Tablet PO (09:41)
[2024-08-24] MEDS: Losartan Potassium 25 MG Tablet 12.5 MG PO (09:41)
[2024-08-24] MEDS: NIFEdipine 30 MG Tablet PO (09:41)
[2024-08-24] MEDS: Montelukast 10 MG Tablet PO (09:41)
[2024-08-24] MEDS: Ascorbic Acid 500 MG Tablet PO (09:42)
[2024-08-24] MEDS: Allopurinol 300 MG Tablet PO (09:42)
[2024-08-24] MEDS: Insulin Lispro 100 UNIT/ML INSULN.PEN SC (11:17)
[2024-08-24 11:36] LABS: Bedside Glucose 159 mg/dL (74-106)
[2024-08-24 12:42] VITALS: PULSE 74; RESP 20
[2024-08-24 15:30] VITALS: BP 111/52; PULSE 61; RESP 18; TEMP 36.9; O2SAT 96
== END 2024-08-24 16:15 | disposition home or self-care (01) ==
LOC: ED 17:47 → PCU 08-24 07:05
PROVIDERS: Admitting Provider Hospitalist; Emergency Provider Emergency Medicine; PCP Family Medicine; Visit Provider Internal Medicine
DX: E11.65 Type 2 diabetes mellitus with hyperglycemia (principal); N18.4 Chronic kidney disease, stage 4 (severe); J44.89 Other specified chronic obstructive pulmonary disease; I48.0 Paroxysmal atrial fibrillation; E11.22 Type 2 diabetes mellitus with diabetic chronic kidney disease; Z79.4 Long term (current) use of insulin; E11.40 Type 2 diabetes mellitus with diabetic neuropathy, unspecified; I25.10 Atherosclerotic heart disease of native coronary artery without angina pectoris; E87.1 Hypo-osmolality and hyponatremia; D50.9 Iron deficiency anemia, unspecified; E78.5 Hyperlipidemia, unspecified; Z79.84 Long term (current) use of oral hypoglycemic drugs; K21.9 Gastro-esophageal reflux disease without esophagitis; R35.0 Frequency of micturition; I12.9 Hypertensive chronic kidney disease with stage 1 through stage 4 chronic kidney disease, or unspecified chronic kidney disease; E03.9 Hypothyroidism, unspecified; Z79.899 Other long term (current) drug therapy; Z79.890 Hormone replacement therapy
CPT/HCPCS: 36415; 80048; 80053; 81001; 82009; 82962; 83930; 84439; 84443; 85025; 85027; 94640; 96361; 96365; 99221; 99285; J7030; A4216; G0378

== ENCOUNTER 2024-10-02 13:48 | Emergency (ER) | payer MEDICARE, MEDICAID, SELFPAY ==
[2024-10-02 13:49] VITALS: BP 155/60; PULSE 56; RESP 16; TEMP 36.7; O2SAT 97; BMI 28.7
--- NOTE | 2024-10-02 13:56 | ED.RN ---
PT BROUGHT IN FROM EMS. C/O RIGHT KNEE PAIN. PT SAID SHE HAD AN INJECTION DONE TO HER RIGHT KNEE ABOUT A WEEK AGO. HAS NOT BEEN ABLE TO WALK THIS MORNING D/T PIN IN THE RIGHT KNEE. SENSATION INTACT. 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 PT NORMALLY GETS AROUND THE HOUSE ON HER OWN WITH A WALKER.
--- NOTE | 2024-10-02 14:10 | EDS_ITS ---
HPI <JONATHAN Haq - Last Filed: 10/02/24 15:12> History of Present Illness Chief Complaint: Lower Extremity Injury Narrative Narrative: Patient is a 88-year-old female with history of nonalcoholic liver disease, GAY, CAD, hypertension hyperlipidemia diabetes who [facility] for worsening pain to the right hip, right lower back. Patient states that she has had pain to the right leg for some time. She recently had a injection of steroids to her right knee. Over the last 2 to 3 days, the son states that the pain is getting worse in her hip and knee. She is having difficulty getting around and is here for evaluation. She denies any numbness or tingling, denies any bowel or bladder continence, denies any fever or chills. PFSH <JONATHAN Haq - Last Filed: 10/02/24 15:12> [facility] Medical History (Updated 10/02/24 @ 15:10 by JONATHAN Haq) Hyponatremia Hyperglycemia Chronic anemia Diabetes Kidney disease GERD (gastroesophageal reflux disease) Non-smoker Iron deficiency anemia History of GI bleed Non-alcoholic cirrhosis Tobacco use PAF (paroxysmal atrial fibrillation) CKD (chronic kidney disease), stage IV Hiatal hernia PUD (peptic ulcer disease) Chronic anticoagulation Ventral hernia Tremor Macrocytic anemia Gout Asthma Hypothyroidism Obesity Type 2 diabetes mellitus Chronic atrial flutter Essential (primary) hypertension Hyperlipidemia Home Medications ?Medication ?Instructions ?Recorded ?Last Taken ?Type allopurinol 100 mg tablet 300 mg PO DAILY 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 01/30/16 01/09/23 History fluticasone 250 mcg-salmeterol 50 1 puff inhalation BID sob 01/30/16 01/08/23 History mcg/dose blistr powdr for inhalation montelukast 10 mg tablet 10 mg PO DAILY breathing 01/30/16 01/08/23 History nifedipine 60 mg tablet,extended 30 mg PO DAILY blood pressure 01/30/16 01/09/23 History release 24 hr albuterol sulfate 90 mcg/actuation 2 puff inhalation Q4H PRN 04/19/19 Unknown History aerosol inhaler sob/wheezing #18 grams gabapentin 300 mg capsule 300 mg PO TID neuropathy 04/19/19 01/09/23 History levothyroxine 137 mcg tablet 137 mcg PO .COMPLEX thyroid #30 04/19/19 01/09/23 History tabs rivaroxaban 20 mg tablet 20 mg PO QPM blood thinner #30 tabs 04/19/19 01/08/23 History calcium 600 mg (as 1 tab PO DAILY supplement 08/23/21 Unknown History carbonate)-vitamin D3 20 mcg (800 unit) tablet glipizide 2.5 mg tablet, extended 12.5 mg PO DAILY diabetes 08/23/21 01/08/23 History release 24 hr multivitamin 1 tab PO DAILY supplement 08/23/21 01/09/23 History cyanocobalamin (vitamin B-12) 1 tablet PO/SL DAILY supplement 03/06/22 01/09/23 History furosemide 40 mg tablet 60 mg PO DAILY EDEMA 01/09/23 01/08/23 History simvastatin 40 mg tablet 20 mg PO QHS CHOLESTEROL 01/09/23 01/08/23 History empagliflozin 10 mg tablet 10 mg PO DAILY diabetes 02/02/23 Unknown History (Jardiance) losartan 25 mg tablet 12.5 mg PO DAILY blood pressure 02/02/23 Unknown History sitagliptin phosphate 25 mg tablet 25 mg PO DAILY diabetes 02/02/23 Unknown History ferrous sulfate 300 mg (60 mg 300 mg (5 mL) PO DAILYCM #30 mL 02/04/23 Unknown Rx iron)/5 mL oral liquid ascorbic acid (vitamin C) 500 mg 500 mg PO BID vitamin #60 tabs 09/25/23 Unknown Rx tablet pantoprazole 40 mg tablet,delayed 40 mg PO DAILY gerd #30 tabs 09/25/23 Unknown Rx release spironolactone 25 mg tablet 12.5 mg (1/2 x 25 mg) PO DAILY 09/25/23 Unknown Rx diuretic #30 tabs levothyroxine 137 mcg capsule 274 mcg PO .daily on thursday thyroid 03/13/24 Unknown History potassium chloride 20 mEq 20 meq PO DAILY supplement 03/13/24 Unknown History tablet,extended release insulin degludec 100 unit/mL (3 unit subcut 08/23/24 Unknown History mL) subcutaneous pen (Tresiba FlexTouch U-100 insulin) insulin lispro 100 unit/mL 2 unit subcut QPM diabetes 08/23/24 Unknown History subcutaneous pen insulin glargine 100 unit/mL (3 20 unit (0.2 mL) subcut QHS 08/24/24 Unknown Rx mL) subcutaneous pen (Lantus diabetes #1 mL Solostar U-100 Insulin) hydrocodone-acetaminophen 5-325mg 1 tab PO Q6H PRN PRN Pain 3 days 10/02/24 Unknown Rx 5mg-325mg #10 TABLETS Allergy/AdvReac Type Severity Reaction Status Date / Time propranolol AdvReac nausea Verified 08/23/24 15:38 Family History Mother Heart failure Heart disease Hypertension Father Heart failure Heart disease Hypertension Surgical History Bilateral artificial lens implant (~2019) History of tonsillectomy and adenoidectomy Social History household members: family Smoking Status: Never smoker alcohol intake: never substance use type: does not use caffeine: No ROS <JONATHAN Haq - Last Filed: 10/02/24 15:12> ROS ED ROS Narrative Constitutional: Negative for fever, chills, weight loss, weakness Eyes: Negative for vision loss, vision change, double vision ENT: Negative for any sore throat, ear pain, congestion Cardiovascular: Negative for any chest pain, tightness, palpitations Respiratory: Negative for any cough, sputum production, hemoptysis, dyspnea, dyspnea on exertion, orthopnea Gastrointestinal: Negative for any abdominal pain, nausea, vomiting, diarrhea, constipation, blood in stool, blood in vomit : Negative for any urinary frequency, dysuria, retention, blood in urine Muscle skeletal: Negative for any neck pain. Positive for pain to the right lower back, right hip, right groin Neurological: Negative for any headache, syncope, dizziness Skin: Negative for any rashes, itching, abrasions, lacerations Psychiatric: Negative for any depression, anxiety, stress, suicidal ideation, homicidal ideation Hematologic: Negative for any excessive bruising, easy bleeding EXAM <JONATHAN Haq - Last Filed: 10/02/24 15:12> Physical Exam Narrative Exam Narrative: Vital signs reviewed. HEET: Head normocephalic atraumatic, TMs clear bilaterally. Posterior pharynx is clear, moist mucous membranes. Nares clear bilaterally. Neck: Supple with no lymphadenopathy or tenderness. No signs of meningismus. Cardiac: Regular rate and rhythm no murmurs gallops or rubs, equal peripheral pulses bilaterally. Respiratory: Lungs clear to auscultation bilaterally. No chest tenderness. Abdomen: Soft, nontender, nondistended. No abdominal bruit or pulsatile masses. No hepatosplenomegaly Extremities: There is no sign of trauma. Patient was able to flex and extend the left leg, patient was able lift of the right leg, intact extension mechanism. Whenever I would flex or extend, rotate the hip, this did cause discomfort and pain to the right groin. No neurological focal deficit. Neuro: Cranial nerves II through XII intact, no focal neurological deficits. Skin: Clean dry and intact with no rash, purpura, petechiae, vesicles or pustules. Backs/flank: No CVA tenderness, no midline spinal tenderness, no deformity. Psych: Normal mood and affect. No SI, HI or acute psychosis. Const Vital Signs: 10/02/24 13:49 10/02/24 15:16 Temperature 98.1 F 98.1 F Temperature Source Oral Pulse Rate 56 L 60 Respiratory Rate 16 16 Blood Pressure 155/60 H 145/80 H Blood Pressure Mean 91 101 Pulse Ox 97 97 Oxygen Delivery Method Room Air <Dr. Aamir yRan DO - Last Filed: 10/02/24 19:18> Physical Exam Const Vital Signs: 10/02/24 13:49 10/02/24 15:16 Temperature 98.1 F 98.1 F Temperature Source Oral Pulse Rate 56 L 60 Respiratory Rate 16 16 Blood Pressure 155/60 H 145/80 H Blood Pressure Mean 91 101 Pulse Ox 97 97 Oxygen Delivery Method Room Air [facility] <JONATHAN Haq - Last Filed: 10/02/24 15:12> [facility] Radiography Diagnostic Testing: Clinical Impression(s) from Imaging Studies Hip/Pelvis X-Ray 10/02/24 14:20 IMPRESSION: No acute findings in the pelvis or right hip. Electronically Signed: Jose Ferguson MD at 14:34 EST , Lumbar Spine X-Ray 10/02/24 14:20 IMPRESSION: Degenerative changes of the spine, as detailed above. Electronically Signed: Jose Ferguson MD at 14:32 EST , Treatment and Re-Evaluation :: Differential diagnosis includes however is not limited to: Compression fracture of the lumbar spine, hip arthritis, pelvic fracture, muscle strain, DVT Patient appears generally well, vital signs are stable, patient is nontoxic- appearing. Presenting to the emergency department complaints of lower back pain, right hip and groin pain. Secondary to the patient's age, patient will be given a x-ray of the lower lumbar spine as well as the right hip x-ray with pelvis. Patient be treat with IM morphine, oral Zofran. Patient will need to be reevaluated. All radiologic examinations were read, reviewed by the emergency department attending. From these reads, a plan of care will be put in place. Patient reevaluation improved with the morphine. Patient's hip x-ray showed no acute findings in the pelvis or hip, lumbar spine x-ray showed degenerative changes however no acute fracture. Patient after the medication was able to get up and walk with her walker. They feel comfortable going home. Patient be given [place] for severe pain at home. Patient also be given orthopedic follow- up. All questions were answered, stable for discharge. <Dr. Aamir Ryan, DO - Last Filed: 10/02/24 19:18> MDM Radiography Diagnostic Testing: Clinical Impression(s) from Imaging Studies Hip/Pelvis X-Ray 10/02/24 14:20 IMPRESSION: No acute findings in the pelvis or right hip. Electronically Signed: Jose Ferguson MD at 14:34 EST , Lumbar Spine X-Ray 10/02/24 14:20 IMPRESSION: Degenerative changes of the spine, as detailed above. Electronically Signed: Jose Ferguson MD at 14:32 EST , Treatment and Re-Evaluation :: Differential diagnosis includes however is not limited to: Compression fracture of the lumbar spine, hip arthritis, pelvic fracture, muscle strain, DVT Patient appears generally well, vital signs are stable, patient is nontoxic- appearing. Presenting to the emergency department complaints of lower back pain, right hip and groin pain. Secondary to the patient's age, patient will be given a x-ray of the lower lumbar spine as well as the right hip x-ray with pelvis. Patient be treat with IM morphine, oral Zofran. Patient will need to be reevaluated. All radiologic examinations were read, reviewed by the emergency department attending. From these reads, a plan of care will be put in place. Patient reevaluation improved with the morphine. Patient's hip x-ray showed no acute findings in the pelvis or hip, lumbar spine x-ray showed degenerative changes however no acute fracture. Patient after the medication was able to get up and walk with her walker. They feel comfortable going home. Patient be given [place] for severe pain at home. Patient also be given orthopedic follow- up. All questions were answered, stable for discharge. ED attending note: I evaluated the patient in conjunction with the [facility]EN. I agree with his/her statements and above findings. I have personally performed a face to face assessment of the patient and have reviewed the [facility] Note. I performed a substantive portion of the visit including all aspects of the following. I personally saw the patient performed chart review, physical exam, reviewed labs, imaging (if obtained), and formulated a treatment and management plan. This note was generated with [employer] dictation software. It may contain incorrect words, spelling, and punctuation that were not noted in review of the chart prior to signing. Discharge Plan Triage Chief Complaint: Lower Extremity Injury ED Midlevel Provider: Omid Olivera ED Provider: Aamir Ryan Dx/Rx/DC Orders Clinical Impression: Acute hip pain, Lower back pain Instructions: ED Arthralgia, ED Hip Strain Prescriptions: New hydrocodone-acetaminophen 5-325 mg tablet 1 tab PO Q6H PRN PRN (Reason: Pain) 3 Days Qty: 10 0RF No Action albuterol sulfate 90 mcg/actuation HFA aerosol inhaler 2 puff INHALATION Q4H PRN (Reason: sob/wheezing) Qty: 18 levothyroxine 137 mcg tablet 137 mcg PO .COMPLEX Qty: 30 Patient Comments: per pt takes 1 tab daily Thu, , Thursday, , Thursday, & Thursday 2 tabs on Thursday Rx Instructions: 137 mcg orally daily on Luis Alberto; rivaroxaban 20 mg tablet 20 mg PO QPM Qty: 30 glipizide 2.5 mg tablet extended release 24hr 12.5 mg PO DAILY Patient Comments: Take 5 tablets by mouth once daily. multivitamin Tablet 1 tab PO DAILY calcium carbonate-vitamin D3 600 mg(1,500mg) -800 unit tablet 1 tab PO DAILY spironolactone 25 mg tablet 12.5 mg PO DAILY Qty: 30 1RF Rx Instructions: Discontinue if serum potassium more than 5.0. Repeat BMP in 1 week. pantoprazole 40 mg tablet,delayed release (DR/EC) 40 mg PO DAILY Qty: 30 2RF ascorbic acid (vitamin C) 500 mg tablet 500 mg PO BID Qty: 60 2RF fluticasone propion-salmeterol 1 PUFF inhaler 1 puff inhalation BID allopurinol 100 MG tablet 300 mg PO DAILY nifedipine 60 MG tablet 30 mg PO DAILY montelukast 10 MG tablet 10 mg PO DAILY gabapentin 300 mg capsule 300 mg PO TID cyanocobalamin (vitamin B-12) 1 tablet PO/SL DAILY furosemide 40 mg tablet 60 mg PO DAILY simvastatin 40 mg Tablet 20 mg PO QHS Jardiance 10 mg Tablet 10 mg PO DAILY sitagliptin phosphate 25 mg Tablet 25 mg PO DAILY losartan 25 mg tablet 12.5 mg PO DAILY ferrous sulfate 300 mg (60 mg iron)/5 mL Liquid 300 mg PO DAILYCM Qty: 30 0RF levothyroxine 137 mcg capsule 274 mcg PO .daily on thursday Patient Comments: per pt takes 2 tabs sundays, 1 tab on all other days of week. potassium chloride 20 mEq tablet extended release 20 meq PO DAILY insulin lispro 100 unit/mL insulin pen 2 unit subcut QPM insulin degludec [Tresiba FlexTouch U-100] 100 unit/mL (3 mL) insulin pen SUBCUT Patient Comments: PLEASE SEE ATTACHED FOR DETAILED DIRECTIONS insulin glargine [Lantus Solostar U-100 Insulin] 100 unit/mL (3 mL) insulin pen 20 unit subcut QHS Qty: 1 0RF Primary Care Provider: Tee Álvarez Referrals: Tee Álvarez MD [Primary Care Provider] - Memo Calvo MD [Med Staff - Active Staff] - Print Language: Kiswahili Disposition Disposition: Home, Self Care Discharge Date/Time: 10/02/24 15:19
--- NOTE | 2024-10-02 14:20 | RAD_ITS ---
STUDY: X-RAY - LUMBAR SPINE REASON FOR EXAM: Female, 88 years old. pain TECHNIQUE: XR Spine Lumbar 3 Views COMPARISON: None FINDINGS: Normal lumbar lordosis. There is no substantial scoliosis. There is a normal alignment of the vertebrae. There is multilevel endplate spondylosis of the lumbar vertebrae. There is multi-level degenerative disc disease with multi-level disc space narrowing. There are atherosclerotic vascular calcifications. The soft tissue structures are unremarkable. RAD/Lumbar Spine 2 or 3 Views IMPRESSION: Degenerative changes of the spine, as detailed above. Electronically Signed: Jose Ferguson MD at 14:32 EST ,
--- NOTE | 2024-10-02 14:20 | RAD_ITS ---
EXAM: XR RIGHT HIP WITH PELVIS WHEN PERFORMED, 2 OR 3 VIEWS CLINICAL INDICATION: pain TECHNIQUE: Two or three views of the right hip with pelvis when performed. COMPARISON: No relevant prior studies available. FINDINGS: BONES/JOINTS: Degenerative changes of both hips. No displaced fracture. No destructive or sclerotic lesions. Note that overlapping bowel shadows may however obscure fine detail. Sacroiliac joint is unremarkable. No widening of the pubic symphysis. SOFT TISSUES: Unremarkable. No soft tissue swelling or gas. VASCULATURE: Vascular calcifications. RAD/HIP, UNI W/ Pelvis 2-3 Views IMPRESSION: No acute findings in the pelvis or right hip. Electronically Signed: Jose Ferguson MD at 14:34 EST Reading Location ID and State: [facility] / [place] , Service support ,
[2024-10-02] MEDS: Ondansetron ODT 4 MG Tablet PO (14:33)
[2024-10-02] MEDS: Morphine 4 MG/ML Syringe IM (14:34)
[2024-10-02 15:16] VITALS: BP 145/80; PULSE 60; RESP 16; TEMP 36.7; O2SAT 97
== END 2024-10-02 15:19 | disposition home or self-care (01) ==
PROVIDERS: Emergency Provider Emergency Medicine; PCP Family Medicine; Visit Provider Emergency Medicine
DX: M25.551 Pain in right hip (principal); N18.4 Chronic kidney disease, stage 4 (severe); E11.22 Type 2 diabetes mellitus with diabetic chronic kidney disease; M54.50 Low back pain, unspecified; I25.10 Atherosclerotic heart disease of native coronary artery without angina pectoris
CPT/HCPCS: 72100; 73502; 96372; 99285

== ENCOUNTER 2025-01-07 12:50 | Observation (INO) | payer MEDICARE, MEDICAID, SELFPAY ==
[2025-01-07] VITALS (10 sets, daily range): BP systolic 94–135; BP diastolic 40–94; PULSE 51–67; RESP 14–18; TEMP 36.4–36.9; O2SAT 92–99; BMI 28.8; BMI 31.6
--- NOTE | 2025-01-07 13:20 | EKG12_ITS ---
Test Reason : DIZZINESS Blood Pressure : */* mmHG Vent. Rate : 70 BPM Atrial Rate : 70 BPM P-R Int : 224 ms QRS Dur : 158 ms QT Int : 440 ms P-R-T Axes : 61 -55 115 degrees QTcB Int : 475 ms Sinus rhythm with 1st degree A-V block Left axis deviation Left bundle branch block Abnormal ECG Confirmed by Riccardo Ceja ([id number]), digital editor LEANNA POWERS ([id number]) on 01/12/2025 10:04:08 AM Referred By: Confirmed By: Riccardo Ceja
--- NOTE | 2025-01-07 13:31 | EX.ED.DYSGE1 ---
HPI <JONATHAN Haq - Last Filed: 01/07/25 14:59> History of Present Illness Chief Complaint: Dizziness Narrative Narrative: Patient is an 89-year-old female who lives at home with her son-in-law, long medical history of nonalcoholic liver cirrhosis, chronic anemia, thrombocytopenia, hypertension, atrial fibrillation on Xarelto, hypothyroidism who presents to the emergency department for weakness this morning. Per the patient, she became very dizzy where she thought she was in a pass out. However she also states there was a spinning sensation. When the son-in-law got her out of bed the patient wet the bed which is abnormal for her. Patient states she no longer feels dizzy, lightheaded however she just feels generally tired. She is here for evaluation. Denies any specific pain. Of note, patient was treated for pneumonia 3 weeks ago, patient has been improved. PFS <JONATHAN Haq - Last Filed: 01/07/25 14:59> [facility] Medical History Hyponatremia Hyperglycemia Chronic anemia Diabetes Kidney disease GERD (gastroesophageal reflux disease) Non-smoker Iron deficiency anemia History of GI bleed Non-alcoholic cirrhosis Tobacco use PAF (paroxysmal atrial fibrillation) CKD (chronic kidney disease), stage IV Hiatal hernia PUD (peptic ulcer disease) Chronic anticoagulation Ventral hernia Tremor Macrocytic anemia Gout Asthma Hypothyroidism Obesity Type 2 diabetes mellitus Chronic atrial flutter Essential (primary) hypertension Hyperlipidemia Home Medications ?Medication ?Instructions ?Recorded ?Last Taken ?Type allopurinol 100 mg tablet 300 mg PO DAILY 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 01/30/16 01/09/23 History fluticasone 250 mcg-salmeterol 50 1 puff inhalation BID sob 01/30/16 01/08/23 History mcg/dose blistr powdr for inhalation montelukast 10 mg tablet 10 mg PO DAILY breathing 01/30/16 01/08/23 History nifedipine 60 mg tablet,extended 30 mg PO DAILY blood pressure 01/30/16 01/09/23 History release 24 hr albuterol sulfate 90 mcg/actuation 2 puff inhalation Q4H PRN 04/19/19 Unknown History aerosol inhaler sob/wheezing #18 grams gabapentin 300 mg capsule 300 mg PO TID neuropathy 04/19/19 01/09/23 History rivaroxaban 20 mg tablet 20 mg PO QPM blood thinner #30 tabs 04/19/19 01/08/23 History calcium 600 mg (as 1 tab PO DAILY supplement 08/23/21 Unknown History carbonate)-vitamin D3 20 mcg (800 unit) tablet multivitamin 1 tab PO DAILY supplement 08/23/21 01/09/23 History cyanocobalamin (vitamin B-12) 1 tablet PO/SL DAILY supplement 03/06/22 01/09/23 History furosemide 40 mg tablet 60 mg PO DAILY EDEMA 01/09/23 01/08/23 History simvastatin 40 mg tablet 20 mg PO QHS CHOLESTEROL 01/09/23 01/08/23 History losartan 25 mg tablet 12.5 mg PO DAILY blood pressure 02/02/23 Unknown History sitagliptin phosphate 25 mg tablet 25 mg PO DAILY diabetes 02/02/23 Unknown History ascorbic acid (vitamin C) 500 mg 500 mg PO BID vitamin #60 tabs 09/25/23 Unknown Rx tablet pantoprazole 40 mg tablet,delayed 40 mg PO DAILY gerd #30 tabs 09/25/23 Unknown Rx release potassium chloride 20 mEq 20 meq PO DAILY supplement 03/13/24 Unknown History tablet,extended release insulin degludec 100 unit/mL (3 unit subcut 08/23/24 Unknown History mL) subcutaneous pen (Tresiba FlexTouch U-100 insulin) insulin lispro 100 unit/mL 2 unit subcut QPM diabetes 08/23/24 Unknown History subcutaneous pen insulin glargine 100 unit/mL (3 20 unit (0.2 mL) subcut QHS 08/24/24 Unknown Rx mL) subcutaneous pen (Lantus diabetes #1 mL Solostar U-100 Insulin) levothyroxine 137 mcg tablet 125 mcg PO QDAY thyroid #30 tabs 12/09/24 Unknown History Allergy/AdvReac Type Severity Reaction Status Date / Time propranolol AdvReac nausea Verified 12/09/24 11:03 Family History Mother Heart failure Heart disease Hypertension Father Heart failure Heart disease Hypertension Surgical History Bilateral artificial lens implant (~2019) History of tonsillectomy and adenoidectomy Social History household members: family Smoking Status: Never smoker alcohol intake: never substance use type: does not use caffeine: No ROS <JONATHAN aHq - Last Filed: 01/07/25 14:59> ROS ED ROS Narrative Constitutional: Negative for fever, chills, weight loss. Positive for weakness Eyes: Negative for vision loss, vision change, double vision ENT: Negative for any sore throat, ear pain, congestion Cardiovascular: Negative for any chest pain, tightness, palpitations Respiratory: Negative for any cough, sputum production, hemoptysis, dyspnea, dyspnea on exertion, orthopnea Gastrointestinal: Negative for any abdominal pain, nausea, vomiting, diarrhea, constipation, blood in stool, blood in vomit : Negative for any urinary frequency, dysuria, retention, blood in urine Muscle skeletal: Negative for any neck pain, back pain Neurological: Negative for any headache. Positive dizziness, near syncope Skin: Negative for any rashes, itching, abrasions, lacerations Psychiatric: Negative for any depression, anxiety, stress, suicidal ideation, homicidal ideation Hematologic: Negative for any excessive bruising, easy bleeding EXAM <JONATHAN Haq - Last Filed: 01/07/25 14:59> Physical Exam Narrative Exam Narrative: Vital signs reviewed. Patient appears to be in no distress, patient alert and orient x 4. Patient states she only feels tired at this time. HEET: Head normocephalic atraumatic, TMs clear bilaterally. Posterior pharynx is clear, dry mucous membranes. Nares clear bilaterally. Neck: Supple with no lymphadenopathy or tenderness. No signs of meningismus. Cardiac: Regular rate and rhythm no murmurs gallops or rubs, equal peripheral pulses bilaterally. Respiratory: Patient does have rhonchorous breath sounds in bilateral lower lobes. No chest tenderness. Abdomen: Soft, nontender, nondistended. No abdominal bruit or pulsatile masses. No hepatosplenomegaly Extremities: No peripheral edema, no signs of gross trauma or deformity. Active full range of motion of all extremities. Neuro: Cranial nerves II through XII intact, no focal neurological deficits. Skin: Clean dry and intact with no rash, purpura, petechiae, vesicles or pustules. Backs/flank: No CVA tenderness, no midline spinal tenderness, no deformity. Psych: Normal mood and affect. No SI, HI or acute psychosis. Const Vital Signs: 01/07/25 12:52 01/07/25 12:58 01/07/25 13:20 Temperature 98.2 F 98.2 F Temperature Source Oral Oral Pulse Rate 51 L 56 L Respiratory Rate 16 15 Blood Pressure 94/45 L 101/56 L 113/94 H Blood Pressure Mean 61 71 100 Pulse Ox 93 93 Oxygen Delivery Method Room Air Room Air 01/07/25 13:58 01/07/25 14:00 Temperature 98.1 F 98.1 F Temperature Source Oral Oral Pulse Rate 65 66 Respiratory Rate 15 15 Blood Pressure 106/43 L 106/69 Blood Pressure Mean 64 81 Pulse Ox 99 99 Oxygen Delivery Method Room Air Room Air Positive well nourished and well developed General Appearance ED: well developed <Dr. Kin Ariza MD - Last Filed: 01/07/25 14:59> Physical Exam Const Vital Signs: 01/07/25 12:52 01/07/25 12:58 01/07/25 13:20 Temperature 98.2 F 98.2 F Temperature Source Oral Oral Pulse Rate 51 L 56 L Respiratory Rate 16 15 Blood Pressure 94/45 L 101/56 L 113/94 H Blood Pressure Mean 61 71 100 Pulse Ox 93 93 Oxygen Delivery Method Room Air Room Air 01/07/25 13:58 01/07/25 14:00 Temperature 98.1 F 98.1 F Temperature Source Oral Oral Pulse Rate 65 66 Respiratory Rate 15 15 Blood Pressure 106/43 L 106/69 Blood Pressure Mean 64 81 Pulse Ox 99 99 Oxygen Delivery Method Room Air Room Air MDM <JONATHAN Haq - Last Filed: 01/07/25 14:59> MDM Lab Data Labs: Laboratory Results - last 24 hr 01/07/25 01/07/25 12:19 14:06 WBC 13.3 H RBC 3.12 L Hgb 10.8 L Hct 32.0 L MCV 102.6 H MCH 34.6 H MCHC 33.8 RDW Std Deviation 60.0 H RDW Coeff of Gloria 15.9 H Plt Count 241 MPV 11.0 Immature Gran % (Auto) 0.800 Neut % (Auto) 76.2 H Lymph % (Auto) 15.1 L [place] % (Auto) 7.4 Eos % (Auto) 0.3 Baso % (Auto) 0.2 Absolute Neuts (auto) 10.1 H Absolute Lymphs (auto) 2.01 Nucleated RBC % 0 Sodium 140 Potassium 3.3 Chloride 101 Carbon Dioxide 24.2 Anion Gap 15 BUN 39 H Creatinine 2.00 H Estim Creat Clear Calc 19.43 L Est GFR (MDRD) Non-Af 24 L BUN/Creatinine Ratio 19.6 Glucose 157 H Calcium 8.7 Total Bilirubin 0.62 AST 24 ALT 21 Alkaline Phosphatase 95 Troponin T High Sens 70 H* Total Protein 6.1 Albumin 3.4 Globulin 2.7 Albumin/Globulin Ratio 1.3 Urine Color Yellow Urine Clarity Clear Urine pH 5.0 Ur Specific [place] 1.015 Urine Protein 30 H Urine Glucose (UA) 1000 H Urine Ketones Negative Urine Occult Blood 10 H Urine Nitrite Negative Urine Bilirubin Negative Urine Urobilinogen Normal Ur Leukocyte Esterase 25 H Urine RBC 0 SEEN Urine WBC 0-5 SEEN Ur Squamous Epith Cells 0 SEEN Urine Bacteria 0 SEEN Urine Mucus 0 SEEN Radiography Diagnostic Testing: Clinical Impression(s) from Imaging Studies Chest X-Ray 01/07/25 13:40 IMPRESSION: 1. Left upper lobe airspace opacification, compatible with pneumonia. 2. Mild cardiomegaly with small left pleural effusion. Reading Location: [facility] Treatment and Re-Evaluation :: Differential diagnosis includes however is not limited to: CVA, electrode abnormality, COVID-19, influenza, RSV, UTI, dehydration, arrhythmia Patient appears generally well, vital signs are stable, patient is nontoxic-appearing. Presenting to the emergency department for a episode of dizziness, near syncope, loss of bladder while sleeping. Patient will receive a cardiac workup including chest x-ray, basic laboratory values as well as an EKG. All radiologic examinations were read, reviewed by the emergency department attending. From these reads, a plan of care will be put in place. 1 L normal saline. Patient's COVID-19 RSV, influenza was negative. Patient's laboratory values shows a leukocytosis with white blood count 13.3, hemoglobin 10.8 which is stable. Patient's chemistries show a stable creatinine of 2.0, initial troponin was 70, repeat will be drawn in 1 hour. Patient's glucose under 57. Patient's chest x-ray shows a left upper lobe airspace opacity medication opacification, compatible with pneumonia. Mild cardiomegaly with small left pleural effusion. At this time, secondary to weakness, pneumonia, patient will be started on azithromycin, Rocephin. Patient will need to be admitted to hospital <Dr. Kin Ariza MD - Last Filed: 01/07/25 14:59> [facility] Narrative Medical decision making narrative: I have personally performed a face to face assessment of the patient and have reviewed the ALLEN Note. I performed a substantive portion of the visit including all aspects of the following. My ma findings include: History is [89-year-old female recent pneumonia treated with outpatient antibiotics by her primary care physician. [place] like she was getting better. Today she was so weak she could not stand at home. Has had a chronic cough. Denies any history of underlying lung disease.] Exam is [81-year-old female sitting upright in bed. No distress. Initial blood pressure 9445 currently 106/69. Pulse ox 93% on room air. H EENT exam is reactive light. Mytrex membranes. No facial droop. No trauma. Neck nontender. Lungs very coarse breath sounds with rhonchi on the left. Consistent with pneumonia. Heart rate about 60 no murmur. Chest wall ribs nontender. Back nontender. Kyphotic. Abdomen soft nontender. Large ventral hernia nontender. Moving all 4 extremities. Nontender no edema. Neurologically she is awake alert. Answer questions following commands.] Medical Decision Making [elderly female generalized weakness concern for pneumonia versus other infectious etiologies. Screening labs. X-ray and IV fluids.] Other additions or changes: [Chest x-ray consistent with a left upper lobe pneumonia. Started on Rocephin and Zithromax. Will be admitted to the hospitalist.] History & Record Review Discussion w/independent historian: Patient and Family Additional record(s) reviewed:: Prior inpatient record, Prior outpatient record, Prior ED visit and Prior labs Lab Data Attestation: I reviewed the patient's lab results. Lab results narrative: CBC white count of 13.3. H&H of 10.8 and 32. Platelets 241. Electrolytes show gap 15. BUN of 39 creatinine 2.0 consistent with her chronic kidney disease. Glucose 157. Liver enzymes unremarkable. She has a troponin of 70 I do not know the importance of that currently. I do not think this is specifically a cardiac issue. UA negative. No nitrates. No white or red cells. Chest x-ray large left upper lobe pneumonia. Labs: Laboratory Results - last 24 hr 01/07/25 01/07/25 12:19 14:06 WBC 13.3 H RBC 3.12 L Hgb 10.8 L Hct 32.0 L MCV 102.6 H MCH 34.6 H MCHC 33.8 RDW Std Deviation 60.0 H RDW Coeff of Gloria 15.9 H Plt Count 241 MPV 11.0 Immature Gran % (Auto) 0.800 Neut % (Auto) 76.2 H Lymph % (Auto) 15.1 L [place] % (Auto) 7.4 Eos % (Auto) 0.3 Baso % (Auto) 0.2 Absolute Neuts (auto) 10.1 H Absolute Lymphs (auto) 2.01 Nucleated RBC % 0 Sodium 140 Potassium 3.3 Chloride 101 Carbon Dioxide 24.2 Anion Gap 15 BUN 39 H Creatinine 2.00 H Estim Creat Clear Calc 19.43 L Est GFR (MDRD) Non-Af 24 L BUN/Creatinine Ratio 19.6 Glucose 157 H Calcium 8.7 Total Bilirubin 0.62 AST 24 ALT 21 Alkaline Phosphatase 95 Troponin T High Sens 70 H* Total Protein 6.1 Albumin 3.4 Globulin 2.7 Albumin/Globulin Ratio 1.3 Urine Color Yellow Urine Clarity Clear Urine pH 5.0 Ur Specific [place] 1.015 Urine Protein 30 H Urine Glucose (UA) 1000 H Urine Ketones Negative Urine Occult Blood 10 H Urine Nitrite Negative Urine Bilirubin Negative Urine Urobilinogen Normal Ur Leukocyte Esterase 25 H Urine RBC 0 SEEN Urine WBC 0-5 SEEN Ur Squamous Epith Cells 0 SEEN Urine Bacteria 0 SEEN Urine Mucus 0 SEEN Radiography Chest X-Ray - ED: 2 View, Read by ED Physician, Read by Radiologist, Heart, Mediastinum, Bony Structures, Chronic Changes and Left Infiltrate Diagnostic Testing: Clinical Impression(s) from Imaging Studies Chest X-Ray 01/07/25 13:40 IMPRESSION: 1. Left upper lobe airspace opacification, compatible with pneumonia. 2. Mild cardiomegaly with small left pleural effusion. Reading Location: [facility] Chest x-ray, 2 views, AP and lateral, interpreted by by myself and radiologist. Normal cardiac silhouette. Large left upper lobe pneumonia. Rhythm Strip Rhythm Strip: Sinus Rhythm Rate: 70 Ectopy: None EKG Initial EKG: Attestation: I personally reviewed and interpreted this EKG as follows: Interpretation: Sinus Rhythm and No Acute Injury Pattern Comments: Normal sinus rhythm. Rate 70. Left bundle branch block. No signs of acute PA or ischemia. Discharge Plan Dx/Rx/DC Orders Clinical Impression: Weakness, Community acquired pneumonia Disposition Disposition: Acute Care Hospital [facility]
[2025-01-07 13:35] LABS: Absolute Lymphocyte Count 2.01 X10^3/uL (0.83-4.51); Absolute Neutrophil Count 10.1 X10^3/uL (2.0-7.7); Basophil# 0.03 X10^3/uL; Basophil% 0.2 % (0-1); Eosinophil# 0.04 X10^3/uL; Eosinophils% 0.3 % (0-5); Hemoglobin 10.8 g/dL (12.0-15.0); Lymphocyte # 2.01 X10^3/ul (0.83-4.51); Lymphocyte % 15.1 % (19-41); Mean Corp Hgb Conc 33.8 g/dL (32-36); Mean Corpuscular Hgb 34.6 pg (27.0-32.0); Mean Corpuscular Volume 102.6 fL (81-99); Monocyte# 0.98 X10^3/uL; Monocyte% 7.4 % (0-10); NRBC Flagged by Analyzer 0 % (0-5); Neutrophil # 10.14 X10^3/uL (2.7-7.7); Neutrophil % 76.2 % (47-70); Platelet Count 241 K/mm3 (150-450); RBC Distribution Width CV 15.9 % (11.6-14.6); Red Blood Count 3.12 M/mm3 (4.2-5.4); White Blood Count 13.3 K/mm3 (4.4-11.0)
--- NOTE | 2025-01-07 13:40 | RAD_ITS ---
PROCEDURE: CHEST PA AND LATERAL 01/07/2025 REASON FOR EXAM: 89-year-old female, cough. TECHNIQUE: Frontal and lateral views of the chest. COMPARISON: Chest radiograph 03/12/2024. FINDINGS: Hardware: None. Heart: Heart size is mildly enlarged. Mediastinum: There are atherosclerotic calcifications of the thoracic aorta. Lungs: Patchy airspace consolidation within the left upper lobe. Probable small left pleural effusion. No pneumothorax. Stable elevation of the right hemidiaphragm. Bones: Degenerative changes are identified within the thoracic spine. RAD/Chest PA and Lateral IMPRESSION: 1. Left upper lobe airspace opacification, compatible with pneumonia. 2. Mild cardiomegaly with small left pleural effusion. Reading Location: [id number]
[2025-01-07] MEDS: 0.9% Normal Saline (1000mL) 1,000 ML 999 ML IV (13:42)
--- NOTE | 2025-01-07 13:44 | ED.RN ---
Patient transported to radiology.
[2025-01-07 14:07] LABS: ALB/GLOB Ratio 1.3 RATIO (0.9-2.4); AST(SGOT) 24 U/L (<=31); Alanine Aminotransfer ALT/SGPT 21 U/L (<=34); Albumin, Serum 3.4 g/dL (3.4-4.8); Alkaline Phosphatase 95 U/L (35-104); Anion Gap 15 (5-15); BUN 39 mg/dL (4-19); BUN/Creat Ratio 19.6 RATIO (10-20); Calcium,Total 8.7 mg/dL (7.6-11.0); Carbon Dioxide 24.2 mmol/L (21.0-32.0); Chloride 101 mmol/L (98-108); EST Glomerular Filtration Rate 24 (>60); Estimated Creatinine Clearance 19.43 ml/min (50-250); Globulin 2.7 g/dL (2.2-4.2); Glucose 157 mg/dL (70-99); Potassium 3.3 mmol/L (3.3-5.1); Protein, Total 6.1 g/dL (5.9-8.4); Sodium Level 140 mmol/L (133-145); Total Bilirubin 0.62 mg/dL (0.00-1.30); Troponin T High Sensitivity 70 ng/L (<=14)
[2025-01-07 14:27] LABS: Bacteria 0 SEEN /hpf (None Seen); Mucous, Urine 0 SEEN /hpf (<or=2+); Squamous Epithelial Cells - UA 0 SEEN /hpf (5-10)
[2025-01-07 14:31] LABS: Color, Urine Yellow (Yellow); Glucose, Dipstick 1000 mg/dl (Normal); Ketone-Dipstick Negative (Negative); Leukocyte Esterase-Dipstick 25 /ul (Negative); Nitrite-Dipstick Negative (Negative); Occult Blood-Urine 10 /ul (Negative); Protein-Dipstick 30 mg/dl (Negative); Specific Gravity, Urine 1.015 (1.002-1.030); Urine Bilirubin Dipstick Negative (Negative); Urine Clarity Clear (Clear); Urine Urobilinogen Normal (Normal)
[2025-01-07 14:37] LABS: Red Blood Cells-Urine 0 SEEN /hpf (0-5); White Blood Cells 0-5 SEEN /hpf (0-5)
[2025-01-07] MEDS: Ceftriaxone 1 GM/50 ML BAG IV (15:09)
--- NOTE | 2025-01-07 15:10 | PCM.HP.STD ---
HPI - General General Date of Admission: 01/07/25 Date of Service: 01/07/25 Chief Complaint: Weakness, cough HPI Narrative IRENA EASTON, is a 89-year-old female history of GERD, nonalcoholic liver cirrhosis, CKD, hypertension, diabetes, hypothyroidism, paroxysmal A-fib, gout, COPD who presented to [facility] ED 01/07/2025 with weakness. Son-in-law, who she lives with, got her bed this morning (usually she does not require assistance) and she had wet the bed which is abnormal for her. In the ED patient's not feeling dizzy or lightheaded but just feels generally tired. In the ED patient afebrile, initial heart rate 51 with blood pressure 94/45 and patient 93% on room air with respiration rate of 16. She was noted to have a white blood cell count of 13.3, hemoglobin of 10.8 which is actually up from baseline and a creatinine of 2 which is fairly consistent with previous values. Chest x-ray with left upper lobe airspace opacification compatible with pneumonia. Of note she had a pneumonia 3 weeks ago but she and son-in-law report it was on the right and that completely resolved with oral antibiotics. Additionally chest x-ray with mild cardiomegaly with small left pleural effusion. High-sensitivity troponin of 70 with a repeat still pending. Additionally UA did not appear infectious. Given patient's significant weakness with a pneumonia hospitalist contacted for admission. Patient evaluated with son-in-law at bedside, patient reports she had been roughly in her usual health except this morning she woke up and has been very weak and has been coughing, does have productive cough did have episode with some blood tinge in her sputum, does not note any fevers, does not have shortness of breath at rest but she has not been up and able to ambulate so unable to tell if there is any shortness of breath on ambulation. Denies any chest pain or changes in bowel or bladder aside from episode of incontinence this a.m., no nausea, vomiting, does have a little bit of abdominal discomfort when she coughs that goes away soon as she is not coughing. [facility] Medical History Hyponatremia Hyperglycemia Chronic anemia Diabetes Kidney disease GERD (gastroesophageal reflux disease) Non-smoker Iron deficiency anemia History of GI bleed Non-alcoholic cirrhosis Tobacco use PAF (paroxysmal atrial fibrillation) CKD (chronic kidney disease), stage IV Hiatal hernia PUD (peptic ulcer disease) Chronic anticoagulation Ventral hernia Tremor Macrocytic anemia Gout Asthma Hypothyroidism Obesity Type 2 diabetes mellitus Chronic atrial flutter Essential (primary) hypertension Hyperlipidemia Home Medications ?Medication ?Instructions ?Recorded ?Last Taken ?Type allopurinol 100 mg tablet 300 mg PO DAILY uric acid wet silk hanger 01/30/16 01/09/23 History fluticasone 250 mcg-salmeterol 50 1 puff inhalation BID sob 01/30/16 01/08/23 History mcg/dose blistr powdr for inhalation montelukast 10 mg tablet 10 mg PO DAILY breathing 01/30/16 01/08/23 History nifedipine 60 mg tablet,extended 30 mg PO DAILY blood pressure 01/30/16 01/09/23 History release 24 hr albuterol sulfate 90 mcg/actuation 2 puff inhalation Q4H PRN 04/19/19 Unknown History aerosol inhaler sob/wheezing #18 grams gabapentin 300 mg capsule 300 mg PO TID neuropathy 04/19/19 01/09/23 History rivaroxaban 20 mg tablet 20 mg PO QPM blood thinner #30 tabs 04/19/19 01/08/23 History calcium 600 mg (as 1 tab PO DAILY supplement 08/23/21 Unknown History carbonate)-vitamin D3 20 mcg (800 unit) tablet multivitamin 1 tab PO DAILY supplement 08/23/21 01/09/23 History cyanocobalamin (vitamin B-12) 1 tablet PO/SL DAILY supplement 03/06/22 01/09/23 History furosemide 40 mg tablet 60 mg PO DAILY EDEMA 01/09/23 01/08/23 History simvastatin 40 mg tablet 20 mg PO QHS CHOLESTEROL 01/09/23 01/08/23 History losartan 25 mg tablet 12.5 mg PO DAILY blood pressure 02/02/23 Unknown History sitagliptin phosphate 25 mg tablet 25 mg PO DAILY diabetes 02/02/23 Unknown History ascorbic acid (vitamin C) 500 mg 500 mg PO BID vitamin #60 tabs 09/25/23 Unknown Rx tablet pantoprazole 40 mg tablet,delayed 40 mg PO DAILY gerd #30 tabs 09/25/23 Unknown Rx release potassium chloride 20 mEq 20 meq PO DAILY supplement 03/13/24 Unknown History tablet,extended release insulin degludec 100 unit/mL (3 unit subcut 08/23/24 Unknown History mL) subcutaneous pen (Tresiba FlexTouch U-100 insulin) insulin lispro 100 unit/mL 2 unit subcut QPM diabetes 08/23/24 Unknown History subcutaneous pen insulin glargine 100 unit/mL (3 20 unit (0.2 mL) subcut QHS 08/24/24 Unknown Rx mL) subcutaneous pen (Lantus diabetes #1 mL Solostar U-100 Insulin) levothyroxine 137 mcg tablet 125 mcg PO QDAY thyroid #30 tabs 12/09/24 Unknown History Allergy/AdvReac Type Severity Reaction Status Date / Time propranolol AdvReac nausea Verified 12/09/24 11:03 Family History Mother Heart failure Heart disease Hypertension Father Heart failure Heart disease Hypertension Surgical History Bilateral artificial lens implant (~2019) History of tonsillectomy and adenoidectomy Social History household members: family Smoking Status: Never smoker alcohol intake: never substance use type: does not use caffeine: No ROS ROS Narrative General: Denies fever/chills HENT: Denies headache, denies stuffy nose, denies sore throat EYES: Denies changes in vision Resp: Does have productive cough, she is unsure if she is short of breath with movement as she has not been up moving around given her weakness Cardiac: Denies chest pain GI: Little bit of abdominal discomfort with significant coughing but goes away soon if she is done coughing, denies changes in bowel, denies nausea/vomiting : Denies changes in urination but did have 1 episode of incontinence Extremity: Denies swelling MSK: General weakness Neuro: Denies any numbness/tingling Heme: Denies any bleeding or bruising Skin: Denies rashes Psychiatric: No complaints voiced Vital Signs Vital Signs Vital Signs: 01/07/25 12:52 01/07/25 12:58 01/07/25 13:20 Temperature 98.2 F 98.2 F Temperature Source Oral Oral Pulse Rate 51 L 56 L Respiratory Rate 16 15 Blood Pressure 94/45 L 101/56 L 113/94 H Blood Pressure Mean 61 71 100 Pulse Ox 93 93 Oxygen Delivery Method Room Air Room Air 01/07/25 13:58 01/07/25 14:00 Temperature 98.1 F 98.1 F Temperature Source Oral Oral Pulse Rate 65 66 Respiratory Rate 15 15 Blood Pressure 106/43 L 106/69 Blood Pressure Mean 64 81 Pulse Ox 99 99 Oxygen Delivery Method Room Air Room Air Weight Weight: 76.2 kg Body Mass Index (BMI) 28.8 Physical Exam Narrative General: Alert, oriented HEENT: Atraumatic, normocephalic Eyes: Anicteric, normal conjunctiva, extraocular movements grossly intact Neck: Supple Respiratory: Is diffusely coarse and mid left lung field, very slight increased work of breathing Cardiovascular: Regular rate and rhythm GI: Soft, nontender, nondistended, does have an outpouching of tissue which is chronic Extremities: Trace lower extremity edema Musculoskeletal: Moving all extremities Neuro: No overt focal neurological deficits Skin: No rashes appreciated Psych: Cooperative Results Lab / Micro Data 01/07/25 12:19 01/07/25 12:19 Labs: Laboratory Results - last 24 hr 01/07/25 12:19: WBC 13.3 H, RBC 3.12 L, Hgb 10.8 L, Hct 32.0 L, MCV 102.6 H, MCH 34.6 H, MCHC 33.8, RDW Std Deviation 60.0 H, RDW Coeff of Gloria 15.9 H, Plt Count 241, MPV 11.0, Immature Gran % (Auto) 0.800, Neut % (Auto) 76.2 H, Lymph % (Auto) 15.1 L, [place] % (Auto) 7.4, Eos % (Auto) 0.3, Baso % (Auto) 0.2, Absolute Neuts (auto) 10.1 H, Absolute Lymphs (auto) 2.01, Nucleated RBC % 0, Sodium 140, Potassium 3.3, Chloride 101, Carbon Dioxide 24.2, Anion Gap 15, BUN 39 H, Creatinine 2.00 H, Estim Creat Clear Calc 19.43 L, Est GFR (MDRD) Non-Af 24 L, BUN/Creatinine Ratio 19.6, Glucose 157 H, Calcium 8.7, Total Bilirubin 0.62, AST 24, ALT 21, Alkaline Phosphatase 95, Troponin T High Sens 70 H*, Total Protein 6.1, Albumin 3.4, Globulin 2.7, Albumin/Globulin Ratio 1.3 01/07/25 14:06: Urine Color Yellow, Urine Clarity Clear, Urine pH 5.0, Ur Specific [place] 1.015, Urine Protein 30 H, Urine Glucose (UA) 1000 H, Urine Ketones Negative, Urine Occult Blood 10 H, Urine Nitrite Negative, Urine Bilirubin Negative, Urine Urobilinogen Normal, Ur Leukocyte Esterase 25 H, Urine RBC 0 SEEN, Urine WBC 0-5 SEEN, Ur Squamous Epith Cells 0 SEEN, Urine Bacteria 0 SEEN, Urine Mucus 0 SEEN Micro: Microbiology 01/07/25 13:05 Mucosa - Nasopharyngeal SARS-CoV-2, Influenza & RSV (PCR) - Final Rhythm Strip Rhythm Strip: Sinus Rhythm Rate: 70 Ectopy: None Imaging Radiology Impression Chest X-Ray 01/07/25 13:40 IMPRESSION: 1. Left upper lobe airspace opacification, compatible with pneumonia. 2. Mild cardiomegaly with small left pleural effusion. Reading Location: [facility] Assessment & Plan Assessment/Plan (1) Community acquired pneumonia: PLAN: Plan #Community-acquired pneumonia -Imaging: Shows left-sided pneumonia, patient and son both report that her pneumonia several weeks ago was a right pneumonia and this appears to resolved -DuoNebs and as needed albuterol -Sputum culture, COVID ordered, respiratory panel ordered -Urine antigens -Mucinex, I/S -Rocephin and azithromycin started in the ED, will continue at this time -Given this is patient's second pneumonia this month will consult speech to verify patient not aspirating though this is lower suspicion # Elevated troponin -Patient seems slightly volume depleted with 94/45 on arrival and a heart rate of 51 that improved with IV fluids -Patient does not have any chest pain or other signs or symptoms of ACS to suggest active ongoing cardiac process -Hold patient's losartan and nifedipine -Will monitor on telemetry -Suspect this is secondary to patient's underlying illness -EKG with left bundle branch block but this is not a new bundle branch block # History of nonalcoholic liver disease -Patient seems a little bit volume depleted so Lasix to be held today, hold morning lasix -Daily weights, i's and o's #Type 2 diabetes mellitus -Glucose checks and sliding scale insulin -Awaiting home med rec however suspect will decrease or hold patient's long-acting insulin given glucose is only 157 and want to avoid hypoglycemia, can always reescalate # History of elevated uric acid -Continue home allopurinol # CKD stage IV -Appears to be at baseline -Avoid nephrotoxic agents -Daily BMPs #GERD -Continue PPI # COPD -Continue home inhalers # History of paroxysmal atrial fibrillation -Continue patient's rivaroxaban, hemoglobin actually up from baseline #Hypothyroidism -Continue Synthroid #DVT ppx: Patient already on systemic anticoagulation. Nancy Hutton MD Charges/Coding Visit Charges Inpatient E&M: 23316 Init Hosp L2
[2025-01-07 15:31] LABS: Troponin T High Sens 2 HR 68 ng/L (<=14)
[2025-01-07] MEDS: Azithromycin 500 MG in 0.9% Normal Saline (250mL Bag) 250 ML 255 MG IV (15:39)
[2025-01-07] MEDS: Rivaroxaban 15 MG Tablet PO (16:33)
[2025-01-07 16:46] LABS: Bedside Glucose 116 mg/dL (74-106)
[2025-01-07] MEDS: Budesonide Respules 0.5 MG/2 ML AMPUL.NEB. INHALATION (19:05)
[2025-01-07] MEDS: Albuterol 2.5 MG/3 ML VIAL.NEB. INHALATION (19:05)
[2025-01-07] MEDS: 0.9% Saline Lock 10 ML Syringe IV (21:26)
[2025-01-07] MEDS: Gabapentin 300 MG Capsule PO (21:26)
[2025-01-07] MEDS: Insulin Lispro 100 UNIT/ML INSULN.PEN SC (21:26)
[2025-01-07] MEDS: Atorvastatin Calcium 10 MG Tablet PO (21:26)
[2025-01-07 23:52] LABS: Bedside Glucose 197 mg/dL (74-106)
[2025-01-08] MEDS: Gabapentin 300 MG Capsule PO ×2 (06:51→14:42)
[2025-01-08] MEDS: Levothyroxine 125 MCG Tablet PO (06:51)
[2025-01-08 07:14] LABS: Absolute Lymphocyte Count 2.18 X10^3/uL (0.83-4.51); Absolute Neutrophil Count 10.2 X10^3/uL (2.0-7.7); Basophil# 0.03 X10^3/uL; Basophil% 0.2 % (0-1); Eosinophil# 0.09 X10^3/uL; Eosinophils% 0.7 % (0-5); Hemoglobin 8.7 g/dL (12.0-15.0); Lymphocyte # 2.18 X10^3/ul (0.83-4.51); Lymphocyte % 15.9 % (19-41); Mean Corp Hgb Conc 33.5 g/dL (32-36); Mean Corpuscular Hgb 34.4 pg (27.0-32.0); Mean Corpuscular Volume 102.8 fL (81-99); Monocyte# 1.13 X10^3/uL; Monocyte% 8.2 % (0-10); NRBC Flagged by Analyzer 0 % (0-5); Neutrophil # 10.22 X10^3/uL (2.7-7.7); Neutrophil % 74.5 % (47-70); Platelet Count 191 K/mm3 (150-450); RBC Distribution Width SD 60.4 fl (35.1-43.9); Red Blood Count 2.53 M/mm3 (4.2-5.4); White Blood Count 13.7 K/mm3 (4.4-11.0)
[2025-01-08] MEDS: Albuterol 2.5 MG/3 ML VIAL.NEB. INHALATION ×2 (07:33→13:18)
[2025-01-08] MEDS: Budesonide Respules 0.5 MG/2 ML AMPUL.NEB. INHALATION (07:33)
[2025-01-08 07:35] VITALS: PULSE 64; RESP 16; O2SAT 91
[2025-01-08 07:48] LABS: ALB/GLOB Ratio 1.2 RATIO (0.9-2.4); AST(SGOT) 20 U/L (<=31); Alanine Aminotransfer ALT/SGPT 16 U/L (<=34); Albumin, Serum 2.8 g/dL (3.4-4.8); Alkaline Phosphatase 82 U/L (35-104); Anion Gap 11 (5-15); BUN 38 mg/dL (4-19); BUN/Creat Ratio 20.2 RATIO (10-20); Calcium,Total 7.9 mg/dL (7.6-11.0); Carbon Dioxide 22.4 mmol/L (21.0-32.0); Chloride 101 mmol/L (98-108); EST Glomerular Filtration Rate 25 (>60); Estimated Creatinine Clearance 19.09 ml/min (50-250); Globulin 2.4 g/dL (2.2-4.2); Glucose 113 mg/dL (70-99); Potassium 3.8 mmol/L (3.3-5.1); Protein, Total 5.2 g/dL (5.9-8.4); Sodium Level 135 mmol/L (133-145); Total Bilirubin 0.56 mg/dL (0.00-1.30)
[2025-01-08 08:04] VITALS: BP 134/46; PULSE 68; RESP 18; TEMP 36.8; O2SAT 93
[2025-01-08] MEDS: Allopurinol 300 MG Tablet PO (08:05)
[2025-01-08] MEDS: Montelukast 10 MG Tablet PO (08:06)
[2025-01-08] MEDS: Pantoprazole Sodium 40 MG Tablet PO (08:06)
[2025-01-08] MEDS: Azithromycin 500 MG in 0.9% Normal Saline (250mL Bag) 250 ML 255 MG IV (08:12)
--- NOTE | 2025-01-08 08:46 | PN.HOSP_ITS ---
Reason for Visit Reason for Visit: Diagnoses Pneumonia, unspecified organism (01/07/25) Subjective Subjective Wants to go home. Objective Data Objective Data Vital Signs: Vital Signs Temp Pulse Resp BP Pulse Ox O2 Del Method 36.8 C 68 18 134/46 H 93 Room Air 01/08/25 08:04 01/08/25 08:04 01/08/25 08:04 01/08/25 08:04 01/08/25 08:04 01/08/25 08:04 Oxygen Delivery Method Room Air Weight: 75.977 kg Body Mass Index (BMI) 31.6 Intake & Output: Intake and Output for Last 24 Hours 01/06/25 01/07/25 01/08/25 23:59 23:59 23:59 Intake Total 2465 / 2465 Output Total 0 / 0 Balance 2465 / 2465 Lab / Micro Data 01/08/25 04:45 01/08/25 04:45 Labs: Laboratory Results - last 24 hr 01/07/25 12:19: WBC 13.3 H, RBC 3.12 L, Hgb 10.8 L, Hct 32.0 L, MCV 102.6 H, MCH 34.6 H, MCHC 33.8, RDW Std Deviation 60.0 H, RDW Coeff of Gloria 15.9 H, Plt Count 241, MPV 11.0, Immature Gran % (Auto) 0.800, Neut % (Auto) 76.2 H, Lymph % (Auto) 15.1 L, [place] % (Auto) 7.4, Eos % (Auto) 0.3, Baso % (Auto) 0.2, Absolute Neuts (auto) 10.1 H, Absolute Lymphs (auto) 2.01, Nucleated RBC % 0, Sodium 140, Potassium 3.3, Chloride 101, Carbon Dioxide 24.2, Anion Gap 15, BUN 39 H, C reatinine 2.00 H, Estim Creat Clear Calc 19.43 L, Est GFR (MDRD) Non-Af 24 L, BUN/Creatinine Ratio 19.6, Glucose 157 H, Calcium 8.7, Total Bilirubin 0.62, AST 24, ALT 21, Alkaline Phosphatase 95, Troponin T High Sens 70 H*, Total Protein 6.1, Albumin 3.4, Globulin 2.7, Albumin/Globulin Ratio 1.3 01/07/25 14:06: Urine Color Yellow, Urine Clarity Clear, Urine pH 5.0, Ur Specific [place] 1.015, Urine Protein 30 H, Urine Glucose (UA) 1000 H, Urine Ketones Negative, Urine Occult Blood 10 H, Urine Nitrite Negative, Urine Bilirubin Negative, Urine Urobilinogen Normal, Ur Leukocyte Esterase 25 H, Urine RBC 0 SEEN, Urine WBC 0-5 SEEN, Ur Squamous Epith Cells 0 SEEN, Urine Bacteria 0 SEEN, Urine Mucus 0 SEEN 01/07/25 14:27: Troponin T Hi Sens 2 Hr 68 H* 01/07/25 16:12: POC Glucose 116 H 01/07/25 21:23: POC Glucose 197 H 01/08/25 04:45: WBC 13.7 H, RBC 2.53 L, Hgb 8.7 L, Hct 26.0 L, MCV 102.8 H, MCH 34.4 H, MCHC 33.5, RDW Std Deviation 60.4 H, RDW Coeff of Gloria 16.0 H, Plt Count 191, MPV 11.0, Immature Gran % (Auto) 0.500, Neut % (Auto) 74.5 H, Lymph % (Auto) 15.9 L, [place] % (Auto) 8.2, Eos % (Auto) 0.7, Baso % (Auto) 0.2, Absolute Neuts (auto) 10.2 H, Absolute Lymphs (auto) 2.18, Nucleated RBC % 0, Sodium 135, Potassium 3.8, Chloride 101, Carbon Dioxide 22.4, Anion Gap 11, BUN 38 H, C reatinine 1.90 H, Estim Creat Clear Calc 19.09 L, Est GFR (MDRD) Non-Af 25 L, B UN/Creatinine Ratio 20.2 H, Glucose 113 H, Calcium 7.9, Total Bilirubin 0.56, AST 20, ALT 16, Alkaline Phosphatase 82, Total Protein 5.2 L, Albumin 2.8 L, Globulin 2.4, Albumin/Globulin Ratio 1.2 Micro: Microbiology 01/07/25 13:05 Mucosa - Nasopharyngeal SARS-CoV-2, Influenza & RSV (PCR) - Final Radiography Diagnostic Testing: Radiology Impression Chest X-Ray 01/07/25 13:40 IMPRESSION: 1. Left upper lobe airspace opacification, compatible with pneumonia. 2. Mild cardiomegaly with small left pleural effusion. Reading Location: [facility] Rhythm Strip Rhythm Strip: Sinus Rhythm Rate: 70 Ectopy: None Physical Exam Const alert and no apparent distress Constitutional Narrative: afebrile. Resp normal respiratory effort, no retractions, no use of accessory muscles and clear to auscultation bilaterally Cardio regular rate, regular rhythm, S1 normal heart sound and S2 normal heart sound Assessment & Plan Assessment/Plan (1) Pneumonia: PLAN: suspected pneumococcal CXR shows Left-sided pneumonia. Abx with azithromycin and CTX COVID-19, influenza, RSV negative. Pt appears very and her exam is unremarkable. Pt prefers to go home. I think that is reasonable since she is very stable. Will discharge with course of levofloxacin. PLAN: Plan Chronic conditions: * History of nonalcoholic liver disease-Patient seems a little bit volume depleted so Lasix to be held today, hold morning lasix-Daily weights, i's and o's * Type 2 diabetes mellitus-Glucose checks and sliding scale insulin-Awaiting home med rec however suspect will decrease or hold patient's long-acting insulin given glucose is only 157 and want to avoid hypoglycemia, can always reescalate * History of elevated uric acid-Continue home allopurinol * CKD stage IV-Appears to be at baseline-Avoid nephrotoxic agents-Daily BMPs * GERD-Continue PPI * COPD-Continue home inhalers * History of paroxysmal atrial fibrillation-Continue patient's rivaroxaban, hemoglobin actually up from baseline * Hypothyroidism-Continue Synthroid DVT ppx: not indicated as patient already on systemic anticoagulation. DW patient's son-in-law (pt lives with him and her son), who was comfortable with the plan of her going home.
[2025-01-08] MEDS: Ceftriaxone 2 GM in 0.9% Normal Saline (50mL MB+) 50 ML IV (10:10)
[2025-01-08 10:35] LABS: Bedside Glucose 95 mg/dL (74-106)
[2025-01-08] MEDS: Insulin Lispro 100 UNIT/ML INSULN.PEN SC (11:34)
[2025-01-08] MEDS: Acetaminophen 325 MG Tablet 650 MG PO (11:40)
[2025-01-08 11:55] LABS: Bedside Glucose 395 mg/dL (74-106)
[2025-01-08 13:19] VITALS: PULSE 69; RESP 16
--- NOTE | 2025-01-08 14:16 | PCM.DC.SUM ---
Providers Date of Admission: 01/07/25 Primary Care Physician: Dr. Tee Álvarez MD Reason For Visit: dizziness Diagnosis Discharge Diagnosis (1) Pneumonia: Status: Resolved Code(s): J18.9 - Pneumonia, unspecified organism Plan: suspected pneumococcal CXR shows Left-sided pneumonia. Abx with azithromycin and CTX COVID-19, influenza, RSV negative. Pt appears very and her exam is unremarkable. Pt prefers to go home. I think that is reasonable since she is very stable. Will discharge with course of levofloxacin. Plan Chronic conditions: History of nonalcoholic liver disease-Patient seems a little bit volume depleted so Lasix to be held today, hold morning lasix-Daily weights, i's and o's Type 2 diabetes mellitus-Glucose checks and sliding scale insulin-Awaiting home med rec however suspect will decrease or hold patient's long-acting insulin given glucose is only 157 and want to avoid hypoglycemia, can always reescalate History of elevated uric acid-Continue home allopurinol CKD stage IV-Appears to be at baseline-Avoid nephrotoxic agents-Daily BMPs GERD-Continue PPI COPD-Continue home inhalers History of paroxysmal atrial fibrillation-Continue patient's rivaroxaban, hemoglobin actually up from baseline Hypothyroidism-Continue Synthroid DVT ppx: not indicated as patient already on systemic anticoagulation. DW patient's son-in-law (pt lives with him and her son), who was comfortable with the plan of her going home. 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 01/30/16 fluticasone 250 mcg-salmeterol 50 mcg/dose blistr powdr for inhalation 1 puff inhalation BID sob 01/30/16 montelukast 10 mg tablet 10 mg PO DAILY breathing 01/30/16 albuterol sulfate 90 mcg/actuation aerosol inhaler 2 puff inhalation Q4H PRN sob/wheezing #18 grams 04/19/19 gabapentin 300 mg capsule 300 mg PO TID neuropathy 04/19/19 calcium 600 mg (as carbonate)-vitamin D3 20 mcg (800 unit) tablet 1 tab PO DAILY supplement 08/23/21 multivitamin 1 tab PO DAILY supplement 08/23/21 cyanocobalamin (vitamin B-12) 1 tablet PO/SL DAILY supplement 03/06/22 furosemide 40 mg tablet 60 mg PO DAILY EDEMA 01/09/23 losartan 25 mg tablet 12.5 mg PO DAILY blood pressure 02/02/23 sitagliptin phosphate 25 mg tablet 25 mg PO DAILY diabetes 02/02/23 pantoprazole 40 mg tablet,delayed release 40 mg PO DAILY gerd #30 tabs 09/25/23 potassium chloride 20 mEq tablet,extended release 20 meq PO DAILY supplement 03/13/24 insulin lispro 100 unit/mL subcutaneous pen 5 unit subcut QPM diabetes 08/23/24 insulin glargine 100 unit/mL (3 mL) subcutaneous pen (Lantus Solostar U-100 Insulin) 20 unit (0.2 mL) subcut QHS diabetes #1 mL 08/24/24 levothyroxine 137 mcg tablet 125 mcg PO QDAY thyroid #30 tabs 12/09/24 rivaroxaban 15 mg tablet (Xarelto) 15 mg PO DAILY blood thinner 01/07/25 simvastatin 20 mg tablet 20 mg PO QHS cholesterol 01/07/25 guaifenesin 600 mg tablet, extended release 12 hr (Mucinex) 600 mg PO BID #10 tabs 01/08/25 levofloxacin 250 mg tablet 250 mg PO .q48 #4 tabs 01/08/25 Hospital Course Operations None Procedures None Summary of Care Provided Minutes Spent on Discharge: 32 Hospital Course: Patient presents with weakness and cough. Patient was found to have a left-sided pneumonia. Patient was started on Rocephin and azithromycin. Patient was seen by me on the and the patient was doing very well and wanting to go home. Exam patel she is pretty unremarkable and did not hear any crackles. Patient is on room air and in no respiratory distress. So given the findings on her x-ray patient appears very well. Patient received 2 days worth of antibiotics and will continue with antibiotics with levofloxacin. Case discussed with the patient's son-in-law whom the patient lives with as well as the patient's son. And the son-in-law had no concerns about the patient going home. Weight / BMI Weight Weight: 75.977 kg Body Mass Index (BMI) 31.6 ABG / Lab / Microbiology Data 01/08/25 04:45 01/08/25 04:45 Laboratory: Laboratory Results - last 24 hr 01/07/25 14:06: Urine Color Yellow, Urine Clarity Clear, Urine pH 5.0, Ur Specific [place] 1.015, Urine Protein 30 H, Urine Glucose (UA) 1000 H, Urine Ketones Negative, Urine Occult Blood 10 H, Urine Nitrite Negative, Urine Bilirubin Negative, Urine Urobilinogen Normal, Ur Leukocyte Esterase 25 H, Urine RBC 0 SEEN, Urine WBC 0-5 SEEN, Ur Squamous Epith Cells 0 SEEN, Urine Bacteria 0 SEEN, Urine Mucus 0 SEEN 01/07/25 14:27: Troponin T Hi Sens 2 Hr 68 H* 01/07/25 16:12: POC Glucose 116 H 01/07/25 21:23: POC Glucose 197 H 01/08/25 04:45: WBC 13.7 H, RBC 2.53 L, Hgb 8.7 L, Hct 26.0 L, MCV 102.8 H, MCH 34.4 H, MCHC 33.5, RDW Std Deviation 60.4 H, RDW Coeff of [place] 16.0 H, Plt Count 191, MPV 11.0, Immature Gran % (Auto) 0.500, Neut % (Auto) 74.5 H, Lymph % (Auto) 15.9 L, [place] % (Auto) 8.2, Eos % (Auto) 0.7, Baso % (Auto) 0.2, Absolute Neuts (auto) 10.2 H, Absolute Lymphs (auto) 2.18, Nucleated RBC % 0, Sodium 135, Potassium 3.8, Chloride 101, Carbon Dioxide 22.4, Anion Gap 11, BUN 38 H, Creatinine 1.90 H, Estim Creat Clear Calc 19.09 L, Est GFR (MDRD) Non-Af 25 L, BUN/Creatinine Ratio 20.2 H, Glucose 113 H, Calcium 7.9, Total Bilirubin 0.56, AST 20, ALT 16, Alkaline Phosphatase 82, Total Protein 5.2 L, Albumin 2.8 L, Globulin 2.4, Albumin/Globulin Ratio 1.2 01/08/25 06:51: POC Glucose 95 01/08/25 11:29: POC Glucose 395 H Microbiology: Microbiology 01/07/25 13:05 Mucosa - Nasopharyngeal SARS-CoV-2, Influenza & RSV (PCR) - Final D/C Instructions Discharge Diet: No restrictions DC O2, CPAP, BIPAP Needs Home O2 Discharge instructions: No Meaningful Use Info Meaningful Use Meaningful Use Diagnoses (Choose all that apply): None applicable Ischemic Stroke Statin Dosing Therapy Reference: STATIN DOSE THERAPY REFERENCE: * Patients > 75 years receive moderate or high dose statin therapy. * Patients 75 years or YOUNGER should receive HIGH intensity statin dose unless contraindicated. You will be required to document reason for non-treatment if statin daily dose does not meet guidelines. HIGH DOSE STATIN THERAPY DAILY Atorvastatin > than or = to 40 mg Rosuvastatin > than or = to 20 mg Amlodipine + Atorvastatin > than or = to 2.5/40 mg Ezetimibe + Simvastatin 10/80 mg Simvastatin 80mg Discharge Plan Admission Admit Date/Time: 01/07/25 15:05 Primary Reason for Your Visit: Pneumonia Attending Provider: Yamil Sousa Primary Care Provider: Tee Álvarez Consulting Providers: Nancy Hutton Discharge Orders/Prescriptions Prescriptions: New levofloxacin 250 mg tablet 250 mg PO .q48 Qty: 4 0RF Rx Instructions: two tabs (500mg) on 01/09, then 1 tab (250mg) on 01/11 and 01/13 guaifenesin [Mucinex] 600 mg tablet extended release 12hr 600 mg PO BID Qty: 10 0RF Continued albuterol sulfate 90 mcg/actuation HFA aerosol inhaler 2 puff INHALATION Q4H PRN (Reason: sob/wheezing) Qty: 18 levothyroxine 137 mcg tablet 125 mcg PO QDAY Qty: 30 Patient Comments: per pt takes 1 tab daily Thu, , Thursday, , Thursday, & Thursday 2 tabs on Thursday multivitamin Tablet 1 tab PO DAILY calcium carbonate-vitamin D3 600 mg(1,500mg) -800 unit tablet 1 tab PO DAILY pantoprazole 40 mg tablet,delayed release (DR/EC) 40 mg PO DAILY Qty: 30 2RF fluticasone propion-salmeterol 1 PUFF inhaler 1 puff inhalation BID allopurinol 100 MG tablet 300 mg PO DAILY montelukast 10 MG tablet 10 mg PO DAILY gabapentin 300 mg capsule 300 mg PO TID cyanocobalamin (vitamin B-12) 1 tablet PO/SL DAILY furosemide 40 mg tablet 60 mg PO DAILY sitagliptin phosphate 25 mg Tablet 25 mg PO DAILY losartan 25 mg tablet 12.5 mg PO DAILY potassium chloride 20 mEq tablet extended release 20 meq PO DAILY insulin lispro 100 unit/mL insulin pen 5 unit subcut QPM insulin glargine [Lantus Solostar U-100 Insulin] 100 unit/mL (3 mL) insulin pen 20 unit subcut QHS Qty: 1 0RF simvastatin 20 mg tablet 20 mg PO QHS Xarelto 15 mg tablet 15 mg PO DAILY Referrals / Follow Up: Tee Álvarez MD [Primary Care Provider] - Within 2 Weeks Disposition Disposition (needs filled in before D/C Order can be placed): Home, Self Care Charges/Coding Visit Charges Inpatient E&M: 37286 Disch Hosp >30min
[2025-01-08 14:42] VITALS: BP 118/35; PULSE 73; RESP 18; TEMP 36.6; O2SAT 98
== END 2025-01-08 14:25 | disposition home or self-care (01) ==
LOC: ED 15:00 → PCU 15:35
PROVIDERS: Nurse Practitioner; Admitting Provider Internal Medicine; Emergency Provider Emergency Medicine; PCP Family Medicine
DX: J18.9 Pneumonia, unspecified organism (principal); N18.4 Chronic kidney disease, stage 4 (severe); K74.60 Unspecified cirrhosis of liver; J44.0 Chronic obstructive pulmonary disease with (acute) lower respiratory infection; I48.0 Paroxysmal atrial fibrillation; Z79.4 Long term (current) use of insulin; E11.22 Type 2 diabetes mellitus with diabetic chronic kidney disease; R79.89 Other specified abnormal findings of blood chemistry; E86.9 Volume depletion, unspecified; I12.9 Hypertensive chronic kidney disease with stage 1 through stage 4 chronic kidney disease, or unspecified chronic kidney disease; R04.2 Hemoptysis; E78.5 Hyperlipidemia, unspecified; K43.9 Ventral hernia without obstruction or gangrene; E03.9 Hypothyroidism, unspecified; R42 Dizziness and giddiness; R53.1 Weakness; K21.9 Gastro-esophageal reflux disease without esophagitis; Z11.52 Encounter for screening for COVID-19; Z79.890 Hormone replacement therapy; Z79.84 Long term (current) use of oral hypoglycemic drugs; Z79.51 Long term (current) use of inhaled steroids
CPT/HCPCS: 36415; 71046; 80053; 81001; 82962; 84484; 85025; 87449; 87631; 92610; 93005; 94640; 94668; 96361; 96365; 96366; 96367; 97162; 97166; 99221; 99252; 99285; P9612; A4216; G0378; G0463; J0696

== ENCOUNTER → 2025-01-13 | Outpatient (CLI) | payer MEDICARE, MEDICAID, SELFPAY ==
[2025-01-13 11:51] LABS: Absolute Lymphocyte Count 1.37 X10^3/uL (0.83-4.51); Absolute Neutrophil Count 3.8 X10^3/uL (2.0-7.7); Basophil# 0.02 X10^3/uL; Basophil% 0.3 % (0-1); Eosinophil# 0.15 X10^3/uL; Eosinophils% 2.5 % (0-5); Hematocrit 28.2 % (37-47); Hemoglobin 9.1 g/dL (12.0-15.0); Lymphocyte # 1.37 X10^3/ul (0.83-4.51); Lymphocyte % 23.2 % (19-41); Mean Corp Hgb Conc 32.3 g/dL (32-36); Mean Corpuscular Hgb 34.1 pg (27.0-32.0); Mean Corpuscular Volume 105.6 fL (81-99); Mean Platelet Vol. 10.7 fl (6.2-12.0); Monocyte# 0.52 X10^3/uL; Monocyte% 8.8 % (0-10); NRBC Flagged by Analyzer 0 % (0-5); Neutrophil # 3.81 X10^3/uL (2.7-7.7); Neutrophil % 64.7 % (47-70); Platelet Count 202 K/mm3 (150-450); RBC Distribution Width CV 16.2 % (11.6-14.6); RBC Distribution Width SD 61.3 fl (35.1-43.9); Red Blood Count 2.67 M/mm3 (4.2-5.4); White Blood Count 5.9 K/mm3 (4.4-11.0)
[2025-01-13 11:56] LABS: International Normalized Ratio 1.8
[2025-01-13 12:27] LABS: Ammonia 13.8 umol/L (11-51)
[2025-01-13 12:48] LABS: Hemoglobin A1c 9.9 % (<=5.6)
[2025-01-13 13:27] LABS: AST(SGOT) 20 U/L (<=31); Alanine Aminotransfer ALT/SGPT 19 U/L (<=34); Albumin, Serum 3.1 g/dL (3.4-4.8); Alkaline Phosphatase 82 U/L (35-104); Anion Gap 11 (5-15); BUN 25 mg/dL (4-19); BUN/Creat Ratio 13.5 RATIO (10-20); Calcium,Total 8.7 mg/dL (7.6-11.0); Carbon Dioxide 24.4 mmol/L (21.0-32.0); Chloride 102 mmol/L (98-108); Creatinine, Serum 1.87 mg/dL (0.70-1.20); EST Glomerular Filtration Rate 26 (>60); Globulin 3.3 g/dL (2.2-4.2); Glucose 237 mg/dL (70-99); Potassium 4.5 mmol/L (3.3-5.1); Protein, Total 6.4 g/dL (5.9-8.4); Sodium Level 138 mmol/L (133-145); Total Bilirubin 0.57 mg/dL (0.00-1.30)
[2025-01-13 14:01] LABS: LDH 243 U/L (84-246)
[2025-01-14 08:09] LABS: AFP, Tumor Marker 2.6 ng/mL (0.0-8.7)
[2025-01-16 11:08] LABS: ANTINUCLEAR ANTIBODIES DIRECT Negative (Negative)
== END | disposition home or self-care (01) ==
LOC: LAB 11:04
PROVIDERS: PCP Family Medicine
DX: E11.9 Type 2 diabetes mellitus without complications (principal); K74.60 Unspecified cirrhosis of liver
CPT/HCPCS: 36415; 80053; 82105; 82140; 83036; 83615; 85025; 85610; 86038; 86140

== ENCOUNTER → 2025-01-25 | Outpatient (CLI) | payer MEDICARE, MEDICAID, SELFPAY ==
--- NOTE | 2025-01-25 09:49 | US_ITS ---
PROCEDURE: ABD LIMITED W/ ELASTOGRAPHY (USABDLELPARO), 01/25/2025 REASON FOR EXAM: CIRRHOSIS COMPARISON: None TECHNIQUE: Grayscale and color Doppler imaging of the right upper quadrant was performed. [place] S-shear wave elastography was performed for non-invasive assessment of liver tissue stiffness. FINDINGS: Exam reportedly limited due to patient condition. Liver: Coarsened echotexture. 14.9 cm in length. Gallbladder: No visualized stones, sludge, wall thickening or pericholecystic fluid. Reportedly, sonographic Lima's was negative. Biliary tree: Unremarkable. CBD measures 5 mm. Pancreas: Partially obscured by shadowing bowel gas. Cystic lesion in the neck/head measures 10 x 12 x 13 mm. No visualized ductal dilatation. Right kidney: Unremarkable. 9.2 cm in length. Other: No visualized free fluid. Hepatic elastography: Number of measurements: 15 measurements across 3 regions, 5 measurements per region. US probe: CA1-7A. EQI median: 12.3-14.6 kPa, average 13.8. EQI median velocity: 2.0-2.18 m/s, average 2.11. IQR/Med: 18.7-27.7% (kPa) and 9.3-14.6% (m/s). If the IQR/Med is IQR/median >30% (for kPa) or >15% in m/s, the variance in the measurements is a large and the accuracy of the measurement may be in question. US/ABD Limited w/ Elastography IMPRESSION: 1. Coarsened hepatic echotexture compatible with the provided history of cirrho sis. No visualized focal lesion or visualized ascites. 2. Liver stiffness is 13.8 kPa. Per the below 2020 SRU criteria, this rules in compensated advanced chronic liver disease. 3. 13 mm pancreatic cystic lesion, probable cystic neoplasm such as IPMN, sofia cterized by ultrasound incompletely. Recommend multiphase pancreatic protocol MRI abdomen with and without contrast and with [employer]. No visualized ductal dilatation. Comparison with any available outside imaging may also be helpful. 4. Additional description as above. Assessment is per the Update to the SRU Liver Elastography Consensus Statement (2020) Note that the above assessment of liver fibrosis is vendor-neutral and intended for use in fibrosis related to viral etiologies and non-alcoholic fatty-liver disease (NAFLD); in causes other than viral hepat itis and NAFLD, the cutoff values are currently not well established. In some patients with NAFLD, the cutoff values for cACLD may be lower (7-9 kPa). Note also that in the setting of elevated LFTs, nonfasting or vascular congestion, the stage of lifer fibrosis may be overestimated. Previous SRU reference values: <1.37 m/s (5.7kPa): No to mild fibrosis 1.37 m/s - 2.2 m/s: Moderate to severe fibrosis >2.2 m/s (15kPa): Significant fibrosis / cirrhosis Reading Location: [id number]
== END | disposition home or self-care (01) ==
PROVIDERS: PCP Family Medicine
DX: K74.60 Unspecified cirrhosis of liver (principal)
CPT/HCPCS: 76705; 76981